=== PATIENT | female | born 1940 | race Caucasian/White ===

== ENCOUNTER 2017-05-13 17:27 | Inpatient (IN) ==
[2017-05-13] MEDS ORDERED: 0.9 % Sodium Chloride 1,000 ML IVC ONE ×2 (17:30→19:32)
--- NOTE | 2017-05-13 17:40 | Emergency Department Note ---
Disposition Clinical Impression: Poor appetite, Abnormal EKG, JESSICA (acute kidney injury) Disposition: Still a Patient Condition: Fair Referrals: Vanita Chavez CNP [Primary Care Provider] - Forms: ED Satisfaction Letter, Work/School Release Time of Disposition: 18:48 General Adult HPI - General Chief complaint: ED General Medical Stated complaint: Doesnt want to do anything Time Seen by Provider: 05/13/17 17:30 Source: patient, EMS Mode of arrival: EMS Limitations: altered mental status Nursing Notes Reviewed: Yes Vital Signs Reviewed: Yes - History of Present Illness HPI Narrative: 76-year-old female presents to the ER via EMS with a chief complaint of no appetite. EMS reports the family said that she has not wanted to eat for roughly 1 week. At the time of arrival no illicit bedside. The patient voices no complaints was that she does not want to eat. She denies any abdominal pain nausea or vomiting. No chest pain or shortness of breath. Says that she simply just does not want to eat. She is alert and oriented 2. No other complaints. Pt Subjective Complaint: No appetite Onset (ago): day(s) Pain Scale: 0 Improves with: nothing Worsens with: nothing Associated symptoms: Reports: denies other symptoms Treatments Prior to Arrival: none - Related Data Home Medications Medication Instructions Recorded Confirmed Allopurinol [Zyloprim] 100 mg PO DAILY 11/18/14 11/06/15 Aspirin Enteric Coated [Aspirin EC] 81 mg PO DAILY 11/18/14 11/06/15 Furosemide [Lasix] 40 mg PO BID 11/18/14 11/06/15 Lovastatin 80 mg PO DAILY #0 11/18/14 11/06/15 Albuterol Sulfate [Proair 2 puff IH Q4H PRN 07/02/15 11/06/15 Respiclick] Carbidopa/Levodopa [Carbidopa-Levo 1 tab PO BID 08/29/15 11/06/15 ER 50-200 Tab] Dronabinol [Marinol] 2.5 mg PO BID 08/29/15 11/06/15 Isosorbide MONOnitrate (24 HR) 30 mg PO DAILY 11/06/15 11/06/15 [Imdur] Metoprolol XL (24 HR) Succ [Toprol 25 mg PO DAILY 08/04/16 08/04/16 Xl] Mirtazapine 7.5 mg PO HS 11/06/15 11/06/15 Quinapril HCl [Accupril] 5 mg PO DAILY 11/06/15 11/06/15 Previous Rx's Medication Instructions Recorded Calcium Carbonate/Vitamin D3 2 tab PO DAILY #60 tab.chew 07/18/15 [Caltrate 600 + D Soft Chew Tab] Ergocalciferol (VITAMIN D2) 1 cap PO QWEEK #12 capsule 07/18/15 [Vitamin D2 (50,000 UNIT)] Apixaban [Eliquis] 2.5 mg PO BID #30 tablet 11/09/15 levoFLOXacin [Levaquin] 500 mg PO DAILY 2 Days tablet 11/09/15 Anastrozole [Arimidex] 1 mg PO DAILY #90 tablet 07/29/16 Allergies Allergy/AdvReac Type Severity Reaction Status Date / Time No Known Allergies Allergy Verified 07/02/15 10:43 All systems ED: reviewed and negative except as stated. Cardiovascular: Denies: chest pain Respiratory: Denies: dyspnea Gastrointestinal: Denies: abdominal pain, nausea, vomiting, diarrhea Past Medical History - Past Medical History Attestation: Yes The following information was validated with the patient. Source: old records reviewed Medical history: Reports: CHF, COPD, coronary artery disease, CVA, dementia, hyperlipidemia, hypertension, myocardial infarction, renal disease Surgical history: Reports: pacemaker/AICD Psychiatric history: Reports: no psych history - Social History Smoking Status: Former smoker Smokeless Tobacco Status: No Alcohol use: Reports: none Drug use: Reports: none Physical Exam - General Limitations: no limitations General appearance: alert, in no apparent distress - Head Head exam: atraumatic, normocephalic - Eye Eye exam: Present: normal appearance - ENT ENT exam: normal exam - Neck Neck exam: Present: normal inspection, full ROM - Chest Chest inspection: Present: normal inspection, symmetric chest wall rise - Respiratory Respiratory exam: Present: normal lung sounds bilaterally - Cardiovascular Cardiovascular exam: Present: regular rate, normal rhythm, normal heart sounds - Abdominal Exam Abdominal exam: Present: soft, Non-Tender. Absent: tenderness, guarding, rigidity - Extremities Exam Extremities exam: Present: normal inspection, full ROM - Expanded Upper Extremity Exam Shoulder exam: Present: normal inspection, full ROM Arm exam: Present: normal inspection, full ROM Elbow exam: Present: normal inspection, full ROM Forearm/Wrist exam: Present: normal inspection, full ROM Hand exam: Present: normal inspection, full ROM - Expanded Lower Extremity Exam Hip/Pelvis exam: Present: normal inspection, full ROM Upper leg exam: Present: normal inspection, full ROM Knee exam: Present: normal inspection, full ROM Lower leg exam: Present: normal inspection, full ROM Ankle exam: Present: normal inspection, full ROM Foot/toe exam: Present: normal inspection, full ROM - Skin Skin exam: Present: warm, dry Course Course Narrative: Patient seen and examined. Voices no complaints this time. We will do a CT of the abdomen and pelvis as well as labs and urinalysis. - Reevaluation(s) Reevaluation #1: Discussed results of imaging and labs with the patient's family present. The actual report that she has had difficulty with appetite for 2 months and was on medications previously to try to stimulate her appetite. States it is worsened over the last week. She has not complained of any chest or abdominal pain to them. Vital Signs Temperature 97.9 F 05/13/17 17:30 Pulse Rate 118 05/13/17 17:30 Respiratory Rate 18 05/13/17 17:30 Blood Pressure 127/80 05/13/17 17:30 O2 Sat by Pulse Oximetry 95 05/13/17 17:30 Temperature 97.9 F 05/13/17 17:30 Pulse Rate 78 05/13/17 17:42 Respiratory Rate 20 05/13/17 17:42 Blood Pressure 103/57 05/13/17 17:42 O2 Sat by Pulse Oximetry 98 05/13/17 17:42 Oxygen Delivery Oxygen Delivery Room Air Medical Decision Making - [facility] Narrative Medical decision making narrative: 76-year-old female presents to the ER due to poor appetite for 2 months with worsening over the last week. She does appear dry on exam. Family at bedside reports she has been on appetite stimulant without any help. It worsened over the last week. She has voiced no chest or abdominal pain to them. No nausea vomiting or diarrhea at home. Noted to have an abnormal CT with gallbladder wall thickening and distention. Right upper quadrant ultrasound ordered. LFTs and bilirubin are within normal limits. Her EKG shows changes with inverted T waves with a initial negative troponin. Patient denies any chest pain at this time. She is signed out to my 15 pending final labs and imaging. - Lab Data Lab results reviewed: Yes I reviewed the patient's lab results. Result diagrams: 05/13/17 17:42 05/13/17 17:42 Lab Results 05/13/17 05/13/17 Range/Units 17:42 17:42 WBC 12.5 H (4.3-11.1) K/mcL RBC 4.59 (3.82-4.97) M/mcL Hgb 12.5 (11.5-15.4) g/dL Hct 41.4 (35.3-44.9) % MCV 90.2 (83.0-100.0) fL MCH 27.2 L (28.0-33.3) pg MCHC 30.2 L (31.6-35.5) g/dL RDW 17.3 H (11.5-14.5) % Plt Count 244 (140-400) K/mcL MPV 11.1 (9.4-12.4) fL Immature Gran % 0.6 (0-4) % Seg Neutrophils % 82.8 % Lymphocytes % 8.3 % Monocytes % 7.9 % Eosinophils % 0.1 % Basophils % 0.3 % Neutrophils # 10.3 H (1.6-8.9) K/mcL Lymphocytes # 1.0 (0.6-4.6) K/mcL Monocytes # 1.0 (0.0-1.3) K/mcL Eosinophils # 0.0 (0.0-0.6) K/mcL Basophils # 0.0 (0.0-0.2) K/mcL Sodium 131 L (136-145) mEq/L Potassium 3.8 (3.5-5.1) mEq/L Chloride 89 L (98-107) mEq/L Carbon Dioxide 29 (23-29) mEq/L BUN 70 H (8-23) mg/dL Creatinine 2.77 H (0.60-1.20) mg/dL Est GFR ( Amer) 20 L (> 60) Est GFR (Non-Af Amer) 17 L (> 60) BUN/Creatinine Ratio 25 (6-26) Glucose 111 H (70-105) mg/dL Calculated Osmolality 293 (280-300) Calcium 10.5 H (8.6-10.3) mg/dL Total Bilirubin 0.6 (0.3-1.0) mg/dL Direct Bilirubin 0.3 H (0.0-0.2) mg/dL Indirect Bilirubin 0.3 (0.0-1.2) mg/dL AST 27 (13-39) Units/L ALT 10 (7-52) Units/L Alkaline Phosphatase 148 H (34-104) Units/L Serum Total Protein 7.4 (6.4-8.9) g/dL Albumin 3.6 (3.5-5.7) g/dL Globulin 3.8 H (2.4-3.5) g/dL Albumin/Globulin Ratio 0.9 L (1.1-2.2) Lipase 35 (11-82) Units/L - Radiology Data Radiology results reviewed: Yes I reviewed the patient's radiology results. Abdomen/Pelvis CT 05/13/17 17:31 IMPRESSION: Distended gallbladder with cholelithiasis and gallbladder wall thickening. This can be seen with acute cholecystitis in the proper clinical setting. Severe atherosclerotic disease. No acute bowel abnormality. Normal appendix. D/ / Jose Tobar MD / Jose Tobar MD Interpreting Provider: Jose Tobar MD Chest X-Ray 05/13/17 17:31 IMPRESSION: Mild bibasilar disease, likely atelectasis. Pneumonia is not excluded. D/ / Venkatesh Alas MD / Venkatesh Alas MD Interpreting Provider: Venkatesh Alas MD - EKG Data EKG #1 EKG attestation: Yes I reviewed and interpreted this EKG. EKG results narrative: EKG demonstrates sinus rhythm with right bundle branch block with a rate of 86 bpm. Left axis deviation. Prolonged QRS duration of 131. Noted to have T- wave inversions in leads V3 to V6. These appear new from prior EKG. No gross ST elevations. Slight depression in leads V3 through V5. Changes from previous EKG on 11/06/15. Attestation Statement - Attestation Attestation: I, Bassam Varela DO, examined this patient [id number] and my medical decision-making was reviewed with Dr. Sb Long, Resident Physician. I agree with the documented findings, disposition and treatment plan as described except to the extent set forth below. Please see my progress notes for details. 76-year-old female presents to the emergency room from home for evaluation of confusion. Family is concerned about possible urinary tract infection. Patient has had these in the past. Patient denies any recent falls or injuries. She is pleasantly demented secondary to previous stroke does have stable right-sided deficit. EMS transport was uneventful with no other abnormalities. Vital signs were stable throughout the entire transportation. On presentation and patient does not show any acute signs neurologic deficit. Her lungs are clear heart is regular abdomen is soft she has no point tenderness guarding or rigidity. Patient denies any pain or other symptoms on exam. She does not feel like anything is wrong with her at this time. Patient does not show any acute signs of pitting edema or swelling. No other acute findings noted initially. CT imaging of the abdomen chest x-ray EKG labs looking for urinary tract infection and cardiac related illness will be completed this point. Disposition be determined. Family will be contacted on evaluation. Patient will have urinalysis collected as well. See detailed documentation of the physical exam, medical intervention, medical decision- making and disposition and the resident physician's note. No other critical care department this patient's treatment course 1825 Patient found to have elevated white blood cell count as well as acute kidney insufficiency. Hydration will be given. CT imaging of the abdomen is concerning for acute cholecystitis secondary to cholelithiasis. There is a nonobstructed pathology based on laboratory workup with ultrasound of the right upper quadrant will be completed. EKG was reviewed from earlier in there are new ischemic changes aside depressions that are worse than previous EKG. Patient is denying chest pain and troponin was negative. Ultrasound of the complaint of the right upper quadrant. Patient will be signed out to the nighttime physician and most likely require admission to the hospital for fluid hydration and evaluation. See detailed documentation of the signout as well as recommendations.
[2017-05-13 17:54] LABS: Basophils % 0.3 %; Eosinophils % 0.1 %; Hematocrit 41.4 % (35.3-44.9); Hemoglobin 12.5 g/dL (11.5-15.4); Immature Granulocytes % 0.6 % (0-4); Lymphocytes % 8.3 %; Mean Corpuscular HGB Conc 30.2 g/dL (31.6-35.5); Mean Corpuscular Hemoglobin 27.2 pg (28.0-33.3); Mean Corpuscular Volume 90.2 fL (83.0-100.0); Mean Platelet Volume 11.1 fL (9.4-12.4); Monocytes % 7.9 %; Neutrophils # 10.3 K/mcL (1.6-8.9); Platelet Count 244 K/mcL (140-400); Red Blood Count 4.59 M/mcL (3.82-4.97); Red Cell Distribution Width 17.3 % (11.5-14.5); Segmented Neutrophils % 82.8 %
[2017-05-13 18:11] LABS: Albumin 3.6 g/dL (3.5-5.7); Albumin/Globulin Ratio 0.9 (1.1-2.2); Bilirubin,Direct 0.3 mg/dL (0.0-0.2); Bilirubin,Indirect 0.3 mg/dL (0.0-1.2); Bilirubin,Total 0.6 mg/dL (0.3-1.0); Calcium 10.5 mg/dL (8.6-10.3); Globulin 3.8 g/dL (2.4-3.5); Potassium 3.8 mEq/L (3.5-5.1); Total Protein 7.4 g/dL (6.4-8.9)
[2017-05-13 18:53] LABS: Bilirubin,Urine Small (Negative); Blood,Urine Small (Negative); Clarity,Urine Cloudy (Clear); Color,Urine Yellow (Yellow); Glucose,Urine (UA) Normal (Normal); Ketones,Urine Negative (Negative); Leukocyte Esterase,Urine Large (Negative); Nitrite,Urine Negative (Negative); Protein,Urine Trace mg/dL (Neg-Trace); Specific Gravity,Urine 1.016 (1.010-1.025); Urobilinogen,Urine Normal (Normal)
[2017-05-13 18:55] LABS: Bacteria,Urine Few per hpf (None-Few); Hyaline Casts,Urine None Seen per lpf (None-Few); Squamous Epithelial Cell,Urine Many per lpf (None-Few); WBC,Urine 50-100 per hpf (0-3)
[2017-05-13 19:09] LABS: RBC,Urine 0-3 per hpf (0-3)
[2017-05-13 19:10] LABS: Calcium Oxalate Crystals,Urine Present; Yeast,Urine Few per hpf (None Seen)
--- NOTE | 2017-05-13 19:10 | Emergency Department Note ---
Disposition Clinical Impression: Poor appetite, Abnormal EKG, JESSICA (acute kidney injury), Thickening of wall of gallbladder UTI (urinary tract infection) Qualifiers: Urinary tract infection type: site unspecified Hematuria presence: without hematuria Qualified Code(s): N39.0 - Urinary tract infection, site not specified Disposition: Admitted As Inpatient Condition: Fair Referrals: Vanita Chavez, INJECTION MOLDING OPERATOR [Primary Care Provider] - Forms: ED Satisfaction Letter, Work/School Release Time of Disposition: 20:08 General Adult HPI - General Chief complaint: ED General Medical Stated complaint: Doesnt want to do anything Time Seen by Provider: 05/13/17 17:30 Source: patient, EMS Mode of arrival: EMS Limitations: no limitations Nursing Notes Reviewed: Yes Vital Signs Reviewed: Yes - History of Present Illness Pain Scale: 0 Improves with: nothing Worsens with: nothing Associated symptoms: Reports: denies other symptoms Treatments Prior to Arrival: none - Related Data Home Medications Medication Instructions Recorded Confirmed Allopurinol [Zyloprim] 100 mg PO DAILY 11/18/14 11/06/15 Aspirin Enteric Coated [Aspirin EC] 81 mg PO DAILY 11/18/14 11/06/15 Furosemide [Lasix] 40 mg PO BID 11/18/14 11/06/15 Lovastatin 80 mg PO DAILY #0 11/18/14 11/06/15 Albuterol Sulfate [Proair 2 puff IH Q4H PRN 07/02/15 11/06/15 Respiclick] Carbidopa/Levodopa [Carbidopa-Levo 1 tab PO BID 08/29/15 11/06/15 ER 50-200 Tab] Dronabinol [Marinol] 2.5 mg PO BID 08/29/15 11/06/15 Isosorbide MONOnitrate (24 HR) 30 mg PO DAILY 11/06/15 11/06/15 [Imdur] Metoprolol XL (24 HR) Succ [Toprol 25 mg PO DAILY 11/06/15 11/06/15 Xl] Mirtazapine 7.5 mg PO HS 11/06/15 11/06/15 Quinapril HCl [Accupril] 5 mg PO DAILY 11/06/15 11/06/15 Previous Rx's Medication Instructions Recorded Calcium Carbonate/Vitamin D3 2 tab PO DAILY #60 tab.chew 07/18/15 [Caltrate 600 + D Soft Chew Tab] Ergocalciferol (VITAMIN D2) 1 cap PO QWEEK #12 capsule 07/18/15 [Vitamin D2 (50,000 UNIT)] Apixaban [Eliquis] 2.5 mg PO BID #30 tablet 11/09/15 levoFLOXacin [Levaquin] 500 mg PO DAILY 2 Days tablet 11/09/15 Anastrozole [Arimidex] 1 mg PO DAILY #90 tablet 07/29/16 Allergies Allergy/AdvReac Type Severity Reaction Status Date / Time No Known Allergies Allergy Verified 05/13/17 19:11 Cardiovascular: Denies: chest pain Respiratory: Denies: dyspnea Gastrointestinal: Denies: abdominal pain, nausea, vomiting, diarrhea Past Medical History - Past Medical History Medical history: Reports: CHF, COPD, coronary artery disease, CVA, dementia, hyperlipidemia, hypertension, myocardial infarction, renal disease Surgical history: Reports: pacemaker/AICD Psychiatric history: Reports: no psych history - Social History Smoking Status: Former smoker Smokeless Tobacco Status: No Alcohol use: Reports: none Drug use: Reports: none Physical Exam - General Limitations: no limitations General appearance: alert, in no apparent distress - Head Head exam: atraumatic, normocephalic, normal inspection - Eye Eye exam: Present: normal appearance, PERRL, EOMI - ENT ENT exam: normal exam, normal oropharynx, mucous membranes moist - Neck Neck exam: Present: normal inspection, full ROM, trachea midline - Chest Chest inspection: Present: normal inspection, symmetric chest wall rise - Respiratory Respiratory exam: Present: normal lung sounds bilaterally. Absent: wheezes, accessory muscle use, prolonged expiratory phase - Cardiovascular Cardiovascular exam: Present: normal rhythm, tachycardia, normal heart sounds - Abdominal Exam Abdominal exam: Present: soft, Non-Tender. Absent: tenderness, distention, guarding, rebound, rigidity - Extremities Exam Extremities exam: Present: normal inspection, full ROM. Absent: tenderness, pedal edema - Neurological Exam Neurological exam: Present: alert, oriented X3 - Psychiatric Psychiatric exam: Present: normal affect, normal mood - Skin Skin exam: Present: warm, dry, intact, normal color Course Course Narrative: Patient was a signout from Dr. Long and Dr. Varela. Please see their notes for any additional details. In summary, patient is a 76-year-old female that presented via EMS due to no appetite. The family is present and states that she has not wanted to eat for one week. However, she denies any other complaints of chest pain, shortness breath, nausea, vomiting or fevers, diarrhea. She states that she simply does not want to eat. No known cancer history. Labs show possible UTI along with thickening of the gallbladder wall a cholelithiasis on CT of the abdomen and pelvis. She is currently pending an ultrasound of the right upper quadrant for further evaluation. Patient also has evidence of JESSICA on labs. EKG shows evidence of right bundle-branch block and ST depression and T wave inversions in V 3 through the 6. This is present on old EKG on 11/06/15 . Patient has been given fluids. We will start the patient on ceftriaxone for UTI. 20:05 gallbladder ultrasound does show a distended gallbladder with mild/ sludge and gallbladder wall is mildly thickened but there is no pericholecystic fluid, negative Berger sign. There is also mildly dilated common bile duct with stone not visualized by ultrasound. On physical exam, patient has no abdominal tenderness specifically no tenderness in the right upper quadrant. She denies any history of nausea, vomiting, no elevation in LFTs. I do believe that this is likely an incidental finding. I would recommend MRCP once admitted if patient is able to have MRI for further assessment for any retained duct stone. Otherwise, patient will be admitted for decreased appetite, a K I, abnormal gallbladder, UTI. Abdomen/Pelvis CT 05/13/17 17:31 IMPRESSION: Distended gallbladder with cholelithiasis and gallbladder wall thickening. This can be seen with acute cholecystitis in the proper clinical setting. Severe atherosclerotic disease. No acute bowel abnormality. Normal appendix. D/ / Jose Tobar MD / Jose Tobar MD Interpreting Provider: Jose Tobar MD Chest X-Ray 05/13/17 17:31 IMPRESSION: Mild bibasilar disease, likely atelectasis. Pneumonia is not excluded. D/ / Venkatesh Alas MD / Venkatesh Alas MD Interpreting Provider: Venkatesh Alas MD Gallbladder Ultrasound 05/13/17 18:19 IMPRESSION: The gallbladder is distended with thick bile/ sludge and a few gallstones. Gallbladder wall is borderline thickened. There was a negative sonographic Berger sign. No pericholecystic fluid. Common duct is mildly dilated measuring 9.8 mm. A small stone in the distal duct not visualized by ultrasound should be considered. D/ / Venkatesh Alas MD / Venkatesh Alas MD Interpreting Provider: Venkatesh Alas MD Vital Signs Temperature 97.9 F 05/13/17 17:30 Pulse Rate 118 05/13/17 17:30 Respiratory Rate 18 05/13/17 17:30 Blood Pressure 127/80 05/13/17 17:30 O2 Sat by Pulse Oximetry 95 05/13/17 17:30 Temperature 97.9 F 05/13/17 17:30 Pulse Rate 77 05/13/17 19:00 Respiratory Rate 20 05/13/17 19:00 Blood Pressure 99/41 05/13/17 19:00 O2 Sat by Pulse Oximetry 94 05/13/17 19:00 Oxygen Delivery Oxygen Delivery Room Air Medical Decision Making - MDM Narrative Medical decision making narrative: Patient was a signout from Dr. Long and Dr. Varela. Please see their notes for any additional details. In summary, patient is a 76-year-old female that presented via EMS due to no appetite. The family is present and states that she has not wanted to eat for one week. However, she denies any other complaints of chest pain, shortness breath, nausea, vomiting or fevers, diarrhea. She states that she simply does not want to eat. No known cancer history. Labs show possible UTI along with thickening of the gallbladder wall a cholelithiasis on CT of the abdomen and pelvis. She is currently pending an ultrasound of the right upper quadrant for further evaluation. Patient also has evidence of JESSICA on labs. EKG shows evidence of right bundle-branch block and ST depression and T wave inversions in V 3 through the 6. This is present on old EKG on 11/06/15 . Patient has been given fluids. We will start the patient on ceftriaxone for UTI. 20:05 gallbladder ultrasound does show a distended gallbladder with mild/ sludge and gallbladder wall is mildly thickened but there is no pericholecystic fluid, negative Berger sign. There is also mildly dilated common bile duct with stone not visualized by ultrasound. On physical exam, patient has no abdominal tenderness specifically no tenderness in the right upper quadrant. She denies any history of nausea, vomiting, no elevation in LFTs. I do believe that this is likely an incidental finding. I would recommend MRCP once admitted if patient is able to have MRI for further assessment for any retained duct stone. Otherwise, patient will be admitted for decreased appetite, a K I, abnormal gallbladder, UTI. - Medical Records Medical records reviewed: Yes I reviewed the patient's medical records. - Lab Data Lab results reviewed: Yes I reviewed the patient's lab results. Result diagrams: 05/13/17 17:42 05/13/17 17:42 Lab Results 05/13/17 05/13/17 05/13/17 Range/Units 17:42 17:42 18:41 WBC 12.5 H (4.3-11.1) K/mcL RBC 4.59 (3.82-4.97) M/mcL Hgb 12.5 (11.5-15.4) g/dL Hct 41.4 (35.3-44.9) % MCV 90.2 (83.0-100.0) fL MCH 27.2 L (28.0-33.3) pg MCHC 30.2 L (31.6-35.5) g/dL RDW 17.3 H (11.5-14.5) % Plt Count 244 (140-400) K/mcL MPV 11.1 (9.4-12.4) fL Immature Gran % 0.6 (0-4) % Seg Neutrophils % 82.8 % Lymphocytes % 8.3 % Monocytes % 7.9 % Eosinophils % 0.1 % Basophils % 0.3 % Neutrophils # 10.3 H (1.6-8.9) K/mcL Lymphocytes # 1.0 (0.6-4.6) K/mcL Monocytes # 1.0 (0.0-1.3) K/mcL Eosinophils # 0.0 (0.0-0.6) K/mcL Basophils # 0.0 (0.0-0.2) K/mcL Sodium 131 L (136-145) mEq/L Potassium 3.8 (3.5-5.1) mEq/L Chloride 89 L (98-107) mEq/L Carbon Dioxide 29 (23-29) mEq/L BUN 70 H (8-23) mg/dL Creatinine 2.77 H (0.60-1.20) mg/dL Est GFR ( Amer) 20 L (> 60) Est GFR (Non-Af Amer) 17 L (> 60) BUN/Creatinine Ratio 25 (6-26) Glucose 111 H (70-105) mg/dL Calculated Osmolality 293 (280-300) Lactic Acid (0.5-2.2) mmol/L Calcium 10.5 H (8.6-10.3) mg/dL Total Bilirubin 0.6 (0.3-1.0) mg/dL Direct Bilirubin 0.3 H (0.0-0.2) mg/dL Indirect Bilirubin 0.3 (0.0-1.2) mg/dL AST 27 (13-39) Units/L ALT 10 (7-52) Units/L Alkaline Phosphatase 148 H (34-104) Units/L Serum Total Protein 7.4 (6.4-8.9) g/dL Albumin 3.6 (3.5-5.7) g/dL Globulin 3.8 H (2.4-3.5) g/dL Albumin/Globulin Ratio 0.9 L (1.1-2.2) Lipase 35 (11-82) Units/L Urine Color Yellow (Yellow) Urine Clarity Cloudy A (Clear) Urine pH 7.0 (5.0-8.0) pH Units Ur Specific [place] 1.016 (1.010-1.025) Urine Protein Trace (Neg-Trace) mg/dL Urine Glucose (UA) Normal (Normal) mg/dL Urine Ketones Negative (Negative) mg/dL Urine Blood Small H (Negative) Urine Nitrite Negative (Negative) Urine Bilirubin Small H (Negative) Urine Urobilinogen Normal (Normal) mg/dL Ur Leukocyte Esterase Large H (Negative) Urine Microscopic RBC 0-3 (0-3) per hpf Urine Microscopic WBC 50-100 H (0-3) per hpf Ur Squamous Epith Cells Many H (None-Few) per lpf Calcium Oxalate Crystal Present Urine Bacteria Few (None-Few) per hpf Hyaline Casts None Seen (None-Few) per lpf Urine Yeast Few H (None Seen) per hpf Ur Culture Indicated? NO. (NO) 05/13/17 Range/Units 18:41 WBC (4.3-11.1) K/mcL RBC (3.82-4.97) M/mcL Hgb (11.5-15.4) g/dL Hct (35.3-44.9) % MCV (83.0-100.0) fL MCH (28.0-33.3) pg MCHC (31.6-35.5) g/dL RDW (11.5-14.5) % Plt Count (140-400) K/mcL MPV (9.4-12.4) fL Immature Gran % (0-4) % Seg Neutrophils % % Lymphocytes % % Monocytes % % Eosinophils % % Basophils % % Neutrophils # (1.6-8.9) K/mcL Lymphocytes # (0.6-4.6) K/mcL Monocytes # (0.0-1.3) K/mcL Eosinophils # (0.0-0.6) K/mcL Basophils # (0.0-0.2) K/mcL Sodium (136-145) mEq/L Potassium (3.5-5.1) mEq/L Chloride (98-107) mEq/L Carbon Dioxide (23-29) mEq/L BUN (8-23) mg/dL Creatinine (0.60-1.20) mg/dL Est GFR ( Amer) (> 60) Est GFR (Non-Af Amer) (> 60) BUN/Creatinine Ratio (6-26) Glucose (70-105) mg/dL Calculated Osmolality (280-300) Lactic Acid 1.7 (0.5-2.2) mmol/L Calcium (8.6-10.3) mg/dL Total Bilirubin (0.3-1.0) mg/dL Direct Bilirubin (0.0-0.2) mg/dL Indirect Bilirubin (0.0-1.2) mg/dL AST (13-39) Units/L ALT (7-52) Units/L Alkaline Phosphatase (34-104) Units/L Serum Total Protein (6.4-8.9) g/dL Albumin (3.5-5.7) g/dL Globulin (2.4-3.5) g/dL Albumin/Globulin Ratio (1.1-2.2) Lipase (11-82) Units/L Urine Color (Yellow) Urine Clarity (Clear) Urine pH (5.0-8.0) pH Units Ur Specific [place] (1.010-1.025) Urine Protein (Neg-Trace) mg/dL Urine Glucose (UA) (Normal) mg/dL Urine Ketones (Negative) mg/dL Urine Blood (Negative) Urine Nitrite (Negative) Urine Bilirubin (Negative) Urine Urobilinogen (Normal) mg/dL Ur Leukocyte Esterase (Negative) Urine Microscopic RBC (0-3) per hpf Urine Microscopic WBC (0-3) per hpf Ur Squamous Epith Cells (None-Few) per lpf Calcium Oxalate Crystal Urine Bacteria (None-Few) per hpf Hyaline Casts (None-Few) per lpf Urine Yeast (None Seen) per hpf Ur Culture Indicated? (NO) - Radiology Data Radiology results reviewed: Yes I reviewed the patient's radiology results. S.B.Nithya - Ceci.Kitty Situation: Demographics, MOA Background: Presenting Complaint, Relevant PMH, Meds, & Allergies Assessment: Vital Signs, Course and respsone to treatment, Exam Concerns, Patient/Family Expectation, Pertinant Lab Results, Outstanding Labs Recommendation: Barrier(s) to disposition, Recommendation based on pending studies, treatments, or consults S.B.Nithya Report Given to: Dr. Margo Rodriguez Repor Time: 20:07 Attestation Statement - Attestation Attestation: I examined this patient and my medical decision-making was reviewed with the Resident Physician. I agree with the documented findings, disposition and treatment plan as described except to the extent set forth below. Patient to ED with failure to thrive. Not eating. Losing weight. Brought in the family concerns after a month of this going on. She was signed out as pending labs and reevaluation. Patient has an acute kidney injury. White count. UTI. She is tachycardic. She meet severe sepsis criteria. She received IV fluids. IV Rocephin. Gallbladder abnormalities on ultrasound. She is having no tenderness over her RUQ. She is admitted to medicine.
[2017-05-13] MEDS ORDERED: cefTRIAXone 1,000 MG in Water for inj. (sterile) 20 ML 10 ML IVP ONE (21:00)
[2017-05-13] MEDS ORDERED: Ondansetron 4 MG/2 ML VIAL IVP PRN (22:15)
[2017-05-13] MEDS ORDERED: MOM Conc 10 ML UD.LIQ PO PRN (22:15)
[2017-05-13] MEDS ORDERED: traMADol 50 MG TABLET PO PRN (22:15)
[2017-05-13] MEDS ORDERED: *HR* Promethazine 25 MG/ML VIAL IVP PRN (22:15)
[2017-05-13] MEDS ORDERED: *HR* OxyCODONE Immed Rel 5 MG TABLET PO PRN (22:15)
[2017-05-13] MEDS ORDERED: Naloxone 0.4 MG/ML INJ IVP PRN (22:15)
[2017-05-13] MEDS ORDERED: Acetaminophen 325 MG TABLET PO PRN (22:15)
--- NOTE | 2017-05-13 22:47 | Internal Med History&Physical ---
Date of Encounter: 05/13/17 Time of Encounter: 20:30 Assessment and Plan (1) Cholecystitis Current visit: Yes Status: Acute Will admit the pt into Tele Reviewed her CT of Abd - showed cholelithiasis slightly enlarged CBD Reviewed U/S GB - showed thickened GB wall, possible sludge , and cholelithiasis started on empirical abx Rocephin IV hydration PO Analgesics PRN MRCP - in AM Consulted surgery for further eval so far normal LEF and lipase, except slightly elevated Alk phos Will get 2 D Echo in AM .. as pre op work up Also will consult Card in AM..pre op clearance if Surgery decided to do surgery (2) Cholelithiasis Current visit: Yes Status: Acute Qualifiers: Qualified Code(s): K80.00 - Calculus of gallbladder with acute cholecystitis without obstruction (3) COPD (chronic obstructive pulmonary disease) Current visit: Yes Status: Acute Not in exacerbation resumed home INH Qualifiers: Qualified Code(s): J44.9 - Chronic obstructive pulmonary disease, unspecified (4) JESSICA (acute kidney injury) Current visit: Yes Status: Acute JESSICA with CKD-3 IV hydration avoid nephro toxic meds (5) UTI (urinary tract infection) Current visit: Yes Status: Acute Reviewed UA - showed Bacteria + WBC started on Rocephin check Urine cx Qualifiers: Urinary tract infection type: site unspecified Hematuria presence: without hematuria Qualified Code(s): N39.0 - Urinary tract infection, site not specified (6) Systolic CHF Current visit: Yes Status: Chronic Not in exacerbation reviewed previous 2-D echo which showed the LVEF at 40% we will repeat another echocardiogram in the morning ? Home medications Qualifiers: Heart failure chronicity: chronic Qualified Code(s): I50.22 - Chronic systolic (congestive) heart failure (7) CAD (coronary artery disease) Current visit: No Status: Acute CAD s/p SENIA in the past resumed all home meds Qualifiers: Qualified Code(s): I25.10 - Atherosclerotic heart disease of [place] coronary artery without angina pectoris (8) CKD (chronic kidney disease), stage III Current visit: No Status: Acute (9) Generalized weakness Current visit: No Status: Acute (10) History of dementia Current visit: No Status: Acute (11) Weight loss Current visit: No Status: Acute (12) Cardiomyopathy Current visit: No Status: Chronic Qualifiers: Qualified Code(s): I42.9 - Cardiomyopathy, unspecified (13) HTN (hypertension) Current visit: No Status: Chronic resumed all home meds Qualifiers: Hypertension type: essential hypertension Qualified Code(s): I10 - Essential (primary) hypertension (14) Hyperlipidemia Current visit: No Status: Chronic Qualifiers: Hyperlipidemia type: unspecified Qualified Code(s): E78.5 - Hyperlipidemia , unspecified Internal Medicine - H&P: HPI Chief complaint: Dehydration / Weakness Admitted From: Emergency Dept Plans for Post Hospital Care: Home History of present illness: Ms. Cabrera is a 76 year old female with known PMH of systolic CHF, COPD, CVA, dementia, hyperlipidemia, hypertension, myocardial infarction and CKD-3 who lives with her fmaily was brought into ER by family today stating that from last one week pt became more weak, lethargic and confused than baseline. She is also not eating well and c/o loss of appetite. She had further work up done in the ER, her UA looks abnormal with bacteria and WBC, also her CT of abd showed cholelithiasis, slightly dilated CBD and Cholelithiasis. Pt denied any abdominal pain. She is alert, awake and Oriented to self only. Looks demented and confused. All this history was given by son who is at bed side. As per family she did not have any vomiting / nausea. Past Med Surg Social Fam HX - Past Medical History Medical history: CHF, COPD, coronary artery disease, CVA, dementia, hyperlipidemia, hypertension, myocardial infarction, renal disease Psychiatric history: no psych history - Past Surgical History Surgical History: pacemaker/AICD - Social History Smoking Status: Former smoker Smokeless Tobacco Status: No Alcohol use: none Drug use: none - Family History Mother Living Status: Hx Family Respiratory Disorders: Yes Hx Family Cancer: Yes Father Living Status: Hx Family GI Disorders: Yes Internal Medicine - H&P: Meds Allopurinol [Zyloprim] 100 mg PO DAILY 11/18/14 [History] Aspirin Enteric Coated [Aspirin EC] 81 mg PO DAILY 11/18/14 [History] Furosemide [Lasix] 40 mg PO BID 11/18/14 [History] Lovastatin 80 mg PO DAILY #0 11/18/14 [History] Albuterol Sulfate [Proair Respiclick] 2 puff IH Q4H PRN 07/02/15 [History] Calcium Carbonate/Vitamin D3 [Caltrate 600 + D Soft Chew Tab] 2 tab PO DAILY # 60 tab.chew 07/18/15 [Rx] Ergocalciferol (VITAMIN D2) [Vitamin D2 (50,000 UNIT)] 1 cap PO QWEEK #12 capsule 07/18/15 [Rx] Carbidopa/Levodopa [Carbidopa-Levo ER 50-200 Tab] 1 tab PO BID 08/29/15 [History ] Dronabinol [Marinol] 2.5 mg PO BID 08/29/15 [History] Isosorbide MONOnitrate (24 HR) [Imdur] 30 mg PO DAILY 11/06/15 [History] Metoprolol XL (24 HR) Succ [Toprol Xl] 25 mg PO DAILY 11/06/15 [History] Mirtazapine 7.5 mg PO HS 11/06/15 [History] Quinapril HCl [Accupril] 5 mg PO DAILY 11/06/15 [History] Apixaban [Eliquis] 2.5 mg PO BID #30 tablet 11/09/15 [Rx] levoFLOXacin [Levaquin] 500 mg PO DAILY 2 Days tablet 11/09/15 [Rx] Anastrozole [Arimidex] 1 mg PO DAILY #90 tablet 07/29/16 [Rx] 3 Allergy/AdvReac Type Severity Reaction Status Date / Time No Known Allergies Allergy Verified 05/13/17 19:11 All Systems PM: A 10-system review of systems was performed and is negative for pertinent findings except as documented above in the HPI. Review of systems: All the systems are reviewed everything is benign except the systems and symptoms I mentioned in the history of present illness - Constitutional Vitals: Temp Pulse Resp BP Pulse Ox 98.0 F 84 18 102/50 92 05/13/17 21:18 05/13/17 21:18 05/13/17 21:18 05/13/17 21:18 05/13/17 21:18 General appearance: Present: cooperative, A&O X 1 Exam: Looks pretty lethargic and weak - Head Head exam: Present: atraumatic, normal inspection - Neck Neck exam general surgery: Present: supple - Respiratory Respiratory exam: Present: decreased breath sounds. Absent: rales, respiratory distress, rhonchi, wheezes - Cardiovascular Cardiovascular exam: Present: RRR, +S1, +S2. Absent: tachycardia - GI/Abdominal GI/Abdominal exam: Present: normal bowel sounds, soft. Absent: distended, guarding, hepatomegaly, rebound, rigid, tenderness - Extremities Exam Extremities exam: Absent: calf tenderness, pedal edema, tenderness - Back Exam Back exam: Absent: CVA tenderness (L), CVA tenderness (R) - Neurological Exam Neurological exam: Present: alert, altered Additional comments: Unable to perform thorough neurological examination due to her dementia - Psychiatric Additional comments: Demented and confused - Skin Skin exam: Present: dry Additional comments: Dry mucous membranes Internal Med - H&P Results - Labs CBC & Chem 7: 05/13/17 17:42 05/13/17 17:42
[2017-05-13] MEDS: D5% in 0.9% NACL 1,000 ML IVC SCH (23:54)
[2017-05-14 06:34] LABS: Basophils % 0.3 %; Eosinophils % 0.1 %; Hematocrit 38.4 % (35.3-44.9); Hemoglobin 11.7 g/dL (11.5-15.4); Immature Granulocytes % 0.5 % (0-4); Lymphocytes # 1.1 K/mcL (0.6-4.6); Lymphocytes % 7.4 %; Mean Corpuscular HGB Conc 30.5 g/dL (31.6-35.5); Mean Corpuscular Hemoglobin 27.7 pg (28.0-33.3); Mean Corpuscular Volume 90.8 fL (83.0-100.0); Mean Platelet Volume 12.1 fL (9.4-12.4); Monocytes # 1.4 K/mcL (0.0-1.3); Monocytes % 9.2 %; Neutrophils # 12.5 K/mcL (1.6-8.9); Platelet Count 244 K/mcL (140-400); Red Blood Count 4.23 M/mcL (3.82-4.97); Red Cell Distribution Width 17.4 % (11.5-14.5); Segmented Neutrophils % 82.5 %
[2017-05-14 06:35] LABS: INR 2.2; Prothrombin Time 23.6 Seconds (9.4-12.1)
[2017-05-14 06:45] LABS: Albumin 3.4 g/dL (3.5-5.7); Albumin/Globulin Ratio 0.9 (1.1-2.2); Bilirubin,Total 0.5 mg/dL (0.3-1.0); Calcium 9.6 mg/dL (8.6-10.3); Chol/HDL Ratio 2.5 (0-4.9); Globulin 3.6 g/dL (2.4-3.5); Potassium 3.4 mEq/L (3.5-5.1)
[2017-05-14] MEDS: *HR* Heparin 5,000 UNIT/ML VIAL SQ SCH ×2 (06:46→16:29)
[2017-05-14] MEDS: D5% in 0.9% NACL 1,000 ML IVC SCH ×2 (09:17→21:02)
[2017-05-14] MEDS: cefTRIAXone 1,000 MG in Water for inj. (sterile) 20 ML 10 ML IVP SCH (09:18)
--- NOTE | 2017-05-14 16:16 | Internal Med Progress Note ---
Date of Encounter: 05/14/17 Time of Encounter: 09:00 - Assessment and plan (1) UTI (urinary tract infection) Current Visit: Yes Status: Acute Assessment and plan: Urinalysis shows negative nitrite, large leukocyte esterase, 50-100 WBC, few bacteria. Follow-up urine culture and continue IV Rocephin. Qualifiers: Urinary tract infection type: site unspecified Hematuria presence: without hematuria Qualified Code(s): N39.0 - Urinary tract infection, site not specified (2) Cholecystitis Current Visit: Yes Status: Acute Assessment and plan: Patient presented with lethargy and anorexia, right upper quadrant tenderness. CT abdomen/pelvis shows distended gallbladder with gallstones and gallbladder wall thickening. Right upper quadrant ultrasound shows thickened gallbladder with sludge and gallstones, slightly dilated common bile duct measuring 9.8 mm. Continue bowel rest, IV hydration, supportive care with when necessary pain medications and antiemetics. Case discussed with general surgery, plan for laparoscopic cholecystectomy tomorrow. We will check echocardiogram for preoperative clearance- echo report shows 55% ejection fraction, mild left ventricular diastolic dysfunction, no new wall motion abnormalities. Patient has intermediate perioperative risk for a low-risk surgery. (3) JESSICA (acute kidney injury) Current Visit: Yes Status: Acute Assessment and plan: Patient has history of chronic kidney disease, baseline serum creatinine noted to be around 1.3-1.4. Acute rise in creatinine likely due to dehydration and poor oral intake, with use of diuretics and KARLA inhibitor at home, improving with IV hydration-currently 2.17. Continue to monitor closely, avoid nephrotoxic agents. Hold KARLA inhibitor and Lasix. (4) COPD (chronic obstructive pulmonary disease) Current Visit: Yes Status: Chronic Assessment and plan: Not in acute exacerbation. Continue bronchodilators and supplemental oxygen as needed. Qualifiers: COPD type: unspecified COPD Qualified Code(s): J44.9 - Chronic obstructive pulmonary disease, unspecified (5) CKD (chronic kidney disease), stage III Current Visit: Yes Status: Chronic (6) Elevated troponin Current Visit: Yes Status: Acute Assessment and plan: Patient has history of mild troponin leak, current troponin at 0.09 consistent with possible demand ischemia. Does not endorse chest pain at this time, no EKG changes. Continue telemetry monitoring, trend troponins and home medications. (7) History of atrial flutter Current Visit: Yes Status: Chronic Assessment and plan: Currently rate controlled. Continue beta jesse. Hold anticoagulation with Eliquis in anticipation of surgery. (8) History of dementia Current Visit: Yes Status: Chronic Assessment and plan: Supportive care and fall precautions. (9) Parkinsons Current Visit: Yes Status: Chronic (10) CAD (coronary artery disease) Current Visit: Yes Status: Chronic Assessment and plan: Continue aspirin, statin, beta jesse, hold KARLA inhibitor as above. Telemetry monitoring and serial troponins. Qualifiers: Coronary Disease-Associated Artery/Lesion type: [place] artery [place] vs. transplanted heart: [place] heart Associated angina: without angina Qualified Code(s): I25.10 - Atherosclerotic heart disease of [place] coronary artery without angina pectoris (11) HTN (hypertension) Current Visit: Yes Status: Chronic Qualifiers: Hypertension type: essential hypertension Qualified Code(s): I10 - Essential (primary) hypertension (12) Hyperlipidemia Current Visit: Yes Status: Chronic Qualifiers: Hyperlipidemia type: unspecified Qualified Code(s): E78.5 - Hyperlipidemia , unspecified (13) Primary breast cancer Current Visit: Yes Status: Inactive Qualifiers: Laterality: unspecified laterality Qualified Code(s): C50.919 - Malignant neoplasm of unspecified site of unspecified female breast (14) Congestive heart failure Current Visit: Yes Status: Chronic Assessment and plan: Echocardiogram reviewed, ejection fraction seems to have improved to 55%, shows mild left-ventricular diastolic dysfunction. Hold Lasix due to acute kidney injury. Continue beta jesse and telemetry. Qualifiers: Heart failure type: systolic Heart failure chronicity: chronic Qualified Code(s): I50.22 - Chronic systolic (congestive) heart failure - Subjective Interval history: Unable to provide history. Noted to be confused. Denies abdominal pain, vomiting, diarrhea. 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 Absent: answers questions appropriately - Respiratory Respiratory exam: Present: CTAB. Absent: accessory muscle use, rales, rhonchi, wheezes - Cardiovascular Cardiovascular exam: Present: RRR, +S1, +S2. Absent: diastolic murmur, gallop, rubs, systolic murmur - GI/Abdominal GI/Abdominal exam: Present: normal bowel sounds, soft (tenderness in RUQ, epigastrium and LUQ; no guarding or rigidity), no peritoneal signs. Absent: distended, tenderness - Extremities Exam Extremities exam: Present: full ROM, pedal edema (trace dependent), warm, radial pulses palpable and symmetrical. Absent: calf tenderness, cyanotic - Neurological Exam Neurological exam: Present: altered, CN II-XII intact, no focal deficits. Absent: pronater drift, facial droop, speech deficit Internal Medicine: Result - Labs CBC & Chem 7: 05/14/17 05:41 05/14/17 05:41 Labs: Short CBC 05/14/17 Range/Units 05:41 WBC 15.2 H (4.3-11.1) K/mcL Hgb 11.7 (11.5-15.4) g/dL Hct 38.4 (35.3-44.9) % Plt Count 244 (140-400) K/mcL Neutrophils # 12.5 H (1.6-8.9) K/mcL BMP 05/14/17 05:41 Sodium 138 Potassium 3.4 L Chloride 100 Carbon Dioxide 27 BUN 60 H Creatinine 2.17 H Glucose 147 H Calcium 9.6 Cardiac Enzymes 05/14/17 Range/Units 10:18 Troponin I 0.09 H* (< 0.04) ng/mL Liver Function 05/14/17 Range/Units 05:41 Total Bilirubin 0.5 (0.3-1.0) mg/dL AST 22 (13-39) Units/L ALT 9 (7-52) Units/L Alkaline Phosphatase 135 H (34-104) Units/L Albumin 3.4 L (3.5-5.7) g/dL - ABG Interpretation ABG results: PT/INR, D-dimer PT 23.6 Seconds (9.4-12.1) H 05/14/17 05:41 Consult Discharge Plan - Plan Referrals: Vanita Chavez CNP [Primary Care Provider] -
--- NOTE | 2017-05-14 17:37 | General Surgery Consult Note ---
Date of Encounter: 05/14/17 Time of Encounter: 09:35 Assessment and Plan (1) Biliary colic Current Visit: Yes Status: Acute Plan for laparoscopic cholecystectomy and cholangiogram. Risks, benefits, and expected outcomes of surgery were explained to her and they agreed to proceed. History of Present Illness Consult date: 05/14/17 History of present illness: This is a 76-year-old female presents to the emergency room and hospital with right upper quadrant discomfort, nausea, vomiting, and food intolerance. She does have a baseline dementia. She denies any abdominal pain when asked. She is unable to give any reliable history. Past Med Surg Social Fam HX - Past Medical History Medical history: CHF, COPD, coronary artery disease, CVA, dementia, hyperlipidemia, hypertension, myocardial infarction, renal disease Psychiatric history: no psych history - Past Surgical History Surgical History: pacemaker/AICD - Social History Smoking Status: Former smoker Smokeless Tobacco Status: No Alcohol use: none Drug use: none - Family History Mother Living Status: Hx Family Respiratory Disorders: Yes Hx Family Cancer: Yes Father Living Status: Hx Family GI Disorders: Yes Medications and Allergies Allopurinol [Zyloprim] 100 mg PO DAILY 11/18/14 [History] Aspirin Enteric Coated [Aspirin EC] 81 mg PO DAILY 11/18/14 [History] Furosemide [Lasix] 40 mg PO BID 11/18/14 [History] Lovastatin 80 mg PO DAILY #0 11/18/14 [History] Calcium Carbonate/Vitamin D3 [Caltrate 600 + D Soft Chew Tab] 2 tab PO DAILY # 60 tab.chew 07/18/15 [Rx] Ergocalciferol (VITAMIN D2) [Vitamin D2 (50,000 UNIT)] 1 cap PO QWEEK #12 capsule 07/18/15 [Rx] Isosorbide MONOnitrate (24 HR) [Imdur] 30 mg PO DAILY 11/06/15 [History] Metoprolol XL (24 HR) Succ [Toprol Xl] 25 mg PO DAILY 11/06/15 [History] Quinapril HCl [Accupril] 5 mg PO DAILY 11/06/15 [History] 3 Allergy/AdvReac Type Severity Reaction Status Date / Time No Known Allergies Allergy Verified 05/13/17 19:11 Review of Systems All systems PM: reviewed and no additional remarkable complaints except as stated All systems PM: A 10-system review of systems was performed and is negative for pertinent findings except as documented above in the HPI. General Surgery Exam Initial Vital Signs Temp Pulse Resp BP Pulse Ox 97.9 F 118 18 127/80 95 05/13/17 17:30 05/13/17 17:30 05/13/17 17:30 05/13/17 17:30 05/13/17 17:30 - General physical appearance no distress - Eyes PERRL, normal ocular movement - Neck trachea midline - Respiratory normal expansion, normal respiratory effort - Cardiovascular Cardiovascular exam: Present: RRR - Abdomen Abdomen general surgery: Present: soft, non tender - Integumentary Integumentary general surgery: Present: warm and dry, no abnormal pigmentation - Neurologic Present: CN 2-12 grossly intact, normal sensation - Psychiatric Psychiatric general surgery: Present: speech is normal Exam Initial Vital Signs Temp Pulse Resp BP Pulse Ox 97.9 F 118 18 127/80 95 05/13/17 17:30 05/13/17 17:30 05/13/17 17:30 05/13/17 17:30 05/13/17 17:30 Results - Labs 05/14/17 05:41 05/14/17 05:41 Abnormal lab results WBC 15.2 K/mcL (4.3-11.1) H 05/14/17 05:41 MCH 27.7 pg (28.0-33.3) L 05/14/17 05:41 MCHC 30.5 g/dL (31.6-35.5) L 05/14/17 05:41 RDW 17.4 % (11.5-14.5) H 05/14/17 05:41 Neutrophils # 12.5 K/mcL (1.6-8.9) H 05/14/17 05:41 Monocytes # 1.4 K/mcL (0.0-1.3) H 05/14/17 05:41 PT 23.6 Seconds (9.4-12.1) H 05/14/17 05:41 Potassium 3.4 mEq/L (3.5-5.1) L 05/14/17 05:41 BUN 60 mg/dL (8-23) H 05/14/17 05:41 Creatinine 2.17 mg/dL (0.60-1.20) H 05/14/17 05:41 Est GFR ( Amer) 27 (> 60) L 05/14/17 05:41 Est GFR (Non-Af Amer) 22 (> 60) L 05/14/17 05:41 BUN/Creatinine Ratio 28 (6-26) H 05/14/17 05:41 Glucose 147 mg/dL (70-105) H 05/14/17 05:41 Calculated Osmolality 306 (280-300) H 05/14/17 05:41 Direct Bilirubin 0.3 mg/dL (0.0-0.2) H 05/13/17 17:42 Alkaline Phosphatase 135 Units/L (34-104) H 05/14/17 05:41 Troponin I 0.09 ng/mL (< 0.04) H* 05/14/17 10:18 Albumin 3.4 g/dL (3.5-5.7) L 05/14/17 05:41 Globulin 3.6 g/dL (2.4-3.5) H 05/14/17 05:41 Albumin/Globulin Ratio 0.9 (1.1-2.2) L 05/14/17 05:41 Urine Clarity Cloudy (Clear) A 05/13/17 18:41 Urine Blood Small (Negative) H 05/13/17 18:41 Urine Bilirubin Small (Negative) H 05/13/17 18:41 Ur Leukocyte Esterase Large (Negative) H 05/13/17 18:41 Urine Microscopic WBC 50-100 per hpf (0-3) H 05/13/17 18:41 Ur Squamous Epith Cells Many per lpf (None-Few) H 05/13/17 18:41 Urine Yeast Few per hpf (None Seen) H 05/13/17 18:41 Diabetes panel 05/14/17 Range/Units 05:41 Sodium 138 (136-145) mEq/L Potassium 3.4 L (3.5-5.1) mEq/L Chloride 100 (98-107) mEq/L Carbon Dioxide 27 (23-29) mEq/L BUN 60 H (8-23) mg/dL Creatinine 2.17 H (0.60-1.20) mg/dL Glucose 147 H (70-105) mg/dL Calcium 9.6 (8.6-10.3) mg/dL AST 22 (13-39) Units/L ALT 9 (7-52) Units/L Alkaline Phosphatase 135 H (34-104) Units/L Albumin 3.4 L (3.5-5.7) g/dL Triglycerides 117 (< 150) mg/dL HDL Cholesterol 43 (40-59) mg/dL Calcium panel 05/14/17 Range/Units 05:41 Calcium 9.6 (8.6-10.3) mg/dL Albumin 3.4 L (3.5-5.7) g/dL Pituitary panel 05/14/17 Range/Units 05:41 Sodium 138 (136-145) mEq/L Potassium 3.4 L (3.5-5.1) mEq/L Chloride 100 (98-107) mEq/L Carbon Dioxide 27 (23-29) mEq/L BUN 60 H (8-23) mg/dL Creatinine 2.17 H (0.60-1.20) mg/dL Glucose 147 H (70-105) mg/dL Calcium 9.6 (8.6-10.3) mg/dL Adrenal panel 05/14/17 Range/Units 05:41 Sodium 138 (136-145) mEq/L Potassium 3.4 L (3.5-5.1) mEq/L Chloride 100 (98-107) mEq/L Carbon Dioxide 27 (23-29) mEq/L BUN 60 H (8-23) mg/dL Creatinine 2.17 H (0.60-1.20) mg/dL Glucose 147 H (70-105) mg/dL Calcium 9.6 (8.6-10.3) mg/dL Total Bilirubin 0.5 (0.3-1.0) mg/dL AST 22 (13-39) Units/L ALT 9 (7-52) Units/L Alkaline Phosphatase 135 H (34-104) Units/L Albumin 3.4 L (3.5-5.7) g/dL All other labs normal. - Imaging CT scan - abdomen: image reviewed CT scan - pelvis: image reviewed Consult Discharge Plan - Plan Referrals: Vanita Chavez, BUILDING MOVER [Primary Care Provider] -
[2017-05-15 01:37] LABS: Basophils % 0.3 %; Eosinophils % 0.3 %; Hematocrit 37.9 % (35.3-44.9); Hemoglobin 11.3 g/dL (11.5-15.4); Immature Granulocytes % 0.5 % (0-4); Lymphocytes % 8.3 %; Mean Corpuscular HGB Conc 29.8 g/dL (31.6-35.5); Mean Corpuscular Hemoglobin 27.4 pg (28.0-33.3); Mean Platelet Volume 12.2 fL (9.4-12.4); Monocytes # 1.1 K/mcL (0.0-1.3); Monocytes % 9.1 %; Neutrophils # 9.4 K/mcL (1.6-8.9); Platelet Count 201 K/mcL (140-400); Red Blood Count 4.12 M/mcL (3.82-4.97); Red Cell Distribution Width 17.2 % (11.5-14.5); Segmented Neutrophils % 81.5 %
[2017-05-15 01:49] LABS: INR 1.9; Prothrombin Time 20.2 Seconds (9.4-12.1)
[2017-05-15 01:56] LABS: Calcium 9.3 mg/dL (8.6-10.3); Magnesium 1.8 mg/dL (1.6-2.6); Potassium 3.4 mEq/L (3.5-5.1)
[2017-05-15] MEDS: *HR* Heparin 5,000 UNIT/ML VIAL SQ SCH ×2 (04:34→18:11)
[2017-05-15] MEDS: cefTRIAXone 1,000 MG in Water for inj. (sterile) 20 ML 10 ML IVP SCH (08:01)
[2017-05-15] MEDS ORDERED: 0.9 % Sodium Chloride 250 ML ONE (08:05)
[2017-05-15] MEDS: D5% in 0.9% NACL 1,000 ML IVC SCH (08:08)
[2017-05-15] MEDS ORDERED: Aspirin Enteric Coated 81 MG Tablet PO SCH (09:00)
[2017-05-15] MEDS ORDERED: Isosorbide MONOnitrate (24 HR) 30 MG TAB.ER.24H PO SCH (09:00)
[2017-05-15] MEDS ORDERED: Metoprolol XL (24 HR) Succ 25 MG TAB.ER.24H PO SCH (09:00)
[2017-05-15] MEDS ORDERED: Cholecalciferol (D-3) 1,000 UNIT TABLET PO SCH (09:00)
--- NOTE | 2017-05-15 10:45 | Anesthesia Evaluation PreOp ---
Date of Encounter: 05/15/17 Time of Encounter: 10:45 - Past History Planned Operation: Lap Cholecystectomy Cardiac History: ME, CHF (Hx Cardiomyopathy), HTN, Hyperlipidemia, Arrhythmia ( Hx AFib), Cardiac Stent (2005) Pulmonary History: COPD WIRE WHEELER History: CVA, Other (Dementia, Parkinson's) Other Medical History: Renal (CKD) Alcohol Use: none Drug use: none Medications and Allergies Allopurinol [Zyloprim] 100 mg PO DAILY 11/18/14 [History] Aspirin Enteric Coated [Aspirin EC] 81 mg PO DAILY 11/18/14 [History] Furosemide [Lasix] 40 mg PO BID 11/18/14 [History] Lovastatin 80 mg PO DAILY #0 11/18/14 [History] Calcium Carbonate/Vitamin D3 [Caltrate 600 + D Soft Chew Tab] 2 tab PO DAILY # 60 tab.chew 07/18/15 [Rx] Ergocalciferol (VITAMIN D2) [Vitamin D2 (50,000 UNIT)] 1 cap PO QWEEK #12 capsule 07/18/15 [Rx] Isosorbide MONOnitrate (24 HR) [Imdur] 30 mg PO DAILY 11/06/15 [History] Metoprolol XL (24 HR) Succ [Toprol Xl] 25 mg PO DAILY 11/06/15 [History] Quinapril HCl [Accupril] 5 mg PO DAILY 11/06/15 [History] 3 Allergy/AdvReac Type Severity Reaction Status Date / Time No Known Allergies Allergy Verified 05/13/17 19:11 - Meds/Allergy Pre-op Review Medications Reviewed: Yes Allergies Reviewed: Yes Beta Blockers on Current Med List: Yes (Given today 0900 Metoprolol) Anesthesia Results - Labs 05/15/17 00:35 05/15/17 00:35 - Imaging EKG: report reviewed (SR with Arrhythmia) Additional studies: ECHO EF 40% last year today 55% Anesthesia Exam Vital Signs/O2 Sat/Glucose, Most Current Temp Pulse Resp BP Pulse Ox 05/15/17 10:35 98.2 F 75 16 143/81 100 05/15/17 10:20 99.1 F 79 16 148/83 100 05/15/17 08:50 97.7 F 85 18 140/85 97 Height: 5'5 Weight: 178 lbs NPO (# of Hours): MN Pain Scale: 0 - HEENT Pupil (Motor): Pupils equal, EOMI Mallampati: III Teeth: Edentulous Oral Opening: Less than or equal to 3 - WIRE WHEELER LOC: Confused WIRE WHEELER Motor: Normal RUE, Normal LUE, Normal RLE, Normal LLE, Normal Face WIRE WHEELER Sensory: Normal: RUE, LUE, RLE, LLE, Face - Cardiac Rhythm: Regular Murmur: None JVD: No Carotid Bruit: No - Pulmonary Breath Sounds: bilateral Clear Respiratory Effort: Symmetrical Anesthesia Assess/Plan ASA Score: 4 (HTN CAD Cardiomyopathy KD) Modified [place] Scale for Level of Consciousness: Cooperative, oriented, and tranquil Anesthetic Plan: General Monitoring Plan: Standard Monitors Recovery Plan: PACU (Discussed GA, agrees to proceed)
[2017-05-15] MEDS ORDERED: Acetaminophen IV 1,000 MG/100 ML INFUS..BTL ONE (10:56)
[2017-05-15] MEDS ORDERED: Ondansetron 4 MG/2 ML VIAL ONE (11:02)
[2017-05-15] MEDS ORDERED: *HR* FentaNYL (PF) 100 MCG/2 ML VIAL ONE (11:02)
[2017-05-15] MEDS ORDERED: *HR* Propofol 200 MG/20 ML VIAL IVP ONE (11:02)
[2017-05-15] MEDS ORDERED: Lidocaine -MPF 2% 2 ML VIAL ONE (11:02)
[2017-05-15] MEDS ORDERED: *HR* Rocuronium Bromide 50 MG/5 ML VIAL ONE (11:03)
[2017-05-15] MEDS ORDERED: Lacri-Lube 3.5 GM TUBE ONE (11:04)
[2017-05-15] MEDS ORDERED: Lidocaine -MPF 4% 5 ML AMPUL ONE (11:04)
[2017-05-15] MEDS ORDERED: CefOXitin 2,000 MG VIAL ONE (11:20)
--- NOTE | 2017-05-15 11:32 | Operative Note ---
Date of procedure: 05/15/17 Pre-op diagnosis: Biliary colic Post-op diagnosis: same Procedure: Laparoscopic cholecystectomy with cholangiogram Anesthesia: BELLA Surgeon: Obie Durham Was there an fire assistant present: Yes Card Punching Machine Operator: Selina High Estimated blood loss (cc): 50 Specimen: GB Condition: stable Disposition: same day Procedure in Detail: After informed consent the patient was taken to the operating room. After adequate sedation anesthesia the abdomen was prepped and draped. A proper timeout was performed. Two towel clamps to place the umbilicus. A varies needle was placed at the umbilicus and a pneumo-peritoneum was created. A 5 mm incision was made at the umbilicus and a port was placed under direct visualization. An 12 mm incision was created in the left upper quadrant, followed by one in the right upper quadrant. There were 2 individual 5 mm cannulas then placed agrees incisions. An additional 5 mm cannula was created in the right lower quadrant. A alligator clamp was then placed on the gallbladder was retracted anteriorly and cephalad. . A grasper and hook were placed the patients abdomen. The infundibulum of the gallbladder was identified and the cystic duct was skeletonized. A cholangiogram was performed and revealed flow into the doudenum and common hepatic duct. Once the structures were identified the cystic duct was clipped twice proximally and once distally. Cystic duct was then transected. The gallbladder was then resected off the liver surface. Once the gallbladder was fully resected from the liver surface, the liver was gently irrigated and suctioned dry. We ensured hemostasis prior to removing the gallbladder through the subxiphoid port. Pneumoperitoneum was then evacuated. The 12 mm cannula site was closed with a 0-Vicryl suture in [id number] fashion. The port sites were injected with half percent Marcaine 30 mL. The skin was closed with 4-0 Vicryl suture and Dermabond. All instrument counts and needle counts were correct at the end of the case. The pt was taken to recovery in stable condition.
[2017-05-15] MEDS ORDERED: Isovue-300 150 ML INFUS..BTL IV ONE (11:33)
[2017-05-15] MEDS ORDERED: cefOXitin 2,000 MG in Water for inj. (sterile) 10 ML IVP ONE (11:47)
[2017-05-15] MEDS ORDERED: Neostigmine Methylsulfate 3 MG/3 ML SYRINGE ONE (11:54)
[2017-05-15] MEDS ORDERED: *HR* Morphine 10 MG/ML VIAL ONE (12:02)
[2017-05-15] MEDS ORDERED: cefOXitin 2,000 MG in Water for inj. (sterile) 20 ML 10 ML IVP ONE ×2 (12:15→12:43)
--- NOTE | 2017-05-15 12:33 | Anesthesia Evaluation Post Op ---
Date of Encounter: 05/15/17 Time of Encounter: 12:40 - Vital Signs Vital Signs: Vital Signs/O2 Sat/Glucose, Most Current Temp Pulse Resp BP Pulse Ox 05/15/17 12:30 93 14 129/73 94 05/15/17 12:20 101 16 151/81 96 05/15/17 12:10 97.1 F L 113 16 154/94 95 05/15/17 10:55 99 F 80 16 148/82 100 05/15/17 10:35 98.2 F 75 16 143/81 100 05/15/17 10:20 99.1 F 79 16 148/83 100 05/15/17 08:50 97.7 F 85 18 140/85 97 - Lungs Lungs: Clear Ascult./Percussion - Airway Airway: Non-obstructed - Cardiovascular Regular Rate - Mental Status Mental Status: Asleep with brisk response to light stimulation - Pain Pain Scale: 0 - Nausea Vomiting Nausea Vomiting: Not Present - Hydration Hydration: NPO - Discharge PostOp Status: Transfer Patient to floor
[2017-05-15] MEDS ORDERED: Naloxone 0.4 MG/ML INJ IVP PRN (12:43)
[2017-05-15] MEDS ORDERED: traMADol 50 MG TABLET PO PRN (12:43)
[2017-05-15] MEDS ORDERED: Ondansetron 4 MG/2 ML VIAL IVP PRN (12:43)
[2017-05-15] MEDS ORDERED: MOM Conc 10 ML UD.LIQ PO PRN (12:43)
[2017-05-15] MEDS ORDERED: *HR* Promethazine 25 MG/ML VIAL IVP PRN (12:43)
[2017-05-15] MEDS ORDERED: D5% in 0.9% NACL 1,000 ML IVC SCH (12:43)
[2017-05-15] MEDS ORDERED: Acetaminophen 325 MG TABLET PO PRN (12:43)
--- NOTE | 2017-05-15 14:51 | Internal Med Progress Note ---
Date of Encounter: 05/15/17 Time of Encounter: 09:20 - Assessment and plan (1) UTI (urinary tract infection) Current Visit: Yes Status: Acute Assessment and plan: Urinalysis shows negative nitrite, large leukocyte esterase, 50-100 WBC, few bacteria. Urine culture was not indicated due to contamination. Qualifiers: Urinary tract infection type: site unspecified Hematuria presence: without hematuria Qualified Code(s): N39.0 - Urinary tract infection, site not specified (2) Cholecystitis Current Visit: Yes Status: Acute Assessment and plan: Patient presented with lethargy and anorexia, right upper quadrant tenderness. CT abdomen/pelvis shows distended gallbladder with gallstones and gallbladder wall thickening. Right upper quadrant ultrasound shows thickened gallbladder with sludge and gallstones, slightly dilated common bile duct measuring 9.8 mm. Surgery on board, patient underwent laparoscopic cholecystectomy, postoperative day 0. Postoperative care and local wound care per surgery recommendations. supportive care with when necessary pain medications and antiemetics. Patient was noted to have mild troponin leak, flat at 0.09, 0.1. EKG repeated, showed normal sinus rhythm, T-wave inversions in anteroseptal leads, inferior Q waves-old changes. Case discussed with cardiology, recommend no further intervention or preop testing. Patient has intermediate perioperative risk for a low-risk surgery. (3) JESSICA (acute kidney injury) Current Visit: Yes Status: Resolved Assessment and plan: Patient has history of chronic kidney disease, baseline serum creatinine noted to be around 1.3-1.4. Acute rise in creatinine likely due to dehydration and poor oral intake, with use of diuretics and KARLA inhibitor at home. Serum creatinine noted to have improved back to baseline today, 1.58. Continue to monitor closely, avoid nephrotoxic agents. continue to Hold KARLA inhibitor and Lasix. (4) COPD (chronic obstructive pulmonary disease) Current Visit: Yes Status: Chronic Assessment and plan: Not in acute exacerbation. Continue bronchodilators and supplemental oxygen as needed. Qualifiers: COPD type: unspecified COPD Qualified Code(s): J44.9 - Chronic obstructive pulmonary disease, unspecified (5) CKD (chronic kidney disease), stage III Current Visit: Yes Status: Chronic (6) Elevated troponin Current Visit: Yes Status: Acute Assessment and plan: Patient has history of mild troponin leak, current troponin at 0.09-->0.1; plan as above; consistent with possible demand ischemia. (7) History of atrial flutter Current Visit: Yes Status: Chronic (8) History of dementia Current Visit: Yes Status: Chronic Assessment and plan: Supportive care and fall precautions. (9) Parkinsons Current Visit: Yes Status: Chronic (10) CAD (coronary artery disease) Current Visit: Yes Status: Chronic Qualifiers: Coronary Disease-Associated Artery/Lesion type: [place] artery [place] vs. transplanted heart: [place] heart Associated angina: without angina Qualified Code(s): I25.10 - Atherosclerotic heart disease of [place] coronary artery without angina pectoris (11) HTN (hypertension) Current Visit: Yes Status: Chronic Qualifiers: Hypertension type: essential hypertension Qualified Code(s): I10 - Essential (primary) hypertension (12) Hyperlipidemia Current Visit: Yes Status: Chronic Qualifiers: Hyperlipidemia type: unspecified Qualified Code(s): E78.5 - Hyperlipidemia , unspecified (13) Primary breast cancer Current Visit: Yes Status: Inactive Qualifiers: Laterality: unspecified laterality Qualified Code(s): C50.919 - Malignant neoplasm of unspecified site of unspecified female breast (14) Congestive heart failure Current Visit: Yes Status: Chronic Assessment and plan: Echocardiogram reviewed, ejection fraction seems to have improved to 55%, shows mild left-ventricular diastolic dysfunction. Hold Lasix due to acute kidney injury. Plan to resume tomorrow as patient is noted to have crackles after surgery. Continue beta jesse and telemetry. Qualifiers: Heart failure type: systolic Heart failure chronicity: chronic Qualified Code(s): I50.22 - Chronic systolic (congestive) heart failure - Subjective Interval history: Unable to provide history. Noted to be confused. Denies chest or abdominal pain, vomiting, diarrhea. - Constitutional Vitals: Temp Pulse Resp BP Pulse Ox 97.9 F 94 14 137/77 95 05/15/17 12:40 05/15/17 12:40 05/15/17 12:40 05/15/17 12:40 05/15/17 12:40 General appearance: Present: cooperative, A&O X 1. Absent: answers questions appropriately - Respiratory Respiratory exam: Present: CTAB. Absent: accessory muscle use, rales, rhonchi, wheezes - Cardiovascular Cardiovascular exam: Present: RRR, +S1, +S2. Absent: diastolic murmur, gallop, rubs, systolic murmur - GI/Abdominal GI/Abdominal exam: Present: normal bowel sounds, soft (RUQ tenderness to deep palpation), no peritoneal signs. Absent: distended, tenderness - Extremities Exam Extremities exam: Present: full ROM, warm, radial pulses palpable and symmetrical. Absent: calf tenderness, cyanotic, pedal edema Internal Medicine: Result - Labs CBC & Chem 7: 05/15/17 00:35 05/15/17 00:35 Labs: Short CBC 05/15/17 Range/Units 00:35 WBC 11.6 H (4.3-11.1) K/mcL Hgb 11.3 L (11.5-15.4) g/dL Hct 37.9 (35.3-44.9) % Plt Count 201 (140-400) K/mcL Neutrophils # 9.4 H (1.6-8.9) K/mcL BMP 05/15/17 00:35 Sodium 145 Potassium 3.4 L Chloride 107 Carbon Dioxide 29 BUN 42 H Creatinine 1.58 H Glucose 120 H Calcium 9.3 Cardiac Enzymes 05/15/17 Range/Units 00:35 Troponin I 0.10 H* (< 0.04) ng/mL - ABG Interpretation ABG results: PT/INR, D-dimer PT 20.2 Seconds (9.4-12.1) H 05/15/17 00:35 - Impressions Impressions Cholangiogram,Operative 05/15/17 00:00 IMPRESSION: Normal intraoperative cholangiogram. D/ / 05/15/2017 12:34:41 Zhao Prado MD / viridiana Interpreting Provider: Zhao Prado MD Consult Discharge Plan - Plan Referrals: Vanita Chavez, RICE CLEANING MACHINE TENDER [Primary Care Provider] -
[2017-05-15] MEDS: Metoprolol XL (24 HR) Succ 25 MG TAB.ER.24H PO SCH (17:00)
[2017-05-15] MEDS: Cholecalciferol (D-3) 1,000 UNIT TABLET PO SCH (18:10)
[2017-05-15] MEDS: Isosorbide MONOnitrate (24 HR) 30 MG TAB.ER.24H PO SCH (18:10)
[2017-05-15] MEDS: Aspirin Enteric Coated 81 MG Tablet PO SCH (18:10)
[2017-05-15] MEDS ORDERED: *HR* FentaNYL (PF) 100 MCG/2 ML VIAL IVP ONE (20:11)
[2017-05-16] MEDS: *HR* Heparin 5,000 UNIT/ML VIAL SQ SCH ×2 (04:54→18:36)
[2017-05-16 05:01] LABS: Basophils % 0.2 %; Hematocrit 38.9 % (35.3-44.9); Hemoglobin 11.3 g/dL (11.5-15.4); Immature Granulocytes % 0.7 % (0-4); Lymphocytes # 0.6 K/mcL (0.6-4.6); Lymphocytes % 2.9 %; Mean Corpuscular Hemoglobin 27.7 pg (28.0-33.3); Mean Corpuscular Volume 95.3 fL (83.0-100.0); Monocytes # 1.1 K/mcL (0.0-1.3); Monocytes % 5.8 %; Platelet Count 211 K/mcL (140-400); Red Blood Count 4.08 M/mcL (3.82-4.97); Red Cell Distribution Width 17.4 % (11.5-14.5); Segmented Neutrophils % 90.4 %
[2017-05-16 05:33] LABS: Calcium 9.6 mg/dL (8.6-10.3); Potassium 3.6 mEq/L (3.5-5.1)
[2017-05-16 05:40] LABS: Neutrophils # 17.6 K/mcL (1.6-8.9)
[2017-05-16] MEDS: *HR* OxyCODONE Immed Rel 5 MG TABLET PO PRN ×2 (06:43→12:59)
[2017-05-16] MEDS: Metoprolol XL (24 HR) Succ 25 MG TAB.ER.24H PO SCH (09:34)
[2017-05-16] MEDS: Isosorbide MONOnitrate (24 HR) 30 MG TAB.ER.24H PO SCH (09:34)
[2017-05-16] MEDS: Furosemide 40 MG TABLET PO SCH ×2 (09:34→18:36)
[2017-05-16] MEDS: Aspirin Enteric Coated 81 MG Tablet PO SCH (09:34)
[2017-05-16] MEDS: cefTRIAXone 1,000 MG in Water for inj. (sterile) 20 ML 10 ML IVP SCH (09:35)
[2017-05-16] MEDS: Cholecalciferol (D-3) 1,000 UNIT TABLET PO SCH (09:35)
--- NOTE | 2017-05-16 11:58 | General Surgery Progress Note ---
Date of Encounter: 05/16/17 Time of Encounter: 12:00 - Assessment and Plan (1) Biliary colic Current Visit: Yes Status: Acute POD #[address] Durham Pathology pending Advance to regular diet Supportive care and pain control GI/DVT prophylaxis F/U in the outpatient surgery office in 2 weeks See surgery instructions Subjective Patient reports: no new complaints, voiding w/o difficulty, afebrile, other ( Patient very confused and unable to recall having surgery yesterday; Denies any abdominal pain, nausea, vomiting.) Objective Vital Signs - Last 8 Hours Temp Pulse Resp BP Pulse Ox 05/16/17 10:44 98.0 F 101 16 109/74 92 05/16/17 08:27 97.3 F L 118 16 102/66 95 05/16/17 04:17 98 F 106 17 104/55 95 Intake and Output 05/15/17 05/16/17 05/16/17 23:59 07:59 15:59 Intake Total 0 / 0 160 / 160 Output Total 300 / 300 250 / 250 Balance -300 / -300 -250 / -250 160 / 160 Intake: Oral 0 / 0 160 / 160 Output: Urine 300 / 300 250 / 250 Other: Meal Breakfast Percent of Meal Consumed 90% Weight 80.9 kg Blood Glucose* 98 Patient Weight 05/16/17 23:59 Weight 80.9 kg - General physical appearance well developed, well nourished, no distress, chronically ill - Eyes normal ocular movement - ENT normal mucosa, atraumatic, normocephalic - Neck Neck exam: trachea midline - Respiratory normal respiratory effort, clear to auscultation, other (diminished bibasilar bases) - Cardiovascular Cardiovascular exam: Present: tachycardia - Abdomen Abdomen: Present: bowel sounds present, soft, non tender - Incision Incision: Present: clean and dry, intact - Neurologic CN 2-12 grossly intact - Psychiatric oriented to person, speech is normal - Labs 05/16/17 04:22 05/16/17 04:22 Diabetes panel 05/16/17 Range/Units 04:22 Sodium 147 H (136-145) mEq/L Potassium 3.6 (3.5-5.1) mEq/L Chloride 112 H (98-107) mEq/L Carbon Dioxide 26 (23-29) mEq/L BUN 29 H (8-23) mg/dL Creatinine 1.39 H (0.60-1.20) mg/dL Glucose 123 H (70-105) mg/dL Calcium 9.6 (8.6-10.3) mg/dL Calcium panel 05/16/17 Range/Units 04:22 Calcium 9.6 (8.6-10.3) mg/dL Pituitary panel 05/16/17 Range/Units 04:22 Sodium 147 H (136-145) mEq/L Potassium 3.6 (3.5-5.1) mEq/L Chloride 112 H (98-107) mEq/L Carbon Dioxide 26 (23-29) mEq/L BUN 29 H (8-23) mg/dL Creatinine 1.39 H (0.60-1.20) mg/dL Glucose 123 H (70-105) mg/dL Calcium 9.6 (8.6-10.3) mg/dL Adrenal panel 05/16/17 Range/Units 04:22 Sodium 147 H (136-145) mEq/L Potassium 3.6 (3.5-5.1) mEq/L Chloride 112 H (98-107) mEq/L Carbon Dioxide 26 (23-29) mEq/L BUN 29 H (8-23) mg/dL Creatinine 1.39 H (0.60-1.20) mg/dL Glucose 123 H (70-105) mg/dL Calcium 9.6 (8.6-10.3) mg/dL - VTE Documentation of Mechanical Device: Intermittent pneumatic compression device Consult Discharge Plan - Plan Additional Instructions: #1 may shower, no tub bath for 2 weeks #2 wash incisions with soap and water and pat dry daily #3 no lifting, pushing, pulling more than 15 pounds for the next 2 weeks #4 no driving until off narcotics for 24 hours and able to safely react in the car #5 may climb stairs Referrals: Vanita Chavez CNP [Primary Care Provider] - (web request sent on 05/16/17) Carrie Andrews CNP [Advanced Practice Nurse] - 05/30/17 2:15 pm (surgery follow-up) - Attending Attestation For this encounter, I have reviewed the [employer]CHNICIAN or PA documentation, treatment plan, and medical decision making; and I have had face to face time with this patient.
--- NOTE | 2017-05-16 16:14 | Electrocardiograph Report ---
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
--- NOTE | 2017-05-16 16:57 | Internal Med Progress Note ---
Date of Encounter: 05/16/17 Time of Encounter: 09:00 - Assessment and plan (1) UTI (urinary tract infection) Current Visit: Yes Status: Ruled-out Assessment and plan: Urinalysis shows negative nitrite, large leukocyte esterase, 50-100 WBC, few bacteria. Urine culture was not indicated due to contamination. Qualifiers: Urinary tract infection type: site unspecified Hematuria presence: without hematuria Qualified Code(s): N39.0 - Urinary tract infection, site not specified (2) Cholecystitis Current Visit: Yes Status: Acute Assessment and plan: Patient presented with lethargy and anorexia, right upper quadrant tenderness. CT abdomen/pelvis shows distended gallbladder with gallstones and gallbladder wall thickening. Right upper quadrant ultrasound shows thickened gallbladder with sludge and gallstones, slightly dilated common bile duct measuring 9.8 mm. Surgery on board, patient underwent laparoscopic cholecystectomy, postoperative day 1. Postoperative care and local wound care per surgery recommendations. Diet advanced to solids today. supportive care with when necessary pain medications and antiemetics. Physical and occupational therapy evaluation recommended ECF placement. assessment services manager consulted. (3) JESSICA (acute kidney injury) Current Visit: Yes Status: Resolved Assessment and plan: Patient has history of chronic kidney disease, baseline serum creatinine noted to be around 1.3-1.4. Acute rise in creatinine likely due to dehydration and poor oral intake, with use of diuretics and KARLA inhibitor at home. Serum creatinine improved back to baseline; Continue to monitor closely, avoid nephrotoxic agents. continue to Hold KARLA inhibitor; (4) COPD (chronic obstructive pulmonary disease) Current Visit: Yes Status: Chronic Assessment and plan: Not in acute exacerbation. Continue bronchodilators and supplemental oxygen as needed. Qualifiers: COPD type: unspecified COPD Qualified Code(s): J44.9 - Chronic obstructive pulmonary disease, unspecified (5) CKD (chronic kidney disease), stage III Current Visit: Yes Status: Chronic (6) Elevated troponin Current Visit: Yes Status: Acute Assessment and plan: Patient has history of mild troponin leak, current troponin at 0.09-->0.1; consistent with possible demand ischemia. Echocardiogram no wall motion abnormalities. Case discussed with cardiology, continue medical management. (7) History of atrial flutter Current Visit: Yes Status: Chronic Assessment and plan: Currently rate controlled. Continue beta jesse. Current Home med list does not show Eliquis, probably discontinued due to fall risk and dementia; (8) History of dementia Current Visit: Yes Status: Chronic (9) Parkinsons Current Visit: Yes Status: Chronic (10) CAD (coronary artery disease) Current Visit: Yes Status: Chronic Assessment and plan: Continue aspirin, statin, beta jesse, hold KARLA inhibitor. Telemetry monitoring and serial troponins. Qualifiers: Coronary Disease-Associated Artery/Lesion type: [place] artery [place] vs. transplanted heart: [place] heart Associated angina: without angina Qualified Code(s): I25.10 - Atherosclerotic heart disease of [place] coronary artery without angina pectoris (11) HTN (hypertension) Current Visit: Yes Status: Chronic Qualifiers: Hypertension type: essential hypertension Qualified Code(s): I10 - Essential (primary) hypertension (12) Hyperlipidemia Current Visit: Yes Status: Chronic Qualifiers: Hyperlipidemia type: unspecified Qualified Code(s): E78.5 - Hyperlipidemia , unspecified (13) Primary breast cancer Current Visit: Yes Status: Inactive Qualifiers: Laterality: unspecified laterality Qualified Code(s): C50.919 - Malignant neoplasm of unspecified site of unspecified female breast (14) Congestive heart failure Current Visit: Yes Status: Chronic Assessment and plan: Echocardiogram reviewed, ejection fraction seems to have improved to 55%, shows mild left-ventricular diastolic dysfunction. Held Lasix due to acute kidney injury. Resumed today. Continue beta jesse and telemetry. Qualifiers: Heart failure type: systolic Heart failure chronicity: chronic Qualified Code(s): I50.22 - Chronic systolic (congestive) heart failure - Subjective Interval history: Unable to provide history. Noted to be confused. Underwent surgery yesterday but does not remember. Denies chest or abdominal pain, reports she doesn't like eating breakfast early in the day; no vomiting, diarrhea. - Constitutional Vitals: Temp Pulse Resp BP Pulse Ox 97.3 F L 109 14 96/62 90 05/16/17 16:02 05/16/17 16:02 05/16/17 16:02 05/16/17 16:02 05/16/17 16:02 General appearance: Present: cooperative, A&O X 1. Absent: answers questions appropriately - Respiratory Respiratory exam: Present: CTAB. Absent: accessory muscle use, rales, rhonchi, wheezes - Cardiovascular Cardiovascular exam: Present: RRR, +S1, +S2. Absent: diastolic murmur, gallop, rubs, systolic murmur - GI/Abdominal GI/Abdominal exam: Present: normal bowel sounds, soft, no peritoneal signs. Absent: distended, tenderness - Extremities Exam Extremities exam: Present: full ROM, warm, radial pulses palpable and symmetrical. Absent: calf tenderness, cyanotic, pedal edema Internal Medicine: Result - Labs CBC & Chem 7: 05/16/17 04:22 05/16/17 04:22 Labs: Short CBC 05/16/17 Range/Units 04:22 WBC 19.5 H D (4.3-11.1) K/mcL Hgb 11.3 L (11.5-15.4) g/dL Hct 38.9 (35.3-44.9) % Plt Count 211 (140-400) K/mcL Neutrophils # 17.6 H (1.6-8.9) K/mcL BMP 05/16/17 04:22 Sodium 147 H Potassium 3.6 Chloride 112 H Carbon Dioxide 26 BUN 29 H Creatinine 1.39 H Glucose 123 H Calcium 9.6 - ABG Interpretation ABG results: PT/INR, D-dimer PT 20.2 Seconds (9.4-12.1) H 05/15/17 00:35 - VTE Documentation of Mechanical Device: Intermittent pneumatic compression device Consult Discharge Plan - Plan Additional Instructions: #1 may shower, no tub bath for 2 weeks #2 wash incisions with soap and water and pat dry daily #3 no lifting, pushing, pulling more than 15 pounds for the next 2 weeks #4 no driving until off narcotics for 24 hours and able to safely react in the car #5 may climb stairs Referrals: Carrie Andrews CNP [Advanced Practice Nurse] - 05/30/17 2:15 pm (surgery follow-up) Vanita Chavez CNP [Primary Care Provider] - 05/26/17 9:45 am ()
--- NOTE | 2017-05-16 17:19 | Electrocardiograph Report ---
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
[2017-05-17 04:30] LABS: Basophils % 0.2 %; Eosinophils % 0.2 %; Hemoglobin 10.4 g/dL (11.5-15.4); Immature Granulocytes % 0.7 % (0-4); Lymphocytes # 0.8 K/mcL (0.6-4.6); Lymphocytes % 3.9 %; Mean Corpuscular HGB Conc 29.7 g/dL (31.6-35.5); Mean Corpuscular Hemoglobin 27.5 pg (28.0-33.3); Mean Corpuscular Volume 92.6 fL (83.0-100.0); Mean Platelet Volume 11.9 fL (9.4-12.4); Monocytes # 1.6 K/mcL (0.0-1.3); Monocytes % 8.1 %; Neutrophils # 17.4 K/mcL (1.6-8.9); Nucleated Red Blood Cells 0.1 /100 WBC (0); Platelet Count 227 K/mcL (140-400); Red Blood Count 3.78 M/mcL (3.82-4.97); Red Cell Distribution Width 17.8 % (11.5-14.5); Segmented Neutrophils % 86.9 %
[2017-05-17 04:51] LABS: Potassium 3.8 mEq/L (3.5-5.1)
[2017-05-17 04:52] LABS: Calcium 9.9 mg/dL (8.6-10.3)
[2017-05-17] MEDS: *HR* Heparin 5,000 UNIT/ML VIAL SQ SCH ×2 (05:27→18:45)
[2017-05-17] MEDS: Isosorbide MONOnitrate (24 HR) 30 MG TAB.ER.24H PO SCH (10:43)
[2017-05-17] MEDS: Cholecalciferol (D-3) 1,000 UNIT TABLET PO SCH (10:43)
[2017-05-17] MEDS: Furosemide 40 MG TABLET PO SCH ×2 (10:44→18:36)
[2017-05-17] MEDS: Aspirin Enteric Coated 81 MG Tablet PO SCH (10:44)
[2017-05-17] MEDS: Metoprolol XL (24 HR) Succ 25 MG TAB.ER.24H PO SCH (10:44)
[2017-05-17] MEDS: *HR* OxyCODONE Immed Rel 5 MG TABLET PO PRN (10:44)
[2017-05-17] MEDS: cefTRIAXone 1,000 MG in Water for inj. (sterile) 20 ML 10 ML IVP SCH (10:45)
--- NOTE | 2017-05-17 17:38 | Internal Med Progress Note ---
Date of Encounter: 05/17/17 Time of Encounter: 17:36 - Assessment and plan (1) Sepsis Current Visit: Yes Status: Acute Assessment and plan: Likely due to developing hospital acquired pneumonia. UTI also possible. With dementia she is aspiration risk. Will need MRSA coverage as well Vancomycin Zosyn Azithromycin Swallow eval. Qualifiers: Sepsis type: sepsis due to unspecified organism Qualified Code(s): A41.9 - Sepsis, unspecified organism (2) Hospital-acquired bacterial pneumonia Current Visit: Yes Status: Acute Assessment and plan: Chest x-ray today showed findings compatable with new pneumonia. With progressing dementia, will obtain Respiratory cultures, repeat blood cultures, urinary antigens. Broaden antibiotic coverage; DC Rocephin, start Vanc/Cefepime/azithromycin (3) UTI (urinary tract infection) Current Visit: Yes Status: Ruled-out Assessment and plan: Urinalysis shows negative nitrite, large leukocyte esterase, 50-100 WBC, few bacteria. Patient has elevated white count and tachycardic, likely sepsis. Will broaden antibiotics. Qualifiers: Urinary tract infection type: site unspecified Hematuria presence: without hematuria Qualified Code(s): N39.0 - Urinary tract infection, site not specified (4) Cholecystitis Current Visit: Yes Status: Acute Assessment and plan: Patient presented with lethargy and anorexia, right upper quadrant tenderness. CT abdomen/pelvis shows distended gallbladder with gallstones and gallbladder wall thickening. Right upper quadrant ultrasound shows thickened gallbladder with sludge and gallstones, slightly dilated common bile duct measuring 9.8 mm. Surgery on board, patient underwent laparoscopic cholecystectomy, postoperative day 1. Postoperative care and local wound care per surgery recommendations. Diet advanced to solids today. supportive care with when necessary pain medications and antiemetics. Physical and occupational therapy evaluation recommended ECF placement. coordinator of library services consulted. (5) JESSICA (acute kidney injury) Current Visit: Yes Status: Resolved Assessment and plan: Patient has history of chronic kidney disease, baseline serum creatinine noted to be around 1.3-1.4. Acute rise in creatinine likely due to dehydration and poor oral intake, with use of diuretics and KARLA inhibitor at home. Serum creatinine improved back to baseline; Continue to monitor closely, avoid nephrotoxic agents. continue to Hold KARLA inhibitor; (6) CKD (chronic kidney disease), stage III Current Visit: Yes Status: Chronic (7) Dementia Current Visit: Yes Status: Acute Qualifiers: Dementia type: unspecified type Dementia behavioral disturbance: without behavioral disturbance Qualified Code(s): F03.90 - Unspecified dementia without behavioral disturbance (8) Diastolic heart failure Current Visit: Yes Status: Acute Qualifiers: Heart failure chronicity: chronic Qualified Code(s): I50.32 - Chronic diastolic (congestive) heart failure (9) CAD (coronary artery disease) Current Visit: Yes Status: Chronic Assessment and plan: Continue aspirin, statin, beta jesse, hold KARLA inhibitor. Telemetry monitoring and serial troponins. Qualifiers: Coronary Disease-Associated Artery/Lesion type: [place] artery [place] vs. transplanted heart: [place] heart Associated angina: without angina Qualified Code(s): I25.10 - Atherosclerotic heart disease of [place] coronary artery without angina pectoris (10) COPD (chronic obstructive pulmonary disease) Current Visit: Yes Status: Chronic Assessment and plan: Not in acute exacerbation. Continue bronchodilators and supplemental oxygen as needed. Qualifiers: COPD type: unspecified COPD Qualified Code(s): J44.9 - Chronic obstructive pulmonary disease, unspecified (11) DVT prophylaxis Current Visit: No Status: Acute (12) Elevated troponin Current Visit: Yes Status: Acute Assessment and plan: Patient has history of mild troponin leak, current troponin at 0.09-->0.1; consistent with possible demand ischemia. Echocardiogram no wall motion abnormalities. Case discussed with cardiology, continue medical management. (13) History of atrial flutter Current Visit: Yes Status: Chronic Assessment and plan: Continue beta jesse. Current Home med list does not show Eliquis, probably discontinued due to fall risk and dementia; Developing tachycardia possibly sepsis related, vanc zosyn azithromycin started. (14) HTN (hypertension) Current Visit: Yes Status: Chronic Qualifiers: Hypertension type: essential hypertension Qualified Code(s): I10 - Essential (primary) hypertension (15) Hyperlipidemia Current Visit: Yes Status: Chronic Qualifiers: Hyperlipidemia type: unspecified Qualified Code(s): E78.5 - Hyperlipidemia , unspecified (16) Parkinsons Current Visit: Yes Status: Chronic (17) Primary breast cancer Current Visit: Yes Status: Inactive Qualifiers: Laterality: unspecified laterality Qualified Code(s): C50.919 - Malignant neoplasm of unspecified site of unspecified female breast - Subjective Interval history: Nursing reports that patient had poor appetite. She was hallucinating which she usually does not do per at bedside. - Constitutional Vitals: Temp Pulse Resp BP Pulse Ox 98.4 F 96 15 120/79 94 05/17/17 12:21 05/17/17 12:21 05/17/17 12:21 05/17/17 12:21 05/17/17 12:21 General appearance: Present: cooperative, A&O X 1. Absent: answers questions appropriately Exam: - Respiratory Respiratory exam: Present: CTAB. Absent: accessory muscle use, rales, rhonchi, wheezes - Cardiovascular Cardiovascular exam: Present: RRR, +S1, +S2. Absent: diastolic murmur, gallop, rubs, systolic murmur - GI/Abdominal GI/Abdominal exam: Present: normal bowel sounds, soft, no peritoneal signs. Absent: distended, tenderness - Extremities Exam Extremities exam: Present: full ROM, warm, radial pulses palpable and symmetrical. Absent: calf tenderness, cyanotic, pedal edema Internal Medicine: Result - Labs CBC & Chem 7: 05/17/17 03:45 05/17/17 03:45 Labs: Short CBC 05/17/17 Range/Units 03:45 WBC 20.0 H (4.3-11.1) K/mcL Hgb 10.4 L (11.5-15.4) g/dL Hct 35.0 L (35.3-44.9) % Plt Count 227 (140-400) K/mcL Neutrophils # 17.4 H (1.6-8.9) K/mcL BMP 05/17/17 03:45 Sodium 141 Potassium 3.8 Chloride 106 Carbon Dioxide 27 BUN 31 H Creatinine 1.52 H Glucose 124 H Calcium 9.9 - ABG Interpretation ABG results: PT/INR, D-dimer PT 20.2 Seconds (9.4-12.1) H 05/15/17 00:35 - Impressions Impressions Chest X-Ray 05/17/17 08:16 IMPRESSION: Lingular airspace disease compatible with pneumonia D/ / Fran Patel MD / Fran Patel MD Interpreting Provider: Fran Patel MD - VTE Documentation of Mechanical Device: Intermittent pneumatic compression device Consult Discharge Plan - Plan Additional Instructions: #1 may shower, no tub bath for 2 weeks #2 wash incisions with soap and water and pat dry daily #3 no lifting, pushing, pulling more than 15 pounds for the next 2 weeks #4 no driving until off narcotics for 24 hours and able to safely react in the car #5 may climb stairs Referrals: Carrie Andrews CNP [Advanced Practice Nurse] - 05/30/17 2:15 pm (surgery follow-up) Vanita Chavez CNP [Primary Care Provider] - 05/26/17 9:45 am ()
[2017-05-17] MEDS ORDERED: Cefepime HCl 2,000 MG in Water for inj. (sterile) 20 ML IVP SCH (18:00)
[2017-05-17] MEDS: Azithromycin 500 MG in D5% in Water 250 ML IVPB SCH (18:40)
[2017-05-18 05:06] LABS: Basophils % 0.2 %; Eosinophils % 0.2 %; Hematocrit 33.1 % (35.3-44.9); Hemoglobin 9.7 g/dL (11.5-15.4); Lymphocytes # 0.9 K/mcL (0.6-4.6); Lymphocytes % 7.2 %; Mean Corpuscular HGB Conc 29.3 g/dL (31.6-35.5); Mean Corpuscular Hemoglobin 27.2 pg (28.0-33.3); Mean Platelet Volume 11.3 fL (9.4-12.4); Monocytes # 1.2 K/mcL (0.0-1.3); Monocytes % 9.8 %; Neutrophils # 10.1 K/mcL (1.6-8.9); Nucleated Red Blood Cells 0.2 /100 WBC (0); Platelet Count 222 K/mcL (140-400); Red Blood Count 3.56 M/mcL (3.82-4.97); Red Cell Distribution Width 17.7 % (11.5-14.5); Segmented Neutrophils % 81.6 %
[2017-05-18 05:17] LABS: Calcium 9.3 mg/dL (8.6-10.3); Potassium 3.5 mEq/L (3.5-5.1)
[2017-05-18] MEDS: *HR* Heparin 5,000 UNIT/ML VIAL SQ SCH ×2 (05:52→17:36)
[2017-05-18] MEDS ORDERED: *HR* Metoprolol 5 MG/5 ML VIAL IVP PRN (10:28)
[2017-05-18] MEDS: Cholecalciferol (D-3) 1,000 UNIT TABLET PO SCH (13:17)
[2017-05-18] MEDS: Aspirin Enteric Coated 81 MG Tablet PO SCH (13:17)
[2017-05-18] MEDS: Isosorbide MONOnitrate (24 HR) 30 MG TAB.ER.24H PO SCH (13:17)
[2017-05-18 14:17] LABS: Adenovirus Not Detected (Not Detect); Bordetella Pertussis Not Detected (Not Detect); Chlamydophila pneumoniae Not Detected (Not Detect); Coronavirus 229E Not Detected (Not Detect); Coronavirus HKU1 Not Detected (Not Detect); Coronavirus NL63 Not Detected (Not Detect); Coronavirus OC43 Not Detected (Not Detect); Human Metapneumovirus Not Detected (Not Detect); Human Rhinovirus/Enterovirus Not Detected (Not Detect); Influenza A Subtype 2009 H1 Not Detected (Not Detect); Influenza A Untypeable Not Detected (Not Detect); Influenza B Not Detected (Not Detect); Mycoplasma pneumoniae Not Detected (Not Detect); Parainfluenza Virus 1 Not Detected (Not Detect); Parainfluenza Virus 2 Not Detected (Not Detect); Parainfluenza Virus 3 Not Detected (Not Detect); Parainfluenza Virus 4 Not Detected (Not Detect); Respiratory Syncytial Virus Not Detected (Not Detect)
[2017-05-18] MEDS: Furosemide 20 MG/2 ML VIAL IVP SCH ×2 (14:32→16:55)
[2017-05-18] MEDS: Metoprolol XL (24 HR) Succ 25 MG TAB.ER.24H PO SCH (14:33)
[2017-05-18] MEDS: Furosemide 40 MG TABLET PO SCH (14:33)
[2017-05-18 16:42] LABS: Acinetobacter baumannii by PCR Not Detected (Not Detect); Candida albicans by PCR Not Detected (Not Detect); Candida glabrata by PCR ***DETECTED*** (Not Detect); Candida krusei by PCR Not Detected (Not Detect); Candida parapsilosis by PCR Not Detected (Not Detect); Candida tropicalis by PCR Not Detected (Not Detect); Enterococcus by PCR Not Detected (Not Detect); Escherichia coli by PCR Not Detected (Not Detect); Klebsiella oxytoca by PCR Not Detected (Not Detect); Klebsiella pneumoniae by PCR Not Detected (Not Detect); Pseudomonas aeruginosa by PCR Not Detected (Not Detect); Serratia marcescens by PCR Not Detected (Not Detect); Staphylococcus aureus by PCR Not Detected (Not Detect); Streptococcus agalactiae(B)PCR Not Detected (Not Detect); Streptococcus by PCR Not Detected (Not Detect); Streptococcus pneumoniae PCR Not Detected (Not Detect); Streptococcus pyogenes (A) PCR Not Detected (Not Detect); blaKPC Carbapenem-Resist Gene Not Detected (Not Detect); mecA Methicillin-Resist Gene Not Detected (Not Detect); vanA/B Vancomycin-Resist Genes Not Detected (Not Detect)
[2017-05-18] MEDS: *HR* Metoprolol 5 MG/5 ML VIAL IVP SCH (17:37)
[2017-05-18] MEDS: Azithromycin 500 MG in D5% in Water 250 ML IVPB SCH (17:37)
[2017-05-18] MEDS: Fluconazole 400 MG/200 ML 400 MG/200 ML BAG IVPB SCH ×2 (18:46→21:52)
--- NOTE | 2017-05-18 22:07 | Internal Med Progress Note ---
Date of Encounter: 05/19/17 Time of Encounter: 12:07 - Assessment and plan (1) Sepsis Current Visit: Yes Status: Acute Assessment and plan: Developed hospital acquired pneumonia. UTI also possible but signs of sepsis worsened and then improved with broadening antibiotics - Procalcitonin elevated at 2.99 c/w sepsis, - hemodynamically stable with - LA within normal limits 3 days ago - 05/13/17: Negative Bcx - 2/ + Kyra glabrata x2, fluconazole started - WBC improving now wnl - Patient aspiration risk, Passed swallow eval Qualifiers: Sepsis type: sepsis due to unspecified organism Qualified Code(s): A41.9 - Sepsis, unspecified organism (2) Hospital-acquired bacterial pneumonia Current Visit: Yes Status: Acute Assessment and plan: Chest x-ray showed findings compatable with new pneumonia. With progressing dementia, speech therapy consulted, seems patient not aspirating on evaluation Respiratory cultures, repeat blood cultures, urinary antigens. Broaden antibiotic coverage; DC Rocephin, start Vanc/Cefepime/azithromycin (3) UTI (urinary tract infection) Current Visit: Yes Status: Ruled-out Assessment and plan: Urinalysis shows negative nitrite, large leukocyte esterase, 50-100 WBC, few bacteria. Patient has elevated white count and tachycardic, likely sepsis. Will broaden antibiotics. Qualifiers: Urinary tract infection type: site unspecified Hematuria presence: without hematuria Qualified Code(s): N39.0 - Urinary tract infection, site not specified (4) Cholecystitis Current Visit: Yes Status: Acute Assessment and plan: Patient presented with lethargy and anorexia, right upper quadrant tenderness. CT abdomen/pelvis shows distended gallbladder with gallstones and gallbladder wall thickening. Right upper quadrant ultrasound shows thickened gallbladder with sludge and gallstones, slightly dilated common bile duct measuring 9.8 mm. Surgery on board, patient underwent laparoscopic cholecystectomy, postoperative day 1. Postoperative care and local wound care per surgery recommendations. Diet advanced to solids today. supportive care with when necessary pain medications and antiemetics. Physical and occupational therapy evaluation recommended ECF placement. nutritional services director consulted. (5) JESSICA (acute kidney injury) Current Visit: Yes Status: Resolved Assessment and plan: Patient has history of chronic kidney disease, baseline serum creatinine noted to be around 1.3-1.4. Acute rise in creatinine likely due to dehydration and poor oral intake, with use of diuretics and KARLA inhibitor at home. Serum creatinine improved back to baseline; Continue to monitor closely, avoid nephrotoxic agents. continue to Hold KARLA inhibitor; (6) CKD (chronic kidney disease), stage III Current Visit: Yes Status: Chronic (7) Dementia Current Visit: Yes Status: Acute Qualifiers: Dementia type: unspecified type Dementia behavioral disturbance: without behavioral disturbance Qualified Code(s): F03.90 - Unspecified dementia without behavioral disturbance (8) Diastolic heart failure Current Visit: Yes Status: Acute Qualifiers: Heart failure chronicity: chronic Qualified Code(s): I50.32 - Chronic diastolic (congestive) heart failure (9) CAD (coronary artery disease) Current Visit: Yes Status: Chronic Assessment and plan: Continue aspirin, statin, beta jesse, hold KARLA inhibitor. Telemetry monitoring and serial troponins. Qualifiers: Coronary Disease-Associated Artery/Lesion type: [place] artery [place] vs. transplanted heart: [place] heart Associated angina: without angina Qualified Code(s): I25.10 - Atherosclerotic heart disease of [place] coronary artery without angina pectoris (10) COPD (chronic obstructive pulmonary disease) Current Visit: Yes Status: Chronic Assessment and plan: Not in acute exacerbation. Continue bronchodilators and supplemental oxygen as needed. Qualifiers: COPD type: unspecified COPD Qualified Code(s): J44.9 - Chronic obstructive pulmonary disease, unspecified (11) Elevated troponin Current Visit: Yes Status: Acute Assessment and plan: Patient has history of mild troponin leak, current troponin at 0.09-->0.1; consistent with possible demand ischemia. Echocardiogram no wall motion abnormalities. Case discussed with cardiology, continue medical management. (12) History of atrial flutter Current Visit: Yes Status: Chronic Assessment and plan: Continue beta jesse. Current Home med list does not show Eliquis, probably discontinued due to fall risk and dementia; Developing tachycardia possibly sepsis related, vanc zosyn azithromycin started. (13) HTN (hypertension) Current Visit: Yes Status: Chronic Qualifiers: Hypertension type: essential hypertension Qualified Code(s): I10 - Essential (primary) hypertension (14) Hyperlipidemia Current Visit: Yes Status: Chronic Qualifiers: Hyperlipidemia type: unspecified Qualified Code(s): E78.5 - Hyperlipidemia , unspecified (15) Parkinsons Current Visit: Yes Status: Chronic (16) Primary breast cancer Current Visit: Yes Status: Inactive Qualifiers: Laterality: unspecified laterality Qualified Code(s): C50.919 - Malignant neoplasm of unspecified site of unspecified female breast (17) DVT prophylaxis Current Visit: No Status: Acute - Subjective Interval history: Nursing reports that patient had poor appetite. She was hallucinating which she usually does not do per at bedside. - Constitutional Vitals: Temp Pulse Resp BP Pulse Ox 98.2 F 82 16 102/65 99 05/18/17 19:27 05/18/17 19:27 05/18/17 19:27 05/18/17 19:27 05/18/17 19:27 General appearance: Present: cooperative, A&O X 1, no acute distress. Absent: answers questions appropriately - Head Head exam: Present: atraumatic, normocephalic Additional comments: - Respiratory Respiratory exam: Present: CTAB. Absent: accessory muscle use, rales, rhonchi, wheezes - Cardiovascular Cardiovascular exam: Present: RRR, +S1, +S2. Absent: diastolic murmur, gallop, rubs, systolic murmur - GI/Abdominal GI/Abdominal exam: Present: normal bowel sounds, soft, no peritoneal signs. Absent: distended, tenderness - Extremities Exam Extremities exam: Present: full ROM, warm, radial pulses palpable and symmetrical. Absent: calf tenderness, cyanotic, pedal edema Internal Medicine: Result - Labs CBC & Chem 7: 05/19/17 05:13 05/19/17 05:13 Labs: Short CBC 05/18/17 Range/Units 04:36 WBC 12.4 H (4.3-11.1) K/mcL Hgb 9.7 L (11.5-15.4) g/dL Hct 33.1 L (35.3-44.9) % Plt Count 222 (140-400) K/mcL Neutrophils # 10.1 H (1.6-8.9) K/mcL BMP 05/18/17 04:36 Sodium 140 Potassium 3.5 Chloride 105 Carbon Dioxide 26 BUN 31 H Creatinine 1.39 H Glucose 117 H Calcium 9.3 - ABG Interpretation ABG results: PT/INR, D-dimer PT 20.2 Seconds (9.4-12.1) H 05/15/17 00:35 - VTE Documentation of Mechanical Device: Intermittent pneumatic compression device Consult Discharge Plan - Plan Additional Instructions: #1 may shower, no tub bath for 2 weeks #2 wash incisions with soap and water and pat dry daily #3 no lifting, pushing, pulling more than 15 pounds for the next 2 weeks #4 no driving until off narcotics for 24 hours and able to safely react in the car #5 may climb stairs Referrals: Carrie Andrews CNP [Advanced Practice Nurse] - 05/30/17 2:15 pm (surgery follow-up) Vanita Chavez CNP [Primary Care Provider] - 05/26/17 9:45 am ()
[2017-05-19] MEDS: *HR* Metoprolol 5 MG/5 ML VIAL IVP SCH ×4 (00:09→17:39)
[2017-05-19 05:38] LABS: Basophils % 0.4 %; Eosinophils % 0.4 %; Hematocrit 30.6 % (35.3-44.9); Immature Granulocytes % 2.2 % (0-4); Lymphocytes % 11.5 %; Mean Corpuscular HGB Conc 29.4 g/dL (31.6-35.5); Mean Corpuscular Hemoglobin 27.5 pg (28.0-33.3); Mean Corpuscular Volume 93.6 fL (83.0-100.0); Mean Platelet Volume 11.3 fL (9.4-12.4); Monocytes # 1.3 K/mcL (0.0-1.3); Monocytes % 15.2 %; Nucleated Red Blood Cells 0.4 /100 WBC (0); Platelet Count 207 K/mcL (140-400); Red Blood Count 3.27 M/mcL (3.82-4.97); Red Cell Distribution Width 17.9 % (11.5-14.5); Segmented Neutrophils % 70.3 %
[2017-05-19] MEDS: *HR* Heparin 5,000 UNIT/ML VIAL SQ SCH ×2 (06:17→17:39)
[2017-05-19 06:31] LABS: Potassium 3.4 mEq/L (3.5-5.1)
--- NOTE | 2017-05-19 07:56 | Internal Med Progress Note ---
Date of Encounter: 05/19/17 Time of Encounter: 07:56 - Assessment and plan (1) Sepsis Current Visit: Yes Status: Acute Assessment and plan: Developed hospital acquired pneumonia. UTI also possible but signs of sepsis worsened and then improved with broadening antibiotics - Procalcitonin elevated at 2.99 consistent with sepsis, - hemodynamically stable - LA within normal limits 3 days ago - Patient aspiration risk, Passed bedside swallow evaluation. If there is more concern for aspiration we will consider further investigation. - 05/13/17: Negative Bcx - 05/17: positive Kyra glabrata x2 - WBC was 20k on 05/17, improved to 12.4k on 05.18, today is within normal limits. - Fluconazole started 05/18. Continue Vanc, Zosyn, Azithromycin Kyra sensitivities pending Consult ID, recommendations appreciated. Qualifiers: Sepsis type: sepsis due to unspecified organism Qualified Code(s): A41.9 - Sepsis, unspecified organism (2) Blood culture positive for Kyra species Current Visit: Yes Status: Acute (3) Hospital-acquired bacterial pneumonia Current Visit: Yes Status: Acute Assessment and plan: Chest x-ray findings compatible with new pneumonia. Respiratory cultures, repeat blood cultures, urinary antigens. Broaden antibiotic coverage; DC Rocephin, start Vanc/Cefepime/azithromycin (4) UTI (urinary tract infection) Current Visit: Yes Status: Ruled-out Assessment and plan: Urinalysis shows negative nitrite, large leukocyte esterase, 50-100 WBC, few bacteria. Patient has elevated white count and tachycardic, likely sepsis. Will broaden antibiotics. Qualifiers: Urinary tract infection type: site unspecified Hematuria presence: without hematuria Qualified Code(s): N39.0 - Urinary tract infection, site not specified (5) Cholecystitis Current Visit: Yes Status: Acute Assessment and plan: Patient presented with lethargy and anorexia, right upper quadrant tenderness. CT abdomen/pelvis shows distended gallbladder with gallstones and gallbladder wall thickening. Right upper quadrant ultrasound shows thickened gallbladder with sludge and gallstones, slightly dilated common bile duct measuring 9.8 mm. Surgery on board, patient underwent laparoscopic cholecystectomy, postoperative day 1. Postoperative care and local wound care per surgery recommendations. Diet advanced to solids today. supportive care with when necessary pain medications and antiemetics. Physical and occupational therapy evaluation recommended ECF placement. director of volunteer services consulted. (6) JESSICA (acute kidney injury) Current Visit: Yes Status: Resolved Assessment and plan: Patient has history of chronic kidney disease, baseline serum creatinine noted to be around 1.3-1.4. Acute rise in creatinine likely due to dehydration and poor oral intake, with use of diuretics and KARLA inhibitor at home. Serum creatinine improved back to baseline; Continue to monitor closely, avoid nephrotoxic agents. continue to Hold KARLA inhibitor; (7) CKD (chronic kidney disease), stage III Current Visit: Yes Status: Chronic (8) Dementia Current Visit: Yes Status: Acute Assessment and plan: Patient appetite has been poor in the past month. She has been refusing medications on occasions. Family is concerned of this low appetite. We discussed supplemental nutrition. Qualifiers: Dementia type: unspecified type Dementia behavioral disturbance: without behavioral disturbance Qualified Code(s): F03.90 - Unspecified dementia without behavioral disturbance (9) Diastolic heart failure Current Visit: Yes Status: Acute Qualifiers: Heart failure chronicity: chronic Qualified Code(s): I50.32 - Chronic diastolic (congestive) heart failure (10) CAD (coronary artery disease) Current Visit: Yes Status: Chronic Assessment and plan: Continue aspirin, statin, beta jesse, hold KARLA inhibitor. Telemetry monitoring and serial troponins. Qualifiers: Coronary Disease-Associated Artery/Lesion type: [place] artery [place] vs. transplanted heart: [place] heart Associated angina: without angina Qualified Code(s): I25.10 - Atherosclerotic heart disease of [place] coronary artery without angina pectoris (11) COPD (chronic obstructive pulmonary disease) Current Visit: Yes Status: Chronic Assessment and plan: Not in acute exacerbation. Continue bronchodilators and supplemental oxygen as needed. Qualifiers: COPD type: unspecified COPD Qualified Code(s): J44.9 - Chronic obstructive pulmonary disease, unspecified (12) Elevated troponin Current Visit: Yes Status: Acute Assessment and plan: Patient has history of mild troponin leak, current troponin at 0.09-->0.1; consistent with possible demand ischemia. Echocardiogram no wall motion abnormalities. Case discussed with cardiology, continue medical management. (13) History of atrial flutter Current Visit: Yes Status: Chronic Assessment and plan: Continue beta jesse. Current Home med list does not show Eliquis, probably discontinued due to fall risk and dementia; Developing tachycardia possibly sepsis related, vanc zosyn azithromycin started. (14) HTN (hypertension) Current Visit: Yes Status: Chronic Qualifiers: Hypertension type: essential hypertension Qualified Code(s): I10 - Essential (primary) hypertension (15) Hyperlipidemia Current Visit: Yes Status: Chronic Qualifiers: Hyperlipidemia type: unspecified Qualified Code(s): E78.5 - Hyperlipidemia , unspecified (16) Parkinsons Current Visit: Yes Status: Chronic (17) Primary breast cancer Current Visit: Yes Status: Inactive Qualifiers: Laterality: unspecified laterality Qualified Code(s): C50.919 - Malignant neoplasm of unspecified site of unspecified female breast (18) DVT prophylaxis Current Visit: No Status: Acute - Subjective Interval history: Nursing reports that patient had poor appetite. She was hallucinating which she usually does not do per at bedside. - Constitutional Vitals: Temp Pulse Resp BP Pulse Ox 98.0 F 75 22 124/69 100 05/19/17 07:44 05/19/17 07:44 05/19/17 07:44 05/19/17 07:44 05/19/17 07:44 General appearance: Present: cooperative, A&O X 1. Absent: answers questions appropriately Internal Medicine: Result - Labs CBC & Chem 7: 05/19/17 05:13 05/19/17 05:13 Labs: Short CBC 05/19/17 Range/Units 05:13 WBC 8.5 (4.3-11.1) K/mcL Hgb 9.0 L (11.5-15.4) g/dL Hct 30.6 L (35.3-44.9) % Plt Count 207 (140-400) K/mcL Neutrophils # 6.0 (1.6-8.9) K/mcL BMP 05/19/17 05:13 Sodium 142 Potassium 3.4 L Chloride 104 Carbon Dioxide 31 H BUN 34 H Creatinine 1.54 H Glucose 115 H Calcium 9.0 - ABG Interpretation ABG results: PT/INR, D-dimer PT 20.2 Seconds (9.4-12.1) H 05/15/17 00:35 - VTE Documentation of Mechanical Device: Intermittent pneumatic compression device Consult Discharge Plan - Plan Additional Instructions: #1 may shower, no tub bath for 2 weeks #2 wash incisions with soap and water and pat dry daily #3 no lifting, pushing, pulling more than 15 pounds for the next 2 weeks #4 no driving until off narcotics for 24 hours and able to safely react in the car #5 may climb stairs Referrals: Carrie Andrews CNP [Advanced Practice Nurse] - 05/30/17 2:15 pm (surgery follow-up) Vanita Chavez CNP [Primary Care Provider] - 05/26/17 9:45 am ()
[2017-05-19] MEDS ORDERED: Aminoglycoside Consult 1 EACH MC ONE (08:13)
--- NOTE | 2017-05-19 08:49 | Infectious Disease Consult ---
Date of Encounter: 05/19/17 Time of Encounter: 09:20 Assessment and Plan (1) Candidemia Status: Acute Assessment and plan: 2/2 Blood cultures on 05/17 positive for Robert glabrata Possible source urinary vs gallbladder Micafungin is first line empiric therapy for C. glabrata bacteremia due to the high resistance to fluconazole, but will continue fluconazole due to evidence of patient improvement Recommend continuing fluconazole until finalization of sensitivities of c. glabrata Will repeat blood cultures recommend consult to opthamology to r/o endo-opthalmitis (2) Pneumonia Status: Acute Assessment and plan: Patient seen to have lingular airspace disease consistent with pneumonia on CXR 05/17 Current causative organism unclear No SIRS criteria currently Procalcitonin 2.99 Patient has received 5 days ceftriaxone, 1 dose cefoxitin, 3 days vanco, zosyn, and azithromycin Will stop azithromycin, zosyn, and vancomycin Start PO levaquin Qualifiers: Pneumonia type: due to unspecified organism Laterality: left Lung location: unspecified part of lung Qualified Code(s): J18.9 - Pneumonia, unspecified organism Infectious Disease HPI - Data of Consult Consult date: 05/19/17 Requesting Physician: Juliana Mcfarland MD Primary Care Provider: Vanita Chavez - Consult Narrative Reason for consult: candidemia History of present illness: Ms. Cabrera is a 76 year old female with past medical history of HFrEF (echo EF 45%), COPD, prior CVA, dementia, CKD 3, hld, htn, and CAD (w/ prior [place]) who presented to [facility] on 05/13/17. She was told to go to the hospital by her family because she had not been feeling well, having been lethargic, confused and anorexic 1 week prior to presentation. ID was consulted on 05/19 after the patient had been found to have 2/2 positive blood cultures for robert glabrata. Upon presentation she was noted to have urine suspicious for UTI and cholelithiasis by CT. The patient is demented at baseline and although she alert and oriented x3, she is unable to contribute much to her history. Surgery was consulted to help address the concern for her gallbladder and she underwent a cholecystectomy on 05/15. Although the surgery went well, she continued to decline. On 05/17 she was found to have developed pneumonia and sepsis. She was started on broad-spectrum antibiotics for hospital-acquired pneumonia. PCR obtained was only positive for C. glabrata, Procalcitonin was 2.99, and Blood cultures drawn at that time that preliminarily are positive for 2/2 C. glabrata. After the initial results were reported fluconazole was started on . As of this morning, the patient is alert and oriented x3 but seems to deny all questions, including about things that were mentioned in her chart. She denied having fever, chills, cough, diaphoresis, anorexia, cp, ab, nausea/vomiting, dysuria, hematuria, diarrhea, or constipation. While we were talking she was having some course coughs. She states that she lives at home with her family and that the family does have a dog. She denies any travel recently or sick contacts. CC: Juliana Mcfarland MD Past Med Surg Social Fam HX - Past Medical History Medical history: CHF, COPD, coronary artery disease, CVA, dementia, hyperlipidemia, hypertension, myocardial infarction, renal disease Psychiatric history: no psych history - Past Surgical History Surgical History: pacemaker/AICD - Social History Smoking Status: Former smoker Smokeless Tobacco Status: No Alcohol use: none Drug use: none - Family History Mother Living Status: Hx Family Respiratory Disorders: Yes Hx Family Cancer: Yes Father Living Status: Hx Family GI Disorders: Yes Infectious Disease-CN:Meds Allopurinol [Zyloprim] 100 mg PO DAILY 11/18/14 [History] Aspirin Enteric Coated [Aspirin EC] 81 mg PO DAILY 11/18/14 [History] Furosemide [Lasix] 40 mg PO BID 11/18/14 [History] Lovastatin 80 mg PO DAILY #0 11/18/14 [History] Calcium Carbonate/Vitamin D3 [Caltrate 600 + D Soft Chew Tab] 2 tab PO DAILY # 60 tab.chew 07/18/15 [Rx] Ergocalciferol (VITAMIN D2) [Vitamin D2 (50,000 UNIT)] 1 cap PO QWEEK #12 capsule 07/18/15 [Rx] Isosorbide MONOnitrate (24 HR) [Imdur] 30 mg PO DAILY 11/06/15 [History] Metoprolol XL (24 HR) Succ [Toprol Xl] 25 mg PO DAILY 11/06/15 [History] Quinapril HCl [Accupril] 5 mg PO DAILY 11/06/15 [History] 3 Allergy/AdvReac Type Severity Reaction Status Date / Time No Known Allergies Allergy Verified 05/13/17 19:11 ROS unobtainable: due to mental status (patient denies everything) Exam - Constitutional Vitals: Temp Pulse Resp BP Pulse Ox 98.0 F 75 22 124/69 100 05/19/17 07:44 05/19/17 07:44 05/19/17 07:44 05/19/17 07:44 05/19/17 07:44 General appearance: morbidly obese, no acute distress - Head Head exam: Present: atraumatic, normocephalic - Eye Eye exam: Present: normal appearance, sclera anicteric. Absent: conjunctival injection - ENT ENT exam: Present: mucous membranes moist, normal exam - Neck Neck exam: Present: normal inspection. Absent: lymphadenopathy, tenderness - Respiratory Respiratory exam: Present: rales (L>R). Absent: accessory muscle use, chest wall tenderness, wheezes, tachypnea - Cardiovascular Cardiovascular exam: Present: RRR. Absent: clicks, rubs, systolic murmur - GI/Abdominal GI/Abdominal exam: Present: normal bowel sounds, soft, tenderness (mild from recent cholecystectomy). Absent: guarding, rebound, rigid - Extremities Exam Extremities exam: Present: normal inspection, pedal edema (mild). Absent: calf tenderness, tenderness - Neurological Exam Neurological exam: Present: alert, oriented X3, no focal deficits - Psychiatric Psychiatric exam: Present: flat affect, normal affect - Skin Skin exam: Present: dry, intact, normal color, warm Infectious Disease CN: Results - Labs CBC & Chem 7: 05/19/17 05:13 05/19/17 05:13 Cultures: Cultures 05/17/17 09:03 Blood Culture - Preliminary Peripheral Venipuncture Robert glabrata 05/17/17 09:09 Blood Culture - Preliminary Peripheral Venipuncture Robert glabrata Serology: Serology 05/18/17 05/17/17 Range/Units 08:17 09:09 A. baumannii (PCR) Not Detected (Not Detect) Chlamy pneumoniae PCR Not Detected (Not Detect) Adenovirus (PCR) Not Detected (Not Detect) B. pertussis DNA (PCR) Not Detected (Not Detect) B.parapertussis DNA PCR Not Detected (Not Detect) Robert albicans (PCR) Not Detected (Not Detect) C. glabrata (PCR) DETECTED A (Not Detect) C. krusei (PCR) Not Detected (Not Detect) C. parapsilosis (PCR) Not Detected (Not Detect) C. tropicalis (PCR) Not Detected (Not Detect) Coronavirus OC43 (PCR) Not Detected (Not Detect) Coronavirus HKU1 (PCR) Not Detected (Not Detect) Coronavirus 229E (PCR) Not Detected (Not Detect) Coronavirus NL63 (PCR) Not Detected (Not Detect) Enterobacteriac sp PCR Not Detected (Not Detect) E. cloacae complex PCR Not Detected (Not Detect) Enterococcus sp PCR Not Detected (Not Detect) E. coli (PCR) Not Detected (Not Detect) H. influenzae (PCR) Not Detected (Not Detect) Human Metapneumovir PCR Not Detected (Not Detect) Influenza A (H1) PCR Not Detected (Not Detect) Influ A (H1N1/09) PCR Not Detected (Not Detect) Influenza A (H3) PCR Not Detected (Not Detect) Influenza A Untype (PCR) Not Detected (Not Detect) Influenza Type B (PCR) Not Detected (Not Detect) Klebsiella oxytoca PCR Not Detected (Not Detect) Klebsiella pneumoniae Not Detected (Not Detect) List. monocytogenes PCR Not Detected (Not Detect) M.pneumoniae DNA (PCR) Not Detected (Not Detect) N. meningitidis (PCR) Not Detected (Not Detect) Parainfluenza 1 (PCR) Not Detected (Not Detect) Parainfluenza 2 (PCR) Not Detected (Not Detect) Parainfluenza 3 (PCR) Not Detected (Not Detect) Parainfluenza 4 (PCR) Not Detected (Not Detect) Proteus species (PCR) Not Detected (Not Detect) RSV (PCR) Not Detected (Not Detect) Entero/Rhino (PCR) Not Detected (Not Detect) Serratia marcescens PCR Not Detected (Not Detect) Staphylococcus sp PCR Not Detected (Not Detect) Staph aureus (PCR) Not Detected (Not Detect) mecA-Methicil Res Gene Not Detected (Not Detect) Streptococcus sp PCR Not Detected (Not Detect) Group A Strep DNA Not Detected (Not Detect) Group B Strep (PCR) Not Detected (Not Detect) Strep pneumoniae (PCR) Not Detected (Not Detect) P. aeruginosa (PCR) Not Detected (Not Detect) Aravind/B-Vanco Res Genes Not Detected (Not Detect) KPC (blaKPC) Detect PCR Not Detected (Not Detect) - VTE Documentation of Mechanical Device: Intermittent pneumatic compression device Consult Discharge Plan - Plan Additional Instructions: #1 may shower, no tub bath for 2 weeks #2 wash incisions with soap and water and pat dry daily #3 no lifting, pushing, pulling more than 15 pounds for the next 2 weeks #4 no driving until off narcotics for 24 hours and able to safely react in the car #5 may climb stairs Referrals: Carrie Andrews CNP [Advanced Practice Nurse] - 05/30/17 2:15 pm (surgery follow-up) Vanita Chavez CNP [Primary Care Provider] - 05/26/17 9:45 am () - Attending Attestation I examined this patient and my medical decision-making was reviewed with the Resident Physician. I agree with the documented findings, disposition and treatment plan as described except to the extent set forth below. This is an addendum to original report dictated by resident physician. Please refer to residents note for full details. Briefly patient is a 76-year-old woman with an extensive past medical history mentioned below including COPD, prior CVA, dementia, chronic kidney disease and history of coronary artery disease presented to [facility] on 05/13/17 not feeling well and cachectic and just a week and with failure to thrive. Most of the information was taken from medical record but family was also had bedside and they were able to give him some more information. On arrival patient was evaluated was noted to have no fevers but she was tachycardic. Patient also had Some leukocytosis with a WBC of 12.5 neutrophil predominance and acute kidney injury with creatinine of 2.77. Patient was noted to have cholelithiasis so on 05/16/2017 patient was taken for a laparoscopic cholecystectomy by Dr. Britton. Postop patient did well. On 05/17/2017 patient had a chest x-ray which showed lingular airspace compatible with pneumonia and blood cultures were obtained. Blood cultures grew Robert glabrata 2 out of 2 sets with susceptibility pending. Patient was started empirically on Diflucan 400 mg IV 1 followed by 200 mg daily. Patients creatinine clearance is about 35 so they use 50% of the actual normal dose for Diflucan. Patient continued to improved, we were asked to evaluate the patient and make further recommendations. My index of suspicion that the candidemia came from candiduria. Robert glabrata can be resistant to fluconazole but the patient responded quite well. Also if I switched the patient to micafungin it does not penetrate to the bladder and if the bladder is the source of the candidemia then I think itll be less efficacious. For now we will continue fluconazole and patient on the proper dose. We will repeat cultures 2 make sure that the candidemia results. Patient also tells me that shes having some visual changes and sees floaters. We will consult ophthalmology to rule out endophthalmitis. Need to monitor labs and for drug toxicity. Dose adjust Diflucan based on the creatinine clearance.
[2017-05-19] MEDS: Aspirin Enteric Coated 81 MG Tablet PO SCH (09:21)
[2017-05-19] MEDS: Cholecalciferol (D-3) 1,000 UNIT TABLET PO SCH (09:21)
[2017-05-19] MEDS: Isosorbide MONOnitrate (24 HR) 30 MG TAB.ER.24H PO SCH (09:21)
[2017-05-19] MEDS: Fluconazole 200 MG/100 ML 200 MG/100 ML BAG IVPB SCH (09:25)
[2017-05-19 10:01] LABS: Mycoplasma pneumoniae IgG 0.62 U/L (<=0.09)
[2017-05-19] MEDS: Azithromycin 500 MG in D5% in Water 250 ML IVPB SCH (17:39)
[2017-05-19] MEDS: levoFLOXacin 750 MG TABLET PO SCH (22:19)
[2017-05-20] MEDS: *HR* Metoprolol 5 MG/5 ML VIAL IVP SCH ×4 (01:00→18:29)
[2017-05-20 03:43] LABS: Basophils % 0.3 %; Eosinophils % 0.2 %; Hematocrit 31.4 % (35.3-44.9); Hemoglobin 9.3 g/dL (11.5-15.4); Lymphocytes # 0.9 K/mcL (0.6-4.6); Lymphocytes % 10.6 %; Mean Corpuscular HGB Conc 29.6 g/dL (31.6-35.5); Mean Corpuscular Hemoglobin 27.5 pg (28.0-33.3); Mean Corpuscular Volume 92.9 fL (83.0-100.0); Mean Platelet Volume 11.1 fL (9.4-12.4); Monocytes # 1.2 K/mcL (0.0-1.3); Monocytes % 13.6 %; Neutrophils # 6.5 K/mcL (1.6-8.9); Nucleated Red Blood Cells 0.3 /100 WBC (0); Platelet Count 205 K/mcL (140-400); Red Blood Count 3.38 M/mcL (3.82-4.97); Red Cell Distribution Width 17.7 % (11.5-14.5); Segmented Neutrophils % 73.3 %
[2017-05-20 04:05] LABS: Calcium 9.1 mg/dL (8.6-10.3); Potassium 2.9 mEq/L (3.5-5.1)
[2017-05-20] MEDS: *HR* Heparin 5,000 UNIT/ML VIAL SQ SCH ×2 (05:21→18:26)
[2017-05-20] MEDS: Cholecalciferol (D-3) 1,000 UNIT TABLET PO SCH (09:18)
[2017-05-20] MEDS: Fluconazole 200 MG/100 ML 200 MG/100 ML BAG IVPB SCH (09:19)
[2017-05-20] MEDS: Isosorbide MONOnitrate (24 HR) 30 MG TAB.ER.24H PO SCH (09:19)
[2017-05-20] MEDS: Aspirin Enteric Coated 81 MG Tablet PO SCH (09:19)
--- NOTE | 2017-05-20 16:28 | Internal Med Progress Note ---
Date of Encounter: 05/20/17 Time of Encounter: 16:26 - Assessment and plan (1) Sepsis Current Visit: Yes Status: Acute Assessment and plan: Developed hospital acquired pneumonia. UTI also possible but signs of sepsis worsened and then improved with broadening antibiotics - Procalcitonin elevated at 2.99 consistent with sepsis, - hemodynamically stable - LA within normal limits 3 days ago - Patient aspiration risk, Passed bedside swallow evaluation. If there is more concern for aspiration we will consider further investigation. - 05/13/17: Negative Bcx - 05/17: positive Kyra glabrata x2 - WBC was 20k on 05/17, improved to 12.4k on 05.18, today is within normal limits. - Fluconazole started 05/18. Continue Vanc, Zosyn, Azithromycin Kyra sensitivities pending Consult ID, recommendations appreciated. Qualifiers: Sepsis type: sepsis due to unspecified organism Qualified Code(s): A41.9 - Sepsis, unspecified organism (2) Blood culture positive for Kyra species Current Visit: Yes Status: Acute (3) Hospital-acquired bacterial pneumonia Current Visit: Yes Status: Acute (4) UTI (urinary tract infection) Current Visit: Yes Status: Ruled-out Qualifiers: Urinary tract infection type: site unspecified Hematuria presence: without hematuria Qualified Code(s): N39.0 - Urinary tract infection, site not specified (5) Cholecystitis Current Visit: Yes Status: Acute (6) JESSICA (acute kidney injury) Current Visit: Yes Status: Resolved (7) CKD (chronic kidney disease), stage III Current Visit: Yes Status: Chronic (8) Dementia Current Visit: Yes Status: Acute Assessment and plan: Patient appetite has been poor in the past month. She has been refusing medications on occasions. Family is concerned of this low appetite. We discussed supplemental nutrition. Qualifiers: Dementia type: unspecified type Dementia behavioral disturbance: without behavioral disturbance Qualified Code(s): F03.90 - Unspecified dementia without behavioral disturbance (9) Diastolic heart failure Current Visit: Yes Status: Acute Qualifiers: Heart failure chronicity: chronic Qualified Code(s): I50.32 - Chronic diastolic (congestive) heart failure (10) CAD (coronary artery disease) Current Visit: Yes Status: Chronic Assessment and plan: Continue aspirin, statin, beta jesse, hold KARLA inhibitor. Telemetry monitoring and serial troponins. Qualifiers: Coronary Disease-Associated Artery/Lesion type: [place] artery [place] vs. transplanted heart: [place] heart Associated angina: without angina Qualified Code(s): I25.10 - Atherosclerotic heart disease of [place] coronary artery without angina pectoris (11) COPD (chronic obstructive pulmonary disease) Current Visit: Yes Status: Chronic Assessment and plan: Not in acute exacerbation. Continue bronchodilators and supplemental oxygen as needed. Qualifiers: COPD type: unspecified COPD Qualified Code(s): J44.9 - Chronic obstructive pulmonary disease, unspecified (12) Elevated troponin Current Visit: Yes Status: Acute Assessment and plan: Patient has history of mild troponin leak, current troponin at 0.09-->0.1; consistent with possible demand ischemia. Echocardiogram no wall motion abnormalities. Case discussed with cardiology, continue medical management. (13) History of atrial flutter Current Visit: Yes Status: Chronic Assessment and plan: Continue beta jesse. Current Home med list does not show Eliquis, probably discontinued due to fall risk and dementia; Developing tachycardia possibly sepsis related, vanc zosyn azithromycin started. (14) HTN (hypertension) Current Visit: Yes Status: Chronic Qualifiers: Hypertension type: essential hypertension Qualified Code(s): I10 - Essential (primary) hypertension (15) Hyperlipidemia Current Visit: Yes Status: Chronic Qualifiers: Hyperlipidemia type: unspecified Qualified Code(s): E78.5 - Hyperlipidemia , unspecified (16) Parkinsons Current Visit: Yes Status: Chronic (17) Primary breast cancer Current Visit: Yes Status: Inactive Qualifiers: Laterality: unspecified laterality Qualified Code(s): C50.919 - Malignant neoplasm of unspecified site of unspecified female breast (18) DVT prophylaxis Current Visit: No Status: Acute - Subjective Interval history: No acute events overnight. - Constitutional Vitals: Temp Pulse Resp BP Pulse Ox 97.5 F L 65 16 122/68 95 05/20/17 12:18 05/20/17 12:18 05/20/17 12:18 05/20/17 12:18 05/20/17 12:18 General appearance: Present: cooperative, A&O X 1. Absent: answers questions appropriately - Cardiovascular Cardiovascular exam: Present: RRR, +S1, +S2. Absent: diastolic murmur, gallop, rubs, systolic murmur - Extremities Exam Extremities exam: Present: warm, radial pulses palpable and symmetrical. Absent : calf tenderness, cyanotic, pedal edema - Skin Skin exam: Present: dry, intact Internal Medicine: Result - Labs CBC & Chem 7: 05/20/17 03:04 05/20/17 03:04 Labs: Short CBC 05/20/17 Range/Units 03:04 WBC 8.9 (4.3-11.1) K/mcL Hgb 9.3 L (11.5-15.4) g/dL Hct 31.4 L (35.3-44.9) % Plt Count 205 (140-400) K/mcL Neutrophils # 6.5 (1.6-8.9) K/mcL BMP 05/20/17 03:04 Sodium 142 Potassium 2.9 L Chloride 100 Carbon Dioxide 34 H BUN 30 H Creatinine 1.27 H Glucose 89 Calcium 9.1 - ABG Interpretation ABG results: PT/INR, D-dimer PT 20.2 Seconds (9.4-12.1) H 05/15/17 00:35 - VTE Documentation of Mechanical Device: Intermittent pneumatic compression device Consult Discharge Plan - Plan Additional Instructions: #1 may shower, no tub bath for 2 weeks #2 wash incisions with soap and water and pat dry daily #3 no lifting, pushing, pulling more than 15 pounds for the next 2 weeks #4 no driving until off narcotics for 24 hours and able to safely react in the car #5 may climb stairs Referrals: Carrie Andrews CNP [Advanced Practice Nurse] - 05/30/17 2:15 pm (surgery follow-up) Vanita Chavez CNP [Primary Care Provider] - 05/26/17 9:45 am ()
[2017-05-21] MEDS: *HR* Metoprolol 5 MG/5 ML VIAL IVP SCH ×4 (00:23→17:12)
[2017-05-21 03:54] LABS: Basophils % 0.3 %; Eosinophils % 0.1 %; Hematocrit 30.4 % (35.3-44.9); Immature Granulocytes % 3.4 % (0-4); Lymphocytes # 1.2 K/mcL (0.6-4.6); Lymphocytes % 13.5 %; Mean Corpuscular HGB Conc 29.6 g/dL (31.6-35.5); Mean Corpuscular Hemoglobin 27.7 pg (28.0-33.3); Mean Corpuscular Volume 93.5 fL (83.0-100.0); Mean Platelet Volume 10.6 fL (9.4-12.4); Monocytes # 1.1 K/mcL (0.0-1.3); Monocytes % 12.1 %; Neutrophils # 6.2 K/mcL (1.6-8.9); Nucleated Red Blood Cells 0.2 /100 WBC (0); Platelet Count 208 K/mcL (140-400); Red Blood Count 3.25 M/mcL (3.82-4.97); Red Cell Distribution Width 17.8 % (11.5-14.5); Segmented Neutrophils % 70.6 %
[2017-05-21 04:31] LABS: Potassium 3.2 mEq/L (3.5-5.1)
[2017-05-21] MEDS: *HR* Heparin 5,000 UNIT/ML VIAL SQ SCH ×2 (05:22→17:12)
[2017-05-21] MEDS: Fluconazole 200 MG/100 ML 200 MG/100 ML BAG IVPB SCH (09:06)
[2017-05-21] MEDS: Cholecalciferol (D-3) 1,000 UNIT TABLET PO SCH (09:06)
[2017-05-21] MEDS: Isosorbide MONOnitrate (24 HR) 30 MG TAB.ER.24H PO SCH (09:06)
[2017-05-21] MEDS: Aspirin Enteric Coated 81 MG Tablet PO SCH (09:06)
--- NOTE | 2017-05-21 09:22 | Internal Med Progress Note ---
Date of Encounter: 05/21/17 Time of Encounter: 09:18 - Assessment and plan (1) Sepsis Current Visit: Yes Status: Acute Assessment and plan: Developed hospital acquired pneumonia. UTI also possible but signs of sepsis worsened and then improved with broadening antibiotics - Procalcitonin elevated at 2.99 consistent with sepsis, - hemodynamically stable - LA within normal limits 3 days ago - Patient aspiration risk, Passed bedside swallow evaluation. If there is more concern for aspiration we will consider further investigation. - 05/13/17: Negative Bcx - 05/17: positive Kyra glabrata x2 - WBC was 20k on 05/17, improved to 12.4k on 05.18, today is within normal limits. - Fluconazole started 05/18. - De escalated to Levaquin 05/19; doing well Kyra sensitivities pending Qualifiers: Sepsis type: sepsis due to unspecified organism Qualified Code(s): A41.9 - Sepsis, unspecified organism (2) Blood culture positive for Kyra species Current Visit: Yes Status: Acute (3) Hospital-acquired bacterial pneumonia Current Visit: Yes Status: Acute Assessment and plan: Chest x-ray findings compatible with new pneumonia. Respiratory cultures, repeat blood cultures, urinary antigens. Broaden antibiotic coverage; DC Rocephin, start Vanc/Cefepime/azithromycin (4) UTI (urinary tract infection) Current Visit: Yes Status: Ruled-out Assessment and plan: Urinalysis shows negative nitrite, large leukocyte esterase, 50-100 WBC, few bacteria. Patient has elevated white count and tachycardic, likely sepsis. ID following for sepsis. Continue Levaquin Qualifiers: Urinary tract infection type: site unspecified Hematuria presence: without hematuria Qualified Code(s): N39.0 - Urinary tract infection, site not specified (5) Cholecystitis Current Visit: Yes Status: Acute Assessment and plan: Patient presented with lethargy and anorexia, right upper quadrant tenderness. CT abdomen/pelvis shows distended gallbladder with gallstones and gallbladder wall thickening. Right upper quadrant ultrasound shows thickened gallbladder with sludge and gallstones, slightly dilated common bile duct measuring 9.8 mm. Surgery on board, patient underwent laparoscopic cholecystectomy, postoperative day 1. Postoperative care and local wound care per surgery recommendations. Diet advanced to solids today. supportive care with when necessary pain medications and antiemetics. Physical and occupational therapy evaluation recommended ECF placement. director of physiotherapy services consulted. (6) JESSICA (acute kidney injury) Current Visit: Yes Status: Resolved Assessment and plan: Patient has history of chronic kidney disease, baseline serum creatinine noted to be around 1.3-1.4. Acute rise in creatinine likely due to dehydration and poor oral intake, with use of diuretics and KARLA inhibitor at home. Serum creatinine improved back to baseline; Continue to monitor closely, avoid nephrotoxic agents. continue to Hold KARLA inhibitor; (7) CKD (chronic kidney disease), stage III Current Visit: Yes Status: Chronic (8) Dementia Current Visit: Yes Status: Acute Assessment and plan: Patient appetite has been poor in the past month. She has been refusing medications on occasions. Family is concerned of this low appetite. We discussed supplemental nutrition. Qualifiers: Dementia type: unspecified type Dementia behavioral disturbance: without behavioral disturbance Qualified Code(s): F03.90 - Unspecified dementia without behavioral disturbance (9) Diastolic heart failure Current Visit: Yes Status: Acute Qualifiers: Heart failure chronicity: chronic Qualified Code(s): I50.32 - Chronic diastolic (congestive) heart failure (10) CAD (coronary artery disease) Current Visit: Yes Status: Chronic Assessment and plan: Continue aspirin, statin, beta jesse. Telemetry monitoring and serial troponins. - patient currently unable to swallow pills, likely from progressing dementia PO medications not able to be given. Qualifiers: Coronary Disease-Associated Artery/Lesion type: [place] artery [place] vs. transplanted heart: [place] heart Associated angina: without angina Qualified Code(s): I25.10 - Atherosclerotic heart disease of [place] coronary artery without angina pectoris (11) COPD (chronic obstructive pulmonary disease) Current Visit: Yes Status: Chronic Assessment and plan: Not in acute exacerbation. Continue bronchodilators and supplemental oxygen as needed. Qualifiers: COPD type: unspecified COPD Qualified Code(s): J44.9 - Chronic obstructive pulmonary disease, unspecified (12) Elevated troponin Current Visit: Yes Status: Acute Assessment and plan: Patient has history of mild troponin leak, current troponin at 0.09-->0.1; consistent with possible demand ischemia. Echocardiogram no wall motion abnormalities. Case discussed with cardiology, continue medical management. (13) History of atrial flutter Current Visit: Yes Status: Chronic Assessment and plan: Lopressor IV prn. - patient currently unable to swallow pills, likely from progressing dementia and PO not able to be given. (14) HTN (hypertension) Current Visit: Yes Status: Chronic Assessment and plan: Currently normotensive, - patient currently unable to swallow pills, likely from progressing dementia and Quinapril not able to be given. Qualifiers: Hypertension type: essential hypertension Qualified Code(s): I10 - Essential (primary) hypertension (15) Hyperlipidemia Current Visit: Yes Status: Chronic Assessment and plan: Lipitor Qualifiers: Hyperlipidemia type: unspecified Qualified Code(s): E78.5 - Hyperlipidemia , unspecified (16) Parkinsons Current Visit: Yes Status: Chronic (17) Primary breast cancer Current Visit: Yes Status: Inactive Qualifiers: Laterality: unspecified laterality Qualified Code(s): C50.919 - Malignant neoplasm of unspecified site of unspecified female breast (18) DVT prophylaxis Current Visit: No Status: Acute Assessment and plan: Heparin Sq - Subjective Interval history: No acute events overnight. She is not tolerating solids, but some liquids. - Constitutional Vitals: Temp Pulse Resp BP Pulse Ox 98.0 F 90 20 138/83 99 05/21/17 08:26 05/21/17 08:26 05/21/17 08:26 05/21/17 08:26 05/21/17 08:26 General appearance: Present: cooperative, A&O X 1. Absent: answers questions appropriately - Head Head exam: Present: atraumatic, normocephalic - Eye Eye exam: Present: PERRL, conjuntiva pink, sclera anicteric Pupils: Present: PERRL - Neck Neck exam general surgery: Present: supple, trachea midline. Absent: lymphadenopathy - Respiratory Respiratory exam: Present: CTAB. Absent: accessory muscle use, rales, rhonchi, wheezes - Cardiovascular Cardiovascular exam: Present: RRR, +S1, +S2. Absent: diastolic murmur, gallop, rubs, systolic murmur - GI/Abdominal GI/Abdominal exam: Present: normal bowel sounds, soft, no peritoneal signs. Absent: distended, tenderness - Extremities Exam Extremities exam: Present: warm, radial pulses palpable and symmetrical. Absent : calf tenderness, cyanotic, pedal edema - Neurological Exam Neurological exam: Present: CN II-XII intact, oriented X3, no focal deficits. Absent: pronater drift, facial droop, speech deficit - Skin Skin exam: Present: dry, intact Internal Medicine: Result - Labs CBC & Chem 7: 05/21/17 03:38 05/21/17 03:38 Labs: Short CBC 05/21/17 Range/Units 03:38 WBC 8.8 (4.3-11.1) K/mcL Hgb 9.0 L (11.5-15.4) g/dL Hct 30.4 L (35.3-44.9) % Plt Count 208 (140-400) K/mcL Neutrophils # 6.2 (1.6-8.9) K/mcL BMP 05/21/17 03:38 Sodium 144 Potassium 3.2 L Chloride 102 Carbon Dioxide 36 H BUN 24 H Creatinine 1.12 Glucose 116 H Calcium 9.0 - ABG Interpretation ABG results: PT/INR, D-dimer PT 20.2 Seconds (9.4-12.1) H 05/15/17 00:35 - VTE Documentation of Mechanical Device: Intermittent pneumatic compression device Consult Discharge Plan - Plan Additional Instructions: #1 may shower, no tub bath for 2 weeks #2 wash incisions with soap and water and pat dry daily #3 no lifting, pushing, pulling more than 15 pounds for the next 2 weeks #4 no driving until off narcotics for 24 hours and able to safely react in the car #5 may climb stairs Referrals: Carrie Andrews CNP [Advanced Practice Nurse] - 05/30/17 2:15 pm (surgery follow-up) Vanita Chavez CNP [Primary Care Provider] - 05/26/17 9:45 am ()
[2017-05-21] MEDS: levoFLOXacin 750 MG TABLET PO SCH (22:24)
[2017-05-22] MEDS: *HR* Metoprolol 5 MG/5 ML VIAL IVP SCH ×5 (01:14→23:47)
[2017-05-22 05:12] LABS: Basophils % 0.4 %; Eosinophils % 0.1 %; Hematocrit 30.7 % (35.3-44.9); Hemoglobin 8.9 g/dL (11.5-15.4); Immature Granulocytes % 5.2 % (0-4); Lymphocytes # 1.4 K/mcL (0.6-4.6); Lymphocytes % 14.8 %; Mean Corpuscular Hemoglobin 27.5 pg (28.0-33.3); Mean Corpuscular Volume 94.8 fL (83.0-100.0); Mean Platelet Volume 10.9 fL (9.4-12.4); Monocytes # 0.9 K/mcL (0.0-1.3); Platelet Count 240 K/mcL (140-400); Red Blood Count 3.24 M/mcL (3.82-4.97); Segmented Neutrophils % 70.5 %
[2017-05-22 05:32] LABS: BUN/Creatinine Ratio 26 (6-26); Blood Urea Nitrogen 21 mg/dL (8-23); Carbon Dioxide 36 mEq/L (23-29); Chloride 102 mEq/L (98-107); Glucose 105 mg/dL (70-105); Osmolality,Calculated 299 (280-300); Potassium 3.4 mEq/L (3.5-5.1); Sodium 143 mEq/L (136-145); eGFR For African Americans > 60 (> 60); eGFR For Non-African Americans > 60 (> 60)
[2017-05-22 05:40] LABS: Neutrophils # 6.8 K/mcL (1.6-8.9)
[2017-05-22 05:43] LABS: Platelet Estimate Normal (Normal)
[2017-05-22] MEDS: *HR* Heparin 5,000 UNIT/ML VIAL SQ SCH ×2 (05:47→17:09)
[2017-05-22] MEDS: Fluconazole 200 MG/100 ML 200 MG/100 ML BAG IVPB SCH (08:53)
[2017-05-22] MEDS: Isosorbide MONOnitrate (24 HR) 30 MG TAB.ER.24H PO SCH (08:54)
[2017-05-22] MEDS: Aspirin Enteric Coated 81 MG Tablet PO SCH (08:54)
[2017-05-22] MEDS: Cholecalciferol (D-3) 1,000 UNIT TABLET PO SCH (08:54)
--- NOTE | 2017-05-22 09:19 | Internal Med Progress Note ---
Date of Encounter: 05/22/17 Time of Encounter: 09:11 - Assessment and plan (1) Sepsis Current Visit: Yes Status: Acute Assessment and plan: Developed hospital acquired pneumonia. UTI also possible but signs of sepsis worsened and then improved with broadening antibiotics - Procalcitonin elevated at 2.99 consistent with sepsis, - hemodynamically stable - LA within normal limits - Speech therapy consult in case aspiration risk. Recs: mechanically altered textures, and thin liquids, meds in puree. - 05/13/17: Negative Bcx - 05/17: positive Robert glabrata x2 - WBC was 20k on 05/17, improved to 12.4k on 05.18, today is within normal limits. - Fluconazole started 05/18. - De escalated to Levaquin 05/19; doing well Robert sensitivities Caspofungin, fluconazole, voriconazole - repeat procal level pending. ID following, recommendations appreciated. Qualifiers: Sepsis type: sepsis due to unspecified organism Qualified Code(s): A41.9 - Sepsis, unspecified organism (2) Blood culture positive for Robert species Current Visit: Yes Status: Acute Assessment and plan: Sensitivities list Caspofungin, Fluconazole, Voriconazole. Will discuss with ID and pharmacy in choosing optimal antifungal based on side effect profile. (3) Hospital-acquired bacterial pneumonia Current Visit: Yes Status: Acute Assessment and plan: Chest x-ray findings compatible with new pneumonia. Respiratory cultures, repeat blood cultures, urinary antigens. Broaden antibiotic coverage; DC Rocephin, start Vanc/Cefepime/azithromycin (4) UTI (urinary tract infection) Current Visit: Yes Status: Ruled-out Assessment and plan: Urinalysis shows negative nitrite, large leukocyte esterase, 50-100 WBC, few bacteria. Patient has elevated white count and tachycardic, likely sepsis. ID following for sepsis. Continue Levaquin Qualifiers: Urinary tract infection type: site unspecified Hematuria presence: without hematuria Qualified Code(s): N39.0 - Urinary tract infection, site not specified (5) Cholecystitis Current Visit: Yes Status: Acute Assessment and plan: Patient presented with lethargy and anorexia, right upper quadrant tenderness. CT abdomen/pelvis shows distended gallbladder with gallstones and gallbladder wall thickening. Right upper quadrant ultrasound shows thickened gallbladder with sludge and gallstones, slightly dilated common bile duct measuring 9.8 mm. Surgery on board, patient underwent laparoscopic cholecystectomy, postoperative day 1. Postoperative care and local wound care per surgery recommendations. Diet advanced to solids today. supportive care with when necessary pain medications and antiemetics. Physical and occupational therapy evaluation recommended ECF placement. nutritional services host consulted. (6) JESSICA (acute kidney injury) Current Visit: Yes Status: Resolved Assessment and plan: Patient has history of chronic kidney disease, baseline serum creatinine noted to be around 1.3-1.4. Acute rise in creatinine likely due to dehydration and poor oral intake, with use of diuretics and KARLA inhibitor at home. Serum creatinine improved back to baseline; Continue to monitor closely, avoid nephrotoxic agents. continue to Hold KARLA inhibitor; (7) CKD (chronic kidney disease), stage III Current Visit: Yes Status: Chronic (8) Dementia Current Visit: Yes Status: Acute Assessment and plan: Patient appetite has been poor in the past month. She has been refusing medications on occasions. Family is concerned of this low appetite. We discussed supplemental nutrition. Qualifiers: Dementia type: unspecified type Dementia behavioral disturbance: without behavioral disturbance Qualified Code(s): F03.90 - Unspecified dementia without behavioral disturbance (9) Diastolic heart failure Current Visit: Yes Status: Acute Qualifiers: Heart failure chronicity: chronic Qualified Code(s): I50.32 - Chronic diastolic (congestive) heart failure (10) CAD (coronary artery disease) Current Visit: Yes Status: Chronic Assessment and plan: Continue aspirin, statin, beta jesse. Telemetry monitoring and serial troponins. - patient currently unable to swallow pills, likely from progressing dementia PO medications not able to be given. Qualifiers: Coronary Disease-Associated Artery/Lesion type: [place] artery [place] vs. transplanted heart: [place] heart Associated angina: without angina Qualified Code(s): I25.10 - Atherosclerotic heart disease of [place] coronary artery without angina pectoris (11) COPD (chronic obstructive pulmonary disease) Current Visit: Yes Status: Chronic Assessment and plan: Not in acute exacerbation. Continue bronchodilators and supplemental oxygen as needed. Qualifiers: COPD type: unspecified COPD Qualified Code(s): J44.9 - Chronic obstructive pulmonary disease, unspecified (12) Elevated troponin Current Visit: Yes Status: Acute Assessment and plan: Patient has history of mild troponin leak, current troponin at 0.09-->0.1; consistent with possible demand ischemia. Echocardiogram no wall motion abnormalities. Case discussed with cardiology, continue medical management. (13) History of atrial flutter Current Visit: Yes Status: Chronic Assessment and plan: Lopressor IV prn. - patient currently unable to swallow pills, likely from progressing dementia and PO not able to be given. (14) HTN (hypertension) Current Visit: Yes Status: Chronic Assessment and plan: Currently normotensive, - patient currently unable to swallow pills, likely from progressing dementia and Quinapril not able to be given. Qualifiers: Hypertension type: essential hypertension Qualified Code(s): I10 - Essential (primary) hypertension (15) Hyperlipidemia Current Visit: Yes Status: Chronic Assessment and plan: Lipitor Qualifiers: Hyperlipidemia type: unspecified Qualified Code(s): E78.5 - Hyperlipidemia , unspecified (16) Parkinsons Current Visit: Yes Status: Chronic (17) Primary breast cancer Current Visit: Yes Status: Inactive Qualifiers: Laterality: unspecified laterality Qualified Code(s): C50.919 - Malignant neoplasm of unspecified site of unspecified female breast (18) DVT prophylaxis Current Visit: No Status: Acute Assessment and plan: Heparin Sq - Subjective Interval history: Ms. Cabrera is a 76 year old female with past medical history of HFrEF (2016 EF 45%), COPD, prior CVA, dementia, CKD 3, hld, htn, and CAD (w/ prior MD) who presented on 05/13/17 for one week of lethargy and confusion. She has been declining in the past several months with decreased appetite and trouble with eating. On admission she had CT showing cholelithiasis and had cholecystectomy on 05/15. On 05/17 she found to have sepsis from pneumonia. Procalcitonin was 2.99, blood cultures grew Robert glabrata. ID was then consulted. She was treated with Vanc/Zosyn/azithromycin, de escalated to Levaquin. Fluconazole was started for robert infection. She has been refusing PO medications and food during admission. Mostly refuses PO medications and has trouble swallowing foods. 05/22: today patient more verbal, AAOx1 but able to converse and is cooperative. She is drinking Ensure on her own. - Constitutional Vitals: Temp Pulse Resp BP Pulse Ox 97.6 F 89 18 112/63 96 05/22/17 08:18 05/22/17 08:18 05/22/17 08:18 05/22/17 08:18 05/22/17 08:18 General appearance: Present: cooperative, A&O X 1. Absent: answers questions appropriately Exam: - Head Head exam: Present: atraumatic, normocephalic - Eye Eye exam: Present: PERRL, conjuntiva pink, sclera anicteric Pupils: Present: PERRL - Neck Neck exam general surgery: Present: supple, trachea midline. Absent: lymphadenopathy - Respiratory Respiratory exam: Present: CTAB. Absent: accessory muscle use, rales, rhonchi, wheezes - Cardiovascular Cardiovascular exam: Present: RRR, +S1, +S2. Absent: diastolic murmur, gallop, rubs, systolic murmur - GI/Abdominal GI/Abdominal exam: Present: normal bowel sounds, soft, no peritoneal signs. Absent: distended, tenderness - Extremities Exam Extremities exam: Present: warm, radial pulses palpable and symmetrical. Absent : calf tenderness, cyanotic, pedal edema - Neurological Exam Neurological exam: Present: CN II-XII intact, oriented X3, no focal deficits. Absent: pronater drift, facial droop, speech deficit - Skin Skin exam: Present: dry, intact Internal Medicine: Result - Labs CBC & Chem 7: 05/22/17 04:44 05/22/17 04:44 Labs: Short CBC 05/22/17 Range/Units 04:44 WBC 9.6 (4.3-11.1) K/mcL Hgb 8.9 L (11.5-15.4) g/dL Hct 30.7 L (35.3-44.9) % Plt Count 240 (140-400) K/mcL Neutrophils # 6.8 (1.6-8.9) K/mcL BMP 05/22/17 04:44 Sodium 143 Potassium 3.4 L Chloride 102 Carbon Dioxide 36 H BUN 21 Creatinine 0.82 Glucose 105 Calcium 9.0 - ABG Interpretation ABG results: PT/INR, D-dimer PT 20.2 Seconds (9.4-12.1) H 05/15/17 00:35 - VTE Documentation of Mechanical Device: Intermittent pneumatic compression device Consult Discharge Plan - Plan Additional Instructions: #1 may shower, no tub bath for 2 weeks #2 wash incisions with soap and water and pat dry daily #3 no lifting, pushing, pulling more than 15 pounds for the next 2 weeks #4 no driving until off narcotics for 24 hours and able to safely react in the car #5 may climb stairs Referrals: Carrie Andrews CNP [Advanced Practice Nurse] - 05/30/17 2:15 pm (surgery follow-up) Vanita Chavez CNP [Primary Care Provider] - 05/26/17 9:45 am ()
[2017-05-23] MEDS: *HR* Heparin 5,000 UNIT/ML VIAL SQ SCH ×2 (05:16→16:21)
[2017-05-23] MEDS: *HR* Metoprolol 5 MG/5 ML VIAL IVP SCH ×2 (05:16→12:22)
[2017-05-23 06:19] LABS: Red Blood Count 3.18 M/mcL (3.82-4.97)
[2017-05-23 06:21] LABS: Basophils # 0.1 K/mcL (0.0-0.2); Basophils % 0.6 %; Eosinophils % 0.1 %; Hematocrit 30.3 % (35.3-44.9); Hemoglobin 8.8 g/dL (11.5-15.4); Immature Granulocytes % 4.7 % (0-4); Lymphocytes # 1.4 K/mcL (0.6-4.6); Lymphocytes % 14.7 %; Mean Corpuscular Hemoglobin 27.7 pg (28.0-33.3); Mean Corpuscular Volume 95.3 fL (83.0-100.0); Mean Platelet Volume 10.6 fL (9.4-12.4); Monocytes # 0.8 K/mcL (0.0-1.3); Monocytes % 7.8 %; Neutrophils # 6.9 K/mcL (1.6-8.9); Platelet Count 241 K/mcL (140-400); Red Cell Distribution Width 18.1 % (11.5-14.5); Segmented Neutrophils % 72.1 %
[2017-05-23 06:34] LABS: BUN/Creatinine Ratio 18 (6-26); Blood Urea Nitrogen 15 mg/dL (8-23); Calcium 9.1 mg/dL (8.6-10.3); Carbon Dioxide 38 mEq/L (23-29); Chloride 104 mEq/L (98-107); Glucose 107 mg/dL (70-105); Osmolality,Calculated 301 (280-300); Potassium 3.5 mEq/L (3.5-5.1); Sodium 145 mEq/L (136-145); eGFR For African Americans > 60 (> 60); eGFR For Non-African Americans > 60 (> 60)
[2017-05-23 06:48] LABS: Hypochromasia Present (Not Present); Platelet Estimate Normal (Normal)
[2017-05-23 06:49] LABS: Anisocytosis 1+ (Not Present); Macrocytosis Present (Not Present); Polychromasia 1+ (Not Present)
--- NOTE | 2017-05-23 09:20 | Internal Med Progress Note ---
Date of Encounter: 05/23/17 Time of Encounter: 09:13 - Assessment and plan (1) Sepsis Current Visit: Yes Status: Acute Assessment and plan: Developed hospital acquired pneumonia. UTI also possible but signs of sepsis worsened and then improved with broadening antibiotics - Procalcitonin elevated at 2.99 consistent with sepsis, - hemodynamically stable - LA within normal limits - Speech therapy consult in case aspiration risk. Recs: mechanically altered textures, and thin liquids, meds in puree. - 05/13/17: Negative Bcx - 05/17: positive Robert glabrata x2 - WBC was 20k on 05/17, improved to 12.4k on 05.18, today is within normal limits. - Fluconazole started 05/18. - De escalated to Levaquin 05/19; doing well Robert sensitivities Caspofungin, fluconazole, voriconazole - repeat procal level pending. ID following, recommendations appreciated. Qualifiers: Sepsis type: sepsis due to unspecified organism Qualified Code(s): A41.9 - Sepsis, unspecified organism (2) Blood culture positive for Robert species Current Visit: Yes Status: Acute Assessment and plan: Sensitivities list Caspofungin, Fluconazole, Voriconazole. Will discuss with ID and pharmacy in choosing optimal antifungal based on side effect profile. (3) Hospital-acquired bacterial pneumonia Current Visit: Yes Status: Acute Assessment and plan: Chest x-ray findings compatible with new pneumonia. Respiratory cultures, repeat blood cultures, urinary antigens. Broaden antibiotic coverage; DC Rocephin, start Vanc/Cefepime/azithromycin (4) UTI (urinary tract infection) Current Visit: Yes Status: Ruled-out Assessment and plan: Urinalysis shows negative nitrite, large leukocyte esterase, 50-100 WBC, few bacteria. Patient has elevated white count and tachycardic, likely sepsis. ID following for sepsis. Continue Levaquin Qualifiers: Urinary tract infection type: site unspecified Hematuria presence: without hematuria Qualified Code(s): N39.0 - Urinary tract infection, site not specified (5) Cholecystitis Current Visit: Yes Status: Acute Assessment and plan: Patient presented with lethargy and anorexia, right upper quadrant tenderness. CT abdomen/pelvis shows distended gallbladder with gallstones and gallbladder wall thickening. Right upper quadrant ultrasound shows thickened gallbladder with sludge and gallstones, slightly dilated common bile duct measuring 9.8 mm. Surgery on board, patient underwent laparoscopic cholecystectomy, postoperative day 1. Postoperative care and local wound care per surgery recommendations. Diet advanced to solids today. supportive care with when necessary pain medications and antiemetics. Physical and occupational therapy evaluation recommended ECF placement. financial services intern consulted. (6) JESSICA (acute kidney injury) Current Visit: Yes Status: Resolved Assessment and plan: Patient has history of chronic kidney disease, baseline serum creatinine noted to be around 1.3-1.4. Acute rise in creatinine likely due to dehydration and poor oral intake, with use of diuretics and KARLA inhibitor at home. Serum creatinine improved back to baseline; Continue to monitor closely, avoid nephrotoxic agents. continue to Hold KARLA inhibitor; (7) CKD (chronic kidney disease), stage III Current Visit: Yes Status: Chronic (8) Dementia Current Visit: Yes Status: Acute Assessment and plan: Patient appetite has been poor in the past month. She has been refusing medications on occasions. Family is concerned of this low appetite. We discussed supplemental nutrition. Qualifiers: Dementia type: unspecified type Dementia behavioral disturbance: without behavioral disturbance Qualified Code(s): F03.90 - Unspecified dementia without behavioral disturbance (9) Diastolic heart failure Current Visit: Yes Status: Acute Assessment and plan: Takes Lasix for fluid overload - Held because of JESSICA on CKD - Renal function at baseline - Resume Lasix 05/23 Qualifiers: Heart failure chronicity: chronic Qualified Code(s): I50.32 - Chronic diastolic (congestive) heart failure (10) CAD (coronary artery disease) Current Visit: Yes Status: Chronic Assessment and plan: Continue aspirin, statin, beta jesse. Telemetry monitoring and serial troponins. - patient currently unable to swallow pills, likely from progressing dementia PO medications not able to be given. Qualifiers: Coronary Disease-Associated Artery/Lesion type: [place] artery [place] vs. transplanted heart: [place] heart Associated angina: without angina Qualified Code(s): I25.10 - Atherosclerotic heart disease of [place] coronary artery without angina pectoris (11) COPD (chronic obstructive pulmonary disease) Current Visit: Yes Status: Chronic Assessment and plan: Not in acute exacerbation. Continue bronchodilators and supplemental oxygen as needed. Qualifiers: COPD type: unspecified COPD Qualified Code(s): J44.9 - Chronic obstructive pulmonary disease, unspecified (12) Elevated troponin Current Visit: Yes Status: Acute Assessment and plan: Patient has history of mild troponin leak, current troponin at 0.09-->0.1; consistent with possible demand ischemia. Echocardiogram no wall motion abnormalities. Case discussed with cardiology, continue medical management. (13) History of atrial flutter Current Visit: Yes Status: Chronic Assessment and plan: Lopressor IV prn. - patient currently unable to swallow pills, likely from progressing dementia and PO not able to be given. (14) HTN (hypertension) Current Visit: Yes Status: Chronic Assessment and plan: Currently normotensive, - patient currently unable to swallow pills, likely from progressing dementia and Quinapril not able to be given. Qualifiers: Hypertension type: essential hypertension Qualified Code(s): I10 - Essential (primary) hypertension (15) Hyperlipidemia Current Visit: Yes Status: Chronic Assessment and plan: Lipitor Qualifiers: Hyperlipidemia type: unspecified Qualified Code(s): E78.5 - Hyperlipidemia , unspecified (16) Parkinsons Current Visit: Yes Status: Chronic (17) Primary breast cancer Current Visit: Yes Status: Inactive Qualifiers: Laterality: unspecified laterality Qualified Code(s): C50.919 - Malignant neoplasm of unspecified site of unspecified female breast (18) DVT prophylaxis Current Visit: No Status: Acute Assessment and plan: Heparin Sq - Subjective Interval history: Ms. Cabrera is a 76 year old female with past medical history of HFrEF (2016 EF 45%), COPD, prior CVA, dementia, CKD 3, hld, htn, and CAD (w/ prior MO) who presented on 05/13/17 for one week of lethargy and confusion. She has been declining in the past several months with decreased appetite and trouble with eating. On admission she had CT showing cholelithiasis and had cholecystectomy on 05/15. On 05/17 she found to have sepsis from pneumonia. Procalcitonin was 2.99, blood cultures grew Robert glabrata. ID was then consulted. She was treated with Vanc/Zosyn/azithromycin, de escalated to Levaquin. Fluconazole was started for robert infection. She occasionally refuses PO medications and becomes hypertensive without them. Patient has no complaints this AM, slept well. - Constitutional Vitals: Temp Pulse Resp BP Pulse Ox 98.3 F 112 18 147/94 93 05/23/17 08:01 05/23/17 08:01 05/23/17 08:01 05/23/17 08:01 05/23/17 08:01 General appearance: Present: cooperative, A&O X 1. Absent: answers questions appropriately - Respiratory Respiratory exam: Present: CTAB, rales. Absent: accessory muscle use, rhonchi, wheezes - Cardiovascular Cardiovascular exam: Present: RRR, +S1, +S2. Absent: diastolic murmur, gallop, rubs, systolic murmur - Extremities Exam Extremities exam: Present: pedal edema Internal Medicine: Result - Labs CBC & Chem 7: 05/23/17 05:45 05/23/17 05:45 Labs: Short CBC 05/23/17 Range/Units 05:45 WBC 9.6 (4.3-11.1) K/mcL Hgb 8.8 L (11.5-15.4) g/dL Hct 30.3 L (35.3-44.9) % Plt Count 241 (140-400) K/mcL Neutrophils # 6.9 (1.6-8.9) K/mcL BMP 05/23/17 05:45 Sodium 145 Potassium 3.5 Chloride 104 Carbon Dioxide 38 H BUN 15 Creatinine 0.82 Glucose 107 H Calcium 9.1 - ABG Interpretation ABG results: PT/INR, D-dimer PT 20.2 Seconds (9.4-12.1) H 05/15/17 00:35 - VTE Documentation of Mechanical Device: Intermittent pneumatic compression device Consult Discharge Plan - Plan Additional Instructions: #1 may shower, no tub bath for 2 weeks #2 wash incisions with soap and water and pat dry daily #3 no lifting, pushing, pulling more than 15 pounds for the next 2 weeks #4 no driving until off narcotics for 24 hours and able to safely react in the car #5 may climb stairs Referrals: Carrie Andrews CNP [Advanced Practice Nurse] - 05/30/17 2:15 pm (surgery follow-up) Vanita Chavez CNP [Primary Care Provider] - 05/26/17 9:45 am ()
[2017-05-23] MEDS: Cholecalciferol (D-3) 1,000 UNIT TABLET PO SCH (09:30)
[2017-05-23] MEDS: Aspirin Enteric Coated 81 MG Tablet PO SCH (09:30)
[2017-05-23] MEDS: Isosorbide MONOnitrate (24 HR) 30 MG TAB.ER.24H PO SCH (09:31)
[2017-05-23] MEDS: Fluconazole 200 MG/100 ML 200 MG/100 ML BAG IVPB SCH (09:32)
--- NOTE | 2017-05-23 13:13 | Infectious Disease Progress No ---
Date of Encounter: 05/23/17 Time of Encounter: 09:30 - Assessment and Plan (1) Candidemia Current Visit: Yes Status: Acute 2/ Blood cultures on 05/17 positive for Kyra glabrata Possible source urinary vs gallbladder Sensitivity of C. glabrata to caspofungin, fluconazole, and voriconazole Recommend continuing fluconazole as there is better bladder penetration dosed per creatinine clearance Will require 14 day course Will repeat blood cultures recommend consult to opthamology to r/o endo-opthalmitis (2) Pneumonia Current Visit: Yes Status: Acute Patient seen to have lingular airspace disease consistent with pneumonia on CXR 05/17 Current causative organism unclear 1 SIRS criteria occasionally present Procalcitonin 2.99 Patient has received 5 days ceftriaxone, 1 dose cefoxitin, 3 days vanco, zosyn, and azithromycin stopped on 05/06/14 Currently on levaquin 750 mg Q48H, day 5 Continue Levaquin today, will stop levaquin tomorrow Dosed for renal function Qualifiers: Pneumonia type: due to unspecified organism Laterality: left Lung location: unspecified part of lung Qualified Code(s): J18.9 - Pneumonia, unspecified organism - Subjective Interval history: Patient seen nd examined this morning. She appears to be doing well, but she continues to deny all problems/symptoms, so it is difficult to believe what she is saying. Much of the history of progress of her infection is obtained through chart review. She has continued to be afebrile with occasional tachycardia. Her leukocytosis resolved after 05/18 amd has been stable around 9. Her renal function appears improved and has been better than her previous baseline for the last 2 days. Infect Dis PN-Objective Data - Labs CBC & Chem 7: 05/23/17 05:45 05/23/17 05:45 Labs: Laboratory Results - last 24 hr 05/23/17 05/23/17 05/23/17 05:45 05:45 05:45 WBC 9.6 RBC 3.18 L Hgb 8.8 L Hct 30.3 L MCV 95.3 MCH 27.7 L MCHC 29.0 L RDW 18.1 H Plt Count 241 MPV 10.6 Immature Gran % 4.7 H Seg Neutrophils % 72.1 Lymphocytes % 14.7 Monocytes % 7.8 Eosinophils % 0.1 Basophils % 0.6 Neutrophils # 6.9 Lymphocytes # 1.4 Monocytes # 0.8 Eosinophils # 0.0 Basophils # 0.1 Platelet Estimate Normal Polychromasia 1+ A Hypochromasia Present A Anisocytosis 1+ A Macrocytosis Present A Sodium 145 Potassium 3.5 Chloride 104 Carbon Dioxide 38 H BUN 15 Creatinine 0.82 Est GFR ( Amer) > 60 Est GFR (Non-Af Amer) > 60 BUN/Creatinine Ratio 18 Glucose 107 H Calculated Osmolality 301 H Calcium 9.1 Prealbumin 6.7 L Cultures: Cultures 05/17/17 09:03 Blood Culture - Final Peripheral Venipuncture Kyra glabrata 05/17/17 09:09 Blood Culture - Final Peripheral Venipuncture Kyra glabrata Serology 05/18/17 05/17/17 05/17/17 Range/Units 08:17 09:09 09:09 A. baumannii (PCR) Not Detected (Not Detect) Chlamy pneumoniae PCR Not Detected (Not Detect) Adenovirus (PCR) Not Detected (Not Detect) B. pertussis DNA (PCR) Not Detected (Not Detect) B.parapertussis DNA PCR Not Detected (Not Detect) Kyra albicans (PCR) Not Detected (Not Detect) C. glabrata (PCR) DETECTED A (Not Detect) C. krusei (PCR) Not Detected (Not Detect) C. parapsilosis (PCR) Not Detected (Not Detect) C. tropicalis (PCR) Not Detected (Not Detect) Coronavirus OC43 (PCR) Not Detected (Not Detect) Coronavirus HKU1 (PCR) Not Detected (Not Detect) Coronavirus 229E (PCR) Not Detected (Not Detect) Coronavirus NL63 (PCR) Not Detected (Not Detect) Enterobacteriac sp PCR Not Detected (Not Detect) E. cloacae complex PCR Not Detected (Not Detect) Enterococcus sp PCR Not Detected (Not Detect) E. coli (PCR) Not Detected (Not Detect) H. influenzae (PCR) Not Detected (Not Detect) Human Metapneumovir PCR Not Detected (Not Detect) Influenza A (H1) PCR Not Detected (Not Detect) Influ A (H1N1/09) PCR Not Detected (Not Detect) Influenza A (H3) PCR Not Detected (Not Detect) Influenza A Untype (PCR) Not Detected (Not Detect) Influenza Type B (PCR) Not Detected (Not Detect) Klebsiella oxytoca PCR Not Detected (Not Detect) Klebsiella pneumoniae Not Detected (Not Detect) List. monocytogenes PCR Not Detected (Not Detect) Mycoplasma pneumon IgG 0.62 H (<=0.09) U/L Mycoplasma pneumon IgM 0.19 (<=0.76) U/L M.pneumoniae DNA (PCR) Not Detected (Not Detect) N. meningitidis (PCR) Not Detected (Not Detect) Parainfluenza 1 (PCR) Not Detected (Not Detect) Parainfluenza 2 (PCR) Not Detected (Not Detect) Parainfluenza 3 (PCR) Not Detected (Not Detect) Parainfluenza 4 (PCR) Not Detected (Not Detect) Proteus species (PCR) Not Detected (Not Detect) RSV (PCR) Not Detected (Not Detect) Entero/Rhino (PCR) Not Detected (Not Detect) Serratia marcescens PCR Not Detected (Not Detect) Staphylococcus sp PCR Not Detected (Not Detect) Staph aureus (PCR) Not Detected (Not Detect) mecA-Methicil Res Gene Not Detected (Not Detect) Streptococcus sp PCR Not Detected (Not Detect) Group A Strep DNA Not Detected (Not Detect) Group B Strep (PCR) Not Detected (Not Detect) Strep pneumoniae (PCR) Not Detected (Not Detect) P. aeruginosa (PCR) Not Detected (Not Detect) Aravind/B-Vanco Res Genes Not Detected (Not Detect) KPC (blaKPC) Detect PCR Not Detected (Not Detect) Exam - Constitutional Vitals: Temp Pulse Resp BP Pulse Ox 97.8 F 71 16 127/84 96 05/23/17 12:43 05/23/17 12:43 05/23/17 12:43 05/23/17 12:43 05/23/17 12:43 - Additional findings Additional findings: General appearance: morbidly obese, no acute distress Head exam: Present: atraumatic, normocephalic Eye exam: Present: normal appearance, sclera anicteric. Absent: conjunctival injection ENT exam: Present: mucous membranes moist, normal exam Neck exam: Present: normal inspection. Absent: lymphadenopathy, tenderness Respiratory exam: Present: CTA BL. Absent: accessory muscle use, chest wall tenderness, wheezes, tachypnea Cardiovascular exam: Present: RRR. Absent: clicks, rubs, systolic murmur GI/Abdominal exam: Present: normal bowel sounds, soft, tenderness (mild from recent cholecystectomy). Absent: guarding, rebound, rigid Extremities exam: Present: normal inspection, pedal edema (mild). Absent: calf tenderness, tenderness Neurological exam: Present: alert, oriented X2, no focal deficits Psychiatric exam: Present: flat affect, normal affect Skin exam: Present: dry, intact, normal color, warm - VTE Documentation of Mechanical Device: Intermittent pneumatic compression device Consult Discharge Plan - Plan Additional Instructions: #1 may shower, no tub bath for 2 weeks #2 wash incisions with soap and water and pat dry daily #3 no lifting, pushing, pulling more than 15 pounds for the next 2 weeks #4 no driving until off narcotics for 24 hours and able to safely react in the car #5 may climb stairs Referrals: Carrie Andrews CNP [Advanced Practice Nurse] - 05/30/17 2:15 pm (surgery follow-up) Vanita Chavez CNP [Primary Care Provider] - 05/26/17 9:45 am () - Attending Attestation I examined this patient and my medical decision-making was reviewed with the Resident Physician. I agree with the documented findings, disposition and treatment plan as described except to the extent set forth below.
[2017-05-23] MEDS: Furosemide 20 MG/2 ML VIAL IVP SCH (16:21)
[2017-05-23] MEDS: Metoprolol XL (24 HR) Succ 25 MG TAB.ER.24H PO SCH (16:21)
[2017-05-23] MEDS: levoFLOXacin 750 MG TABLET PO SCH (20:06)
[2017-05-24] MEDS: *HR* Heparin 5,000 UNIT/ML VIAL SQ SCH ×2 (05:13→16:14)
[2017-05-24 06:08] LABS: Basophils # 0.1 K/mcL (0.0-0.2); Basophils % 0.5 %; Eosinophils % 0.1 %; Hematocrit 30.5 % (35.3-44.9); Hemoglobin 8.9 g/dL (11.5-15.4); Immature Granulocytes % 2.9 % (0-4); Lymphocytes # 1.5 K/mcL (0.6-4.6); Lymphocytes % 13.7 %; Mean Corpuscular HGB Conc 29.2 g/dL (31.6-35.5); Mean Corpuscular Hemoglobin 27.7 pg (28.0-33.3); Mean Platelet Volume 10.5 fL (9.4-12.4); Monocytes # 0.7 K/mcL (0.0-1.3); Monocytes % 6.6 %; Neutrophils # 8.1 K/mcL (1.6-8.9); Nucleated Red Blood Cells 0.5 /100 WBC (0); Platelet Count 270 K/mcL (140-400); Red Blood Count 3.21 M/mcL (3.82-4.97); Red Cell Distribution Width 18.5 % (11.5-14.5); Segmented Neutrophils % 76.2 %
[2017-05-24 06:37] LABS: BUN/Creatinine Ratio 16 (6-26); Blood Urea Nitrogen 12 mg/dL (8-23); Calcium 8.9 mg/dL (8.6-10.3); Carbon Dioxide 35 mEq/L (23-29); Chloride 101 mEq/L (98-107); Glucose 101 mg/dL (70-105); Osmolality,Calculated 292 (280-300); Potassium 3.7 mEq/L (3.5-5.1); Sodium 141 mEq/L (136-145); eGFR For African Americans > 60 (> 60); eGFR For Non-African Americans > 60 (> 60)
--- NOTE | 2017-05-24 08:35 | Internal Med Progress Note ---
Date of Encounter: 05/24/17 Time of Encounter: 10:40 - Assessment and plan (1) Sepsis Current Visit: Yes Status: Acute Assessment and plan: With candidemia. On fluconazole per infectious disease recommendations. The recommend 2 weeks of IV fluconazole therapy. Today is day 7. We will place. It extended peripheral intravenous line. Infectious disease following. Also from healthcare associated pneumonia. Currently on levofloxacin. Infectious disease recommended stopping levofloxacin after today's dose. Qualifiers: Sepsis type: Kyra Qualified Code(s): B37.7 - Candidal sepsis (2) CAD (coronary artery disease) Current Visit: Yes Status: Chronic Assessment and plan: Continue aspirin, statin and beta jesse. No chest pain at this time Qualifiers: Coronary Disease-Associated Artery/Lesion type: [place] artery [place] vs. transplanted heart: [place] heart Associated angina: without angina Qualified Code(s): I25.10 - Atherosclerotic heart disease of [place] coronary artery without angina pectoris (3) JESSICA (acute kidney injury) Current Visit: Yes Status: Resolved (4) Candidemia Current Visit: Yes Status: Acute Assessment and plan: management as above (5) Cholecystitis Current Visit: Yes Status: Resolved Assessment and plan: Status post cholecystectomy. (6) CKD (chronic kidney disease) stage 3, GFR 30-59 ml/min Current Visit: No Status: Chronic Assessment and plan: Renal function improved and at baseline. (7) COPD (chronic obstructive pulmonary disease) Current Visit: Yes Status: Chronic Assessment and plan: Not in acute exacerbation at this time. Continue bronchodilators as needed. Qualifiers: COPD type: unspecified COPD Qualified Code(s): J44.9 - Chronic obstructive pulmonary disease, unspecified (8) Dementia Current Visit: Yes Status: Chronic Assessment and plan: Supportive care. Monitor for signs of agitation. Poor nutrition due to possible dementia. On mechanical soft diet per speech recommendations. Nutrition following. Qualifiers: Dementia type: unspecified type Dementia behavioral disturbance: without behavioral disturbance Qualified Code(s): F03.90 - Unspecified dementia without behavioral disturbance (9) Diastolic heart failure Current Visit: Yes Status: Chronic Assessment and plan: Continue Lasix. Renal function remains stable. Qualifiers: Heart failure chronicity: chronic Qualified Code(s): I50.32 - Chronic diastolic (congestive) heart failure (10) DVT prophylaxis Current Visit: No Status: Acute (11) Elevated troponin Current Visit: Yes Status: Acute Assessment and plan: Possibly from demand ischemia. (12) History of atrial flutter Current Visit: Yes Status: Chronic Assessment and plan: Rate controlled. (13) Hospital-acquired bacterial pneumonia Current Visit: Yes Status: Acute (14) HTN (hypertension) Current Visit: Yes Status: Chronic Assessment and plan: Blood pressure is well controlled Qualifiers: Hypertension type: essential hypertension Qualified Code(s): I10 - Essential (primary) hypertension (15) UTI (urinary tract infection) Current Visit: Yes Status: Ruled-out Assessment and plan: On levofloxacin. Qualifiers: Urinary tract infection type: site unspecified Hematuria presence: without hematuria Qualified Code(s): N39.0 - Urinary tract infection, site not specified (16) Severe protein-calorie malnutrition Current Visit: Yes Status: Acute Assessment and plan: Nutrition following. Continue dietary supplements as tolerated. - Subjective Interval history: Patient is awake and alert. Denies any new complaints at this time. No nausea or vomiting. No chest pain. No fever or chills reported overnight. - Constitutional Vitals: Temp Pulse Resp BP Pulse Ox 97.5 F L 84 16 142/84 97 05/24/17 07:02 05/24/17 07:02 05/24/17 07:02 05/24/17 07:02 05/24/17 07:02 General appearance: Present: cooperative, A&O X 1. Absent: answers questions appropriately Exam: Denies any new complaints at this time. - Neck Neck exam general surgery: Present: supple, trachea midline. Absent: lymphadenopathy - Respiratory Respiratory exam: Present: CTAB. Absent: accessory muscle use, rales, rhonchi, wheezes - Cardiovascular Cardiovascular exam: Present: RRR, +S1, +S2. Absent: diastolic murmur, gallop, rubs, systolic murmur - GI/Abdominal GI/Abdominal exam: Present: normal bowel sounds, soft, no peritoneal signs. Absent: distended, tenderness - Additional comments: Alvarez catheter in place - Extremities Exam Extremities exam: Present: warm, radial pulses palpable and symmetrical. Absent : calf tenderness, cyanotic, pedal edema - Neurological Exam Neurological exam: Present: alert, CN II-XII intact, oriented X3, no focal deficits. Absent: facial droop, speech deficit Internal Medicine: Result - Labs CBC & Chem 7: 05/24/17 05:25 02/20/18 05:25 Labs: Short CBC 05/24/17 Range/Units 05:25 WBC 10.7 (4.3-11.1) K/mcL Hgb 8.9 L (11.5-15.4) g/dL Hct 30.5 L (35.3-44.9) % Plt Count 270 (140-400) K/mcL Neutrophils # 8.1 (1.6-8.9) K/mcL BMP 05/24/17 05:25 Sodium 141 Potassium 3.7 Chloride 101 Carbon Dioxide 35 H BUN 12 Creatinine 0.75 Glucose 101 Calcium 8.9 - ABG Interpretation ABG results: PT/INR, D-dimer PT 20.2 Seconds (9.4-12.1) H 05/15/17 00:35 - VTE Documentation of Mechanical Device: Intermittent pneumatic compression device Consult Discharge Plan - Plan Additional Instructions: #1 may shower, no tub bath for 2 weeks #2 wash incisions with soap and water and pat dry daily #3 no lifting, pushing, pulling more than 15 pounds for the next 2 weeks #4 no driving until off narcotics for 24 hours and able to safely react in the car #5 may climb stairs Referrals: Carrie Andrews CNP [Advanced Practice Nurse] - 05/30/17 2:15 pm (surgery follow-up) Vanita Chavez CNP [Primary Care Provider] - 05/26/17 9:45 am () Prescriptions: Fluconazole in NaCl,Iso-Osm [Fluconazole-Ns 200 mg/100 ml] 200 mg IV DAILY #7 bottle
[2017-05-24] MEDS: Cholecalciferol (D-3) 1,000 UNIT TABLET PO SCH (08:48)
[2017-05-24] MEDS: Aspirin Enteric Coated 81 MG Tablet PO SCH (08:48)
[2017-05-24] MEDS: Furosemide 20 MG/2 ML VIAL IVP SCH ×2 (08:48→16:14)
[2017-05-24] MEDS: Isosorbide MONOnitrate (24 HR) 30 MG TAB.ER.24H PO SCH (08:48)
[2017-05-24] MEDS: Fluconazole 200 MG/100 ML 200 MG/100 ML BAG IVPB SCH (08:48)
--- NOTE | 2017-05-24 09:43 | Infectious Disease Progress No ---
Date of Encounter: 05/24/17 Time of Encounter: 08:00 - Assessment and Plan (1) Candidemia Current Visit: Yes Status: Acute 05/06 Blood cultures on 05/17 positive for Kyra glabrata Possible source urinary vs gallbladder Sensitivity of C. glabrata to caspofungin, fluconazole, and voriconazole Discussed with Dr. Garcia yesterday evening, he will see the patient on the evening of 05/25 or in the office if it is more convenient Recommend continuing IV fluconazole dosed per creatinine clearance (58-68) Will require 14 day course IV fluconazole (2) Pneumonia Current Visit: Yes Status: Acute Patient seen to have lingular airspace disease consistent with pneumonia on CXR 05/17 Current causative organism unclear no SIRS criteria occasionally present Procalcitonin 2.99 Patient has received 5 days ceftriaxone, 1 dose cefoxitin, 3 days vanco, zosyn, and azithromycin stopped on 05/06/14 Currently on levaquin 750 mg Q48H, day 6 Continue Levaquin today, will stop levaquin tomorrow Dosed for renal function Qualifiers: Pneumonia type: due to unspecified organism Laterality: left Lung location: unspecified part of lung Qualified Code(s): J18.9 - Pneumonia, unspecified organism (3) Cholecystitis Current Visit: Yes Status: Resolved Patient underwent cholecystectomy on 05/15/[address] Durham Patient doing well s/p surgery Continued management per primary team - Subjective Interval history: Patient states that she feels about the same today that she did previously. She reports having mild, occasional nausea and chills, but otherwise has not had any problems. She has continued to be have stable vitals and no elevation in her WBC has been seen. Infect Dis PN-Objective Data - Labs CBC & Chem 7: 05/24/17 05:25 05/24/17 05:25 Labs: Laboratory Results - last 24 hr 05/24/17 05/24/17 05:25 05:25 WBC 10.7 RBC 3.21 L Hgb 8.9 L Hct 30.5 L MCV 95.0 MCH 27.7 L MCHC 29.2 L RDW 18.5 H Plt Count 270 MPV 10.5 Immature Gran % 2.9 Seg Neutrophils % 76.2 Lymphocytes % 13.7 Monocytes % 6.6 Eosinophils % 0.1 Basophils % 0.5 Neutrophils # 8.1 Lymphocytes # 1.5 Monocytes # 0.7 Eosinophils # 0.0 Basophils # 0.1 Nucleated RBCs/100 WBC 0.5 H Sodium 141 Potassium 3.7 Chloride 101 Carbon Dioxide 35 H BUN 12 Creatinine 0.75 Est GFR ( Amer) > 60 Est GFR (Non-Af Amer) > 60 BUN/Creatinine Ratio 16 Glucose 101 Calculated Osmolality 292 Calcium 8.9 Cultures: Cultures 05/17/17 09:03 Blood Culture - Final Peripheral Venipuncture Kyra glabrata 05/17/17 09:09 Blood Culture - Final Peripheral Venipuncture Kyra glabrata Serology 05/18/17 05/17/17 05/17/17 Range/Units 08:17 09:09 09:09 A. baumannii (PCR) Not Detected (Not Detect) Chlamy pneumoniae PCR Not Detected (Not Detect) Adenovirus (PCR) Not Detected (Not Detect) B. pertussis DNA (PCR) Not Detected (Not Detect) B.parapertussis DNA PCR Not Detected (Not Detect) Kyra albicans (PCR) Not Detected (Not Detect) C. glabrata (PCR) DETECTED A (Not Detect) C. krusei (PCR) Not Detected (Not Detect) C. parapsilosis (PCR) Not Detected (Not Detect) C. tropicalis (PCR) Not Detected (Not Detect) Coronavirus OC43 (PCR) Not Detected (Not Detect) Coronavirus HKU1 (PCR) Not Detected (Not Detect) Coronavirus 229E (PCR) Not Detected (Not Detect) Coronavirus NL63 (PCR) Not Detected (Not Detect) Enterobacteriac sp PCR Not Detected (Not Detect) E. cloacae complex PCR Not Detected (Not Detect) Enterococcus sp PCR Not Detected (Not Detect) E. coli (PCR) Not Detected (Not Detect) H. influenzae (PCR) Not Detected (Not Detect) Human Metapneumovir PCR Not Detected (Not Detect) Influenza A (H1) PCR Not Detected (Not Detect) Influ A (H1N1/09) PCR Not Detected (Not Detect) Influenza A (H3) PCR Not Detected (Not Detect) Influenza A Untype (PCR) Not Detected (Not Detect) Influenza Type B (PCR) Not Detected (Not Detect) Klebsiella oxytoca PCR Not Detected (Not Detect) Klebsiella pneumoniae Not Detected (Not Detect) List. monocytogenes PCR Not Detected (Not Detect) Mycoplasma pneumon IgG 0.62 H (<=0.09) U/L Mycoplasma pneumon IgM 0.19 (<=0.76) U/L M.pneumoniae DNA (PCR) Not Detected (Not Detect) N. meningitidis (PCR) Not Detected (Not Detect) Parainfluenza 1 (PCR) Not Detected (Not Detect) Parainfluenza 2 (PCR) Not Detected (Not Detect) Parainfluenza 3 (PCR) Not Detected (Not Detect) Parainfluenza 4 (PCR) Not Detected (Not Detect) Proteus species (PCR) Not Detected (Not Detect) RSV (PCR) Not Detected (Not Detect) Entero/Rhino (PCR) Not Detected (Not Detect) Serratia marcescens PCR Not Detected (Not Detect) Staphylococcus sp PCR Not Detected (Not Detect) Staph aureus (PCR) Not Detected (Not Detect) mecA-Methicil Res Gene Not Detected (Not Detect) Streptococcus sp PCR Not Detected (Not Detect) Group A Strep DNA Not Detected (Not Detect) Group B Strep (PCR) Not Detected (Not Detect) Strep pneumoniae (PCR) Not Detected (Not Detect) P. aeruginosa (PCR) Not Detected (Not Detect) Aravind/B-Vanco Res Genes Not Detected (Not Detect) KPC (blaKPC) Detect PCR Not Detected (Not Detect) Exam - Constitutional Vitals: Temp Pulse Resp BP Pulse Ox 97.5 F L 84 16 142/84 97 05/24/17 07:02 05/24/17 07:02 05/24/17 07:02 05/24/17 07:02 05/24/17 07:02 - Additional findings Additional findings: General appearance: morbidly obese, no acute distress, pleasant Head exam: Present: atraumatic, normocephalic Eye exam: Present: normal appearance, sclera anicteric. Absent: conjunctival injection ENT exam: Present: mucous membranes moist, normal exam Neck exam: Present: normal inspection Respiratory exam: Present: CTA BL. Absent: accessory muscle use, chest wall tenderness, wheezes, tachypnea Cardiovascular exam: Present: RRR. Absent: clicks, rubs, systolic murmur GI/Abdominal exam: Present: normal bowel sounds, soft, tenderness (mild from recent cholecystectomy). Absent: guarding, rebound, rigid Extremities exam: Present: normal inspection, pedal edema (mild). Absent: calf tenderness, tenderness Neurological exam: Present: alert, oriented X2, no focal deficits Psychiatric exam: Present: flat affect, normal affect Skin exam: Present: dry, intact, normal color, warm - VTE Documentation of Mechanical Device: Intermittent pneumatic compression device Consult Discharge Plan - Plan Additional Instructions: #1 may shower, no tub bath for 2 weeks #2 wash incisions with soap and water and pat dry daily #3 no lifting, pushing, pulling more than 15 pounds for the next 2 weeks #4 no driving until off narcotics for 24 hours and able to safely react in the car #5 may climb stairs Referrals: Carrie Andrews CNP [Advanced Practice Nurse] - 05/30/17 2:15 pm (surgery follow-up) Vanita Chavez CNP [Primary Care Provider] - 05/26/17 9:45 am () Prescriptions: Fluconazole in NaCl,Iso-Osm [Fluconazole-Ns 200 mg/100 ml] 200 mg IV DAILY #7 bottle - Attending Attestation I examined this patient and my medical decision-making was reviewed with the Resident Physician. I agree with the documented findings, disposition and treatment plan as described except to the extent set forth below.
[2017-05-24] MEDS: Metoprolol XL (24 HR) Succ 25 MG TAB.ER.24H PO SCH (16:14)
[2017-05-24] MEDS: Furosemide 20 MG TABLET PO SCH (17:39)
--- NOTE | 2017-05-25 02:03 | Electrocardiograph Report ---
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
[2017-05-25] MEDS: *HR* Heparin 5,000 UNIT/ML VIAL SQ SCH ×2 (05:50→16:26)
[2017-05-25 06:43] LABS: Basophils # 0.1 K/mcL (0.0-0.2); Basophils % 0.5 %; Eosinophils % 0.1 %; Hematocrit 29.4 % (35.3-44.9); Hemoglobin 8.7 g/dL (11.5-15.4); Immature Granulocytes % 2.1 % (0-4); Lymphocytes # 1.3 K/mcL (0.6-4.6); Lymphocytes % 11.9 %; Mean Corpuscular HGB Conc 29.6 g/dL (31.6-35.5); Mean Corpuscular Hemoglobin 27.7 pg (28.0-33.3); Mean Corpuscular Volume 93.6 fL (83.0-100.0); Mean Platelet Volume 10.1 fL (9.4-12.4); Monocytes # 0.8 K/mcL (0.0-1.3); Monocytes % 7.7 %; Neutrophils # 8.4 K/mcL (1.6-8.9); Nucleated Red Blood Cells 0.3 /100 WBC (0); Platelet Count 283 K/mcL (140-400); Red Blood Count 3.14 M/mcL (3.82-4.97); Red Cell Distribution Width 18.7 % (11.5-14.5); Segmented Neutrophils % 77.7 %
[2017-05-25 07:25] LABS: BUN/Creatinine Ratio 12 (6-26); Blood Urea Nitrogen 11 mg/dL (8-23); Calcium 9.1 mg/dL (8.6-10.3); Carbon Dioxide 36 mEq/L (23-29); Chloride 100 mEq/L (98-107); Glucose 111 mg/dL (70-105); Osmolality,Calculated 290 (280-300); Potassium 3.9 mEq/L (3.5-5.1); Sodium 140 mEq/L (136-145); eGFR For African Americans > 60 (> 60); eGFR For Non-African Americans > 60 (> 60)
[2017-05-25] MEDS: Isosorbide MONOnitrate (24 HR) 30 MG TAB.ER.24H PO SCH (08:34)
[2017-05-25] MEDS: Furosemide 20 MG TABLET PO SCH ×2 (08:34→16:26)
[2017-05-25] MEDS: Fluconazole 200 MG/100 ML 200 MG/100 ML BAG IVPB SCH (08:34)
[2017-05-25] MEDS: Cholecalciferol (D-3) 1,000 UNIT TABLET PO SCH (08:34)
[2017-05-25] MEDS: Aspirin Enteric Coated 81 MG Tablet PO SCH (08:34)
--- NOTE | 2017-05-25 15:46 | Internal Med Progress Note ---
Date of Encounter: 05/25/17 Time of Encounter: 09:10 - Assessment and plan (1) Sepsis Current Visit: Yes Status: Acute Assessment and plan: Continue fluconazole for a total duration of 14 days. Infectious diseases consult appreciated. Patient to be evaluated by ophthalmology prior to discharge. WBC count remained stable. Repeat cultures have been negative. Qualifiers: Sepsis type: Kyra Qualified Code(s): B37.7 - Candidal sepsis (2) CAD (coronary artery disease) Current Visit: Yes Status: Chronic Assessment and plan: Continue aspirin, statin and beta jesse. Qualifiers: Coronary Disease-Associated Artery/Lesion type: [place] artery [place] vs. transplanted heart: rampart heart Associated angina: without angina Qualified Code(s): I25.10 - Atherosclerotic heart disease of [place] coronary artery without angina pectoris (3) JESSICA (acute kidney injury) Current Visit: Yes Status: Resolved (4) Candidemia Current Visit: Yes Status: Acute (5) Cholecystitis Current Visit: Yes Status: Resolved Assessment and plan: Status post laparoscopic cholecystectomy. (6) CKD (chronic kidney disease) stage 3, GFR 30-59 ml/min Current Visit: Yes Status: Chronic Assessment and plan: Renal function remains stable. (7) COPD (chronic obstructive pulmonary disease) Current Visit: Yes Status: Chronic Assessment and plan: Not in acute exacerbation Qualifiers: COPD type: unspecified COPD Qualified Code(s): J44.9 - Chronic obstructive pulmonary disease, unspecified (8) Dementia Current Visit: Yes Status: Chronic Assessment and plan: Stable. Qualifiers: Dementia type: unspecified type Dementia behavioral disturbance: without behavioral disturbance Qualified Code(s): F03.90 - Unspecified dementia without behavioral disturbance (9) Diastolic heart failure Current Visit: Yes Status: Chronic Assessment and plan: On oral Lasix now. Qualifiers: Heart failure chronicity: chronic Qualified Code(s): I50.32 - Chronic diastolic (congestive) heart failure (10) Elevated troponin Current Visit: Yes Status: Acute Assessment and plan: Likely from demand ischemia. No further workup planned. (11) History of atrial flutter Current Visit: Yes Status: Chronic (12) Hospital-acquired bacterial pneumonia Current Visit: Yes Status: Acute (13) HTN (hypertension) Current Visit: Yes Status: Chronic Qualifiers: Hypertension type: essential hypertension Qualified Code(s): I10 - Essential (primary) hypertension (14) UTI (urinary tract infection) Current Visit: Yes Status: Ruled-out Qualifiers: Urinary tract infection type: site unspecified Hematuria presence: without hematuria Qualified Code(s): N39.0 - Urinary tract infection, site not specified (15) Severe protein-calorie malnutrition Current Visit: Yes Status: Acute Assessment and plan: Continue dietary supplements. (16) DVT prophylaxis Current Visit: No Status: Acute Assessment and plan: On subcutaneous heparin (17) Anemia Current Visit: Yes Status: Acute Assessment and plan: Anemia with hemoglobin of 8.7. Decrease from 11.3 at admission. Could be related to intraoperative blood loss was with underlying chronic kidney disease and poor nutrition. Will monitor blood counts. Qualifiers: Anemia type: other cause Other causes of anemia: acute posthemorrhagic Qualified Code(s): D62 - Acute posthemorrhagic anemia - Subjective Interval history: Patient is awake and alert. Lying in bed. Appears comfortable. Denies any pain. Tolerated breakfast well this morning. No other acute complaints at this time. - Constitutional Vitals: Temp Pulse Resp BP Pulse Ox 98.3 F 86 21 125/78 97 05/25/17 15:41 05/25/17 15:41 05/25/17 15:41 05/25/17 15:41 05/25/17 15:41 General appearance: Present: cooperative, A&O X 1, answers questions appropriately - Neck Neck exam general surgery: Present: supple, trachea midline. Absent: lymphadenopathy - Respiratory Respiratory exam: Present: CTAB. Absent: accessory muscle use, rales, rhonchi, wheezes - Cardiovascular Cardiovascular exam: Present: RRR, +S1, +S2. Absent: diastolic murmur, gallop, rubs, systolic murmur - GI/Abdominal GI/Abdominal exam: Present: normal bowel sounds, soft, no peritoneal signs. Absent: distended, tenderness - Extremities Exam Extremities exam: Present: warm, radial pulses palpable and symmetrical. Absent : calf tenderness, cyanotic, pedal edema Internal Medicine: Result - Labs CBC & Chem 7: 05/25/17 06:31 05/25/17 06:31 Labs: Short CBC 05/25/17 Range/Units 06:31 WBC 10.8 (4.3-11.1) K/mcL Hgb 8.7 L (11.5-15.4) g/dL Hct 29.4 L (35.3-44.9) % Plt Count 283 (140-400) K/mcL Neutrophils # 8.4 (1.6-8.9) K/mcL BMP 05/25/17 06:31 Sodium 140 Potassium 3.9 Chloride 100 Carbon Dioxide 36 H BUN 11 Creatinine 0.89 Glucose 111 H Calcium 9.1 - ABG Interpretation ABG results: PT/INR, D-dimer PT 20.2 Seconds (9.4-12.1) H 05/15/17 00:35 - VTE Documentation of Mechanical Device: Intermittent pneumatic compression device Consult Discharge Plan - Plan Additional Instructions: #1 may shower, no tub bath for 2 weeks #2 wash incisions with soap and water and pat dry daily #3 no lifting, pushing, pulling more than 15 pounds for the next 2 weeks #4 no driving until off narcotics for 24 hours and able to safely react in the car #5 may climb stairs Referrals: Carrie Andrews CNP [Advanced Practice Nurse] - 05/30/17 2:15 pm (surgery follow-up) Vanita Chavez CNP [Primary Care Provider] - 05/26/17 9:45 am () Prescriptions: Fluconazole in NaCl,Iso-Osm [Fluconazole-Ns 200 mg/100 ml] 200 mg IV DAILY #7 bottle
[2017-05-25] MEDS: Metoprolol XL (24 HR) Succ 25 MG TAB.ER.24H PO SCH (16:26)
--- NOTE | 2017-05-25 17:49 | Internal Medicine Consult Note ---
Date of Encounter: 05/25/17 Time of Encounter: 17:44 Internal Medicine - CN: HPI - Data of Consult Requesting Physician: Sergo Garcia MD Consultation was requested due to presence of candidemia. Patient is a question of questionable historian. She denies any problems with her eyes or vision. She reports good comfort of both eyes. Examination reveals visual acuity without correction of 20/200+1 in the right eye and 20/100+1 in the left eye (near equivalent Snellen). External examination reveals normal eyelids in both eyes. The pupils were equal round and reactive to light, possibly sluggish in both eyes. No relative afferent pupillary defects were noted. Ocular motility testing revealed no restrictions although excursions to all cardinal positions of gaze were limited. Confrontation visual castañeda revealed constriction in the nasal visual castañeda of the right eye and generalized constriction in the left eye but the examination was of very questionable reliability. The intraocular pressures were 16 mmHg in the right eye and 14 mmHg in the left eye via applanation. Slit lamp examination revealed normal eyelids and a normal conjunctiva in both eyes. The cornea was clear and the anterior chamber was grade 3 in depth and clear in both eyes. The iris was normal in both eyes. The pupils were dilated with 1% tropicamide and 2-1/2% phenylephrine drops. Further examination after dilation of the eyes revealed posterior chamber intraocular lens implants in both eyes. There was trace opacification of the posterior lens capsule in the right eye and +1 to +2 posterior capsular opacification in the left eye. The vitreous was clear in both eyes. The fundus examination was performed at the slit-lamp with a 90 dpt lens and with the patient in the bed using the binocular indirect ophthalmoscope and a 20 diopter condensing lens. Fundus examination revealed trace pallor of the optic nerve heads in both eyes with minimal cupping of the optic nerve heads appreciated. The retinal vasculature was normal in both eyes. The macula was normal in both eyes. The posterior pole and retinal periphery was normal in both eyes. Impression: 1. No evidence of endophthalmitis was appreciated. 2. Pseudophakia in both eyes. 3. Opacification of the posterior lens capsule that was mild in the right eye and moderate in the left eye. After discharge the patient may benefit from consideration of a posterior capsulotomy performed with the YAG laser in the left eye. - Consult Narrative History of present illness: Ms. Cabrera is a 76 year old female Past Med Surg Social Fam HX - Past Medical History Medical history: CHF, COPD, coronary artery disease, CVA, dementia, hyperlipidemia, hypertension, myocardial infarction, renal disease Psychiatric history: no psych history - Past Surgical History Surgical History: pacemaker/AICD - Social History Smoking Status: Former smoker Smokeless Tobacco Status: No Alcohol use: none Drug use: none - Family History Mother Living Status: Hx Family Respiratory Disorders: Yes Hx Family Cancer: Yes Father Living Status: Hx Family GI Disorders: Yes Internal Medicine - CN: Meds Allopurinol [Zyloprim] 100 mg PO DAILY 11/18/14 [History] Aspirin Enteric Coated [Aspirin EC] 81 mg PO DAILY 11/18/14 [History] Furosemide [Lasix] 40 mg PO BID 11/18/14 [History] Lovastatin 80 mg PO DAILY #0 11/18/14 [History] Calcium Carbonate/Vitamin D3 [Caltrate 600 + D Soft Chew Tab] 2 tab PO DAILY # 60 tab.chew 07/18/15 [Rx] Ergocalciferol (VITAMIN D2) [Vitamin D2 (50,000 UNIT)] 1 cap PO QWEEK #12 capsule 07/18/15 [Rx] Isosorbide MONOnitrate (24 HR) [Imdur] 30 mg PO DAILY 11/06/15 [History] Metoprolol XL (24 HR) Succ [Toprol Xl] 25 mg PO DAILY 11/06/15 [History] Quinapril HCl [Accupril] 5 mg PO DAILY 11/06/15 [History] Fluconazole in NaCl,Iso-Osm [Fluconazole-Ns 200 mg/100 ml] 200 mg IV DAILY #7 bottle 05/24/17 [Rx] 3 Allergy/AdvReac Type Severity Reaction Status Date / Time No Known Allergies Allergy Verified 05/13/17 19:11 Internal Medicine - CN: Exam - Constitutional Vitals: Temp Pulse Resp BP Pulse Ox 98.3 F 86 21 125/78 97 05/25/17 15:41 05/25/17 15:41 05/25/17 15:41 05/25/17 15:41 05/25/17 15:41 Internal Medicine - CN: Reslt - Labs CBC & Chem 7: 05/25/17 06:31 05/25/17 06:31 Labs: Short CBC 05/25/17 Range/Units 06:31 WBC 10.8 (4.3-11.1) K/mcL Hgb 8.7 L (11.5-15.4) g/dL Hct 29.4 L (35.3-44.9) % Plt Count 283 (140-400) K/mcL Neutrophils # 8.4 (1.6-8.9) K/mcL BMP 05/25/17 06:31 Sodium 140 Potassium 3.9 Chloride 100 Carbon Dioxide 36 H BUN 11 Creatinine 0.89 Glucose 111 H Calcium 9.1 - ABG Interpretation ABG results: PT/INR, D-dimer PT 20.2 Seconds (9.4-12.1) H 05/15/17 00:35 Consult Discharge Plan - Plan Additional Instructions: #1 may shower, no tub bath for 2 weeks #2 wash incisions with soap and water and pat dry daily #3 no lifting, pushing, pulling more than 15 pounds for the next 2 weeks #4 no driving until off narcotics for 24 hours and able to safely react in the car #5 may climb stairs Referrals: Carrie Andrews CNP [Advanced Practice Nurse] - 05/30/17 2:15 pm (surgery follow-up) Vanita Chavez CNP [Primary Care Provider] - 05/26/17 9:45 am () Prescriptions: Fluconazole in NaCl,Iso-Osm [Fluconazole-Ns 200 mg/100 ml] 200 mg IV DAILY #7 bottle
[2017-05-25] MEDS: levoFLOXacin 750 MG TABLET PO SCH (19:42)
[2017-05-25 20:11] LABS: % Iron Saturation 14 % (15-50); Ferritin 105 ng/ml (10-120); Iron 32 mcg/dL (50-170); Transferrin 164 mg/dL (203-362)
[2017-05-26] MEDS: *HR* Heparin 5,000 UNIT/ML VIAL SQ SCH (04:32)
[2017-05-26 04:43] LABS: Basophils % 0.6 %; Mean Corpuscular Volume 93.3 fL (83.0-100.0)
[2017-05-26 04:56] LABS: Basophils # 0.1 K/mcL (0.0-0.2); Eosinophils % 0.3 %; Hematocrit 27.9 % (35.3-44.9); Hemoglobin 8.4 g/dL (11.5-15.4); Immature Granulocytes % 1.5 % (0-4); Immature Platelets 3.3 % (1.1-6.1); Lymphocytes # 1.2 K/mcL (0.6-4.6); Lymphocytes % 11.9 %; Mean Corpuscular HGB Conc 30.1 g/dL (31.6-35.5); Mean Corpuscular Hemoglobin 28.1 pg (28.0-33.3); Mean Platelet Volume 10.6 fL (9.4-12.4); Monocytes # 0.8 K/mcL (0.0-1.3); Monocytes % 7.7 %; Neutrophils # 8.1 K/mcL (1.6-8.9); Nucleated Red Blood Cells 0.2 /100 WBC (0); Platelet Count 269 K/mcL (140-400); Red Blood Count 2.99 M/mcL (3.82-4.97); Red Cell Distribution Width 18.9 % (11.5-14.5)
[2017-05-26 05:13] LABS: Anisocytosis 1+ (Not Present); Platelet Clumps Few (Not Present); Platelet Estimate Normal (Normal); Polychromasia 1+ (Not Present); Stomatocytes 1+ (Not Present)
[2017-05-26 07:05] LABS: BUN/Creatinine Ratio 12 (6-26); Blood Urea Nitrogen 11 mg/dL (8-23); Calcium 9.3 mg/dL (8.6-10.3); Carbon Dioxide 36 mEq/L (23-29); Chloride 99 mEq/L (98-107); Glucose 101 mg/dL (70-105); Osmolality,Calculated 288 (280-300); Potassium 4.4 mEq/L (3.5-5.1); Sodium 139 mEq/L (136-145); eGFR For African Americans > 60 (> 60); eGFR For Non-African Americans 58 (> 60)
[2017-05-26] MEDS: Isosorbide MONOnitrate (24 HR) 30 MG TAB.ER.24H PO SCH (08:08)
[2017-05-26] MEDS: Furosemide 20 MG TABLET PO SCH (08:08)
[2017-05-26] MEDS: Fluconazole 200 MG/100 ML 200 MG/100 ML BAG IVPB SCH (08:08)
[2017-05-26] MEDS: Aspirin Enteric Coated 81 MG Tablet PO SCH (08:08)
[2017-05-26] MEDS: Cholecalciferol (D-3) 1,000 UNIT TABLET PO SCH (08:08)
--- NOTE | 2017-05-26 09:33 | Infectious Disease Progress No ---
Date of Encounter: 05/26/17 Time of Encounter: 09:15 - Assessment and Plan (1) Candidemia Status: Acute 05/06 Blood cultures on 05/17 positive for Kyra glabrata Possible source urinary vs gallbladder Sensitivity of C. glabrata to caspofungin, fluconazole, and voriconazole Discussed with Dr. Garcia yesterday evening, he will see the patient on the evening of 05/25 or in the office if it is more convenient Today is Day 9 of Fluconazole, she will require 5 more days Recommend continuing IV fluconazole dosed per creatinine clearance (58-68) Will require 14 day course IV fluconazole (2) Pneumonia Status: Acute Patient seen to have lingular airspace disease consistent with pneumonia on CXR 05/17 Current causative organism unclear no SIRS criteria occasionally present Procalcitonin 2. Patient has received 5 days ceftriaxone, 1 dose cefoxitin, 3 days vanco, zosyn, and azithromycin stopped on 05/06/14 Levaquin stopped yesterday after having had a full course Qualifiers: Pneumonia type: due to unspecified organism Laterality: left Lung location: unspecified part of lung Qualified Code(s): J18.9 - Pneumonia, unspecified organism (3) Cholecystitis Status: Resolved Patient underwent cholecystectomy on 05/15/[address] Durham Patient doing well s/p surgery Continued management per primary team - Subjective Interval history: Patient reports that she is feeling well today. She continues to deny any symptoms, except for some minor shortness of breath that is common for her. She denies fever, chills, diaphoresis, lightheadedness, dizziness, nausea, vomiting , or abdominal pain. She has been afebrile and vitals have been stable. No leukocytosis is present Infect Dis PN-Objective Data - Labs CBC & Chem 7: 05/26/17 04:33 05/26/17 06:03 Labs: Laboratory Results - last 24 hr 05/25/17 05/25/17 05/26/17 16:22 16:22 04:33 WBC 10.4 RBC 2.99 L Hgb 8.4 L Hct 27.9 L MCV 93.3 MCH 28.1 MCHC 30.1 L RDW 18.9 H Plt Count 269 MPV 10.6 Immature Gran % 1.5 Seg Neutrophils % 78.0 Lymphocytes % 11.9 Monocytes % 7.7 Eosinophils % 0.3 Basophils % 0.6 Neutrophils # 8.1 Lymphocytes # 1.2 Monocytes # 0.8 Eosinophils # 0.0 Basophils # 0.1 Nucleated RBCs/100 WBC 0.2 H Platelet Estimate Normal Clumped Platelets Few A Immature Plt Fraction 3.3 Polychromasia 1+ A Anisocytosis 1+ A Stomatocytes 1+ A Sodium Potassium Chloride Carbon Dioxide BUN Creatinine Est GFR ( Amer) Est GFR (Non-Af Amer) BUN/Creatinine Ratio Glucose Calculated Osmolality Calcium Iron 32 L % Saturation 14 L Transferrin 164 L Ferritin 105 Vitamin B12 491 Folate 8.0 Specimen Rejected 05/26/17 05/26/17 05:14 06:03 WBC RBC Hgb Hct MCV MCH MCHC RDW Plt Count MPV Immature Gran % Seg Neutrophils % Lymphocytes % Monocytes % Eosinophils % Basophils % Neutrophils # Lymphocytes # Monocytes # Eosinophils # Basophils # Nucleated RBCs/100 WBC Platelet Estimate Clumped Platelets Immature Plt Fraction Polychromasia Anisocytosis Stomatocytes Sodium 139 Potassium 4.4 Chloride 99 Carbon Dioxide 36 H BUN 11 Creatinine 0.94 Est GFR ( Amer) > 60 Est GFR (Non-Af Amer) 58 L BUN/Creatinine Ratio 12 Glucose 101 Calculated Osmolality 288 Calcium 9.3 Iron % Saturation Transferrin Ferritin Vitamin B12 Folate Specimen Rejected Hemolyzed Cultures: Cultures 05/23/17 15:45 Blood Culture - Preliminary Peripheral Venipuncture No growth. 05/23/17 15:45 Blood Culture - Preliminary Peripheral Venipuncture No growth. 05/17/17 09:03 Blood Culture - Final Peripheral Venipuncture Kyra glabrata 05/17/17 09:09 Blood Culture - Final Peripheral Venipuncture Kyra glabrata Serology 05/18/17 05/17/17 05/17/17 Range/Units 08:17 09:09 09:09 A. baumannii (PCR) Not Detected (Not Detect) Chlamy pneumoniae PCR Not Detected (Not Detect) Adenovirus (PCR) Not Detected (Not Detect) B. pertussis DNA (PCR) Not Detected (Not Detect) B.parapertussis DNA PCR Not Detected (Not Detect) Kyra albicans (PCR) Not Detected (Not Detect) C. glabrata (PCR) DETECTED A (Not Detect) C. krusei (PCR) Not Detected (Not Detect) C. parapsilosis (PCR) Not Detected (Not Detect) C. tropicalis (PCR) Not Detected (Not Detect) Coronavirus OC43 (PCR) Not Detected (Not Detect) Coronavirus HKU1 (PCR) Not Detected (Not Detect) Coronavirus 229E (PCR) Not Detected (Not Detect) Coronavirus NL63 (PCR) Not Detected (Not Detect) Enterobacteriac sp PCR Not Detected (Not Detect) E. cloacae complex PCR Not Detected (Not Detect) Enterococcus sp PCR Not Detected (Not Detect) E. coli (PCR) Not Detected (Not Detect) H. influenzae (PCR) Not Detected (Not Detect) Human Metapneumovir PCR Not Detected (Not Detect) Influenza A (H1) PCR Not Detected (Not Detect) Influ A (H1N1/09) PCR Not Detected (Not Detect) Influenza A (H3) PCR Not Detected (Not Detect) Influenza A Untype (PCR) Not Detected (Not Detect) Influenza Type B (PCR) Not Detected (Not Detect) Klebsiella oxytoca PCR Not Detected (Not Detect) Klebsiella pneumoniae Not Detected (Not Detect) List. monocytogenes PCR Not Detected (Not Detect) Mycoplasma pneumon IgG 0.62 H (<=0.09) U/L Mycoplasma pneumon IgM 0.19 (<=0.76) U/L M.pneumoniae DNA (PCR) Not Detected (Not Detect) N. meningitidis (PCR) Not Detected (Not Detect) Parainfluenza 1 (PCR) Not Detected (Not Detect) Parainfluenza 2 (PCR) Not Detected (Not Detect) Parainfluenza 3 (PCR) Not Detected (Not Detect) Parainfluenza 4 (PCR) Not Detected (Not Detect) Proteus species (PCR) Not Detected (Not Detect) RSV (PCR) Not Detected (Not Detect) Entero/Rhino (PCR) Not Detected (Not Detect) Serratia marcescens PCR Not Detected (Not Detect) Staphylococcus sp PCR Not Detected (Not Detect) Staph aureus (PCR) Not Detected (Not Detect) mecA-Methicil Res Gene Not Detected (Not Detect) Streptococcus sp PCR Not Detected (Not Detect) Group A Strep DNA Not Detected (Not Detect) Group B Strep (PCR) Not Detected (Not Detect) Strep pneumoniae (PCR) Not Detected (Not Detect) P. aeruginosa (PCR) Not Detected (Not Detect) Aravind/B-Vanco Res Genes Not Detected (Not Detect) KPC (blaKPC) Detect PCR Not Detected (Not Detect) Exam - Constitutional Vitals: Temp Pulse Resp BP Pulse Ox 97.4 F L 83 18 144/79 100 05/26/17 06:56 05/26/17 06:56 05/26/17 06:56 05/26/17 06:56 05/26/17 06:56 - Additional findings Additional findings: General: morbidly obese, no acute distress, pleasant Head Present: atraumatic, normocephalic Eye: Present: normal appearance, sclera anicteric. Absent: conjunctival injection ENT: Present: mucous membranes moist, normal exam Neck: Present: normal inspection Resp: Present: CTA BL. Absent: accessory muscle use, chest wall tenderness, wheezes, tachypnea Cardio: Present: RRR. Absent: clicks, rubs, systolic murmur GI: Present: normal bowel sounds, soft, tenderness (mild from recent cholecystectomy). Absent: guarding, rebound, rigid Extremities: Present: normal inspection, pedal edema (mild). Absent: calf tenderness, tenderness Neuro: Present: alert, oriented X2, no focal deficits Psych: Present: flat affect, normal affect Skin: Present: dry, intact, normal color, warm, incisions clean, dry, and intact - VTE Documentation of Mechanical Device: Intermittent pneumatic compression device Consult Discharge Plan - Plan Instructions: Sepsis (DC) Additional Instructions: #1 may shower, no tub bath for 2 weeks #2 wash incisions with soap and water and pat dry daily #3 no lifting, pushing, pulling more than 15 pounds for the next 2 weeks #4 no driving until off narcotics for 24 hours and able to safely react in the car #5 may climb stairs Referrals: Carrie Andrews CNP [Advanced Practice Nurse] - 05/30/17 2:15 pm (surgery follow-up) Vanita Chavez CNP [Primary Care Provider] - 05/26/17 9:45 am () Prescriptions: Fluconazole in NaCl,Iso-Osm [Fluconazole-Ns 200 mg/100 ml] 200 mg IV DAILY #7 bottle - Attending Attestation I examined this patient and my medical decision-making was reviewed with the Resident Physician. I agree with the documented findings, disposition and treatment plan as described except to the extent set forth below.
[2017-05-26 10:40] VITALS: BP 136/75
--- NOTE | 2017-05-26 10:47 | Discharge Summary ---
- NOTES TO OUTPATIENT PROVIDER Notes to Outpatient Provider: Patient being discharged on intravenous fluconazole treatment for candidemia. Needs 5 more days of therapy. Orders not resulted at time of discharge: Pending orders 05/17/17 08:16 Culture,Sputum with Gram Stain [RM] Routine Legionella Antigen [RM] Routine 05/17/17 08:17 Streptococcal pneumoniae urin antigen [S. Pneumoniae Antigen] [RM] Routine 05/23/17 15:45 Culture,Blood,Additional [BC] Routine Pathology 05/15/17 12:04 Surgical Pathology [PTH] Routine Comment: Department: Surgical Pathology Specimen: Has been collected Specimen placed in fixative?: Yes Tissue Removal Time:: 11:40 Tissue Fixative Time:: 11:55 DATE LUIGI:: 05/15/17 PRE-OP DIAGNOSIS:: biliary colic POST-OP DIAGNOSIS:: same SPECIMEN & SITE: 1: gallbladder Date of Encounter: 05/26/17 Time of Encounter: 10:34 - Discharge Diagnosis (1) Sepsis Priority: Primary Status: Acute Qualifiers: Sepsis type: Kyra Qualified Code(s): B37.7 - Candidal sepsis (2) CAD (coronary artery disease) Priority: Secondary Status: Chronic Qualifiers: Coronary Disease-Associated Artery/Lesion type: [place] artery [place] vs. transplanted heart: [place] heart Associated angina: without angina Qualified Code(s): I25.10 - Atherosclerotic heart disease of [place] coronary artery without angina pectoris (3) JESSICA (acute kidney injury) Priority: Secondary Status: Resolved (4) Candidemia Priority: Secondary Status: Acute (5) Cholecystitis Priority: Secondary Status: Resolved (6) CKD (chronic kidney disease) stage 3, GFR 30-59 ml/min Priority: Secondary Status: Chronic (7) COPD (chronic obstructive pulmonary disease) Priority: Secondary Status: Chronic Qualifiers: COPD type: unspecified COPD Qualified Code(s): J44.9 - Chronic obstructive pulmonary disease, unspecified (8) Dementia Priority: Secondary Status: Chronic Qualifiers: Dementia type: unspecified type Dementia behavioral disturbance: without behavioral disturbance Qualified Code(s): F03.90 - Unspecified dementia without behavioral disturbance (9) Diastolic heart failure Priority: Secondary Status: Chronic Qualifiers: Heart failure chronicity: chronic Qualified Code(s): I50.32 - Chronic diastolic (congestive) heart failure (10) Elevated troponin Priority: Secondary Status: Acute (11) History of atrial flutter Priority: Secondary Status: Chronic (12) Hospital-acquired bacterial pneumonia Priority: Secondary Status: Acute (13) HTN (hypertension) Priority: Secondary Status: Chronic Qualifiers: Hypertension type: essential hypertension Qualified Code(s): I10 - Essential (primary) hypertension (14) Severe protein-calorie malnutrition Priority: Secondary Status: Acute (15) Anemia Priority: Secondary Status: Acute Qualifiers: Anemia type: other cause Other causes of anemia: acute posthemorrhagic Qualified Code(s): D62 - Acute posthemorrhagic anemia (16) DVT prophylaxis Priority: Secondary Status: Acute (17) UTI (urinary tract infection) Priority: Secondary Status: Resolved Qualifiers: Urinary tract infection type: site unspecified Hematuria presence: without hematuria Qualified Code(s): N39.0 - Urinary tract infection, site not specified Hospital course: Ms. Cabrera is a 76 year old female patient with history of dementia, CVA, hyperlipidemia, hypertension, NE, chronic kidney disease stage III was hospitalized here initially with acute cholecystitis and urinary tract infection. She also had acute kidney injury on presentation. She was evaluated by surgery and underwent laparoscopic cholecystectomy. She initially improved post procedure but became septic 2 days later. This was believed to be due to possible healthcare associated pneumonia. She was started on broad- spectrum antibiotics and her blood cultures were sent. Her blood cultures were positive for Kyra and so she was placed on fluconazole. Infectious disease was consulted. She has continued to receive IV antibiotics in the interim for pneumonia. Repeat blood cultures have been negative. Infectious disease recommends continuing fluconazole to complete 14 day treatment course. She has completed treatment for pneumonia and does not require any further antibiotics. At this time she is clinically stable to be discharged for further management and care. Patient does have underlying dementia. He was also evaluated by ophthalmology for to rule out endophthalmitis. She did not have any signs of endophthalmitis but did have opacification of posterior lens capsule for which she may benefit from posterior capsulotomy as outpatient. Discharge discussed with: patient, nurse, case management - Time Spent with Patient Total time spent providing and/or coordinating discharge services: Greater than 30 minutes (45 min) - Discharge Medications Prescriptions: Fluconazole in NaCl,Iso-Osm [Fluconazole-Ns 200 mg/100 ml] 200 mg IV DAILY #7 bottle Home Medications: Allopurinol [Zyloprim] 100 mg PO DAILY 11/18/14 [History] Aspirin Enteric Coated [Aspirin EC] 81 mg PO DAILY 11/18/14 [History] Furosemide [Lasix] 40 mg PO BID 11/18/14 [History] Lovastatin 80 mg PO DAILY #0 11/18/14 [History] Calcium Carbonate/Vitamin D3 [Caltrate 600 + D Soft Chew Tab] 2 tab PO DAILY # 60 tab.chew 07/18/15 [Rx] Ergocalciferol (VITAMIN D2) [Vitamin D2 (50,000 UNIT)] 1 cap PO QWEEK #12 capsule 07/18/15 [Rx] Isosorbide MONOnitrate (24 HR) [Imdur] 30 mg PO DAILY 11/06/15 [History] Metoprolol XL (24 HR) Succ [Toprol Xl] 25 mg PO DAILY 11/06/15 [History] Quinapril HCl [Accupril] 5 mg PO DAILY 11/06/15 [History] Fluconazole in NaCl,Iso-Osm [Fluconazole-Ns 200 mg/100 ml] 200 mg IV DAILY #7 bottle 05/24/17 [Rx] Allergies/Adverse Reactions: 3 Allergy/AdvReac Type Severity Reaction Status Date / Time No Known Allergies Allergy Verified 05/13/17 19:11 Date of admission: 05/13/17 22:15 Primary care physician: Vanita Chavez Consults: 05/13/17 22:26 Consult to Surgery [CONS] Routine Consulting Provider: Surgery [facility] Reason for Consult: Cholelithiasis - possible cholecystitis Call Completed: Yes 05/16/17 13:52 Consult to Mailroom Assistant [CONS] Routine Reason for SW Consult: needs ecf 05/19/17 07:44 Consult to Infectious Diseases [CONS] Routine Consulting Provider: Infectious Disease [place] Reason for Consult: Candidemia Call Completed: Yes 05/20/17 10:43 Consult to Speech Therapy [CONS] Routine Comment: Evaluate, develop and implement POC Reason for Consult: dsphagia Call Completed: No 05/24/17 09:41 Consult to Physician [CONS] Routine Consulting Provider: Bishnu Garcia Reason for Consult: Candidemia. Evaluate for endophthalmitis Call Completed: Yes 05/24/17 13:51 PICC LINE [Consult to Invasive Line Access Team] [CONS] Routine Reason for Consult: fpc IV meds Line Type: Midline PICC line indications: extermination inspector Med/Antibiotic Discharging clinician: Sergo Garcia Anticipated date of discharge: 05/26/17 - Constitutional Vitals: Temp Pulse Resp BP Pulse Ox 97.4 F L 83 18 144/79 100 05/26/17 06:56 05/26/17 06:56 05/26/17 06:56 05/26/17 06:56 05/26/17 06:56 General appearance: Present: cooperative, A&O X 1, answers questions appropriately - Neck Neck exam general surgery: Present: supple, trachea midline. Absent: lymphadenopathy - Respiratory Respiratory exam: Present: CTAB. Absent: accessory muscle use, rales, rhonchi, wheezes - Cardiovascular Cardiovascular exam: Present: RRR, +S1, +S2. Absent: diastolic murmur, gallop, rubs, systolic murmur - GI/Abdominal GI/Abdominal exam: Present: normal bowel sounds, soft, no peritoneal signs. Absent: distended, tenderness - Patient Status Disposition: Transfer SNF Condition: Fair Functional capacity at discharge: wheelchair bound Overall status at discharge: patient is progressing back to baseline - Discharge Instructions Instructions: Sepsis (DC) Follow Up With: Carrie Andrews CNP [Advanced Practice Nurse] - 05/30/17 2:15 pm (surgery follow-up) Vanita Chavez CNP [Primary Care Provider] - 05/26/17 9:45 am () Additional Instructions: #1 may shower, no tub bath for 2 weeks #2 wash incisions with soap and water and pat dry daily #3 no lifting, pushing, pulling more than 15 pounds for the next 2 weeks #4 no driving until off narcotics for 24 hours and able to safely react in the car #5 may climb stairs - Diet and Activity Activity: as per physical therapy Diet: diabetic diet, low fat, low cholesterol, low salt diet - VTE Documentation of Mechanical Device: Intermittent pneumatic compression device
--- NOTE | 2017-05-26 10:57 | Physician Discharge Referral ---
ExtendedCare Referral Info Provider in Charge after Transfer: PCP Institutional Level of Care: Skilled - Diagnosis (1) Sepsis Priority: Primary Status: Acute (2) CAD (coronary artery disease) Priority: Secondary Status: Chronic (3) JESSICA (acute kidney injury) Priority: Secondary Status: Resolved (4) Candidemia Priority: Secondary Status: Acute (5) Cholecystitis Priority: Secondary Status: Resolved (6) CKD (chronic kidney disease) stage 3, GFR 30-59 ml/min Priority: Secondary Status: Chronic (7) COPD (chronic obstructive pulmonary disease) Priority: Secondary Status: Chronic (8) Dementia Priority: Secondary Status: Chronic (9) Diastolic heart failure Priority: Secondary Status: Chronic (10) Elevated troponin Priority: Secondary Status: Acute (11) History of atrial flutter Priority: Secondary Status: Chronic (12) Hospital-acquired bacterial pneumonia Priority: Secondary Status: Acute (13) HTN (hypertension) Priority: Secondary Status: Chronic (14) Severe protein-calorie malnutrition Priority: Secondary Status: Acute (15) Anemia Priority: Secondary Status: Acute (16) DVT prophylaxis Priority: Secondary Status: Acute (17) UTI (urinary tract infection) Priority: Secondary Status: Resolved Prognosis: Fair Aware of Diagnosis: Family Aware of Prognosis: Family - Transfer Medications Prescriptions: Fluconazole in NaCl,Iso-Osm [Fluconazole-Ns 200 mg/100 ml] 200 mg IV DAILY #7 bottle Home Medications: Allopurinol [Zyloprim] 100 mg PO DAILY 11/18/14 [History] Aspirin Enteric Coated [Aspirin EC] 81 mg PO DAILY 11/18/14 [History] Lovastatin 80 mg PO DAILY #0 11/18/14 [History] Calcium Carbonate/Vitamin D3 [Caltrate 600 + D Soft Chew Tab] 2 tab PO DAILY # 60 tab.chew 07/18/15 [Rx] Ergocalciferol (VITAMIN D2) [Vitamin D2 (50,000 UNIT)] 1 cap PO QWEEK #12 capsule 07/18/15 [Rx] Isosorbide MONOnitrate (24 HR) [Imdur] 30 mg PO DAILY 11/06/15 [History] Metoprolol XL (24 HR) Succ [Toprol Xl] 25 mg PO DAILY 11/06/15 [History] Quinapril HCl [Accupril] 5 mg PO DAILY 11/06/15 [History] Fluconazole in NaCl,Iso-Osm [Fluconazole-Ns 200 mg/100 ml] 200 mg IV DAILY #7 bottle 05/24/17 [Rx] Docusate [Colace] 100 mg PO BID PRN capsule 05/26/17 [Rx] Furosemide [Lasix] 20 mg PO BIDDIURETIC tablet 05/26/17 [Rx] Allergies/Adverse Reactions: 3 Allergy/AdvReac Type Severity Reaction Status Date / Time No Known Allergies Allergy Verified 05/13/17 19:11 - Respiratory Orders Smoking Cessation: Smoking cessation has been advised. For more information, call the [place] Tobacco Quit Line at 4-803-ZHJV-NOW. - Lab Orders Lab Orders: Other (include drug levels w/frequency) (CBC, basic panel on 05/30/17 ) - Ancillary Orders May use pressure relief devices daily prn, May consult with Dentist, Concession Attendant, Blackjack Supervisor PRN - Advance Directives Code Status: Full Code - Mobility Orders Ambulate (per PT) - Rehabiliation Orders Rehab Potential: Fair Rehab Orders: Evaluation for Physical Therapy, Evaluation for Occupational Therapy - Diet Orders Cardiac CERTIFICATION: I certify that the transfer of the above named patient to an Extended Care Facility is necessary for the continuing treatment of the diagnosis listed. The above information is true and accurate reflection of patient's current condition. Confidential - Redisclosure prohibited without a patient's written consent.
[2017-05-28] MEDS ORDERED: Insulin Human Regular 10 UNIT in 0.9 % Sodium Chloride 10 ML IV ONE (12:05)
[2017-05-28] MEDS ORDERED: *HR* Dextrose 50 % in Water (Vial) 50 ML VIAL IVP ONE (12:05)
[2017-05-28 17:06] LABS: ABG Base Excess 7 mEq/L (-2 to 3); ABG HCO3 33 mEq/L (21-27); ABG Oxygen Saturation 99 % (95-98); ABG PCO2 51 mmHg (35-45); ABG PH 7.41 pH Units (7.32-7.45); ABG PO2 120 mmHg (85-104); ABG TCO2 34 mEq/L (20-26); Blood Gas Modality PRVC; Blood Gas PEEP 5 cm H2O; Blood Gas Respiration Rate 14; Blood Gas VT 500 cc
[2017-05-30 00:41] LABS: ABG Base Excess 6 mEq/L (-2 to 3); ABG HCO3 30 mEq/L (21-27); ABG Oxygen Saturation 96 % (95-98); ABG PCO2 40 mmHg (35-45); ABG PH 7.49 pH Units (7.32-7.45); ABG PO2 75 mmHg (85-104); ABG TCO2 31 mEq/L (20-26); Blood Gas Modality PRVC; Blood Gas PEEP 5 cm H2O; Blood Gas Respiration Rate 14; Blood Gas VT 350 cc
== END 2017-05-26 12:14 | DRG 417 ==
LOC: 3ANU 17:27 → EMEROO 17:27 → 2ANU 20:50 → SUATTDRO 22:15
PROVIDERS: ADMIT Family Medicine; ATTEND Internal Medicine

== ENCOUNTER 2017-05-28 11:42 | Inpatient (IN) ==
[~2017-05-28 11:42] MED LIST: *HR* Amiodarone Premix 150 MG/100 ML BAG IVPB ONE; *HR* EPINEPHrine 1 MG/10 ML SYRINGE IVP ONE; *HR* Etomidate 20 MG/10 ML AMPUL IVP ONE; *HR* Midazolam HCl 5 MG/5 ML VIAL IVP ONE
[2017-05-28] MEDS ORDERED: Amiodarone 150 MG in D5% in Water 100 ML IVPB ONE (11:47)
[2017-05-28] MEDS ORDERED: 0.9 % Sodium Chloride 500 ML IVC ONE (11:47)
[2017-05-28] MEDS ORDERED: Aspirin 325 MG TABLET PO ONE (11:55)
[2017-05-28] MEDS ORDERED: Amiodarone Premix 360 MG/200 ML BAG IVC ONE (11:55)
[2017-05-28] MEDS ORDERED: Ipratropium/Albuterol Neb 3 ML ONE (11:59)
[2017-05-28] MEDS ORDERED: Insulin Human Regular 10 UNIT in 0.9 % Sodium Chloride 10 ML IV ONE (12:06)
[2017-05-28] MEDS ORDERED: Sodium Bicarbonate 50 MEQ/50 ML VIAL IVP ONE (12:06)
[2017-05-28] MEDS ORDERED: *HR* Rocuronium Bromide 50 MG/5 ML VIAL IVP ONE (12:26)
[2017-05-28] MEDS ORDERED: *HR* Etomidate 20 MG/10 ML AMPUL IVP ONE (12:26)
[2017-05-28] MEDS ORDERED: *HR* Dextrose 50 % in Water (Syg) 50 ML SYRINGE ONE (12:35)
[2017-05-28] MEDS: *HR* Dextrose 50 % in Water (Syg) 50 ML SYRINGE IVP ONE ×2 (12:37→13:15)
[2017-05-28 12:44] LABS: Mean Platelet Volume 10.3 fL (9.4-12.4); Nucleated Red Blood Cells 0.2 /100 WBC (0); Red Cell Distribution Width 19.3 % (11.5-14.5)
[2017-05-28 12:46] LABS: Hematocrit 31.7 % (35.3-44.9); Mean Corpuscular HGB Conc 28.4 g/dL (31.6-35.5); Mean Corpuscular Volume 98.4 fL (83.0-100.0); Platelet Count 397 K/mcL (140-400); Red Blood Count 3.22 M/mcL (3.82-4.97)
[2017-05-28] MEDS: Dexmedetomidine HCl 400 MCG/100 ML MLS IVC SCH ×2 (12:50→21:28)
[2017-05-28 12:51] LABS: INR 1.2; Prothrombin Time 13.2 Seconds (9.4-12.1)
--- NOTE | 2017-05-28 12:52 | Emergency Department Note ---
Disposition Clinical Impression: V-tach, Signs of return of spontaneous circulation, Elevated troponin, Lactic acidosis, Hypoxia Leukocytosis Qualifiers: Leukocytosis type: unspecified Qualified Code(s): D72.829 - Elevated white blood cell count, unspecified Disposition: Admitted As Inpatient Condition: Serious CPR HPI - General Chief Complaint: ED Cardiac Arrest/CPR Stated Complaint: Full Code Time Seen by Provider: 05/28/17 11:47 Source: EMS Mode of arrival: EMS Limitations: altered mental status Nursing Notes Reviewed: Yes Vital Signs Reviewed: Yes - History of Present Illness HPI Narrative: 76-year-old female presents to the ER via EMS from intermediate facility due to cardiac arrest. Reports that they thought the patient might have had a seizure at the custodial. She was noted to have ventricular tachycardia at that time. She was defibrillated once by squad. They report she was then in PEA and received 2 mg total of epinephrine in route. No rhythm changes in route. Patient presents to the ER with spontaneous movement. She was noted to have a pulse at that time. Patient was extubated successfully and was responding to verbal stimuli and moving all extremities. Upon arrival she is noted to be bradycardic in the 40s with a blood pressure around 80/50. She voices no complaints at this time. Witnessed Arrest: Yes Pt Complaint: seizure Onset (ago): Just [employer] Timing confirmed by: other Place: [place]/[facility] Bystander CPR Performed: Yes AED Applied by Bystander/Grocery Clerk Marking: Yes Shock Advised: Yes Number of Shocks Delivered: 1 Initial Findings in the Field: unresponsive ROSC in the Field: No Associated Injuries: No Known history of: arrhythmia Treatments Prior to Arrival: intubation, chest compressions, defibrillated shocks # (1), epinephrine mgs # (2) - Related Data Home Medications Medication Instructions Recorded Confirmed Albuterol Neb [Proventil Neb] 2.5 mg IH QID PRN 05/28/17 05/28/17 Albuterol Sulfate [Ventolin Hfa] 2 puff IH Q4H PRN 05/28/17 05/28/17 Alendronate Sodium [Fosamax] 70 mg PO TU 05/28/17 05/28/17 Aspirin Enteric Coated [Aspirin EC] 81 mg PO DAILY 05/28/17 05/28/17 Carvedilol [Coreg] 6.25 mg PO BIDWM 05/28/17 05/28/17 Fluconazole in NaCl,Iso-Osm 200 mg IV DAILY 05/28/17 05/28/17 [Fluconazole-NaCl 200 mg/100 ml] HYDROcodone/Acet 5/325 mg [[place] 1 tab PO BID PRN 05/28/17 05/28/17 5-325 mg] Montelukast [Singulair] 10 mg PO DAILY 05/28/17 05/28/17 Oxygen 2 l NS AD 05/28/17 05/28/17 Pravastatin Sodium [Pravachol] 40 mg PO HS 05/28/17 05/28/17 Sotalol HCl [Betapace] 160 mg PO BID 05/28/17 05/28/17 Umeclidinium [place] [Incruse 62.5 mcg IH DAILY 05/28/17 05/28/17 Ellipta] Warfarin [Coumadin] 1.5 mg PO 1700 05/28/17 05/28/17 Allergies Allergy/AdvReac Type Severity Reaction Status Date / Time No Known Allergies Allergy Verified 05/28/17 13:10 Limitations: ROS unobtainable due to patients medical condition [facility] - Past Medical History Medical history: Reports: asthma, atrial fibrillation, CHF, hyperlipidemia Psychiatric history: Reports: no psych history - Social History Smoking Status: Unknown if ever smoked Alcohol use: Reports: none Drug use: Reports: none Physical Exam - General Limitations: altered mental status General appearance: obtunded - Head Head exam: atraumatic, normocephalic - Eye Eye exam: Present: normal appearance - ENT ENT exam: normal exam - Neck Neck exam: Present: normal inspection - Chest Chest inspection: Present: normal inspection, symmetric chest wall rise - Respiratory Respiratory exam: Present: normal lung sounds bilaterally, other (mechanically ventilated) - Cardiovascular Cardiovascular exam: Present: normal rhythm, bradycardia, normal heart sounds - Abdominal Exam Abdominal exam: Present: soft. Absent: distention, rigidity - Extremities Exam Extremities exam: Present: normal inspection - Expanded Upper Extremity Exam Shoulder exam: Present: normal inspection, full ROM Arm exam: Present: normal inspection, full ROM Elbow exam: Present: normal inspection, full ROM Forearm/Wrist exam: Present: normal inspection, full ROM Hand exam: Present: normal inspection, full ROM Vascular exam: Normal: radial pulse - Expanded Lower Extremity Exam Hip/Pelvis exam: Present: normal inspection, full ROM Upper leg exam: Present: normal inspection, full ROM Knee exam: Present: normal inspection, full ROM Lower leg exam: Present: normal inspection, full ROM Ankle exam: Present: normal inspection, full ROM Foot/toe exam: Present: normal inspection, full ROM - Skin Skin exam: Present: warm, dry Course Course Narrative: Patient seen and examined the time of arrival. Noted to have ROSC. Patient extubated and alert at this time moving all extremities. Noted to be bradycardic and hypotensive. EKG obtained which shows a wide-complex bradycardia. We will discuss with interventional cardiology as well as loaded with amiodarone and get labs and imaging of her head. - Reevaluation(s) Reevaluation #1: Patient noted to have persistent hypotension. Dopamine ordered for hypotension as well as bradycardia. Reevaluation #2: Patient noted to be hypoxic and less responsive. Patient intubated by Dr. Wheeler. Please see his documentation for details. Patient treated with calcium , bicarbonate for wide complex rhythm. - Consultations Consultation #1: I spoke with the on-call engineering geologist Dr. Harris. Discussed the patient's history, interventions, EKG. Discussed potential for Psychiatric Nursing Assistant evaluation. They do not recommend on emergent left heart catheterization but do recommend to check labs were potential renal failure after a prior illness with her being on sotalol which could have induced ventricular tachycardia. Vital Signs Temperature 97.4 F L 05/28/17 11:43 Pulse Rate 58 05/28/17 11:43 Respiratory Rate 18 05/28/17 11:43 Blood Pressure 132/75 05/28/17 11:43 O2 Sat by Pulse Oximetry 93 05/28/17 11:43 Temperature 97.4 F L 05/28/17 11:43 Pulse Rate 54 05/28/17 16:17 Respiratory Rate 14 05/28/17 16:17 Blood Pressure 109/50 05/28/17 16:17 O2 Sat by Pulse Oximetry 100 05/28/17 16:17 Oxygen Delivery Oxygen Delivery Ventilator Procedures - Intubation Time out performed: Yes sedative: Etomidate Mg Given: 20 Laryngoscope: Samantha ET Tube Size: 7 ET Tube Uncuffed: No Tube Secured Depth (cm): 23 Tube Secured Location: lips Tube Placement Confirmation: visualized tube passing through cords, equal breath sounds bilaterally, no breath sounds over epigastrium Patient Tolerated Procedure: well, no complications Intubation Complications: none Cardiac Arrest/CPR - [facility] Narrative Medical decision making narrative: 76-year-old female presents to the emergency department until nursing facility in arrest. Noted to have ventricular tachycardia upon arrival there by squad. She was defibrillated once and received 2 mg of epinephrine in route for pulseless electrical activity. Patient had return of spontaneous circulation upon arrival here. She was initially extubated and was doing well but did require reintubation due to hypoxia. EKGs were obtained serially showing a wide complex bradycardia that then improved to sinus rhythm. Case was discussed initially with interventional cardiology who did not recommend the patient go to the Psychiatric Nursing Assistant for emergent evaluation. During her workup she was noted to have a normal head CT as well as chest x-ray. No evidence of infection in her urine. She does have a white count of 26 which may be infectious from her previous admission versus reactive from CPR. They did have a troponin of 0.07 as well as a lactate of 4.8. Patient given a total of 1.5 L of IV fluids as well as numerous medications here. She was bradycardic and hypotensive requiring dopamine for pressure support. Patient was also loaded with amiodarone and placed on a drip as well as Precedex for sedation. Patient is admitted to the intensive care unit under the hospitalist service for further evaluation. - Lab Data Lab results reviewed: Yes I reviewed the patient's lab results. Result diagrams: 05/28/17 12:16 05/28/17 12:16 Lab Results 05/28/17 05/28/17 05/28/17 Range/Units 12:16 12:16 12:16 WBC 26.6 H (4.3-11.1) K/mcL RBC 3.22 L (3.82-4.97) M/mcL Hgb 9.0 L (11.5-15.4) g/dL Hct 31.7 L (35.3-44.9) % MCV 98.4 (83.0-100.0) fL MCH 28.0 (28.0-33.3) pg MCHC 28.4 L (31.6-35.5) g/dL RDW 19.3 H (11.5-14.5) % Plt Count 397 (140-400) K/mcL MPV 10.3 (9.4-12.4) fL Seg Neutrophils % 71.0 % Band Neutrophils % 6.0 H (0-4) % Lymphocytes % 15.0 % Monocytes % 7.0 % Eosinophils % 1.0 % Neutrophils # 20.5 H (1.6-8.9) K/mcL Lymphocytes # 4.0 (0.6-4.6) K/mcL Monocytes # 1.9 H (0.0-1.3) K/mcL Eosinophils # 0.3 (0.0-0.6) K/mcL Nucleated RBCs/100 WBC 0.2 H (0) /100 WBC Platelet Estimate Normal (Normal) PT 13.2 H (9.4-12.1) Seconds INR 1.2 APTT 34.0 (26.0-36.0) Seconds Sodium 135 L (136-145) mEq/L Potassium 4.7 (3.5-5.1) mEq/L Chloride 98 (98-107) mEq/L Carbon Dioxide 23 (23-29) mEq/L BUN 10 (8-23) mg/dL Creatinine 1.19 (0.60-1.20) mg/dL Est GFR ( Amer) 54 L (> 60) Est GFR (Non-Af Amer) 44 L (> 60) BUN/Creatinine Ratio 8 (6-26) Glucose 236 H (70-105) mg/dL Calculated Osmolality 287 (280-300) Lactic Acid (0.5-2.2) mmol/L Calcium 8.9 (8.6-10.3) mg/dL Troponin I (< 0.04) ng/mL TSH (0.340-5.600) mcIU/mL Ur Specimen Adequacy Urine Color (Yellow) Urine Clarity (Clear) Urine pH (5.0-8.0) pH Units Ur Specific [place] (1.010-1.025) Urine Protein (Neg-Trace) mg/dL Urine Glucose (UA) (Normal) mg/dL Urine Ketones (Negative) mg/dL Urine Blood (Negative) Urine Nitrite (Negative) Urine Bilirubin (Negative) Urine Urobilinogen (Normal) mg/dL Ur Leukocyte Esterase (Negative) Urine Microscopic RBC (0-3) per hpf Urine Microscopic WBC (0-3) per hpf Ur Squamous Epith Cells (None-Few) per lpf Ur Renal Epithelial Cell (None-Few) per hpf Urine Bacteria (None-Few) per hpf Ur Culture Indicated? (NO) 05/28/17 05/28/1705/28/18 Range/Units 12:16 12:16 13:01 WBC (4.3-11.1) K/mcL RBC (3.82-4.97) M/mcL Hgb (11.5-15.4) g/dL Hct (35.3-44.9) % MCV (83.0-100.0) fL MCH (28.0-33.3) pg MCHC (31.6-35.5) g/dL RDW (11.5-14.5) % Plt Count (140-400) K/mcL MPV (9.4-12.4) fL Seg Neutrophils % % Band Neutrophils % (0-4) % Lymphocytes % % Monocytes % % Eosinophils % % Neutrophils # (1.6-8.9) K/mcL Lymphocytes # (0.6-4.6) K/mcL Monocytes # (0.0-1.3) K/mcL Eosinophils # (0.0-0.6) K/mcL Nucleated RBCs/100 WBC (0) /100 WBC Platelet Estimate (Normal) PT (9.4-12.1) Seconds INR APTT (26.0-36.0) Seconds Sodium (136-145) mEq/L Potassium (3.5-5.1) mEq/L Chloride (98-107) mEq/L Carbon Dioxide (23-29) mEq/L BUN (8-23) mg/dL Creatinine (0.60-1.20) mg/dL Est GFR ( Amer) (> 60) Est GFR (Non-Af Amer) (> 60) BUN/Creatinine Ratio (6-26) Glucose (70-105) mg/dL Calculated Osmolality (280-300) Lactic Acid (0.5-2.2) mmol/L Calcium (8.6-10.3) mg/dL Troponin I 0.07 H* (< 0.04) ng/mL TSH 9.338 H (0.340-5.600) mcIU/mL Ur Specimen Adequacy See below A Urine Color Yellow (Yellow) Urine Clarity Clear (Clear) Urine pH 7.5 (5.0-8.0) pH Units Ur Specific [place] 1.015 (1.010-1.025) Urine Protein 30 H (Neg-Trace) mg/dL Urine Glucose (UA) Normal (Normal) mg/dL Urine Ketones Negative (Negative) mg/dL Urine Blood Trace-intact H (Negative) Urine Nitrite Negative (Negative) Urine Bilirubin Small H (Negative) Urine Urobilinogen Normal (Normal) mg/dL Ur Leukocyte Esterase Small H (Negative) Urine Microscopic RBC 0-3 (0-3) per hpf Urine Microscopic WBC 3-5 H (0-3) per hpf Ur Squamous Epith Cells Few (None-Few) per lpf Ur Renal Epithelial Cell Many H (None-Few) per hpf Urine Bacteria Moderate H (None-Few) per hpf Ur Culture Indicated? YES A (NO) 05/28/17 Range/Units 14:02 WBC (4.3-11.1) K/mcL RBC (3.82-4.97) M/mcL Hgb (11.5-15.4) g/dL Hct (35.3-44.9) % MCV (83.0-100.0) fL MCH (28.0-33.3) pg MCHC (31.6-35.5) g/dL RDW (11.5-14.5) % Plt Count (140-400) K/mcL MPV (9.4-12.4) fL Seg Neutrophils % % Band Neutrophils % (0-4) % Lymphocytes % % Monocytes % % Eosinophils % % Neutrophils # (1.6-8.9) K/mcL Lymphocytes # (0.6-4.6) K/mcL Monocytes # (0.0-1.3) K/mcL Eosinophils # (0.0-0.6) K/mcL Nucleated RBCs/100 WBC (0) /100 WBC Platelet Estimate (Normal) PT (9.4-12.1) Seconds INR APTT (26.0-36.0) Seconds Sodium (136-145) mEq/L Potassium (3.5-5.1) mEq/L Chloride (98-107) mEq/L Carbon Dioxide (23-29) mEq/L BUN (8-23) mg/dL Creatinine (0.60-1.20) mg/dL Est GFR ( Amer) (> 60) Est GFR (Non-Af Amer) (> 60) BUN/Creatinine Ratio (6-26) Glucose (70-105) mg/dL Calculated Osmolality (280-300) Lactic Acid 4.8 H* (0.5-2.2) mmol/L Calcium (8.6-10.3) mg/dL Troponin I (< 0.04) ng/mL TSH (0.340-5.600) mcIU/mL Ur Specimen Adequacy Urine Color (Yellow) Urine Clarity (Clear) Urine pH (5.0-8.0) pH Units Ur Specific [place] (1.010-1.025) Urine Protein (Neg-Trace) mg/dL Urine Glucose (UA) (Normal) mg/dL Urine Ketones (Negative) mg/dL Urine Blood (Negative) Urine Nitrite (Negative) Urine Bilirubin (Negative) Urine Urobilinogen (Normal) mg/dL Ur Leukocyte Esterase (Negative) Urine Microscopic RBC (0-3) per hpf Urine Microscopic WBC (0-3) per hpf Ur Squamous Epith Cells (None-Few) per lpf Ur Renal Epithelial Cell (None-Few) per hpf Urine Bacteria (None-Few) per hpf Ur Culture Indicated? (NO) - Radiology Data Radiology results reviewed: Yes I reviewed the patient's radiology results. Head CT 05/28/17 11:49 IMPRESSION: No acute intracranial abnormality. Otherwise stable CT. D/ / Rowdy Bey MD / Rowdy Bey MD Interpreting Provider: Rowdy Bey MD Chest X-Ray 05/28/17 12:42 IMPRESSION: 1. Endotracheal tube in place with its tip at the juan manuel and consideration should be given to withdrawing this several cm 2. Stable cardiomegaly D/ / Morales Adams MD / Morales Adams MD Interpreting Provider: Morales Adams MD - EKG Data EKG attestation: Yes I reviewed and interpreted this EKG. EKG results narrative: EKG demonstrates a wide complex bradycardia with a rate of 51 bpm. Left axis deviation. Prolonged QRS duration 162. QTC 650. No gross ST elevations or depressions. No acute ischemic findings. Repeat EKG after calcium and bicarbonate reveals wide complex bradycardia with a rate of 50 bpm. Left axis deviation. Prolonged QRS duration of 183. QTC of 514. No gross ST elevations or depressions. No acute ischemic findings. No changes from previous EKG from original. Repeat EKG demonstrates sinus rhythm with a rate of 61 bpm. Left axis deviation. Normal intervals. Normal R-wave progression. Biphasic T waves in the anterior lateral leads. No gross ST elevations or depressions. No acute ischemic findings. Changes from previous EKG include narrowing of her QRS complex. Michael - Michael Situation: Demographics, MOA Background: Presenting Complaint, Relevant PMH, Meds, & Allergies Assessment: Vital Signs, Course and respsone to treatment, Exam Concerns, Patient/Family Expectation, Pertinant Lab Results Recommendation: Barrier(s) to disposition, Recommendation based on pending studies, treatments, or consults Michael Report Given to: Dr. Dian Rodriguez Repor Time: 16:02 Attestation Statement - Attestation Attestation: I examined this patient and my medical decision-making was reviewed with the Resident Physician. I agree with the documented findings, disposition and treatment plan as described except to the extent set forth below. Patient to ED in full arrest. Amylase states they were called for unresponsive. They found her and V. tach. She was pulseless. She was defibrillated at 200 and CPR was begun. She received 2 doses of epinephrine. Next was almost PA. On arrival here patient was moving and gasping for air. The Sreekanth LT was removed. She had a good blood pressure and pulse. Her EKG shows a wide complex bradycardic rhythm. It is since converted to a narrow complex sinus rhythm. She has some anteroseptal biphasic T waves. She has been discussed with cardiology. She is currently on amiodarone drip. She is requiring dopamine to keep her heart rate and blood pressure up. She was treated for hyperkalemia for the wide complex rhythm. Her potassium was normal on her labs. Patient is a significantly elevated white blood cell count. Cultures and lactate sent. Will be started on broad-spectrum antibiotic. We will admit to ICU. 40 minutes of critical care exclusive of separately billable procedures.
[2017-05-28 13:00] LABS: Calcium 8.9 mg/dL (8.6-10.3); Potassium 4.7 mEq/L (3.5-5.1)
[2017-05-28 13:05] LABS: Eosinophils # 0.3 K/mcL (0.0-0.6); Monocytes # 1.9 K/mcL (0.0-1.3); Neutrophils # 20.5 K/mcL (1.6-8.9)
[2017-05-28 13:06] LABS: Platelet Estimate Normal (Normal)
[2017-05-28] MEDS ORDERED: *HR* Midazolam HCl 2 MG/2 ML VIAL IVP ONE (13:06)
[2017-05-28 13:12] LABS: Bilirubin,Urine Small (Negative); Blood,Urine Trace-intact (Negative); Clarity,Urine Clear (Clear); Color,Urine Yellow (Yellow); Glucose,Urine (UA) Normal (Normal); Ketones,Urine Negative (Negative); Leukocyte Esterase,Urine Small (Negative); Nitrite,Urine Negative (Negative); PH,Urine 7.5 pH Units (5.0-8.0); Protein,Urine 30 mg/dL (Neg-Trace); Specific Gravity,Urine 1.015 (1.010-1.025); Urobilinogen,Urine Normal (Normal)
[2017-05-28 13:14] LABS: RBC,Urine 0-3 per hpf (0-3)
[2017-05-28 13:15] LABS: Bacteria,Urine Moderate per hpf (None-Few); Renal Epithelial Cells,Urine Many per hpf (None-Few); Squamous Epithelial Cell,Urine Few per lpf (None-Few)
[2017-05-28] MEDS ORDERED: Piperacillin/Tazobactam 3.375 GM in 0.9 % Sodium Chloride Mini Bag 100 ML IVPB ONE (13:36)
[2017-05-28] MEDS ORDERED: Piperacillin/Tazobactam 3.375 GM VIAL ONE (15:21)
[2017-05-28] MEDS ORDERED: 0.9 % Sodium Chloride 1,000 ML IVC ONE ×2 (15:30→20:24)
[2017-05-28] MEDS ORDERED: Naloxone 0.4 MG/ML INJ IVP PRN (16:18)
--- NOTE | 2017-05-28 16:33 | Event Note ---
Date of Encounter: 05/28/17 Time of Encounter: 16:09 Patient was seen and examined with the ICU resident Dr. Renzo Marc. I agree with the H&P as written. I helped guide the assessment and plan personally. Briefly, patient is a 76 yo F with history of dementia, CVA, CAD/RI with ICD, atrial flutter based on documentations CKD III, HLD who was recently discharged from here s/p acute devika s/p lap devika. Say was complicated by sespis due to HCAP and fungemia. Discharged on fluconazol for 14 days and finished treatment for HCAP in house at the time. an echo at the time showed EF 55-60% with mild diastolic dsfxn. She was discharged to a nursing facility where she was doing well till this morning where she was thought to be having a seizure. It was later realized that she is in cardiac arrest with V-tach noted. Was shocked into PEA and received 2 round of epi while receiving CPR. She then had ROSC. Intubated during this as well. On arrival she was hypotensive and bradycardic in the 40s. She was bolused a couple of liters and extubated. Was hypoxic post extubation and was re-intubated. She received calcium gluc as well and started on dopamine drip and amio drip as well. She is on Precedex. She remained bradycardic while in the ED and during my evaluation. Laboratory work up showed WBC count of 26.6, hgb 9.0, plt 397. Lactic acid 4.8. Trop .07. TSH 9.3. K 4.7. Creatinine 1.19. No mag yet. CT head with no acute findings. CXR with cardiomegaly and vascular congestion. Patient on exam is sedated with pinpoint pupils. Bradycardic. bibasilar crackles. No significant edema Med list sent from longterm show patient is on both Sotalol and Fluconazole (both QT prolonging). Last discharge does not show Sotalol as a med at discharge so I don't know when it was added. There is other discrepancies on last discharge meds and med list sent from longterm. Patient is on warfarin reportedly at longterm but INR is 1.2 here. Last discharge meds does not show Warfarin either. Also on Coreg from longterm but discharge meds show Toprol XL. Last discharge show Imdur but not longterm meds. A/P: s/p cardiac arrest (ventricular tachycardia, PEA, wide complex bradycardia, sinus bradycardia) Acute hypoxic resp failure requiring vent cardiogenic shock Fungemia Lactic acidosis Elevated troponins Leukocytosis Admit to ICU, Discussed code status with and explained to him there is a high probability for arrest again. He wants to discuss with all family members first and leave as full code for now. c/w vent support Check ABG Repeat labs c/s supervisor in charge c/s cardiology (stop amio drip per cardiology unless in Vtach or afib) Trend cardiac enzymes Another liter bolus and repeat lactic acid Keep on dopamine Precedex Broad spectrum antibiotics Hold Sotalol and Fluconazole as they both are QT prolonging consult ID Blood cx Alvarez catheter Monitor urine output Confirm longterm meds Critical care time >45 min.
--- NOTE | 2017-05-28 16:50 | Internal Med History&Physical ---
Date of Encounter: 05/28/17 Time of Encounter: 15:00 Assessment and Plan (1) Cardiac arrest Current visit: Yes Status: Acute Per EMS s/p defibrillation, vtac, pea, rosc. Patient on exam intubated, on Precedex with pinpoint pupils, bradycardia, bibasilar crackles. No significant edema. Trending Troponin I: 0.07 Admit to ICU, code status currently Full Code per (wants to discuss with family) Continue mechanical ventilation/precedex/dopamine Holding amiodarone in setting of possible sotalol use (though per chart review patient was not Rx'd by [facility]/Cardiology) ABG/Lactic Acid/Blood cultures. Echocardiogram pending. Consult Cardiology, presence of ICD; plan for Cardiology to interrogate device tomorrow 05/29. (2) Acute on chronic respiratory failure with hypoxia and hypercapnia Current visit: Yes Status: Acute Continue mechanical ventilation, sedation, on vanc/zosyn. (3) Cardiogenic shock Current visit: Yes Status: Acute On Dopamine, giving another liter bolus. (4) Fungemia Current visit: Yes Status: Acute Recently discharged 05/26 with plan to complete 14 days of fluconazole ( Candidemia identified 05/17 via blood cultures, days on fluconazole unspecified). Blood cultures drawn. Holding fluconazole in setting of recent cardiac arrest/ vtach. (5) Elevated troponin Current visit: Yes Status: Acute 0.07, trending (6) Lactic acidosis Current visit: Yes Status: Acute 4.8; repeat lactic pending. (7) Leukocytosis Current visit: Yes Status: Acute Stress reaction vs sepsis. F/u cultures, consult ID. Qualifiers: Leukocytosis type: unspecified Qualified Code(s): D72.829 - Elevated white blood cell count, unspecified (8) Presence of implantable cardioverter-defibrillator (ICD) Current visit: Yes Status: Acute Cardiology to interrogate device tomorrow 05/29. Internal Medicine - H&P: HPI Chief complaint: Cardiac arrest, vtac Admitted From: Long-term Nursing Facility ([facility]) Plans for Post Hospital Care: Transfer Inp Rehab Fac History of present illness: Ms. Cabrera is a 76 year old female, PMH CAD, prior PCI, prior ischemic CMP, prior ICD placement, and PAF, CVA, ND x2 stroke x2 early , CKD III, dementia, brought in by EMS, accompanied by . Patient recently dc'd from [facility] for acute devika s/p lap devika complicated by sepsis due to HCAP and fungemia. Patient dc'd with fluconazole to [facility]. Patient presents today s/p cardiac arrest, EMS indicate patient was in VTAC, was shocked into PEA , 2 rounds of epi were given, followed by ROSC. Patient intubated, hypotensive, bradycardic. ED course - patient on Precedex, amiodarone, CT head negative for acute findings. CXR shows cardiomegaly and vascular congestion. Past Med Surg Social Fam HX - Past Medical History Medical history: asthma, atrial fibrillation, CHF, hyperlipidemia Psychiatric history: no psych history - Social History Smoking Status: Unknown if ever smoked Smokeless Tobacco Status: No Alcohol use: none Drug use: none Internal Medicine - H&P: Meds Albuterol Neb [Proventil Neb] 2.5 mg IH QID PRN 05/28/17 [History] Albuterol Sulfate [Ventolin Hfa] 2 puff IH Q4H PRN 05/28/17 [History] Alendronate Sodium [Fosamax] 70 mg PO TU 05/28/17 [History] Aspirin Enteric Coated [Aspirin EC] 81 mg PO DAILY 05/28/17 [History] Carvedilol [Coreg] 6.25 mg PO BIDWM 05/28/17 [History] Fluconazole in NaCl,Iso-Osm [Fluconazole-NaCl 200 mg/100 ml] 200 mg IV DAILY [History] HYDROcodone/Acet 5/325 mg [[place] 5-325 mg] 1 tab PO BID PRN 05/28/17 [History] Montelukast [Singulair] 10 mg PO DAILY 05/28/17 [History] Oxygen 2 l NS AD 05/28/17 [History] Pravastatin Sodium [Pravachol] 40 mg PO HS 05/28/17 [History] Sotalol HCl [Betapace] 160 mg PO BID 05/28/17 [History] Umeclidinium Duncan [Incruse Ellipta] 62.5 mcg IH DAILY 05/28/17 [History] Warfarin [Coumadin] 1.5 mg PO 1700 05/28/17 [History] 3 Allergy/AdvReac Type Severity Reaction Status Date / Time No Known Allergies Allergy Verified 05/28/17 13:10 ROS unobtainable: due to endotracheal tube All Systems PM: A 10-system review of systems was performed and is negative for pertinent findings except as documented above in the HPI. - Constitutional Vitals: Temp Pulse Resp BP Pulse Ox 97.4 F L 54 14 109/50 100 05/28/17 11:43 05/28/17 16:17 05/28/17 16:17 05/28/17 16:17 05/28/17 16:17 - Eye Pupils: Present: fixed (pinpoint) - Neck Neck exam general surgery: Absent: lymphadenopathy - Respiratory Respiratory exam: Present: decreased breath sounds (intubated, on mechanical ventilation) - Cardiovascular Cardiovascular exam: Present: bradycardia, +S1, +S2. Absent: systolic murmur - Extremities Exam Extremities exam: Absent: pedal edema - Skin Skin exam: Present: normal color Internal Med - H&P Results - Labs CBC & Chem 7: 05/28/17 12:16 05/28/17 12:16
[2017-05-28] MEDS ORDERED: Piperacillin/Tazobactam 3.375 GM in 0.9 % Sodium Chloride Mini Bag 100 ML IVPB SCH (17:00)
[2017-05-28] MEDS ORDERED: Amiodarone Premix 360 MG/200 ML BAG IVC SCH (18:00)
--- NOTE | 2017-05-28 18:51 | Event Note ---
Date of Encounter: 05/28/17 Time of Encounter: 18:48 Had a family conference with the , two daughters, a son, and a grandson. They were explained the situation. I did explain to them that there is a chance for a further cardiac issues. I did explain to them that she is on a pressor cardiac/blood pressure support. I explained to them our plan of care in details and why each step/med is being done/used. They have elected to not make her DNR-CCA in case of a cardiac event/arrest. For now, we will keep her intubated and on pressors.
[2017-05-28] MEDS ORDERED: 0.9 % Sodium Chloride 1,000 ML ONE (20:10)
--- NOTE | 2017-05-28 21:22 | Procedure Note ---
<Morales Rojas - Last Filed: 05/28/17 21:19> Date of procedure: 05/28/17 Pre-op diagnosis: Cardiogenic shock Post-op diagnosis: same Procedure: Procedure Note: Femoral Central Venous Catheter Insertion Indication: Cardiogenic shock Attending Physician: Corey Saleem MD Gas Worker: Morales Rojas DO Indication: This is a 76 year-old woman with history of cardiac arrest status post ROSC who continues to have bradycardia with hypotension requiring pressor support. Consent: Detailed explanation of the procedure, treatment options, risks including but not limited to infection and bleeding, and benefits were explained to the patient's son. A written informed consent was obtained. Technique: A time out was preformed identifying the correct procedure, the correct location with the nursing staff. The right groin was prepped with 2% chlorhexidine and draped with a full length sterile sheet in the usual fashion. The right femoral vein was identified under ultrasound guidance and accessed with an 18 gauge thin wall needle. A triple lumen was inserted via the seldinger technique. Blood was withdrawn from all lumens and flushed with normal saline. The catheter was sutured in place and a sterile dressing was applied over the site prior to removal of drapes. The patient tolerated the procedure well and there were no complications. EBL: 10mL Complication: None Anesthesia: local, IV sedation Surgeon: Morales Rojas Was there an human resources office assistant present: Yes Slip Presser: Corey Saleem Estimated blood loss (cc): 10 Specimen: n/a Pathology: none sent Condition: critical Disposition: ICU <Corey Saleem - Last Filed: 05/28/17 21:37> Procedure: I was present, supervised, and assisted during the entire procedure. Patient tolerated well with minimal blood loss. Procedure detail as noted above.
[2017-05-28] MEDS: Norepinephrine 4 MG in D5% in Water 250 ML IVC SCH (22:04)
[2017-05-28] MEDS: Piperacillin/Tazobactam 3.375 GM in 0.9 % Sodium Chloride Mini Bag 100 ML IVPB SCH (23:10)
[2017-05-29 02:39] LABS: Albumin 2.4 g/dL (3.5-5.7); Albumin/Globulin Ratio 0.7 (1.1-2.2); Bilirubin,Total 0.5 mg/dL (0.3-1.0); Calcium 8.7 mg/dL (8.6-10.3); Globulin 3.5 g/dL (2.4-3.5); Magnesium 1.7 mg/dL (1.6-2.6); Potassium 3.6 mEq/L (3.5-5.1); Total Protein 5.9 g/dL (6.4-8.9)
[2017-05-29] MEDS ORDERED: Magnesium Sulfate 2 GM in D5% in Water 100 ML IVPB ONE (02:45)
[2017-05-29 02:49] LABS: Basophils # 0.1 K/mcL (0.0-0.2); Basophils % 0.7 %; Eosinophils % 0.3 %; Hematocrit 31.4 % (35.3-44.9); Hemoglobin 9.6 g/dL (11.5-15.4); Immature Granulocytes % 1.2 % (0-4); Lymphocytes # 1.2 K/mcL (0.6-4.6); Lymphocytes % 7.6 %; Mean Corpuscular HGB Conc 30.6 g/dL (31.6-35.5); Mean Corpuscular Hemoglobin 28.1 pg (28.0-33.3); Mean Corpuscular Volume 91.8 fL (83.0-100.0); Mean Platelet Volume 9.5 fL (9.4-12.4); Monocytes # 1.4 K/mcL (0.0-1.3); Monocytes % 9.3 %; Neutrophils # 12.3 K/mcL (1.6-8.9); Platelet Count 346 K/mcL (140-400); Red Blood Count 3.42 M/mcL (3.82-4.97); Red Cell Distribution Width 19.1 % (11.5-14.5); Segmented Neutrophils % 80.9 %
[2017-05-29] MEDS: Potassium Chloride 40 MEQ/200 ML BAG IVPB PRN (02:55)
[2017-05-29 05:50] LABS: ABG Base Excess 5 mEq/L (-2 to 3); ABG HCO3 29 mEq/L (21-27); ABG Oxygen Saturation 94 % (95-98); ABG PCO2 40 mmHg (35-45); ABG PH 7.47 pH Units (7.32-7.45); ABG PO2 65 mmHg (85-104); ABG TCO2 30 mEq/L (20-26); Blood Gas Modality PRVC; Blood Gas PEEP 5 cm H2O; Blood Gas Respiration Rate 14; Blood Gas VT 500 cc
[2017-05-29] MEDS: Piperacillin/Tazobactam 3.375 GM in 0.9 % Sodium Chloride Mini Bag 100 ML IVPB SCH ×3 (08:20→23:04)
[2017-05-29] MEDS ORDERED: Lacri-Lube 3.5 GM TUBE BOTH EYES PRN (08:35)
[2017-05-29] MEDS: Chlorhexidine Rinse 15 ML MOUTHWASH MM SCH ×2 (09:20→20:23)
[2017-05-29 09:33] LABS: Calcium 8.7 mg/dL (8.6-10.3); Magnesium 2.2 mg/dL (1.6-2.6); Potassium 4.1 mEq/L (3.5-5.1)
--- NOTE | 2017-05-29 09:47 | Pulmonology Consult Note ---
<Renzo Marc - Last Filed: 05/29/17 10:48> Date of Encounter: 05/29/17 Time of Encounter: 08:00 Assessment and Plan (1) Cardiac arrest Current Visit: Yes Status: Acute Troponin adynamic x3: .07, .13, .11 Code status changed after family discussion with Dr. Biggs to DNR-CCA Vent Settings: A/C; RR 14; Tidal 350; FiO2 30; PEEP 5 Cardiology consulted 05/28 with plan to have device interrogation today 05/29. (2) Acute on chronic respiratory failure with hypoxia and hypercapnia Current Visit: Yes Status: Acute Continue mechanical ventilation per (1), sedation with Precedex, on vanc/zosyn. (3) Cardiogenic shock Current Visit: Yes Status: Acute R femoral CVC placed overnight. Spot bolus and continuing dopamine. (4) Fungemia Current Visit: Yes Status: Acute Recently discharged 05/26 with plan to complete 14 days of fluconazole ( Candidemia identified 05/17 via blood cultures, days on fluconazole unspecified). Blood cultures drawn. Holding fluconazole due to potential QT prolonging effects. (5) Elevated troponin Current Visit: Yes Status: Acute .07, .13, .11; adynamic. (6) Lactic acidosis Current Visit: Yes Status: Acute Currently 1.3 (4.8), initial lactic acidosis can be explained by end-organ hypoperfusion during cardiac arrest, will be continuing vanc/zosyn per sepsis differential. (7) Leukocytosis Current Visit: Yes Status: Acute Bands under 10%, possibly stress reaction. Currenly on vanc/zosyn, will f/u cultures. May consult ID tomorrow if no improvement. Qualifiers: Leukocytosis type: unspecified Qualified Code(s): D72.829 - Elevated white blood cell count, unspecified (8) Presence of implantable cardioverter-defibrillator (ICD) Current Visit: Yes Status: Acute History of Present Illness Consult date: 05/29/17 Requesting physician: Ab Biggs Reason for consult: hypoxemia Chief complaint: cardiac arrest/vtac/ History of present illness: Interval History: Ms. Cabrera is a 76 year old female, PMH CAD, prior PCI, prior ischemic CMP, prior ICD placement, and PAF, CVA, [place] x2 stroke x2 early 2000s, CKD III, dementia, brought in by EMS, accompanied by . Patient recently dc'd from [facility] for acute devika s/p lap devika complicated by sepsis due to HCAP and fungemia. Patient dc'd with fluconazole to [facility]. Patient presented s/p cardiac arrest, EMS indicate patient was in VTAC, was shocked into PEA, 2 rounds of epi were given, followed by ROSC. Patient intubated, hypotensive, bradycardic. ED course - patient started on Precedex, amiodarone, CT head negative for acute findings. CXR shows cardiomegaly and vascular congestion. Midline access at the time. Admitted to ICU; on ventilator, femoral CVC placed overnight, continuing Dopamine at 2.5mcg/kg/min, on electrolyte protocol. Patient is currently intubated, mildly sedated, alert to loud verbal stimuli. Past Med Surg Social Fam HX - Past Medical History Medical history: asthma, atrial fibrillation, CHF, hyperlipidemia Psychiatric history: no psych history - Past Surgical History Surgical History: cholecystectomy - Social History Smoking Status: Unknown if ever smoked Smokeless Tobacco Status: No Alcohol use: none Drug use: none Medications and Allergies Albuterol Neb [Proventil Neb] 2.5 mg IH QID PRN 05/28/17 [History] Albuterol Sulfate [Ventolin Hfa] 2 puff IH Q4H PRN 05/28/17 [History] Alendronate Sodium [Fosamax] 70 mg PO TU 05/28/17 [History] Aspirin Enteric Coated [Aspirin EC] 81 mg PO DAILY 05/28/17 [History] Carvedilol [Coreg] 6.25 mg PO BIDWM 05/28/17 [History] Fluconazole in NaCl,Iso-Osm [Fluconazole-NaCl 200 mg/100 ml] 200 mg IV DAILY [History] HYDROcodone/Acet 5/325 mg [Meridian 5-325 mg] 1 tab PO BID PRN 05/28/17 [History] Montelukast [Singulair] 10 mg PO DAILY 05/28/17 [History] Oxygen 2 l NS AD 05/28/17 [History] Pravastatin Sodium [Pravachol] 40 mg PO HS 05/28/17 [History] Sotalol HCl [Betapace] 160 mg PO BID 05/28/17 [History] Umeclidinium Carrie [Incruse Ellipta] 62.5 mcg IH DAILY 05/28/17 [History] Warfarin [Coumadin] 1.5 mg PO 1700 05/28/17 [History] 3 Allergy/AdvReac Type Severity Reaction Status Date / Time No Known Allergies Allergy Verified 05/28/17 13:10 ROS unobtainable: due to endotracheal tube All Systems: The remainder of the systems were reviewed and are negative Physical Examination Vital Signs: Vital Signs, Last 4 Hours Temp Pulse Resp BP Pulse Ox 05/29/17 09:00 68 22 113/65 97 05/29/17 08:00 99.6 F 63 20 116/61 95 05/29/17 07:30 14 97 05/29/17 07:00 66 14 91/54 96 05/29/17 06:04 66 14 115/49 97 General appearance: other (intubated with mild sedation (Eugeen 4)) Eyes: nonicteric ENT: oropharynx moist Auscultation: bilateral: other (ventilator breath sounds bilat) Gastrointestinal: soft, non-tender Extremities: no cyanosis, other (presence of right femoral CVC) Musculoskeletal: no deformities Ventilator Settings Ventilator Settings: Ventilator Settings, Last 8 Hours Ventilator Mode VC+ Ventilator Mode VC+ Ventilator Mode VC+ Ventilator Mode VC+ Ventilator Mode VC+ Ventilator Mode VC+ Ventilator Mode VC+ Ventilator Mode VC+ Ventilator Mode VC+ Ventilator Mode VC+ Ventilator Mode VC+ Ventilator Mode VC+ Ventilator Mode VC+ Ventilator Tidal Volume 350 Setting Ventilator Tidal Volume 350 Setting Ventilator Tidal Volume 350 Setting Ventilator Tidal Volume 500 Setting Ventilator Tidal Volume 500 Setting Ventilator Tidal Volume 500 Setting Ventilator Tidal Volume 500 Setting Ventilator Tidal Volume 500 Setting Ventilator Tidal Volume 500 Setting Ventilator Tidal Volume 500 Setting Ventilator Tidal Volume 500 Setting Ventilator Tidal Volume 500 Setting Ventilator Tidal Volume 500 Setting Ventilator Respiratory Rate 14 Setting Ventilator Respiratory Rate 14 Setting Ventilator Respiratory Rate 14 Setting Ventilator Respiratory Rate 14 Setting Ventilator Respiratory Rate 14 Setting Ventilator Respiratory Rate 14 Setting Ventilator Respiratory Rate 14 Setting Ventilator Respiratory Rate 14 Setting Ventilator Respiratory Rate 14 Setting Ventilator Respiratory Rate 14 Setting Ventilator Respiratory Rate 14 Setting Ventilator Respiratory Rate 14 Setting Ventilator Respiratory Rate 14 Setting Actual Respiratory Rate 21 Actual Respiratory Rate 23 Actual Respiratory Rate 20 Actual Respiratory Rate 14 Actual Respiratory Rate 14 Actual Respiratory Rate 14 Actual Respiratory Rate 14 Actual Respiratory Rate 15 Actual Respiratory Rate 15 Actual Respiratory Rate 15 Actual Respiratory Rate 15 Positive End Expiratory 5 Pressure Positive End Expiratory 5 Pressure Positive End Expiratory 5 Pressure Positive End Expiratory 5 Pressure Positive End Expiratory 5 Pressure Positive End Expiratory 5 Pressure Positive End Expiratory 5 Pressure Positive End Expiratory 5 Pressure Positive End Expiratory 5 Pressure Positive End Expiratory 5 Pressure Positive End Expiratory 5 Pressure Positive End Expiratory 5 Pressure Positive End Expiratory 5 Pressure Peak Inspiratory Airway 20 Pressure Peak Inspiratory Airway 24 Pressure Peak Inspiratory Airway 22 Pressure Peak Inspiratory Airway 31 Pressure Peak Inspiratory Airway 32 Pressure Peak Inspiratory Airway 32 Pressure Peak Inspiratory Airway 32 Pressure Peak Inspiratory Airway 30 Pressure Peak Inspiratory Airway 30 Pressure Peak Inspiratory Airway 30 Pressure Peak Inspiratory Airway 31 Pressure Results - Laboratory Findings CBC and BMP: 05/29/17 02:45 05/29/17 09:06 ABG ABG pH 7.47 pH Units (7.32-7.45) H 05/29/17 05:47 ABG pCO2 40 mmHg (35-45) 05/29/17 05:47 ABG pO2 65 mmHg (85-104) L 05/29/17 05:47 ABG O2 Saturation 94 % (95-98) L 05/29/17 05:47 PT/INR, D-dimer PT 13.2 Seconds (9.4-12.1) H 05/28/17 12:16 Abnormal lab findings: Abnormal lab results WBC 15.2 K/mcL (4.3-11.1) H 05/29/17 02:45 RBC 3.42 M/mcL (3.82-4.97) L 05/29/17 02:45 Hgb 9.6 g/dL (11.5-15.4) L 05/29/17 02:45 Hct 31.4 % (35.3-44.9) L 05/29/17 02:45 MCHC 30.6 g/dL (31.6-35.5) L 05/29/17 02:45 RDW 19.1 % (11.5-14.5) H 05/29/17 02:45 Band Neutrophils % 6.0 % (0-4) H 05/28/17 12:16 Neutrophils # 12.3 K/mcL (1.6-8.9) H 05/29/17 02:45 Monocytes # 1.4 K/mcL (0.0-1.3) H 05/29/17 02:45 Nucleated RBCs/100 WBC 0.2 /100 WBC (0) H 05/28/17 12:16 PT 13.2 Seconds (9.4-12.1) H 05/28/17 12:16 ABG pH 7.47 pH Units (7.32-7.45) H 05/29/17 05:47 ABG pO2 65 mmHg (85-104) L 05/29/17 05:47 ABG HCO3 29 mEq/L (21-27) H 05/29/17 05:47 ABG Total CO2 30 mEq/L (20-26) H 05/29/17 05:47 ABG O2 Saturation 94 % (95-98) L 05/29/17 05:47 ABG Base Excess 5 mEq/L (-2 to 3) H 05/29/17 05:47 Creatinine 1.26 mg/dL (0.60-1.20) H 05/29/17 09:06 Est GFR ( Amer) 50 (> 60) L 05/29/17 09:06 Est GFR (Non-Af Amer) 41 (> 60) L 05/29/17 09:06 Glucose 128 mg/dL (70-105) H 05/29/17 09:06 POC Glucose 136 (58-89) H 05/28/17 16:36 Alkaline Phosphatase 179 Units/L (34-104) H 05/29/17 02:10 Troponin I 0.11 ng/mL (< 0.04) H* 05/28/17 23:25 Serum Total Protein 5.9 g/dL (6.4-8.9) L 05/29/17 02:10 Albumin 2.4 g/dL (3.5-5.7) L 05/29/17 02:10 Albumin/Globulin Ratio 0.7 (1.1-2.2) L 05/29/17 02:10 TSH 9.338 mcIU/mL (0.340-5.600) H 05/28/17 12:16 Ur Specimen Adequacy See below A 05/28/17 13:01 Urine Protein 30 mg/dL (Neg-Trace) H 05/28/17 13:01 Urine Blood Trace-intact (Negative) H 05/28/17 13:01 Urine Bilirubin Small (Negative) H 05/28/17 13:01 Ur Leukocyte Esterase Small (Negative) H 05/28/17 13:01 Urine Microscopic WBC 3-5 per hpf (0-3) H 05/28/17 13:01 Ur Renal Epithelial Cell Many per hpf (None-Few) H 05/28/17 13:01 Urine Bacteria Moderate per hpf (None-Few) H 05/28/17 13:01 Ur Culture Indicated? YES (NO) A 05/28/17 13:01 - Microbiology Findings Microbiology Findings: Microbiology, Last 48 Hours 05/29/17 00:20 Sputum Culture - Preliminary Sputum - Clinical Findings Intake & Output: Intake & Output 05/28/17 05/29/17 05/29/17 23:59 07:59 15:59 Intake Total 1333.9 / 1333.9 850 / 850 Output Total 100 / 100 400 / 400 175 / 175 Balance 1233.9 / 1233.9 450 / 450 -175 / -175 Consult Discharge Plan - Plan Referrals: NONE,PCP [Primary Care Provider] - <Travon Osborne - Last Filed: 05/29/17 15:01> Date of Encounter: 05/29/17 All Systems: The remainder of the systems were reviewed and are negative Physical Examination Vital Signs: Vital Signs, Last 4 Hours Temp Pulse Resp BP Pulse Ox 05/29/17 13:00 68 21 114/52 96 05/29/17 12:00 97.5 F L 68 21 101/52 95 05/29/17 11:13 25 100 05/29/17 11:00 79 19 135/74 96 Ventilator Settings Ventilator Settings: Ventilator Settings, Last 8 Hours Ventilator Mode VC+ Ventilator Mode VC+ Ventilator Mode VC+ Ventilator Mode VC+ Ventilator Mode VC+ Ventilator Mode VC+ Ventilator Mode VC+ Ventilator Mode VC+ Ventilator Mode VC+ Ventilator Mode VC+ Ventilator Mode VC+ Ventilator Tidal Volume 350 Setting Ventilator Tidal Volume 350 Setting Ventilator Tidal Volume 350 Setting Ventilator Tidal Volume 350 Setting Ventilator Tidal Volume 350 Setting Ventilator Tidal Volume 350 Setting Ventilator Tidal Volume 350 Setting Ventilator Tidal Volume 350 Setting Ventilator Tidal Volume 350 Setting Ventilator Tidal Volume 500 Setting Ventilator Tidal Volume 500 Setting Ventilator Respiratory Rate 14 Setting Ventilator Respiratory Rate 14 Setting Ventilator Respiratory Rate 14 Setting Ventilator Respiratory Rate 14 Setting Ventilator Respiratory Rate 14 Setting Ventilator Respiratory Rate 14 Setting Ventilator Respiratory Rate 14 Setting Ventilator Respiratory Rate 14 Setting Ventilator Respiratory Rate 14 Setting Ventilator Respiratory Rate 14 Setting Ventilator Respiratory Rate 14 Setting Actual Respiratory Rate 18 Actual Respiratory Rate 21 Actual Respiratory Rate 21 Actual Respiratory Rate 23 Actual Respiratory Rate 19 Actual Respiratory Rate 21 Actual Respiratory Rate 21 Actual Respiratory Rate 23 Actual Respiratory Rate 20 Actual Respiratory Rate 14 Actual Respiratory Rate 14 Positive End Expiratory 5 Pressure Positive End Expiratory 5 Pressure Positive End Expiratory 5 Pressure Positive End Expiratory 5 Pressure Positive End Expiratory 5 Pressure Positive End Expiratory 5 Pressure Positive End Expiratory 5 Pressure Positive End Expiratory 5 Pressure Positive End Expiratory 5 Pressure Positive End Expiratory 5 Pressure Positive End Expiratory 5 Pressure Peak Inspiratory Airway 18 Pressure Peak Inspiratory Airway 20 Pressure Peak Inspiratory Airway 21 Pressure Peak Inspiratory Airway 21 Pressure Peak Inspiratory Airway 23 Pressure Peak Inspiratory Airway 23 Pressure Peak Inspiratory Airway 20 Pressure Peak Inspiratory Airway 24 Pressure Peak Inspiratory Airway 22 Pressure Peak Inspiratory Airway 31 Pressure Peak Inspiratory Airway 32 Pressure Results - Laboratory Findings CBC and BMP: 05/29/17 02:45 05/29/17 09:06 ABG ABG pH 7.47 pH Units (7.32-7.45) H 05/29/17 05:47 ABG pCO2 40 mmHg (35-45) 05/29/17 05:47 ABG pO2 65 mmHg (85-104) L 05/29/17 05:47 ABG O2 Saturation 94 % (95-98) L 05/29/17 05:47 PT/INR, D-dimer PT 13.2 Seconds (9.4-12.1) H 05/28/17 12:16 Abnormal lab findings: Abnormal lab results WBC 15.2 K/mcL (4.3-11.1) H 05/29/17 02:45 RBC 3.42 M/mcL (3.82-4.97) L 05/29/17 02:45 Hgb 9.6 g/dL (11.5-15.4) L 05/29/17 02:45 Hct 31.4 % (35.3-44.9) L 05/29/17 02:45 MCHC 30.6 g/dL (31.6-35.5) L 05/29/17 02:45 RDW 19.1 % (11.5-14.5) H 05/29/17 02:45 Band Neutrophils % 6.0 % (0-4) H 05/28/17 12:16 Neutrophils # 12.3 K/mcL (1.6-8.9) H 05/29/17 02:45 Monocytes # 1.4 K/mcL (0.0-1.3) H 05/29/17 02:45 Nucleated RBCs/100 WBC 0.2 /100 WBC (0) H 05/28/17 12:16 PT 13.2 Seconds (9.4-12.1) H 05/28/17 12:16 ABG pH 7.47 pH Units (7.32-7.45) H 05/29/17 05:47 ABG pO2 65 mmHg (85-104) L 05/29/17 05:47 ABG HCO3 29 mEq/L (21-27) H 05/29/17 05:47 ABG Total CO2 30 mEq/L (20-26) H 05/29/17 05:47 ABG O2 Saturation 94 % (95-98) L 05/29/17 05:47 ABG Base Excess 5 mEq/L (-2 to 3) H 05/29/17 05:47 Creatinine 1.26 mg/dL (0.60-1.20) H 05/29/17 09:06 Est GFR ( Amer) 50 (> 60) L 05/29/17 09:06 Est GFR (Non-Af Amer) 41 (> 60) L 05/29/17 09:06 Glucose 128 mg/dL (70-105) H 05/29/17 09:06 POC Glucose 116 (58-89) H 05/29/17 11:24 Alkaline Phosphatase 179 Units/L (34-104) H 05/29/17 02:10 Troponin I 0.11 ng/mL (< 0.04) H* 05/28/17 23:25 Serum Total Protein 5.9 g/dL (6.4-8.9) L 05/29/17 02:10 Albumin 2.4 g/dL (3.5-5.7) L 05/29/17 02:10 Albumin/Globulin Ratio 0.7 (1.1-2.2) L 05/29/17 02:10 TSH 9.338 mcIU/mL (0.340-5.600) H 05/28/17 12:16 Ur Specimen Adequacy See below A 05/28/17 13:01 Urine Protein 30 mg/dL (Neg-Trace) H 05/28/17 13:01 Urine Blood Trace-intact (Negative) H 05/28/17 13:01 Urine Bilirubin Small (Negative) H 05/28/17 13:01 Ur Leukocyte Esterase Small (Negative) H 05/28/17 13:01 Urine Microscopic WBC 3-5 per hpf (0-3) H 05/28/17 13:01 Ur Renal Epithelial Cell Many per hpf (None-Few) H 05/28/17 13:01 Urine Bacteria Moderate per hpf (None-Few) H 05/28/17 13:01 Ur Culture Indicated? YES (NO) A 05/28/17 13:01 Vancomycin Trough 31.8 mcg/mL (10-20) H* 05/29/17 13:51 - Microbiology Findings Microbiology Findings: Microbiology, Last 48 Hours 05/29/17 00:20 Sputum Culture - Preliminary Sputum - Clinical Findings Intake & Output: Intake & Output 05/28/17 05/29/17 05/29/17 23:59 07:59 15:59 Intake Total 1333.9 / 1333.9 850 / 850 150 / 150 Output Total 100 / 100 400 / 400 275 / 275 Balance 1233.9 / 1233.9 450 / 450 -125 / -125 - Attending Attestation I saw and evaluated this patient and my medical decision-making was reviewed with the Resident Physician. I agree with the documented findings, disposition and treatment plan as described except to the extent set forth below. We independently had [id number] contact with the patient I spent 35 minutes of Critical Care time with this patient. It involved decision making of high complexity to assess, manipulate, and support vital organ system failure and/or to prevent further life threatening deterioration of the patient's condition. The time involved in the performance of separately reportable procedures was not counted toward critical care time. Patient seen and examined at bedside Labs, radiology, chart personally reviewed. WELFARE ANALYST:Patient opens her eyes follows on and off commands , she is slightly sedated Pulm: Patient hypoxic respiratory failure more contributed by systolic heart failure agree patient has acceptable oxygenation , ABG showed alkalosis will reduce the minute ventilation to correct the alkalosis will do low tidal volume ventilation strategy Cards:Patient has systolic heart failure now in cardiogenic shock needing vasopressor support , ECHO shows some wall motion abnormalities , patient has slow VT or AT , EP to look at the ICD and the rhythm strips no active cardiac intervention now . FEN-GI: NPO Renal: Labs and output reviewed ID:There is no obvious source of infection ,UA weakly positive patient doesnt have any obvious consolidation in the CXR rivka continue Broad spectrum antibiotics Heme/Onc:Labs reviewed Endo: Glucose Monitored Integ/MSK: Skin Care per routine ICU Nursing Protocol to prevent ulcers. Lines: All lines examined without evidence of infection : Dispo: Critically ill CODE: If Heart were to stop patient family doesnt want CPR Code status changed to DNRCCA
--- NOTE | 2017-05-29 11:26 | Cardiology Consult Note ---
Date of Encounter: 05/29/17 Time of Encounter: 09:30 Assessment and Plan (1) Acute on chronic respiratory failure with hypoxia and hypercapnia Current Visit: Yes Status: Acute Per Cardiology: Currently intubated. On antibiotics. Chest x-ray shows mild CHF. Per discussion with [employer] rep, Optivol measurements increased recently. Will give one time dose IV Lasix-- previous medical records reviewed and creat. remains about baseline (of note, for some reason patient has two separate medical records). (2) Presence of implantable cardioverter-defibrillator (ICD) Current Visit: Yes Status: Chronic Per Cardiology: Reports noted of VT and defibrillation. Has ICD with last interrogation 05/15/2017. [employer] device interrogation completed and patient has single-chamber ICD. No arrhythmias detected since last device check with one PVC noted. No VT appreciated with no therapies delivered. See full report on chart. ECG strip from EMS reviewed and does shows tachycardia-- reviewed with Dr. Soraida Harris, plans to review strips and device interrogation with EP tomorrow (Dr. Jean Claude Harris). Questionable slow VT under ICD threshold vs atrial arrhythmia. Will attempt to obtain medical records from outside ECF to review if patient actually is on reported sotalol 160mg PO BID-- previous cardiology records reviewed and no records appear to indicate was on sotalol. Would consider amio bolus and gtt, however unsure if has sotalol on board. Additionally, patient clinically stable at this juncture, has ICD in place. Can consider addition of amio if clinically warranted and after discussion with EP. (3) Elevated troponin Current Visit: Yes Status: Acute Per Cardiology: Peak trop noted to be only 0.13. Per review of records, appears to have chronic mild trop elevation. Son does report patient had CP prior to event the previous day. Current echo pending. Will evaluate during stay if [facility] clinically appropriate. (4) CAD (coronary artery disease) Current Visit: Yes Status: Acute Per Cardiology: History CAD with last heart catheterization June 2010. Underwent drug-eluting stent to proximal LAD 90-90% lesion, had mid circumflex 50% in-stent restenosis , occluded proximal OM1 stent, distal circumflex 40% stenosis, proximal RCA 80% stenosis. July 2012 stress test showed perfusion imaging positive for infarct and ronal-infarct ischemia with basal/inferior lateral small ronal-infarct ischemia-- patient had previously preferred medical management. Qualifiers: Coronary Disease-Associated Artery/Lesion type: [place] artery [place] vs. transplanted heart: [place] heart Associated angina: angina presence unspecified Qualified Code(s): I25.10 - Atherosclerotic heart disease of [place] coronary artery without angina pectoris (5) PAF (paroxysmal atrial fibrillation) Current Visit: Yes Status: Chronic Per Cardiology: Patient with past history of atrial flutter/atrial fibrillation. Again per review of records, does not appear to be taking sotalol, however will attempt to obtain medical records for confirmation. Discussion w patient/family: The assessment and plan as outlined above was discussed with the patient and/or family members who expressed understanding and agreement. All questions were answered. Thank you for involving us in the care of your patient. Please call with any questions. Patient now DNR/CCA, consider palliative care eval. May need to consider ICD deactivation if patient/fa,willem decides no further aggressive care. History of Present Illness Consult date: 05/29/17 Requesting physician: Sb Long Consult reason: Concerns for VT arrest/cardiac arrest Chief complaint: Arrest History of present illness: Currently intubated, sedated on Precedex, and no family at bedside. Previous medical records reviewed: "Ms. Cabrera is a 76 year old female, PMH CAD, prior PCI, prior ischemic CMP, prior ICD placement, and PAF, CVA, HI x2 stroke x2 early , CKD III, dementia, brought in by EMS, accompanied by . Patient recently dc'd from [facility] for acute devika s/p lap devika complicated by sepsis due to HCAP and fungemia. Patient dc'd with fluconazole to [facility]. Patient presented s/p cardiac arrest, EMS indicate patient was in VTAC, was shocked into PEA, 2 rounds of epi were given, followed by ROSC. Patient intubated, hypotensive, bradycardic. ED course - patient started on Precedex, amiodarone, CT head negative for acute findings. CXR shows cardiomegaly and vascular congestion. Midline access at the time". I reviewed previous cardiology records does have a past history of CAD with HI in 2002 and 2010, history of CVA, history of atrial fibrillation/flutter, history of ischemic myopathy with ICD, history of left atrial appendage thrombus 2014, hypertension, history of breast cancer, dementia. Of note, patient now DNR/CCA. Patient reevaluated with family at bedside. Son reports one day prior to event they were visiting and she was noted to have midsternal chest pain at the attribute to physical pain from physical therapy. At time of event, he reports he was visiting with patient and her and she was interactive/alert and oriented 3-- she admits is intermittent for her. He reports she suddenly reported "I think I'm going to ". He reports his father asked patient "when she thinks she is going to " and then about 2 minutes later son reports patient "fell back into the bed and began shaking all over with eyeballs rolling back of her head". He denies any other precipitating events and reports he notified nursing staff. Additionally, there appears to be confusion regarding if patient is taking reported medication of sotalol 160 mg by mouth twice a day. Past Med Surg Social Fam HX - Past Medical History Source: unable to obtain, old records reviewed, obtained from family Medical history: asthma, atrial fibrillation, CHF, hyperlipidemia Psychiatric history: no psych history - Past Surgical History Surgical History: cholecystectomy - Social History Smoking Status: Unknown if ever smoked Smokeless Tobacco Status: No Alcohol use: none Drug use: none Medications and Allergies Albuterol Neb [Proventil Neb] 2.5 mg IH QID PRN 05/28/17 [History] Albuterol Sulfate [Ventolin Hfa] 2 puff IH Q4H PRN 05/28/17 [History] Alendronate Sodium [Fosamax] 70 mg PO TU 05/28/17 [History] Aspirin Enteric Coated [Aspirin EC] 81 mg PO DAILY 05/28/17 [History] Carvedilol [Coreg] 6.25 mg PO BIDWM 05/28/17 [History] Fluconazole in NaCl,Iso-Osm [Fluconazole-NaCl 200 mg/100 ml] 200 mg IV DAILY [History] HYDROcodone/Acet 5/325 mg [[place] 5-325 mg] 1 tab PO BID PRN 05/28/17 [History] Montelukast [Singulair] 10 mg PO DAILY 05/28/17 [History] Oxygen 2 l NS AD 05/28/17 [History] Pravastatin Sodium [Pravachol] 40 mg PO HS 05/28/17 [History] Sotalol HCl [Betapace] 160 mg PO BID 05/28/17 [History] Umeclidinium New Site [Incruse Ellipta] 62.5 mcg IH DAILY 05/28/17 [History] Warfarin [Coumadin] 1.5 mg PO 1700 05/28/17 [History] 3 Allergy/AdvReac Type Severity Reaction Status Date / Time No Known Allergies Allergy Verified 05/28/17 13:10 ROS unobtainable: due to endotracheal tube All Systems Review: The remainder of the systems were reviewed and are negative - Cardiovascular Cardiovascular: as per HPI Physical Examination Vital Signs, Last 4 Hours Temp Pulse Resp BP Pulse Ox 05/29/17 11:13 25 100 05/29/17 10:00 69 21 121/60 97 05/29/17 09:00 68 22 113/65 97 05/29/17 08:00 99.6 F 63 20 116/61 95 05/29/17 07:30 14 97 General: No Apparent Distress HEENT: Atraumatic, Normocephaly Cardiac: Reg Rate and Rhythm, Normal S1 and S2, No Murmur Lungs: Normal Breath Sounds, No Wheeze, Rales, Rhonchi Neuro: Alert and responsive, Other (Intubated, opens eyes to verbal stimuli, positive GUERRA 4, + squeezing hands to commands.) Extremities: No Edema, Normal Pulses Results 05/29/17 02:45 05/29/17 09:06 Lab Results Laboratory Tests 05/28/17 05/28/17 05/28/17 12:16 12:16 12:16 WBC 26.6 H Hgb Hct INR 1.2 Creatinine Est GFR (Non-Af Amer) Magnesium AST ALT Troponin I 0.07 H* TSH Ur Leukocyte Esterase Urine Bacteria Ur Culture Indicated? 05/28/17 05/28/1705/28/18 12:16 13:01 19:00 WBC Hgb Hct INR Creatinine Est GFR (Non-Af Amer) Magnesium AST ALT Troponin I 0.13 H* TSH 9.338 H Ur Leukocyte Esterase Small H Urine Bacteria Moderate H Ur Culture Indicated? YES A 05/28/17 05/29/17 05/29/17 23:25 02:10 02:45 WBC 15.2 H Hgb 9.6 L Hct 31.4 L INR Creatinine 1.24 H Est GFR (Non-Af Amer) 42 L Magnesium 1.7 AST 33 ALT 17 Troponin I 0.11 H* TSH Ur Leukocyte Esterase Urine Bacteria Ur Culture Indicated? ITS Impressions Chest X-Ray 05/28/17 11:47 IMPRESSION: Cardiomegaly. Mild pulmonary vascular congestion. D/ / Junior Dowd MD / Junior Dowd MD Interpreting Provider: Junior Dowd MD Head CT 05/28/17 11:49 IMPRESSION: No acute intracranial abnormality. Otherwise stable CT. D/ / Rowdy Bey MD / Rowdy Bey MD Interpreting Provider: Rowdy Bey MD Chest X-Ray 05/28/17 12:42 IMPRESSION: 1. Endotracheal tube in place with its tip at the juan manuel and consideration should be given to withdrawing this several cm 2. Stable cardiomegaly D/ / Morales Adams MD / Morales Adams MD Interpreting Provider: Morales Adams MD X-Ray 05/28/17 21:13 IMPRESSION: Enteric tube looped in the proximal stomach with the tip in the fundus. The side port is not visualized but is likely below gastroesophageal junction. D/ / Last Alejo / Last Alejo Interpreting Provider: Last Alejo Intake & Output 05/26/17 05/27/17 05/28/17 05/29/17 23:59 23:59 23:59 23:59 Intake Total 1982.1 / 1982.1 850 / 850 Output Total 100 / 100 575 / 575 Balance 1883.1 / 1883.1 275 / 275 Weight 107.048 kg Active Medications Artificial Tears (Lacri-Lube) 1 appl BOTH EYES Q4HR MARIBEL PRN Reason: Protocol Stop: 11/28/17 12:01 Artificial Tears (Lacri-Lube) 1 appl BOTH EYES Q2HR PRN; Protocol PRN Reason: Dry Eyes Stop: 11/28/17 08:36 Last Admin: 05/29/17 09:20 Dose: 1 appl Chlorhexidine Gluconate (Chlorhexidine Rinse) 15 ml MM BID MARIBEL Stop: 11/28/17 09:01 Last Admin: 05/29/17 09:20 Dose: 15 ml Dexmedetomidine HCl (Precedex Premix) 400 mcg in 100 mls @ 5.352 mls/hr IVC .[id number] MARIBEL; 0.2 MCG/KG/HR PRN Reason: Protocol Stop: 11/27/17 12:01 Last Titration: 05/28/17 22:04 Dose: 0.2 mcg/kg/hr, 5.352 mls/hr Dopamine HCl/Dextrose (Dopamine Premix 400mg/250ml) 400 mg in 250 mls @ 10.036 mls/hr IVC .Q24H MARIBEL; 2.5 MCG/KG/MIN PRN Reason: Protocol Stop: 11/27/17 12:01 Last Admin: 05/29/17 04:36 Dose: 10 mcg/kg/min, 40.143 mls/hr Vancomycin HCl 1,500 mg/ (Sodium Chloride) 250 mls @ 167 mls/hr IVPB Q12H MARIBEL PRN Reason: Protocol Stop: 11/28/17 03:01 Last Infusion: 05/29/17 05:00 Dose: Infused Piperacillin Sod/Tazobactam (Sod 3.375 gm/ Sodium Chloride) 100 mls @ 25 mls/ hr IVPB Q8HR MARIBEL Stop: 11/28/17 00:01 Last Admin: 05/29/17 08:20 Dose: 25 mls/hr Norepinephrine Bitartrate 4 mg (/ Dextrose) 254 mls @ 19.05 mls/hr IVC CONT MARIBEL ; 5 MCG/MIN PRN Reason: Protocol Stop: 11/27/17 20:31 Last Admin: 05/28/17 22:04 Dose: Not Given Potassium Chloride (Potassium Chloride 20 Meq/100 Ml) 40 meq in 200 mls @ 100 mls/hr IVPB Q1H PRN PRN Reason: K+ <4.0 Stop: 11/28/17 02:46 Last Infusion: 05/29/17 05:00 Dose: Infused Magnesium Sulfate (Magnesium Sulfate Premix 2gm/50ml) 2 gm in 50 mls @ 50 mls/ hr IVPB Q6H PRN PRN Reason: Hypomagnesemia Stop: 11/28/17 08:22 Naloxone HCl (Narcan) 0.4 mg IVP Q2MIN PRN PRN Reason: SEE COMMENTS Stop: 11/27/17 16:19 - Imaging and Cardiology Chest Xray: report reviewed Echo: pending, report reviewed - EKG Interpretation EKG results cardiology: personally reviewed (SR, some ECGs showed V pacing), normal ECG, sinus rhythm, ventricular paced rhythm, other (Tele reviewed: few episodes of NSVT noted on tele overnight) Consult Discharge Plan - Plan Referrals: NONE,PCP [Primary Care Provider] -
[2017-05-29] MEDS: Lacri-Lube 3.5 GM TUBE BOTH EYES SCH ×4 (12:02→23:06)
[2017-05-29] MEDS ORDERED: Furosemide 40 MG/4 ML VIAL IVP ONE (13:01)
[2017-05-29] MEDS ORDERED: Vancomycin 1 EACH in EMPTY BAG 1 EACH IVPB SCH (15:00)
[2017-05-29] MEDS: Norepinephrine 4 MG in D5% in Water 250 ML IVC SCH (20:21)
[2017-05-29] MEDS: Dexmedetomidine HCl 400 MCG/100 ML MLS IVC SCH (23:16)
[2017-05-30 03:29] LABS: Hematocrit 28.9 % (35.3-44.9); Mean Corpuscular HGB Conc 31.1 g/dL (31.6-35.5); Mean Corpuscular Hemoglobin 28.5 pg (28.0-33.3); Mean Corpuscular Volume 91.5 fL (83.0-100.0); Platelet Count 296 K/mcL (140-400); Red Blood Count 3.16 M/mcL (3.82-4.97); Red Cell Distribution Width 19.4 % (11.5-14.5)
[2017-05-30 03:51] LABS: Calcium 8.6 mg/dL (8.6-10.3); Potassium 3.3 mEq/L (3.5-5.1)
[2017-05-30] MEDS: Lacri-Lube 3.5 GM TUBE BOTH EYES SCH ×6 (04:54→20:53)
[2017-05-30 05:05] LABS: ABG Base Excess 8 mEq/L (-2 to 3); ABG HCO3 32 mEq/L (21-27); ABG Oxygen Saturation 96 % (95-98); ABG PCO2 42 mmHg (35-45); ABG PH 7.49 pH Units (7.32-7.45); ABG PO2 75 mmHg (85-104); ABG TCO2 33 mEq/L (20-26); Blood Gas Modality PRVC; Blood Gas PEEP 5 cm H2O; Blood Gas Respiration Rate 14; Blood Gas VT 350 cc
[2017-05-30] MEDS ORDERED: Aminoglycoside Consult 1 EACH MC ONE (08:27)
[2017-05-30] MEDS: Chlorhexidine Rinse 15 ML MOUTHWASH MM SCH ×2 (08:56→19:19)
[2017-05-30] MEDS: Piperacillin/Tazobactam 3.375 GM in 0.9 % Sodium Chloride Mini Bag 100 ML IVPB SCH ×3 (09:19→23:01)
[2017-05-30] MEDS: Potassium Chloride 40 MEQ/200 ML BAG IVPB PRN (10:42)
[2017-05-30] MEDS: Pantoprazole 40 MG VIAL IVP SCH (11:49)
--- NOTE | 2017-05-30 13:22 | Pulmonology Progress Note ---
<Renzo Marc - Last Filed: 05/30/17 15:55> Date of Encounter: 05/30/17 Time of Encounter: 07:15 Assessment and Plan (1) Tachyarrhythmia Current Visit: Yes Status: Acute Per EMS s/p defibrillation, vtac, pea, rosc to sinus bradycardia. Holding amiodarone in setting of possible sotalol use (though per chart review patient was not Rx'd by [facility]/Cardiology) Echocardiogram shows mild/mod LV systolic dysfunction not dissimilar to prior echo earlier in the year 05/19/17. Cardiology following, ICD interrogation shows pre-admission setting for shock at 180, has been changed to 150, possible slow vtac, versus atrial arrhythmia. (2) Acute on chronic respiratory failure with hypoxia and hypercapnia Current Visit: Yes Status: Acute Extubated this AM 05/30, tolerating nasal cannula at 4L Sedation: precedex Continuing vanc/zosyn. Continuing dopamine for HR. (3) Presence of implantable cardioverter-defibrillator (ICD) Current Visit: Yes Status: Chronic MDM and interrogation results per (1) (4) Elevated troponin Current Visit: Yes Status: Acute .07, .13, .11; adynamic. (5) Lactic acidosis Current Visit: Yes Status: Acute Currently 1.3 (4.8), initial lactic acidosis can be explained by end-organ hypoperfusion during cardiac arrest, will be continuing vanc/zosyn per sepsis differential. (6) Leukocytosis Current Visit: Yes Status: Acute Stress reaction vs sepsis. F/u cultures: Prelim no growth bld x2. 13.4 (prev 26.6) Qualifiers: Leukocytosis type: unspecified Qualified Code(s): D72.829 - Elevated white blood cell count, unspecified (7) Cardiogenic shock Current Visit: Yes Status: Acute On Dopamine, monitoring I/Os. (8) Fungemia Current Visit: Yes Status: Acute Recently discharged 05/26 with plan to complete 14 days of fluconazole ( Candidemia identified 05/17 via blood cultures, days on fluconazole unspecified). Blood cultures drawn. Prelim no growth. Holding fluconazole in setting of recent tachyarrhymia. Subjective Principal diagnosis: Vtach Interval history: Extubated today, tolerates nasal cannula. Alert, non-agitated. Objective PUL Vital signs: Last Vital Signs Temp 97.7 F 05/30/17 12:00 Pulse 92 05/30/17 10:00 Resp 18 05/30/17 10:00 BP 128/74 05/30/17 10:00 Pulse Ox 93 05/30/17 10:00 General appearance: no acute distress Eyes: nonicteric ENT: oropharynx moist Neck: supple Auscultation: bilateral: diminished breath sounds Cardiovascular: regular rate and rhythm, other (on dopamine, no murmur, rub) Integumentary: normal Extremities: no cyanosis Musculoskeletal: no deformities Ventilator Settings Ventilator Settings: Ventilator Settings, Last 8 Hours Ventilator Mode CPAP Ventilator Mode CPAP Ventilator Mode CPAP Ventilator Mode CPAP Ventilator Mode VC+ Ventilator Tidal Volume 350 Setting Ventilator Respiratory Rate 14 Setting Actual Respiratory Rate 23 Actual Respiratory Rate 23 Actual Respiratory Rate 23 Actual Respiratory Rate 22 Actual Respiratory Rate 20 Positive End Expiratory 5 Pressure Positive End Expiratory 5 Pressure Positive End Expiratory 5 Pressure Positive End Expiratory 5 Pressure Positive End Expiratory 5 Pressure Peak Inspiratory Airway 14 Pressure Peak Inspiratory Airway 14 Pressure Peak Inspiratory Airway 14 Pressure Peak Inspiratory Airway 14 Pressure Peak Inspiratory Airway 15 Pressure Results - Laboratory Findings CBC and BMP: 05/30/17 03:12 05/30/17 03:12 ABG ABG pH 7.49 pH Units (7.32-7.45) H 05/30/17 05:02 ABG pCO2 42 mmHg (35-45) 05/30/17 05:02 ABG pO2 75 mmHg (85-104) L 05/30/17 05:02 ABG O2 Saturation 96 % (95-98) 05/30/17 05:02 PT/INR, D-dimer PT 13.2 Seconds (9.4-12.1) H 05/28/17 12:16 Abnormal lab findings: Abnormal lab results WBC 13.4 K/mcL (4.3-11.1) H 05/30/17 03:12 RBC 3.16 M/mcL (3.82-4.97) L 05/30/17 03:12 Hgb 9.0 g/dL (11.5-15.4) L 05/30/17 03:12 Hct 28.9 % (35.3-44.9) L 05/30/17 03:12 MCHC 31.1 g/dL (31.6-35.5) L 05/30/17 03:12 RDW 19.4 % (11.5-14.5) H 05/30/17 03:12 Band Neutrophils % 6.0 % (0-4) H 05/28/17 12:16 Neutrophils # 12.3 K/mcL (1.6-8.9) H 05/29/17 02:45 Monocytes # 1.4 K/mcL (0.0-1.3) H 05/29/17 02:45 Nucleated RBCs/100 WBC 0.2 /100 WBC (0) H 05/28/17 12:16 PT 13.2 Seconds (9.4-12.1) H 05/28/17 12:16 ABG pH 7.49 pH Units (7.32-7.45) H 05/30/17 05:02 ABG pO2 75 mmHg (85-104) L 05/30/17 05:02 ABG HCO3 32 mEq/L (21-27) H 05/30/17 05:02 ABG Total CO2 33 mEq/L (20-26) H 05/30/17 05:02 ABG Base Excess 8 mEq/L (-2 to 3) H 05/30/17 05:02 Potassium 3.3 mEq/L (3.5-5.1) L 05/30/17 03:12 Creatinine 1.40 mg/dL (0.60-1.20) H 05/30/17 03:12 Est GFR ( Amer) 44 (> 60) L 05/30/17 03:12 Est GFR (Non-Af Amer) 37 (> 60) L 05/30/17 03:12 Glucose 122 mg/dL (70-105) H 05/30/17 03:12 POC Glucose 115 (58-89) H 05/30/17 05:01 Alkaline Phosphatase 179 Units/L (34-104) H 05/29/17 02:10 Troponin I 0.11 ng/mL (< 0.04) H* 05/28/17 23:25 Serum Total Protein 5.9 g/dL (6.4-8.9) L 05/29/17 02:10 Albumin 2.4 g/dL (3.5-5.7) L 05/29/17 02:10 Albumin/Globulin Ratio 0.7 (1.1-2.2) L 05/29/17 02:10 TSH 9.338 mcIU/mL (0.340-5.600) H 05/28/17 12:16 Ur Specimen Adequacy See below A 05/28/17 13:01 Urine Protein 30 mg/dL (Neg-Trace) H 05/28/17 13:01 Urine Blood Trace-intact (Negative) H 05/28/17 13:01 Urine Bilirubin Small (Negative) H 05/28/17 13:01 Ur Leukocyte Esterase Small (Negative) H 05/28/17 13:01 Urine Microscopic WBC 3-5 per hpf (0-3) H 05/28/17 13:01 Ur Renal Epithelial Cell Many per hpf (None-Few) H 05/28/17 13:01 Urine Bacteria Moderate per hpf (None-Few) H 05/28/17 13:01 Ur Culture Indicated? YES (NO) A 05/28/17 13:01 Vancomycin Trough 31.8 mcg/mL (10-20) H* 05/29/17 13:51 - Microbiology Findings Microbiology Findings: Microbiology, Last 48 Hours 05/29/17 00:20 Sputum Culture - Preliminary Sputum Gram Positive Cocci - Clinical Findings Intake & Output: Intake & Output 05/29/17 05/30/17 05/30/17 23:59 07:59 15:59 Intake Total 200 / 200 208 / 208 Output Total 1400 / 1400 500 / 500 200 / 200 Balance -1200 / -1200 -292 / -292 -200 / -200 Consult Discharge Plan - Plan Referrals: NONE,PCP [Non-Partnered Physician] - <Venancio Colin - Last Filed: 05/30/17 16:40> Date of Encounter: 05/30/17 Objective PUL Vital signs: Last Vital Signs Temp 98.0 F 05/30/17 15:30 Pulse 64 05/30/17 15:00 Resp 20 05/30/17 15:00 BP 125/93 05/30/17 15:00 Pulse Ox 100 05/30/17 15:00 Results - Laboratory Findings CBC and BMP: 05/30/17 03:12 05/30/17 03:12 ABG ABG pH 7.49 pH Units (7.32-7.45) H 05/30/17 05:02 ABG pCO2 42 mmHg (35-45) 05/30/17 05:02 ABG pO2 75 mmHg (85-104) L 05/30/17 05:02 ABG O2 Saturation 96 % (95-98) 05/30/17 05:02 PT/INR, D-dimer PT 13.2 Seconds (9.4-12.1) H 05/28/17 12:16 Abnormal lab findings: Abnormal lab results WBC 13.4 K/mcL (4.3-11.1) H 05/30/17 03:12 RBC 3.16 M/mcL (3.82-4.97) L 05/30/17 03:12 Hgb 9.0 g/dL (11.5-15.4) L 05/30/17 03:12 Hct 28.9 % (35.3-44.9) L 05/30/17 03:12 MCHC 31.1 g/dL (31.6-35.5) L 05/30/17 03:12 RDW 19.4 % (11.5-14.5) H 05/30/17 03:12 Band Neutrophils % 6.0 % (0-4) H 05/28/17 12:16 Neutrophils # 12.3 K/mcL (1.6-8.9) H 05/29/17 02:45 Monocytes # 1.4 K/mcL (0.0-1.3) H 05/29/17 02:45 Nucleated RBCs/100 WBC 0.2 /100 WBC (0) H 05/28/17 12:16 PT 13.2 Seconds (9.4-12.1) H 05/28/17 12:16 ABG pH 7.49 pH Units (7.32-7.45) H 05/30/17 05:02 ABG pO2 75 mmHg (85-104) L 05/30/17 05:02 ABG HCO3 32 mEq/L (21-27) H 05/30/17 05:02 ABG Total CO2 33 mEq/L (20-26) H 05/30/17 05:02 ABG Base Excess 8 mEq/L (-2 to 3) H 05/30/17 05:02 Potassium 3.3 mEq/L (3.5-5.1) L 05/30/17 03:12 Creatinine 1.40 mg/dL (0.60-1.20) H 05/30/17 03:12 Est GFR ( Amer) 44 (> 60) L 05/30/17 03:12 Est GFR (Non-Af Amer) 37 (> 60) L 05/30/17 03:12 Glucose 122 mg/dL (70-105) H 05/30/17 03:12 POC Glucose 115 (58-89) H 05/30/17 05:01 Alkaline Phosphatase 179 Units/L (34-104) H 05/29/17 02:10 Troponin I 0.11 ng/mL (< 0.04) H* 05/28/17 23:25 Serum Total Protein 5.9 g/dL (6.4-8.9) L 05/29/17 02:10 Albumin 2.4 g/dL (3.5-5.7) L 05/29/17 02:10 Albumin/Globulin Ratio 0.7 (1.1-2.2) L 05/29/17 02:10 TSH 9.338 mcIU/mL (0.340-5.600) H 05/28/17 12:16 Ur Specimen Adequacy See below A 05/28/17 13:01 Urine Protein 30 mg/dL (Neg-Trace) H 05/28/17 13:01 Urine Blood Trace-intact (Negative) H 05/28/17 13:01 Urine Bilirubin Small (Negative) H 05/28/17 13:01 Ur Leukocyte Esterase Small (Negative) H 05/28/17 13:01 Urine Microscopic WBC 3-5 per hpf (0-3) H 05/28/17 13:01 Ur Renal Epithelial Cell Many per hpf (None-Few) H 05/28/17 13:01 Urine Bacteria Moderate per hpf (None-Few) H 05/28/17 13:01 Ur Culture Indicated? YES (NO) A 05/28/17 13:01 Vancomycin Trough 31.8 mcg/mL (10-20) H* 05/29/17 13:51 - Microbiology Findings Microbiology Findings: Microbiology, Last 48 Hours 05/29/17 00:20 Sputum Culture - Preliminary Sputum Gram Positive Cocci - Clinical Findings Intake & Output: Intake & Output 05/30/17 05/30/17 05/30/17 07:59 15:59 23:59 Intake Total 208 / 208 342 / 342 Output Total 500 / 500 300 / 300 Balance -292 / -292 42 / 42 - Attending Attestation I examined this patient and my medical decision-making was reviewed with the Resident Physician. I agree with the documented findings, disposition and treatment plan as described except to the extent set forth below. Patient seen and examined. Labs, radiology, chart personally reviewed. Agree with resident's history and physical, assessment, plan with following comments: API ARCHITECT: Patient follows commands, Pulmonary: Acceptable oxygenation and ventilation and patient was extubated successfully. Patient remained in ICU for close monitoring. Cardiovascular: stable and discussed with cardiology team regarding and rhythm and controlled as well as anticoagulation which will be managed by cardiology team. GI: Nutrition per dietary and GI prophylaxis per routine Heme: DVT prophylaxis per routine ID: Continue antibiotics and plan to de-escalation Renal; urine out put and renal funtion reviewed Endorcine: blood glucose is monitored Lines: all lines checked and no evidence of infections Skin: skin care to prevent pressure ulcers per nursing routine care
--- NOTE | 2017-05-30 14:31 | Cardiology Progress Note ---
Date of Encounter: 05/30/17 Time of Encounter: 09:30 Assessment and Plan (1) Elevated troponin Current Visit: Yes Status: Acute Per Cardiology: Peak trop noted to be only 0.13. Per review of records, appears to have chronic mild trop elevation. Son does report patient had CP prior to event the previous day. Current echo pending. Will evaluate during stay if [facility] clinically appropriate. (2) Acute on chronic respiratory failure with hypoxia and hypercapnia Current Visit: Yes Status: Acute Per Cardiology: Currently intubated. On antibiotics. Chest x-ray shows mild CHF. Per discussion with [employer] rep, Optivol measurements increased recently. Will give one time dose IV Lasix-- previous medical records reviewed and creat. remains about baseline (of note, for some reason patient has two separate medical records). (3) Presence of implantable cardioverter-defibrillator (ICD) Current Visit: Yes Status: Chronic Per Cardiology: Reports noted of VT and defibrillation. Has ICD with last interrogation 05/15/2017. [employer] device interrogation completed and patient has single-chamber ICD. No arrhythmias detected since last device check with one PVC noted. No VT appreciated with no therapies delivered. See full report on chart. ECG strip from EMS reviewed and does shows tachycardia-- reviewed with Dr. Soraida Harris, plans to review strips and device interrogation with EP tomorrow (Dr. Jean Claude Harris). Questionable slow VT under ICD threshold vs atrial arrhythmia. Will attempt to obtain medical records from outside ECF to review if patient actually is on reported sotalol 160mg PO BID-- previous cardiology records reviewed and no records appear to indicate was on sotalol. Would consider amio bolus and gtt, however unsure if has sotalol on board. Additionally, patient clinically stable at this juncture, has ICD in place. Can consider addition of amio if clinically warranted and after discussion with EP. (4) CAD (coronary artery disease) Current Visit: Yes Status: Acute Per Cardiology: History CAD with last heart catheterization June 2010. Underwent drug-eluting stent to proximal LAD 90-90% lesion, had mid circumflex 50% in-stent restenosis , occluded proximal OM1 stent, distal circumflex 40% stenosis, proximal RCA 80% stenosis. July 2012 stress test showed perfusion imaging positive for infarct and ronal-infarct ischemia with basal/inferior lateral small ronal-infarct ischemia-- patient had previously preferred medical management. Qualifiers: Coronary Disease-Associated Artery/Lesion type: [place] artery [place] vs. transplanted heart: [place] heart Associated angina: angina presence unspecified Qualified Code(s): I25.10 - Atherosclerotic heart disease of [place] coronary artery without angina pectoris (5) PAF (paroxysmal atrial fibrillation) Current Visit: Yes Status: Chronic Per Cardiology: Patient with past history of atrial flutter/atrial fibrillation. Again per review of records, does not appear to be taking sotalol, however will attempt to obtain medical records for confirmation. Discussion w patient/family: The assessment and plan as outlined above was discussed with the patient and/or family members who expressed understanding and agreement. All questions were answered. Thank you for involving us in the care of your patient. Please call with any questions. Patient now DNR/CCA, consider palliative care eval. May need to consider ICD deactivation if patient/fa,willem decides no further aggressive care. Subjective Principal diagnosis: LOC, Intubation, concern for VT Interval history: Patient seen today with family. Now extubated. Reports midsternal chest soreness with palpation. Reports source of breath has improved. Denies any palpitations. Alert person and place. Objective Vital Signs, Last 4 Hours Temp Pulse Resp BP Pulse Ox 05/30/17 13:00 64 20 152/78 100 05/30/17 12:00 97.7 F 68 20 112/60 100 05/30/17 11:00 64 20 87/56 100 General: Conversant Cardiac: Reg Rate and Rhythm, Normal S1 and S2, No Murmur Lungs: Normal Breath Sounds, No Wheeze, Rales, Rhonchi Neuro: Alert and responsive Skin: Other (Generalized ecchymosis to upper extremities) Extremities: No Edema Results 05/30/17 03:12 05/30/17 03:12 Lab Results 05/30/17 05/30/17 03:12 03:12 WBC 13.4 H Hgb 9.0 L Hct 28.9 L Plt Count 296 Sodium 136 Potassium 3.3 L Chloride 101 Carbon Dioxide 28 BUN 14 Creatinine 1.40 H Glucose 122 H Calcium 8.6 - EKG Interpretation EKG results cardiology: other (No events noted on telemetry) - VTE Documentation of Mechanical Device: Intermittent pneumatic compression device Consult Discharge Plan - Plan Referrals: NONE,PCP [Non-Partnered Physician] -
--- NOTE | 2017-05-30 15:01 | Electrophysiology Consult Note ---
<Ashish New - Last Filed: 05/30/17 16:49> Date of Encounter: 05/30/17 Time of Encounter: 10:00 Assessment and Plan (1) Acute on chronic respiratory failure with hypoxia and hypercapnia Current Visit: Yes Status: Acute Per EP: Now extubated. Pulm managing. (2) Elevated troponin Current Visit: Yes Status: Acute Per EP: Peak 0.13, CP reproducible with palpation. Has hx of chronic mild trops. Echo with no new findings. Now DNR/CCA. History CAD with last heart catheterization June 2010. Underwent drug-eluting stent to proximal LAD 90-90% lesion, had mid circumflex 50% in-stent restenosis , occluded proximal OM1 stent, distal circumflex 40% stenosis, proximal RCA 80% stenosis. July 2012 stress test showed perfusion imaging positive for infarct and ronal-infarct ischemia with basal/inferior lateral small ronal-infarct ischemia-- patient had previously preferred medical management. (3) Presence of implantable cardioverter-defibrillator (ICD) Current Visit: Yes Status: Chronic Per EP: Records noted of VT and defibrillation. Had ICD with last interrogation 05/15/2017. [employer] device interrogation completed and patient has single-chamber ICD. No arrhythmias detected since last device check with one PVC noted. No VT appreciated with no therapies delivered. See full report on chart. ECG strip from EMS reviewed and does shows tachycardia with shock-- reviewed with Dr. Jean Claude Harris, suspected atrial tachyarrythmia, no VT appreciated-- no shock warranted; device is functioning appropriately. Upon review of all records, there is no evidence of VT arrest. Recs: stop sotalol. Add low dose BB when/if BP will tolerate. Reviewed and discussed with patient/family. All questions answered. Cardiology will sign off, reconsult as needed, follow-up arranged. (4) PAF (paroxysmal atrial fibrillation) Current Visit: Yes Status: Chronic Per EP: Patient with past history of atrial flutter/atrial fibrillation. Again, per review of our records, does not appear to previously been taking sotalol, but on [place] med recs of taking So[place]ol 160mg PO BID. Now off, discussed with Dr. Jean Claude Harris, will continue off Sotalol. Remains SR. Add low dose BB when/if BP allows (currently on dopamine gtt for hypotnesion). Per review of records, last seen by Dr. Kern with Cardiology and appear to have been on Eliquis for anticoagulation. Consider resuming when/if deemed medically appropriate. Discussion w patient/family: The assessment and plan as outlined above was discussed with the patient and/or family members who expressed understanding and agreement. All questions were answered. Thank you for involving us in the care of your patient. Please call with any questions. History of Present Illness Consult date: 05/30/17 Requesting physician: Jazz Coffey Consult reason: Eval VT Chief complaint: LOC History of present illness: Past history of CAD with [place] in 2002 and 2010, history of CVA, history of atrial fibrillation/flutter, history of ischemic myopathy with ICD, history of left atrial appendage thrombus 2014, hypertension, history of breast cancer, dementia. Of note, patient now DNR/CCA. Son reports one day prior to event they were visiting and she was noted to have midsternal chest pain at the attribute to physical pain from physical therapy. At time of event, he reports he was visiting with patient and her and she was interactive/alert and oriented 3-- she admits is intermittent for her. He reports she suddenly reported "I think I'm going to ". He reports his father asked patient "when she thinks she is going to " and then about 2 minutes later son reports patient "fell back into the bed and began shaking all over with eyeballs rolling back of her head". He denies any other precipitating events and reports he notified nursing staff. Additionally, there appears to be confusion regarding if patient is taking reported medication of sotalol 160 mg by mouth twice a day. Past Med Surg Social Fam HX - Past Medical History Attestation: Yes The following information was validated with the patient. Source: patient, old records reviewed, obtained from family Medical history: asthma, atrial fibrillation, CHF, hyperlipidemia Psychiatric history: no psych history - Past Surgical History Surgical History: cholecystectomy - Social History Smoking Status: Unknown if ever smoked Smokeless Tobacco Status: No Alcohol use: none Drug use: none - Family History Mother Living Status: Hx Family Respiratory Disorders: Yes Hx Family Cancer: Yes Father Living Status: Hx Family GI Disorders: Yes Medications and Allergies Allopurinol [Zyloprim] 100 mg PO DAILY 11/18/14 [History] Aspirin Enteric Coated [Aspirin EC] 81 mg PO DAILY 11/18/14 [History] Lovastatin 80 mg PO DAILY #0 11/18/14 [History] Calcium Carbonate/Vitamin D3 [Caltrate 600 + D Soft Chew Tab] 2 tab PO DAILY # 60 tab.chew 07/18/15 [Rx] Ergocalciferol (VITAMIN D2) [Vitamin D2 (50,000 UNIT)] 1 cap PO QWEEK #12 capsule 07/18/15 [Rx] Isosorbide MONOnitrate (24 HR) [Imdur] 30 mg PO DAILY 11/06/15 [History] Metoprolol XL (24 HR) Succ [Toprol Xl] 25 mg PO DAILY 11/06/15 [History] Quinapril HCl [Accupril] 5 mg PO DAILY 11/06/15 [History] Fluconazole in NaCl,Iso-Osm [Fluconazole-Ns 200 mg/100 ml] 200 mg IV DAILY #7 bottle 05/24/17 [Rx] Docusate [Colace] 100 mg PO BID PRN capsule 05/26/17 [Rx] Furosemide [Lasix] 20 mg PO BIDDIURETIC tablet 05/26/17 [Rx] Albuterol Neb [Proventil Neb] 2.5 mg IH QID PRN 05/28/17 [History] Albuterol Sulfate [Ventolin Hfa] 2 puff IH Q4H PRN 05/28/17 [History] Alendronate Sodium [Fosamax] 70 mg PO TU 05/28/17 [History] Aspirin Enteric Coated [Aspirin EC] 81 mg PO DAILY 05/28/17 [History] Carvedilol [Coreg] 6.25 mg PO BIDWM 05/28/17 [History] Fluconazole in NaCl,Iso-Osm [Fluconazole-NaCl 200 mg/100 ml] 200 mg IV DAILY [History] HYDROcodone/Acet 5/325 mg [[place] 5-325 mg] 1 tab PO BID PRN 05/28/17 [History] Montelukast [Singulair] 10 mg PO DAILY 05/28/17 [History] Oxygen 2 l NS AD 05/28/17 [History] Pravastatin Sodium [Pravachol] 40 mg PO HS 05/28/17 [History] Sotalol HCl [Betapace] 160 mg PO BID 05/28/17 [History] Umeclidinium [place] [Incruse Ellipta] 62.5 mcg IH DAILY 05/28/17 [History] Warfarin [Coumadin] 1.5 mg PO 1700 05/28/17 [History] 3 Allergy/AdvReac Type Severity Reaction Status Date / Time No Known Allergies Allergy Verified 05/13/17 19:11 All Systems Review: The remainder of the systems were reviewed and are negative - Cardiovascular Cardiovascular: chest pain at rest Physical Examination Vital Signs, Last 4 Hours Temp Pulse Resp BP Pulse Ox 05/30/17 14:00 63 20 153/82 100 05/30/17 13:00 64 20 152/78 100 05/30/17 12:00 97.7 F 68 20 112/60 100 General: Conversant, No Apparent Distress HEENT: Atraumatic, Normocephaly, Mucus Membranes Moist Neck: No JVD, Normal carotid pulses Cardiac: Reg Rate and Rhythm, Normal S1 and S2, No Murmur Lungs: Normal Breath Sounds, No Wheeze, Rales, Rhonchi Neuro: Alert and responsive, Other (Allergic person and place only) Abdomen: Soft, Non-Tender Skin: No rashes noted on visualized skin Musculoskeletal: Other (Midsternal chest soreness with palpation) Extremities: No Clubbing, No Cyanosis, No Edema, Normal Pulses Results 05/30/17 03:12 05/30/17 03:12 Lab Results - Imaging and Cardiology Echo: report reviewed - EKG Interpretation EKG results cardiology: other (Telemetry reviewed with average heart rate) Consult Discharge Plan - Plan Referrals: NONE,PCP [Non-Partnered Physician] - <Jean Claude Harris - Last Filed: 06/02/17 17:38> Date of Encounter: 06/02/17 - Attending Attestation I have personally performed a face to face evaluation on this patient. I have reviewed and agree with the care plan. History and Exam by me shows: Presented with tachycardia but no device discharges. Review of EKG shows probable ST/ AT with RVR. Device function normal. Will program a monitor zone to on. Assessment and Plan Discussion w patient/family: The assessment and plan as outlined above was discussed with the patient and/or family members who expressed understanding and agreement. All questions were answered. Thank you for involving us in the care of your patient. Please call with any questions. History of Present Illness History of present illness: Ms. [place] is a 76 year old female All Systems Review: The remainder of the systems were reviewed and are negative Physical Examination Vital Signs, Last 4 Hours Temp Pulse Resp BP Pulse Ox 06/02/17 15:16 98.2 F 62 15 133/85 97 Results 06/02/17 04:39 06/02/17 04:39 Lab Results 06/02/17 06/02/17 06/02/17 04:39 04:39 11:56 WBC 7.9 Hgb 8.4 L Hct 28.8 L Plt Count 299 Sodium 138 Potassium 3.4 L Chloride 100 Carbon Dioxide 30 H BUN 12 Creatinine 1.12 Glucose 111 H Calcium 8.9 Magnesium 1.7 B-Natriuretic Peptide 06/02/17 11:56 WBC Hgb Hct Plt Count Sodium Potassium Chloride Carbon Dioxide BUN Creatinine Glucose Calcium Magnesium B-Natriuretic Peptide 1274 H
[2017-05-30] MEDS: Dexmedetomidine HCl 400 MCG/100 ML MLS IVC SCH (15:16)
[2017-05-30] MEDS: *HR* Heparin 5,000 UNIT/ML VIAL SQ SCH (17:24)
[2017-05-30] MEDS ORDERED: Furosemide 20 MG/2 ML VIAL IVP ONE ×2 (17:36→17:42)
[2017-05-30] MEDS: Norepinephrine 4 MG in D5% in Water 250 ML IVC SCH (19:18)
[2017-05-31 03:23] LABS: Hematocrit 28.9 % (35.3-44.9); Hemoglobin 8.9 g/dL (11.5-15.4); Mean Corpuscular HGB Conc 30.8 g/dL (31.6-35.5); Mean Corpuscular Hemoglobin 27.9 pg (28.0-33.3); Mean Corpuscular Volume 90.6 fL (83.0-100.0); Mean Platelet Volume 9.7 fL (9.4-12.4); Platelet Count 285 K/mcL (140-400); Red Blood Count 3.19 M/mcL (3.82-4.97); Red Cell Distribution Width 18.9 % (11.5-14.5)
[2017-05-31 04:09] LABS: Calcium 8.8 mg/dL (8.6-10.3); Potassium 3.4 mEq/L (3.5-5.1)
[2017-05-31] MEDS: Potassium Chloride 40 MEQ/200 ML BAG IVPB PRN (04:15)
[2017-05-31] MEDS: Dexmedetomidine HCl 400 MCG/100 ML MLS IVC SCH (04:22)
[2017-05-31] MEDS: *HR* Heparin 5,000 UNIT/ML VIAL SQ SCH ×2 (05:02→17:25)
--- NOTE | 2017-05-31 07:41 | Pulmonology Progress Note ---
<Renzo Marc - Last Filed: 05/31/17 13:33> Date of Encounter: 05/31/17 Time of Encounter: 07:45 Assessment and Plan (1) Tachyarrhythmia Current Visit: Yes Status: Acute s/p defibrillation by EMS en route from ECF to [facility]: vtac, pea, rosc to sinus bradycardia. Holding amiodarone in setting of possible sotalol use as per [facility] meds list (though per chart review patient was not Rx'd by [facility]/Cardiology) Echocardiogram shows mild/mod LV systolic dysfunction not dissimilar to prior echo earlier in the year 05/19/17. Cardiology following, ICD interrogation shows pre-admission setting for shock at 180, has been changed to 150, possible slow vtac, versus atrial arrhythmia. (2) Acute on chronic respiratory failure with hypoxia and hypercapnia Current Visit: Yes Status: Acute Extubated yesterday AM 05/30, tolerating nasal cannula at 2L Sedation: precedex Continuing vanc/zosyn. Continuing dopamine for HR. (3) Presence of implantable cardioverter-defibrillator (ICD) Current Visit: Yes Status: Chronic MDM and interrogation results per (1) (4) Elevated troponin Current Visit: Yes Status: Resolved .07, .13, .11; adynamic. (5) Lactic acidosis Current Visit: Yes Status: Acute 1.3 (4.8), initial lactic acidosis can be explained by end-organ hypoperfusion during cardiac arrest, will be continuing vanc/zosyn per sepsis differential. (6) Leukocytosis Current Visit: Yes Status: Acute Stress reaction vs sepsis. F/u cultures: Prelim no growth bld x2. 13.4 (prev 26.6) Qualifiers: Leukocytosis type: unspecified Qualified Code(s): D72.829 - Elevated white blood cell count, unspecified (7) Cardiogenic shock Current Visit: Yes Status: Acute On Dopamine, monitoring I/Os. (8) Fungemia Current Visit: Yes Status: Acute Recently discharged 05/26 with plan to complete 14 days of fluconazole ( Candidemia identified 05/17 via blood cultures, days on fluconazole unspecified). Blood cultures drawn. Prelim no growth. Holding fluconazole in setting of recent tachyarrhymia. Subjective Principal diagnosis: Vtach Interval history: Extubated yesterday, alert, nasal cannula. Mildly somnolent weaning precedex. Conversant without chest discomfort (had stated she had mild discomfort yesterday--ECG done at that time shows no st changes). Objective PUL Vital signs: Last Vital Signs Temp 98.6 F 05/31/17 03:00 Pulse 64 05/31/17 06:00 Resp 18 05/31/17 06:00 BP 138/91 05/31/17 06:00 Pulse Ox 95 05/31/17 06:00 General appearance: no acute distress, lethargic Eyes: nonicteric ENT: oropharynx moist Neck: supple Effort: mildly labored (saturating well on 2L nasal cannula) Auscultation: bilateral: diminished breath sounds, rales Cardiovascular: regular rate and rhythm (on dopamine) Gastrointestinal: soft, non-tender, non-distended Integumentary: normal Extremities: no cyanosis Musculoskeletal: no deformities mood appropriate Results - Laboratory Findings CBC and BMP: 05/31/17 03:10 05/31/17 03:10 ABG ABG pH 7.49 pH Units (7.32-7.45) H 05/30/17 05:02 ABG pCO2 42 mmHg (35-45) 05/30/17 05:02 ABG pO2 75 mmHg (85-104) L 05/30/17 05:02 ABG O2 Saturation 96 % (95-98) 05/30/17 05:02 PT/INR, D-dimer PT 13.2 Seconds (9.4-12.1) H 05/28/17 12:16 Abnormal lab findings: Abnormal lab results WBC 12.3 K/mcL (4.3-11.1) H 05/31/17 03:10 RBC 3.19 M/mcL (3.82-4.97) L 05/31/17 03:10 Hgb 8.9 g/dL (11.5-15.4) L 05/31/17 03:10 Hct 28.9 % (35.3-44.9) L 05/31/17 03:10 MCH 27.9 pg (28.0-33.3) L 05/31/17 03:10 MCHC 30.8 g/dL (31.6-35.5) L 05/31/17 03:10 RDW 18.9 % (11.5-14.5) H 05/31/17 03:10 Band Neutrophils % 6.0 % (0-4) H 05/28/17 12:16 Neutrophils # 12.3 K/mcL (1.6-8.9) H 05/29/17 02:45 Monocytes # 1.4 K/mcL (0.0-1.3) H 05/29/17 02:45 Nucleated RBCs/100 WBC 0.2 /100 WBC (0) H 05/28/17 12:16 PT 13.2 Seconds (9.4-12.1) H 05/28/17 12:16 ABG pH 7.49 pH Units (7.32-7.45) H 05/30/17 05:02 ABG pO2 75 mmHg (85-104) L 05/30/17 05:02 ABG HCO3 32 mEq/L (21-27) H 05/30/17 05:02 ABG Total CO2 33 mEq/L (20-26) H 05/30/17 05:02 ABG Base Excess 8 mEq/L (-2 to 3) H 05/30/17 05:02 Potassium 3.4 mEq/L (3.5-5.1) L 05/31/17 03:10 Creatinine 1.22 mg/dL (0.60-1.20) H 05/31/17 03:10 Est GFR ( Amer) 52 (> 60) L 05/31/17 03:10 Est GFR (Non-Af Amer) 43 (> 60) L 05/31/17 03:10 Glucose 111 mg/dL (70-105) H 05/31/17 03:10 POC Glucose 115 (58-89) H 05/30/17 05:01 Alkaline Phosphatase 179 Units/L (34-104) H 05/29/17 02:10 Troponin I 0.11 ng/mL (< 0.04) H* 05/28/17 23:25 Serum Total Protein 5.9 g/dL (6.4-8.9) L 05/29/17 02:10 Albumin 2.4 g/dL (3.5-5.7) L 05/29/17 02:10 Albumin/Globulin Ratio 0.7 (1.1-2.2) L 05/29/17 02:10 TSH 9.338 mcIU/mL (0.340-5.600) H 05/28/17 12:16 Ur Specimen Adequacy See below A 05/28/17 13:01 Urine Protein 30 mg/dL (Neg-Trace) H 05/28/17 13:01 Urine Blood Trace-intact (Negative) H 05/28/17 13:01 Urine Bilirubin Small (Negative) H 05/28/17 13:01 Ur Leukocyte Esterase Small (Negative) H 05/28/17 13:01 Urine Microscopic WBC 3-5 per hpf (0-3) H 05/28/17 13:01 Ur Renal Epithelial Cell Many per hpf (None-Few) H 05/28/17 13:01 Urine Bacteria Moderate per hpf (None-Few) H 05/28/17 13:01 Ur Culture Indicated? YES (NO) A 05/28/17 13:01 Vancomycin Trough 31.8 mcg/mL (10-20) H* 05/29/17 13:51 - Microbiology Findings Microbiology Findings: Microbiology, Last 48 Hours 05/29/17 00:20 Sputum Culture - Final Sputum Staphylococcus epidermidis - Clinical Findings Intake & Output: Intake & Output 05/30/17 05/30/17 05/31/17 15:59 23:59 07:59 Intake Total 342 / 342 300 / 300 600 / 600 Output Total 300 / 300 1100 / 1100 100 / 100 Balance 42 / 42 -800 / -800 500 / 500 Weight 84 kg - VTE Documentation of Mechanical Device: Intermittent pneumatic compression device Consult Discharge Plan - Plan Referrals: NONE,PCP [Non-Partnered Physician] - <Venancio Colin - Last Filed: 05/31/17 17:16> Date of Encounter: 05/31/17 Objective PUL Vital signs: Last Vital Signs Temp 98.6 F 05/31/17 16:00 Pulse 62 05/31/17 16:00 Resp 18 05/31/17 16:00 BP 121/68 05/31/17 16:00 Pulse Ox 99 05/31/17 16:00 Results - Laboratory Findings CBC and BMP: 05/31/17 03:10 05/31/17 03:10 ABG ABG pH 7.49 pH Units (7.32-7.45) H 05/30/17 05:02 ABG pCO2 42 mmHg (35-45) 05/30/17 05:02 ABG pO2 75 mmHg (85-104) L 05/30/17 05:02 ABG O2 Saturation 96 % (95-98) 05/30/17 05:02 PT/INR, D-dimer PT 13.2 Seconds (9.4-12.1) H 05/28/17 12:16 Abnormal lab findings: Abnormal lab results WBC 12.3 K/mcL (4.3-11.1) H 05/31/17 03:10 RBC 3.19 M/mcL (3.82-4.97) L 05/31/17 03:10 Hgb 8.9 g/dL (11.5-15.4) L 05/31/17 03:10 Hct 28.9 % (35.3-44.9) L 05/31/17 03:10 MCH 27.9 pg (28.0-33.3) L 05/31/17 03:10 MCHC 30.8 g/dL (31.6-35.5) L 05/31/17 03:10 RDW 18.9 % (11.5-14.5) H 05/31/17 03:10 Band Neutrophils % 6.0 % (0-4) H 05/28/17 12:16 Neutrophils # 12.3 K/mcL (1.6-8.9) H 05/29/17 02:45 Monocytes # 1.4 K/mcL (0.0-1.3) H 05/29/17 02:45 Nucleated RBCs/100 WBC 0.2 /100 WBC (0) H 05/28/17 12:16 PT 13.2 Seconds (9.4-12.1) H 05/28/17 12:16 ABG pH 7.49 pH Units (7.32-7.45) H 05/30/17 05:02 ABG pO2 75 mmHg (85-104) L 05/30/17 05:02 ABG HCO3 32 mEq/L (21-27) H 05/30/17 05:02 ABG Total CO2 33 mEq/L (20-26) H 05/30/17 05:02 ABG Base Excess 8 mEq/L (-2 to 3) H 05/30/17 05:02 Potassium 3.4 mEq/L (3.5-5.1) L 05/31/17 03:10 Creatinine 1.22 mg/dL (0.60-1.20) H 05/31/17 03:10 Est GFR ( Amer) 52 (> 60) L 05/31/17 03:10 Est GFR (Non-Af Amer) 43 (> 60) L 05/31/17 03:10 Glucose 111 mg/dL (70-105) H 05/31/17 03:10 POC Glucose 105 (58-89) H 05/30/17 17:33 Alkaline Phosphatase 179 Units/L (34-104) H 05/29/17 02:10 Troponin I 0.11 ng/mL (< 0.04) H* 05/28/17 23:25 Serum Total Protein 5.9 g/dL (6.4-8.9) L 05/29/17 02:10 Albumin 2.4 g/dL (3.5-5.7) L 05/29/17 02:10 Albumin/Globulin Ratio 0.7 (1.1-2.2) L 05/29/17 02:10 TSH 9.338 mcIU/mL (0.340-5.600) H 05/28/17 12:16 Ur Specimen Adequacy See below A 05/28/17 13:01 Urine Protein 30 mg/dL (Neg-Trace) H 05/28/17 13:01 Urine Blood Trace-intact (Negative) H 05/28/17 13:01 Urine Bilirubin Small (Negative) H 05/28/17 13:01 Ur Leukocyte Esterase Small (Negative) H 05/28/17 13:01 Urine Microscopic WBC 3-5 per hpf (0-3) H 05/28/17 13:01 Ur Renal Epithelial Cell Many per hpf (None-Few) H 05/28/17 13:01 Urine Bacteria Moderate per hpf (None-Few) H 05/28/17 13:01 Ur Culture Indicated? YES (NO) A 05/28/17 13:01 Vancomycin Trough 31.8 mcg/mL (10-20) H* 05/29/17 13:51 - Microbiology Findings Microbiology Findings: Microbiology, Last 48 Hours 05/29/17 00:20 Sputum Culture - Final Sputum Staphylococcus epidermidis - Clinical Findings Intake & Output: Intake & Output 05/31/17 05/31/17 05/31/17 07:59 15:59 23:59 Intake Total 600 / 600 100 / 100 Output Total 100 / 100 325 / 325 100 / 100 Balance 500 / 500 -225 / -225 -100 / -100 - Attending Attestation I examined this patient and my medical decision-making was reviewed with the Resident Physician. I agree with the documented findings, disposition and treatment plan as described except to the extent set forth below. Patient seen and examined. Labs, radiology, chart personally reviewed. 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
[2017-05-31] MEDS: Chlorhexidine Rinse 15 ML MOUTHWASH MM SCH (08:30)
[2017-05-31] MEDS: Lacri-Lube 3.5 GM TUBE BOTH EYES SCH ×2 (08:30→10:55)
[2017-05-31] MEDS: Piperacillin/Tazobactam 3.375 GM in 0.9 % Sodium Chloride Mini Bag 100 ML IVPB SCH ×3 (08:32→23:15)
[2017-05-31] MEDS: Pantoprazole 40 MG VIAL IVP SCH (08:32)
[2017-05-31] MEDS ORDERED: *HR* LORazepam 2 MG/ML VIAL IVP PRN (15:59)
[2017-05-31] MEDS ORDERED: *HR* LORazepam 2 MG/ML VIAL IVP SCH (16:00)
--- NOTE | 2017-05-31 18:19 | Electrocardiograph Report ---
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
--- NOTE | 2017-05-31 18:20 | Electrocardiograph Report ---
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
--- NOTE | 2017-05-31 18:21 | Electrocardiograph Report ---
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
[2017-05-31] MEDS: Norepinephrine 4 MG in D5% in Water 250 ML IVC SCH (19:01)
[2017-06-01] MEDS ORDERED: Furosemide 40 MG/4 ML VIAL IVP ONE ×2 (02:10→16:33)
[2017-06-01 03:36] LABS: Hematocrit 30.5 % (35.3-44.9); Mean Corpuscular HGB Conc 29.5 g/dL (31.6-35.5); Mean Corpuscular Hemoglobin 27.4 pg (28.0-33.3); Mean Platelet Volume 10.1 fL (9.4-12.4); Platelet Count 345 K/mcL (140-400); Red Blood Count 3.28 M/mcL (3.82-4.97)
[2017-06-01 04:00] LABS: Calcium 9.2 mg/dL (8.6-10.3); Potassium 3.4 mEq/L (3.5-5.1)
[2017-06-01] MEDS: *HR* Heparin 5,000 UNIT/ML VIAL SQ SCH (05:01)
[2017-06-01] MEDS: Piperacillin/Tazobactam 3.375 GM in 0.9 % Sodium Chloride Mini Bag 100 ML IVPB SCH ×3 (07:52→23:49)
[2017-06-01] MEDS: Pantoprazole 40 MG VIAL IVP SCH (07:52)
--- NOTE | 2017-06-01 08:16 | Pulmonology Progress Note ---
<Renzo Marc - Last Filed: 06/01/17 14:51> Date of Encounter: 06/01/17 Time of Encounter: 07:15 Assessment and Plan (1) Tachyarrhythmia Current Visit: Yes Status: Acute s/p defibrillation by EMS en route from [facility] to [facility]: vtac, pea, rosc to sinus bradycardia. Holding amiodarone in setting of possible sotalol use as per [facility] meds list (though per chart review patient was not Rx'd by [facility]/Cardiology) Echocardiogram shows mild/mod LV systolic dysfunction not dissimilar to prior echo earlier in the year 05/19/17. Cardiology following, ICD interrogation shows pre-admission setting for shock at 180, has been changed to 150, possible slow vtac, versus atrial arrhythmia. Will restart her Eliquis 2.5mg; she is on low-dose Coreg, plan is to hold if bradycardia/hypotensive, but continue as home med due to history of paroxysmal afib-aflutter. (2) Acute on chronic respiratory failure with hypoxia and hypercapnia Current Visit: Yes Status: Acute Extubated AM 05/30, tolerating nasal cannula at 2L Sedation discontinued (3) Presence of implantable cardioverter-defibrillator (ICD) Current Visit: Yes Status: Chronic MDM and interrogation results per (1) (4) Elevated troponin Current Visit: Yes Status: Resolved .07, .13, .11; adynamic. (5) Lactic acidosis Current Visit: Yes Status: Acute 1.3 (4.8), initial lactic acidosis can be explained by end-organ hypoperfusion during cardiac arrest (6) Leukocytosis Current Visit: Yes Status: Acute Likely stress reaction, now doubt sepsis. F/u cultures: No growth bld x2. 13.4 ( prev 26.6) Qualifiers: Leukocytosis type: unspecified Qualified Code(s): D72.829 - Elevated white blood cell count, unspecified (7) Cardiogenic shock Current Visit: Yes Status: Acute No longer on Dopamine pressor, VSS, no longer in sinus bradycardia. (8) Fungemia Current Visit: Yes Status: Resolved Recently discharged 05/26 with plan to complete 14 days of fluconazole ( Candidemia identified 05/17 via blood cultures, days on fluconazole unspecified). Blood cultures drawn. No growth. Holding fluconazole in setting of recent tachyarrhymia. No indication for fluconazole at this time. Subjective Principal diagnosis: Vtach Interval history: Extubated 2 days ago, alert, sitting upright in chair, on nasal cannula. No longer on Precedex. Conversant without distress. Awaiting telemetry bed transfer, transfer orders in, admitter aware. Objective PUL Vital signs: Last Vital Signs Temp 97.5 F L 06/01/17 08:00 Pulse 66 06/01/17 06:00 Resp 20 06/01/17 06:00 BP 144/83 06/01/17 06:00 Pulse Ox 100 06/01/17 06:00 General appearance: no acute distress Eyes: nonicteric ENT: oropharynx moist Neck: supple Effort: normal Auscultation: bilateral: diminished breath sounds Cardiovascular: regular rate and rhythm (HR in mid 60s) Gastrointestinal: soft, non-tender, non-distended Integumentary: normal Extremities: no cyanosis Musculoskeletal: no deformities non-focal exam mood appropriate Results - Laboratory Findings CBC and BMP: 06/01/17 03:07 06/01/17 03:07 ABG ABG pH 7.49 pH Units (7.32-7.45) H 05/30/17 05:02 ABG pCO2 42 mmHg (35-45) 05/30/17 05:02 ABG pO2 75 mmHg (85-104) L 05/30/17 05:02 ABG O2 Saturation 96 % (95-98) 05/30/17 05:02 PT/INR, D-dimer PT 13.2 Seconds (9.4-12.1) H 05/28/17 12:16 Abnormal lab findings: Abnormal lab results RBC 3.28 M/mcL (3.82-4.97) L 06/01/17 03:07 Hgb 9.0 g/dL (11.5-15.4) L 06/01/17 03:07 Hct 30.5 % (35.3-44.9) L 06/01/17 03:07 MCH 27.4 pg (28.0-33.3) L 06/01/17 03:07 MCHC 29.5 g/dL (31.6-35.5) L 06/01/17 03:07 RDW 19.0 % (11.5-14.5) H 06/01/17 03:07 Band Neutrophils % 6.0 % (0-4) H 05/28/17 12:16 Neutrophils # 12.3 K/mcL (1.6-8.9) H 05/29/17 02:45 Monocytes # 1.4 K/mcL (0.0-1.3) H 05/29/17 02:45 Nucleated RBCs/100 WBC 0.2 /100 WBC (0) H 05/28/17 12:16 PT 13.2 Seconds (9.4-12.1) H 05/28/17 12:16 ABG pH 7.49 pH Units (7.32-7.45) H 05/30/17 05:02 ABG pO2 75 mmHg (85-104) L 05/30/17 05:02 ABG HCO3 32 mEq/L (21-27) H 05/30/17 05:02 ABG Total CO2 33 mEq/L (20-26) H 05/30/17 05:02 ABG Base Excess 8 mEq/L (-2 to 3) H 05/30/17 05:02 Potassium 3.4 mEq/L (3.5-5.1) L 06/01/17 03:07 Est GFR ( Amer) 57 (> 60) L 06/01/17 03:07 Est GFR (Non-Af Amer) 47 (> 60) L 06/01/17 03:07 Glucose 107 mg/dL (70-105) H 06/01/17 03:07 Alkaline Phosphatase 179 Units/L (34-104) H 05/29/17 02:10 Troponin I 0.11 ng/mL (< 0.04) H* 05/28/17 23:25 Serum Total Protein 5.9 g/dL (6.4-8.9) L 05/29/17 02:10 Albumin 2.4 g/dL (3.5-5.7) L 05/29/17 02:10 Albumin/Globulin Ratio 0.7 (1.1-2.2) L 05/29/17 02:10 TSH 9.338 mcIU/mL (0.340-5.600) H 05/28/17 12:16 Ur Specimen Adequacy See below A 05/28/17 13:01 Urine Protein 30 mg/dL (Neg-Trace) H 05/28/17 13:01 Urine Blood Trace-intact (Negative) H 05/28/17 13:01 Urine Bilirubin Small (Negative) H 05/28/17 13:01 Ur Leukocyte Esterase Small (Negative) H 05/28/17 13:01 Urine Microscopic WBC 3-5 per hpf (0-3) H 05/28/17 13:01 Ur Renal Epithelial Cell Many per hpf (None-Few) H 05/28/17 13:01 Urine Bacteria Moderate per hpf (None-Few) H 05/28/17 13:01 Ur Culture Indicated? YES (NO) A 05/28/17 13:01 Vancomycin Trough 31.8 mcg/mL (10-20) H* 05/29/17 13:51 - Microbiology Findings Microbiology Findings: Microbiology, Last 48 Hours 05/29/17 00:20 Sputum Culture - Final Sputum Staphylococcus epidermidis - Clinical Findings Intake & Output: Intake & Output 05/31/17 06/01/17 06/01/17 23:59 07:59 15:59 Intake Total 220 / 220 400 / 400 Output Total 350 / 350 100 / 100 1000 / 1000 Balance -130 / -130 300 / 300 -1000 / -1000 Weight 85 kg - VTE Documentation of Mechanical Device: Intermittent pneumatic compression device Consult Discharge Plan - Plan Referrals: NONE,PCP [Non-Partnered Physician] - <Venancio Colin - Last Filed: 06/01/17 17:37> Date of Encounter: 06/01/17 Objective PUL Vital signs: Last Vital Signs Temp 97.7 F 06/01/17 12:00 Pulse 69 06/01/17 12:00 Resp 20 06/01/17 12:00 BP 136/90 06/01/17 12:00 Pulse Ox 97 06/01/17 12:00 Results - Laboratory Findings CBC and BMP: 06/01/17 03:07 06/01/17 03:07 ABG ABG pH 7.49 pH Units (7.32-7.45) H 05/30/17 05:02 ABG pCO2 42 mmHg (35-45) 05/30/17 05:02 ABG pO2 75 mmHg (85-104) L 05/30/17 05:02 ABG O2 Saturation 96 % (95-98) 05/30/17 05:02 PT/INR, D-dimer PT 13.2 Seconds (9.4-12.1) H 05/28/17 12:16 Abnormal lab findings: Abnormal lab results RBC 3.28 M/mcL (3.82-4.97) L 06/01/17 03:07 Hgb 9.0 g/dL (11.5-15.4) L 06/01/17 03:07 Hct 30.5 % (35.3-44.9) L 06/01/17 03:07 MCH 27.4 pg (28.0-33.3) L 06/01/17 03:07 MCHC 29.5 g/dL (31.6-35.5) L 06/01/17 03:07 RDW 19.0 % (11.5-14.5) H 06/01/17 03:07 Band Neutrophils % 6.0 % (0-4) H 05/28/17 12:16 Neutrophils # 12.3 K/mcL (1.6-8.9) H 05/29/17 02:45 Monocytes # 1.4 K/mcL (0.0-1.3) H 05/29/17 02:45 Nucleated RBCs/100 WBC 0.2 /100 WBC (0) H 05/28/17 12:16 PT 13.2 Seconds (9.4-12.1) H 05/28/17 12:16 ABG pH 7.49 pH Units (7.32-7.45) H 05/30/17 05:02 ABG pO2 75 mmHg (85-104) L 05/30/17 05:02 ABG HCO3 32 mEq/L (21-27) H 05/30/17 05:02 ABG Total CO2 33 mEq/L (20-26) H 05/30/17 05:02 ABG Base Excess 8 mEq/L (-2 to 3) H 05/30/17 05:02 Potassium 3.4 mEq/L (3.5-5.1) L 06/01/17 03:07 Est GFR ( Amer) 57 (> 60) L 06/01/17 03:07 Est GFR (Non-Af Amer) 47 (> 60) L 06/01/17 03:07 Glucose 107 mg/dL (70-105) H 06/01/17 03:07 Alkaline Phosphatase 179 Units/L (34-104) H 05/29/17 02:10 Troponin I 0.11 ng/mL (< 0.04) H* 05/28/17 23:25 Serum Total Protein 5.9 g/dL (6.4-8.9) L 05/29/17 02:10 Albumin 2.4 g/dL (3.5-5.7) L 05/29/17 02:10 Albumin/Globulin Ratio 0.7 (1.1-2.2) L 05/29/17 02:10 TSH 9.338 mcIU/mL (0.340-5.600) H 05/28/17 12:16 Ur Specimen Adequacy See below A 05/28/17 13:01 Urine Protein 30 mg/dL (Neg-Trace) H 05/28/17 13:01 Urine Blood Trace-intact (Negative) H 05/28/17 13:01 Urine Bilirubin Small (Negative) H 05/28/17 13:01 Ur Leukocyte Esterase Small (Negative) H 05/28/17 13:01 Urine Microscopic WBC 3-5 per hpf (0-3) H 05/28/17 13:01 Ur Renal Epithelial Cell Many per hpf (None-Few) H 05/28/17 13:01 Urine Bacteria Moderate per hpf (None-Few) H 05/28/17 13:01 Ur Culture Indicated? YES (NO) A 05/28/17 13:01 Vancomycin Trough 31.8 mcg/mL (10-20) H* 05/29/17 13:51 - Microbiology Findings Microbiology Findings: Microbiology, Last 48 Hours 05/29/17 00:20 Sputum Culture - Final Sputum Staphylococcus epidermidis - Clinical Findings Intake & Output: Intake & Output 05/31/17 06/01/17 06/01/17 23:59 07:59 15:59 Intake Total 220 / 220 400 / 400 Output Total 350 / 350 100 / 100 1300 / 1300 Balance -130 / -130 300 / 300 -1300 / -1300 Weight 85 kg - Attending Attestation I examined this patient and my medical decision-making was reviewed with the Resident Physician. I agree with the documented findings, disposition and treatment plan as described except to the extent set forth below. Patient seen and examined. Labs, radiology, chart personally reviewed. Agree with resident's history and physical, assessment, plan with following comments: [employer]LEGE [employer]OR[employer] ASSISTANT: Patient follows commands, Pulmonary: Acceptable oxygenation and ventilation Cardiovascular: stable diuresis as much as possible GI: Nutrition per dietary and GI prophylaxis per routine Heme: DVT prophylaxis per routine Renal; urine out put and renal funtion reviewed Endorcine: blood glucose is monitored Lines: all lines checked and no evidence of infections Skin: skin care to prevent pressure ulcers per nursing routine care Patient is awaiting for telemetry bed and continue physical therapy
[2017-06-01] MEDS ORDERED: Naloxone 0.4 MG/ML INJ IVP PRN (09:44)
[2017-06-01] MEDS ORDERED: Piperacillin/Tazobactam 3.375 GM in 0.9 % Sodium Chloride Mini Bag 100 ML IVPB SCH (11:00)
[2017-06-01] MEDS: Apixaban 5 MG TABLET PO SCH ×2 (13:46→20:46)
[2017-06-01] MEDS ORDERED: *HR* Heparin 5,000 UNIT/ML VIAL SQ SCH (18:00)
[2017-06-01] MEDS ORDERED: NON-FORMULARY MEDICATION 1 EACH EACH (Pravastatin Sodium [Pravachol] 40 MG) PO SCH (21:00)
[2017-06-02 04:59] LABS: Hematocrit 28.8 % (35.3-44.9); Hemoglobin 8.4 g/dL (11.5-15.4); Mean Corpuscular HGB Conc 29.2 g/dL (31.6-35.5); Mean Corpuscular Hemoglobin 27.2 pg (28.0-33.3); Mean Corpuscular Volume 93.2 fL (83.0-100.0); Mean Platelet Volume 9.9 fL (9.4-12.4); Platelet Count 299 K/mcL (140-400); Red Blood Count 3.09 M/mcL (3.82-4.97); Red Cell Distribution Width 18.7 % (11.5-14.5)
[2017-06-02 05:16] LABS: Calcium 8.9 mg/dL (8.6-10.3); Potassium 3.4 mEq/L (3.5-5.1)
[2017-06-02] MEDS ORDERED: Pantoprazole 40 MG VIAL IVP SCH (07:30)
[2017-06-02] MEDS: Apixaban 5 MG TABLET PO SCH ×2 (08:54→20:43)
[2017-06-02] MEDS: Piperacillin/Tazobactam 3.375 GM in 0.9 % Sodium Chloride Mini Bag 100 ML IVPB SCH ×3 (08:55→23:39)
[2017-06-02] MEDS ORDERED: Aspirin Enteric Coated 81 MG Tablet PO SCH (09:00)
--- NOTE | 2017-06-02 10:29 | Internal Med Progress Note ---
Date of Encounter: 06/02/17 Time of Encounter: 10:27 - Assessment and plan (1) Acute exacerbation of chronic obstructive airways disease Current Visit: No Status: Resolved Assessment and plan: COPD no active wheezing at present (2) Poor appetite Current Visit: No Status: Acute (3) COPD (chronic obstructive pulmonary disease) Current Visit: No Status: Chronic Assessment and plan: No active wheezing Qualifiers: COPD type: unspecified COPD Qualified Code(s): J44.9 - Chronic obstructive pulmonary disease, unspecified (4) Dementia Current Visit: No Status: Chronic Assessment and plan: Chronic and stable Qualifiers: Dementia type: unspecified type Dementia behavioral disturbance: without behavioral disturbance Qualified Code(s): F03.90 - Unspecified dementia without behavioral disturbance (5) Cardiac arrest Current Visit: Yes Status: Acute Assessment and plan: Please cardiology evaluation on follow (6) Cardiogenic shock Current Visit: Yes Status: Acute Assessment and plan: Resolved patient mammogram agree stable blood pressure 150 systolic we will increase Coreg to 12.5 twice a day (7) Fungemia Current Visit: Yes Status: Resolved Assessment and plan: We will continue antibiotic (8) Presence of implantable cardioverter-defibrillator (ICD) Current Visit: Yes Status: Chronic Assessment and plan: ICD interrogation shows atrial tachycardia no ventricular arrhythmia (9) PAF (paroxysmal atrial fibrillation) Current Visit: Yes Status: Chronic - Subjective Interval history: Patient with history of ischemic adenopathy, has ICD in place, Bessman fibrillation, CVA, CK D, dementia. Patient was admitted following cardiac arrest and cardiogenic shock admitted to ICU intubated patient did well and was extubated the same back cardiology and electrophysiology. ICD interrogation there was no ventricular arrhythmia better. Patient has atrial tachycardia with shock. Patient started on amiodarone she stable and then transferred from ICU This morning patient has no complaint is at bedside says she is doing okay" NO CHEST PAIN SHE IS NOw DNR CCA - Constitutional Vitals: Temp Pulse Resp BP Pulse Ox 97.9 F 107 16 151/73 100 06/02/17 08:14 06/02/17 08:14 06/02/17 08:14 06/02/17 08:14 06/02/17 08:14 - Eye Eye exam: Present: PERRL, conjuntiva pink, sclera anicteric Pupils: Present: PERRL - Neck Neck exam general surgery: Present: supple, trachea midline. Absent: lymphadenopathy - Respiratory Respiratory exam: Present: rhonchi - Cardiovascular Cardiovascular exam: Present: RRR, +S1, +S2. Absent: diastolic murmur, gallop, rubs, systolic murmur - GI/Abdominal GI/Abdominal exam: Present: normal bowel sounds, soft, no peritoneal signs. Absent: distended, tenderness Internal Medicine: Result - Labs CBC & Chem 7: 06/02/17 04:39 06/02/17 04:39 Labs: Short CBC 06/02/17 Range/Units 04:39 WBC 7.9 (4.3-11.1) K/mcL Hgb 8.4 L (11.5-15.4) g/dL Hct 28.8 L (35.3-44.9) % Plt Count 299 (140-400) K/mcL BMP 06/02/17 04:39 Sodium 138 Potassium 3.4 L Chloride 100 Carbon Dioxide 30 H BUN 12 Creatinine 1.12 Glucose 111 H Calcium 8.9 - ABG Interpretation ABG results: ABG ABG pH 7.49 pH Units (7.32-7.45) H 05/30/17 05:02 ABG pCO2 42 mmHg (35-45) 05/30/17 05:02 ABG pO2 75 mmHg (85-104) L 05/30/17 05:02 ABG O2 Saturation 96 % (95-98) 05/30/17 05:02 PT/INR, D-dimer PT 13.2 Seconds (9.4-12.1) H 05/28/17 12:16 - VTE Documentation of Mechanical Device: Intermittent pneumatic compression device Consult Discharge Plan - Plan Referrals: NONE,PCP [Non-Partnered Physician] -
[2017-06-02] MEDS: *HR* LORazepam 2 MG/ML VIAL IVP PRN (22:20)
[2017-06-03] MEDS: *HR* LORazepam 2 MG/ML VIAL IVP PRN (05:58)
--- NOTE | 2017-06-03 07:46 | Electrocardiograph Report ---
[address] [place] [address] Test Date: 2017-05-30 Pat Name: Sandra Cabrera Department: 109 Room: 3B65 Gender: F Dive Superintendent: AMARI ACB: 1940 Requested By: Renzo Marc Order Number: [id number] Reading MD: Kyle Ureña DO Measurements Intervals [place] Rate: 68 P: 77 [place]: 162 QRS: -45 QRSD: 112 T: 111 QT: 432 QTc: 449 Interpretive Statements SINUS RHYTHM WITH OCCASIONAL VENTRICULAR PREMATURE COMPLEXES POSSIBLE LEFT ATRIAL ENLARGEMENT LEFT ANTERIOR FASCICULAR BLOCK POSSIBLE INFERIOR MYOCARDIAL INFARCTION, PROBABLY OLD ANTERIOR ST-T CHANGES POSSIBLY DUE TO ISCHEMIA Electronically Signed On 06-03-2017 7:44:15 EST by Kyle Ureña DO
[2017-06-03] MEDS: Piperacillin/Tazobactam 3.375 GM in 0.9 % Sodium Chloride Mini Bag 100 ML IVPB SCH ×2 (08:41→17:15)
[2017-06-03] MEDS: Isosorbide MONOnitrate (24 HR) 30 MG TAB.ER.24H PO SCH (08:46)
[2017-06-03] MEDS: Apixaban 5 MG TABLET PO SCH ×2 (08:46→23:08)
[2017-06-03 09:25] LABS: ABG Base Excess 7 mEq/L (-2 to 3); ABG HCO3 34 mEq/L (21-27); ABG Oxygen Saturation 99 % (95-98); ABG PCO2 63 mmHg (35-45); ABG PH 7.34 pH Units (7.32-7.45); ABG PO2 139 mmHg (85-104); ABG TCO2 36 mEq/L (20-26)
[2017-06-03] MEDS ORDERED: Furosemide 80 MG in 0.9 % Sodium Chloride 50 ML IVPB ONE (09:27)
--- NOTE | 2017-06-03 09:35 | Internal Med Progress Note ---
Date of Encounter: 06/03/17 Time of Encounter: 09:32 - Assessment and plan (1) Acute exacerbation of chronic obstructive airways disease Current Visit: No Status: Resolved Assessment and plan: No active wheezing exam patient is a dear to be in pulmonary edema (2) Poor appetite Current Visit: No Status: Acute Assessment and plan: Chronic (3) COPD (chronic obstructive pulmonary disease) Current Visit: No Status: Chronic Qualifiers: COPD type: unspecified COPD Qualified Code(s): J44.9 - Chronic obstructive pulmonary disease, unspecified (4) Dementia Current Visit: No Status: Chronic Assessment and plan: chronic Qualifiers: Dementia type: unspecified type Dementia behavioral disturbance: without behavioral disturbance Qualified Code(s): F03.90 - Unspecified dementia without behavioral disturbance (5) Cardiac arrest Current Visit: Yes Status: Acute Assessment and plan: ICD interrogated please see the report for detail (6) Cardiogenic shock Current Visit: Yes Status: Acute (7) Fungemia Current Visit: Yes Status: Resolved Assessment and plan: Continue current antibiotic (8) Presence of implantable cardioverter-defibrillator (ICD) Current Visit: Yes Status: Chronic Assessment and plan: Patient DNR CC a ICD interrogation does not show any ventricular arrhythmia cardiology following (9) PAF (paroxysmal atrial fibrillation) Current Visit: Yes Status: Chronic (10) CHF (congestive heart failure) Current Visit: Yes Status: Acute Assessment and plan: Acute on chronic systolic heart failure at present appear to be in pulmonary edema given Lasix 80 mg IV and then was stopped 40 twice a day and stat chest x-ray Qualifiers: Heart failure type: systolic Heart failure chronicity: acute on chronic Qualified Code(s): I50.23 - Acute on chronic systolic (congestive) heart failure - Subjective Interval history: Patient with history of ischemic adenopathy, has ICD in place, Bessman fibrillation, CVA, CK D, dementia. Patient was admitted following cardiac arrest and cardiogenic shock admitted to ICU intubated patient did well and was extubated the same back cardiology and electrophysiology. ICD interrogation there was no ventricular arrhythmia better. Patient has atrial tachycardia with shock. Patient started on amiodarone she stable and then transferred from ICU This morning patient has no complaint is at bedside says she is doing okay" NO CHEST PAIN SHE IS NOw DNR CCA Today June 03 nurse brings to my attention patient appears more congested and short of breath . patient appear lethargic but nurse reports she was given Ativan this morning. Patient easily arousable no chest pain exam but did not appear to be pulmonary edema bilateral congestion BNP yesterday was over 1200 I will give her Lasix 80 mg now and start 40 twice a day and obtain stat chest x-ray ABG unremarkable - Constitutional Vitals: Temp Pulse Resp BP Pulse Ox 97.7 F 57 16 117/78 98 06/03/17 09:08 06/03/17 09:08 06/03/17 09:08 06/03/17 09:08 06/03/17 09:08 - Head Head exam: Present: atraumatic, normocephalic - Respiratory Respiratory exam: Present: decreased breath sounds, rales - Cardiovascular Cardiovascular exam: Present: RRR, systolic murmur - GI/Abdominal GI/Abdominal exam: Present: normal bowel sounds, soft, no peritoneal signs. Absent: distended, tenderness Internal Medicine: Result - Labs CBC & Chem 7: 06/02/17 04:39 06/02/17 04:39 - ABG Interpretation ABG results: ABG ABG pH 7.34 pH Units (7.32-7.45) 06/03/17 09:22 ABG pCO2 63 mmHg (35-45) H 06/03/17 09:22 ABG pO2 139 mmHg (85-104) H 06/03/17 09:22 ABG O2 Saturation 99 % (95-98) H 06/03/17 09:22 PT/INR, D-dimer PT 13.2 Seconds (9.4-12.1) H 05/28/17 12:16 - VTE Documentation of Mechanical Device: Intermittent pneumatic compression device Consult Discharge Plan - Plan Referrals: Vanita Chavez CNP [Primary Care Provider] - 06/07/17 9:00 am NONE,PCP [Non-Partnered Physician] -
[2017-06-03] MEDS ORDERED: Furosemide 40 MG/4 ML VIAL IVP SCH (10:00)
[2017-06-03] MEDS ORDERED: *HR* Morphine 2 MG/ML SYRINGE IVP ONE (12:46)
--- NOTE | 2017-06-03 20:01 | Electrocardiograph Report ---
[address] [place] [address] Test Date: 2017-06-03 Pat Name: Sandra Cabrera Department: 113 Room: 3B65 Gender: F Medic Technician: : 1940 Requested By: Mejia Salamanca Order Number: [id number] Reading MD: Kyle Ureña DO Measurements Intervals [place] Rate: 67 P: 69 [place]: 148 QRS: -34 QRSD: 111 T: 158 QT: 411 QTc: 426 Interpretive Statements SINUS RHYTHM POSSIBLE LEFT ATRIAL ENLARGEMENT MARKED LEFT AXIS DEVIATION LOW QRS VOLTAGE IN PRECORDIAL LEADS POSSIBLE RIGHT VENTRICULAR CONDUCTION DELAY POSSIBLE INFERIOR MYOCARDIAL INFARCTION, PROBABLY OLD WITH POSTERIOR EXTENSION Electronically Signed On 06-03-2017 19:59:49 EST by Kyle Ureña DO
[2017-06-03] MEDS: Furosemide 40 MG/4 ML VIAL IVP SCH (23:13)
[2017-06-03] MEDS: Ondansetron 4 MG/2 ML VIAL IVP PRN (23:52)
[2017-06-04] MEDS: *HR* HYDROmorphone (PF) 1 MG/ML SYRINGE IVP PRN ×2 (00:32→19:38)
[2017-06-04] MEDS: Piperacillin/Tazobactam 3.375 GM in 0.9 % Sodium Chloride Mini Bag 100 ML IVPB SCH ×2 (01:33→07:45)
[2017-06-04] MEDS: Levalbuterol Neb 1.25 MG/3 ML IH SCH ×5 (03:31→22:34)
[2017-06-04 06:15] LABS: Hemoglobin 8.1 g/dL (11.5-15.4)
[2017-06-04 06:16] LABS: Hematocrit 27.3 % (35.3-44.9); Mean Corpuscular HGB Conc 29.7 g/dL (31.6-35.5); Mean Corpuscular Hemoglobin 27.9 pg (28.0-33.3); Mean Corpuscular Volume 94.1 fL (83.0-100.0); Mean Platelet Volume 9.9 fL (9.4-12.4); Platelet Count 293 K/mcL (140-400); Red Cell Distribution Width 18.7 % (11.5-14.5)
[2017-06-04 06:32] LABS: Magnesium 1.6 mg/dL (1.6-2.6); Potassium 3.9 mEq/L (3.5-5.1)
[2017-06-04] MEDS: *HR* LORazepam 2 MG/ML VIAL IVP PRN ×2 (07:54→16:39)
[2017-06-04] MEDS ORDERED: Piperacillin/Tazobactam 3.375 GM in 0.9 % Sodium Chloride Mini Bag 100 ML IVPB SCH (08:00)
[2017-06-04] MEDS: Apixaban 5 MG TABLET PO SCH ×2 (08:13→20:37)
[2017-06-04] MEDS: Isosorbide MONOnitrate (24 HR) 30 MG TAB.ER.24H PO SCH (08:14)
[2017-06-04] MEDS: Furosemide 40 MG/4 ML VIAL IVP SCH (08:14)
--- NOTE | 2017-06-04 09:30 | Internal Med Progress Note ---
<BlancaMorales hunt - Last Filed: 06/04/17 10:23> Date of Encounter: 06/04/17 Time of Encounter: 09:27 - Assessment and plan (1) Acute on chronic respiratory failure with hypoxia and hypercapnia Current Visit: Yes Status: Acute Assessment and plan: Improving. Continue to wean down oxygen to keep oxygen saturation above 88%. Patient had staph epi in sputum culture, likely contaminate. no clinical signs of pneumonia. Will d/c zosyn (2) Cardiac arrest Current Visit: Yes Status: Acute Assessment and plan: Unknown cause at this time. Device was interrogated and the patient was seen by electrophysiology and the patient had no evidence of V. tach on device interrogation. We will continue to hold sotalol. (3) Congestive heart failure Current Visit: No Status: Chronic Assessment and plan: Patient appears comfortable, lungs clear on exam. We will decrease Lasix Qualifiers: Heart failure type: systolic Heart failure chronicity: chronic Qualified Code(s): I50.22 - Chronic systolic (congestive) heart failure (4) Atrial fibrillation and flutter Current Visit: No Status: Chronic Assessment and plan: Currently normal sinus rhythm. Continue off sotalol as discussed above per cardiology recommendations. (5) History of dementia Current Visit: No Status: Chronic (6) CKD (chronic kidney disease), stage III Current Visit: No Status: Chronic Assessment and plan: Creatinine appears to be at baseline. Decrease Lasix as above. Continue to monitor. (7) COPD (chronic obstructive pulmonary disease) Current Visit: No Status: Chronic Assessment and plan: Stable. Does not appear to be in acute exacerbation. Continue supplemental oxygen as above. Qualifiers: COPD type: unspecified COPD Qualified Code(s): J44.9 - Chronic obstructive pulmonary disease, unspecified (8) Fungemia Current Visit: Yes Status: Resolved Assessment and plan: Patient completed 14 days of antifungal therapy. No indication for further treatment. Blood cultures negative. - Subjective Interval history: Patient seen and examined at bedside. Patient states that she feels pretty good today. She has no complaints. She denies chest pain, shortness of breath. - Constitutional Vitals: Temp Pulse Resp BP Pulse Ox 97.9 F 67 16 113/68 97 06/04/17 08:01 06/04/17 08:01 06/04/17 08:01 06/04/17 08:01 06/04/17 08:01 General appearance: Present: A&O X 3, pleasant, no acute distress - Respiratory Respiratory exam: Present: CTAB. Absent: rales, rhonchi, wheezes - Cardiovascular Cardiovascular exam: Present: RRR. Absent: gallop, rubs, systolic murmur - GI/Abdominal GI/Abdominal exam: Present: normal bowel sounds, soft. Absent: distended, tenderness - Extremities Exam Extremities exam: Present: pedal edema (Trace bilateral), warm. Absent: tenderness - Neurological Exam Neurological exam: Present: alert, CN II-XII intact, oriented X3, no focal deficits Internal Medicine: Result - Labs CBC & Chem 7: 06/04/17 05:49 06/04/17 05:49 Labs: Short CBC 06/04/17 Range/Units 05:49 WBC 6.7 (4.3-11.1) K/mcL Hgb 8.1 L (11.5-15.4) g/dL Hct 27.3 L (35.3-44.9) % Plt Count 293 (140-400) K/mcL BMP 06/04/17 05:49 Sodium 140 Potassium 3.9 Chloride 100 Carbon Dioxide 35 H BUN 11 Creatinine 1.19 Glucose 103 Calcium 9.0 Cardiac Enzymes 06/03/17 06/04/17 Range/Units 23:15 05:49 Troponin I 0.03 0.04 H* (< 0.04) ng/mL - ABG Interpretation ABG results: ABG ABG pH 7.34 pH Units (7.32-7.45) 06/03/17 09:22 ABG pCO2 63 mmHg (35-45) H 06/03/17 09:22 ABG pO2 139 mmHg (85-104) H 06/03/17 09:22 ABG O2 Saturation 99 % (95-98) H 06/03/17 09:22 PT/INR, D-dimer PT 13.2 Seconds (9.4-12.1) H 05/28/17 12:16 - Impressions Impressions Chest X-Ray 06/03/17 09:40 IMPRESSION: 1. Stable cardiomegaly with probable chronic pulmonary venous hypertension. 2. Nonspecific mild left perihilar and lower lobe patchy opacities. No lobar consolidation or fulminant acute congestive heart failure. D/ / 06/03/2017 10:05:18 Anatoliy Benitez MD / mayi Interpreting Provider: Anatoliy Benitez MD - VTE Documentation of Mechanical Device: Intermittent pneumatic compression device Consult Discharge Plan - Plan Referrals: Vanita Chavze, FACTORY ASSEMBLER [Primary Care Provider] - 06/07/17 9:00 am NONE,PCP [Non-Partnered Physician] - <Eduardo Denney H - Last Filed: 06/04/17 13:40> Date of Encounter: 06/04/17 - Constitutional Vitals: Temp Pulse Resp BP Pulse Ox 98.2 F 64 16 110/66 94 06/04/17 11:35 06/04/17 11:35 06/04/17 11:35 06/04/17 11:35 06/04/17 11:35 Internal Medicine: Result - Labs CBC & Chem 7: 06/04/17 05:49 06/04/17 05:49 Labs: Short CBC 06/04/17 Range/Units 05:49 WBC 6.7 (4.3-11.1) K/mcL Hgb 8.1 L (11.5-15.4) g/dL Hct 27.3 L (35.3-44.9) % Plt Count 293 (140-400) K/mcL BMP 06/04/17 05:49 Sodium 140 Potassium 3.9 Chloride 100 Carbon Dioxide 35 H BUN 11 Creatinine 1.19 Glucose 103 Calcium 9.0 Cardiac Enzymes 06/03/17 06/04/17 06/04/17 Range/Units 23:15 05:49 11:10 Troponin I 0.03 0.04 H* 0.03 (< 0.04) ng/mL - ABG Interpretation ABG results: ABG ABG pH 7.34 pH Units (7.32-7.45) 06/03/17 09:22 ABG pCO2 63 mmHg (35-45) H 06/03/17 09:22 ABG pO2 139 mmHg (85-104) H 06/03/17 09:22 ABG O2 Saturation 99 % (95-98) H 03/02/18 09:22 PT/INR, D-dimer PT 13.2 Seconds (9.4-12.1) H 05/28/17 12:16 - Attending Attestation awaiting placement I examined this patient and my medical decision-making was reviewed with the Resident Physician. I agree with the documented findings, disposition and treatment plan as described except to the extent set forth below.
[2017-06-04] MEDS ORDERED: Furosemide 40 MG/4 ML VIAL IVP SCH (21:00)
[2017-06-05] MEDS: *HR* HYDROmorphone (PF) 1 MG/ML SYRINGE IVP PRN ×3 (02:45→22:02)
[2017-06-05] MEDS: Levalbuterol Neb 1.25 MG/3 ML IH SCH ×4 (04:29→22:44)
[2017-06-05 08:04] LABS: Hematocrit 28.3 % (35.3-44.9); Hemoglobin 8.1 g/dL (11.5-15.4); Mean Corpuscular HGB Conc 28.6 g/dL (31.6-35.5)
[2017-06-05 08:06] LABS: Immature Platelets 2.9 % (1.1-6.1); Mean Corpuscular Hemoglobin 27.6 pg (28.0-33.3); Mean Corpuscular Volume 96.3 fL (83.0-100.0); Red Blood Count 2.94 M/mcL (3.82-4.97); Red Cell Distribution Width 18.6 % (11.5-14.5)
[2017-06-05 08:42] LABS: Calcium 9.1 mg/dL (8.6-10.3); Potassium 3.9 mEq/L (3.5-5.1)
--- NOTE | 2017-06-05 09:26 | Internal Med Progress Note ---
<Morales Perdomo - Last Filed: 06/05/17 09:24> Date of Encounter: 06/05/17 Time of Encounter: 09:24 - Assessment and plan (1) Acute on chronic respiratory failure with hypoxia and hypercapnia Current Visit: Yes Status: Acute Assessment and plan: Improving. Continue to wean down oxygen to keep oxygen saturation above 88%. Patient had staph epi in sputum culture, likely contaminate. no clinical signs of pneumonia. Will d/c zosyn (2) Cardiac arrest Current Visit: Yes Status: Resolved Assessment and plan: Unknown cause at this time. Device was interrogated and the patient was seen by electrophysiology and the patient had no evidence of V. tach on device interrogation. We will continue to hold sotalol. (3) Congestive heart failure Current Visit: No Status: Chronic Assessment and plan: Patient appears comfortable, breath sounds improved. We will transition to by mouth Lasix. Qualifiers: Heart failure type: systolic Heart failure chronicity: chronic Qualified Code(s): I50.22 - Chronic systolic (congestive) heart failure (4) Atrial fibrillation and flutter Current Visit: No Status: Chronic Assessment and plan: Currently normal sinus rhythm. Continue off sotalol as discussed above per cardiology recommendations. (5) History of dementia Current Visit: No Status: Chronic (6) CKD (chronic kidney disease), stage III Current Visit: No Status: Chronic Assessment and plan: Creatinine appears to be at baseline. Switch to by mouth Lasix as above. Continue to monitor. (7) COPD (chronic obstructive pulmonary disease) Current Visit: No Status: Chronic Assessment and plan: Stable. Does not appear to be in acute exacerbation. Continue supplemental oxygen as above. Qualifiers: COPD type: unspecified COPD Qualified Code(s): J44.9 - Chronic obstructive pulmonary disease, unspecified (8) Fungemia Current Visit: Yes Status: Resolved Assessment and plan: Patient completed 14 days of antifungal therapy. No indication for further treatment. Blood cultures negative. - Subjective Interval history: Patient seen and examined at bedside. Patient states that she feels ok today, she states that she wants to go home however she recognizes that this may be unsafe. Her agrees that she is not safe to go home. She denies chest pain, shortness of breath, abdominal pain, nausea, vomiting. - Constitutional Vitals: Temp Pulse Resp BP Pulse Ox 98.2 F 74 16 143/72 93 06/05/17 07:44 06/05/17 07:44 06/05/17 07:44 06/05/17 07:44 06/05/17 07:44 General appearance: Present: A&O X 3, pleasant, no acute distress - Respiratory Respiratory exam: Present: rales (Mild bibasilar). Absent: respiratory distress , rhonchi, wheezes, tachypnea - Cardiovascular Cardiovascular exam: Present: RRR. Absent: gallop, rubs, systolic murmur - GI/Abdominal GI/Abdominal exam: Present: normal bowel sounds, soft. Absent: distended, tenderness - Extremities Exam Extremities exam: Present: pedal edema (Trace lower extremity bilaterally), warm. Absent: tenderness - Neurological Exam Neurological exam: Present: alert, CN II-XII intact, oriented X3, no focal deficits Internal Medicine: Result - Labs CBC & Chem 7: 06/05/17 07:25 06/05/17 07:25 Labs: Short CBC 06/05/17 Range/Units 07:25 WBC 7.6 (4.3-11.1) K/mcL Hgb 8.1 L (11.5-15.4) g/dL Hct 28.3 L (35.3-44.9) % Plt Count 335 (140-400) K/mcL BMP 06/05/17 07:25 Sodium 139 Potassium 3.9 Chloride 97 L Carbon Dioxide 35 H BUN 13 Creatinine 1.32 H Glucose 105 Calcium 9.1 Cardiac Enzymes 06/04/17 Range/Units 11:10 Troponin I 0.03 (< 0.04) ng/mL - ABG Interpretation ABG results: ABG ABG pH 7.34 pH Units (7.32-7.45) 06/03/17 09:22 ABG pCO2 63 mmHg (35-45) H 06/03/17 09:22 ABG pO2 139 mmHg (85-104) H 06/03/17 09:22 ABG O2 Saturation 99 % (95-98) H 06/03/17 09:22 PT/INR, D-dimer PT 13.2 Seconds (9.4-12.1) H 05/28/17 12:16 - VTE Documentation of Mechanical Device: Intermittent pneumatic compression device Consult Discharge Plan - Plan Referrals: Chavez,Vanita C, EMERGENCY MEDICAL TECH [Primary Care Provider] - 06/07/17 9:00 am NONE,PCP [Non-Partnered Physician] - <Eduardo Denney H - Last Filed: 06/05/17 12:22> Date of Encounter: 06/05/17 - Constitutional Vitals: Temp Pulse Resp BP Pulse Ox 97.7 F 84 16 150/64 93 06/05/17 11:56 06/05/17 11:56 06/05/17 11:56 06/05/17 11:56 06/05/17 11:56 Internal Medicine: Result - Labs CBC & Chem 7: 06/05/17 07:25 06/05/17 07:25 Labs: Short CBC 06/05/17 Range/Units 07:25 WBC 7.6 (4.3-11.1) K/mcL Hgb 8.1 L (11.5-15.4) g/dL Hct 28.3 L (35.3-44.9) % Plt Count 335 (140-400) K/mcL BMP 06/05/17 07:25 Sodium 139 Potassium 3.9 Chloride 97 L Carbon Dioxide 35 H BUN 13 Creatinine 1.32 H Glucose 105 Calcium 9.1 - ABG Interpretation ABG results: ABG ABG pH 7.34 pH Units (7.32-7.45) 06/03/17 09:22 ABG pCO2 63 mmHg (35-45) H 06/03/17 09:22 ABG pO2 139 mmHg (85-104) H 06/03/17 09:22 ABG O2 Saturation 99 % (95-98) H 06/03/17 09:22 PT/INR, D-dimer PT 13.2 Seconds (9.4-12.1) H 05/28/17 12:16 - Attending Attestation awaiting placement fall precautions I examined this patient and my medical decision-making was reviewed with the Resident Physician. I agree with the documented findings, disposition and treatment plan as described except to the extent set forth below.
[2017-06-05] MEDS: Isosorbide MONOnitrate (24 HR) 30 MG TAB.ER.24H PO SCH (10:30)
[2017-06-05] MEDS: Apixaban 5 MG TABLET PO SCH ×2 (10:30→22:02)
[2017-06-05] MEDS: *HR* LORazepam 2 MG/ML VIAL IVP PRN (13:56)
[2017-06-05] MEDS: Furosemide 20 MG TABLET PO SCH (18:41)
[2017-06-06] MEDS: Levalbuterol Neb 1.25 MG/3 ML IH SCH ×4 (03:43→22:22)
[2017-06-06] MEDS: *HR* LORazepam 2 MG/ML VIAL IVP PRN ×2 (05:37→19:11)
[2017-06-06] MEDS: Furosemide 20 MG TABLET PO SCH (07:30)
[2017-06-06] MEDS: Isosorbide MONOnitrate (24 HR) 30 MG TAB.ER.24H PO SCH (07:30)
[2017-06-06] MEDS: Apixaban 5 MG TABLET PO SCH ×2 (07:31→20:41)
[2017-06-06] MEDS: *HR* HYDROmorphone (PF) 1 MG/ML SYRINGE IVP PRN ×2 (07:31→20:41)
[2017-06-06 09:57] LABS: BUN/Creatinine Ratio 12 (6-26); Blood Urea Nitrogen 12 mg/dL (8-23); Calcium 9.5 mg/dL (8.6-10.3); Carbon Dioxide 31 mEq/L (23-29); Chloride 99 mEq/L (98-107); Glucose 110 mg/dL (70-105); Magnesium 1.9 mg/dL (1.6-2.6); Osmolality,Calculated 290 (280-300); Potassium 3.8 mEq/L (3.5-5.1); Sodium 140 mEq/L (136-145); eGFR For African Americans > 60 (> 60); eGFR For Non-African Americans 55 (> 60)
[2017-06-06 10:32] LABS: Basophils % 0.6 %; Eosinophils % 0.1 %; Hemoglobin 8.9 g/dL (11.5-15.4)
[2017-06-06 10:33] LABS: Basophils # 0.1 K/mcL (0.0-0.2); Hematocrit 30.9 % (35.3-44.9); Lymphocytes # 1.4 K/mcL (0.6-4.6); Lymphocytes % 13.5 %; Mean Corpuscular HGB Conc 28.8 g/dL (31.6-35.5); Mean Corpuscular Hemoglobin 27.7 pg (28.0-33.3); Mean Corpuscular Volume 96.3 fL (83.0-100.0); Mean Platelet Volume 10.1 fL (9.4-12.4); Monocytes # 1.2 K/mcL (0.0-1.3); Monocytes % 12.2 %; Neutrophils # 7.4 K/mcL (1.6-8.9); Platelet Count 307 K/mcL (140-400); Red Blood Count 3.21 M/mcL (3.82-4.97); Segmented Neutrophils % 72.6 %
--- NOTE | 2017-06-06 10:41 | Internal Med Progress Note ---
<Morales Perdomo - Last Filed: 06/06/17 10:39> Date of Encounter: 06/06/17 Time of Encounter: 10:39 - Assessment and plan (1) Acute on chronic respiratory failure with hypoxia and hypercapnia Current Visit: Yes Status: Acute Assessment and plan: Improving. Continue to wean down oxygen to keep oxygen saturation above 88%. Patient had staph epi in sputum culture, likely contaminate. no clinical signs of pneumonia. Will d/c zosyn (2) Cardiac arrest Current Visit: Yes Status: Resolved Assessment and plan: Unknown cause at this time. Device was interrogated and the patient was seen by electrophysiology and the patient had no evidence of V. tach on device interrogation. We will continue to hold sotalol. (3) Congestive heart failure Current Visit: No Status: Chronic Assessment and plan: Patient appears comfortable, breath sounds are coarse but stable. Patient has been transitioned to oral Lasix, will increase to improve respiratory status. Qualifiers: Heart failure type: systolic Heart failure chronicity: chronic Qualified Code(s): I50.22 - Chronic systolic (congestive) heart failure (4) Atrial fibrillation and flutter Current Visit: No Status: Chronic Assessment and plan: Currently normal sinus rhythm. Continue off sotalol as discussed above per cardiology recommendations. (5) History of dementia Current Visit: No Status: Chronic (6) CKD (chronic kidney disease), stage III Current Visit: No Status: Chronic Assessment and plan: Creatinine appears to be at baseline. Continue by mouth Lasix as above. Continue to monitor. (7) COPD (chronic obstructive pulmonary disease) Current Visit: No Status: Chronic Assessment and plan: Stable. Does not appear to be in acute exacerbation. Continue supplemental oxygen as above. Qualifiers: COPD type: unspecified COPD Qualified Code(s): J44.9 - Chronic obstructive pulmonary disease, unspecified (8) Fungemia Current Visit: Yes Status: Resolved Assessment and plan: Patient completed 14 days of antifungal therapy. No indication for further treatment. Blood cultures negative. - Subjective Interval history: Patient seen and examined at bedside. Patient states that she feels ok today, she denies that she is in pain or distress. - Constitutional Vitals: Temp Pulse Resp BP Pulse Ox 97.6 F 106 15 137/75 90 06/06/17 06:47 06/06/17 06:47 06/06/17 03:43 06/06/17 06:47 06/06/17 06:47 General appearance: Present: pleasant, no acute distress - Respiratory Respiratory exam: Present: rales (Mild bilaterally). Absent: respiratory distress, wheezes, tachypnea Additional comments: Coarse breath sounds. - Cardiovascular Cardiovascular exam: Present: RRR. Absent: gallop, rubs, systolic murmur - GI/Abdominal GI/Abdominal exam: Present: normal bowel sounds, soft. Absent: distended, tenderness - Extremities Exam Extremities exam: Present: warm. Absent: pedal edema, tenderness - Neurological Exam Neurological exam: Present: alert, CN II-XII intact, no focal deficits Internal Medicine: Result - Labs CBC & Chem 7: 06/05/17 07:25 06/06/17 08:37 Labs: BMP 06/06/17 08:37 Sodium 140 Potassium 3.8 Chloride 99 Carbon Dioxide 31 H BUN 12 Creatinine 0.98 Glucose 110 H Calcium 9.5 - ABG Interpretation ABG results: ABG ABG pH 7.34 pH Units (7.32-7.45) 06/03/17 09:22 ABG pCO2 63 mmHg (35-45) H 06/03/17 09:22 ABG pO2 139 mmHg (85-104) H 06/03/17 09:22 ABG O2 Saturation 99 % (95-98) H 06/03/17 09:22 PT/INR, D-dimer PT 13.2 Seconds (9.4-12.1) H 05/28/17 12:16 - VTE Documentation of Mechanical Device: Intermittent pneumatic compression device Consult Discharge Plan - Plan Referrals: Vanita Chavez JEWELRY INSPECTOR [Primary Care Provider] - 06/07/17 9:00 am NONE,PCP [Non-Partnered Physician] - <Eduardo Denney H - Last Filed: 06/06/17 14:39> Date of Encounter: 06/06/17 - Constitutional Vitals: Temp Pulse Resp BP Pulse Ox 98.1 F 70 16 126/71 96 06/06/17 11:22 06/06/17 11:22 06/06/17 11:27 06/06/17 11:22 06/06/17 11:27 Internal Medicine: Result - Labs CBC & Chem 7: 06/06/17 08:37 06/06/17 08:37 Labs: Short CBC 06/06/17 Range/Units 08:37 WBC 10.2 (4.3-11.1) K/mcL Hgb 8.9 L (11.5-15.4) g/dL Hct 30.9 L (35.3-44.9) % Plt Count 307 (140-400) K/mcL Neutrophils # 7.4 (1.6-8.9) K/mcL BMP 06/06/17 08:37 Sodium 140 Potassium 3.8 Chloride 99 Carbon Dioxide 31 H BUN 12 Creatinine 0.98 Glucose 110 H Calcium 9.5 - ABG Interpretation ABG results: ABG ABG pH 7.34 pH Units (7.32-7.45) 06/03/17 09:22 ABG pCO2 63 mmHg (35-45) H 06/03/17 09:22 ABG pO2 139 mmHg (85-104) H 06/03/17 09:22 ABG O2 Saturation 99 % (95-98) H 06/03/17 09:22 PT/INR, D-dimer PT 13.2 Seconds (9.4-12.1) H 05/28/17 12:16 - Attending Attestation Very congested, start IV Lasix again I examined this patient and my medical decision-making was reviewed with the Resident Physician. I agree with the documented findings, disposition and treatment plan as described except to the extent set forth below.
[2017-06-06 11:54] LABS: Hypochromasia Present (Not Present); Platelet Estimate Normal (Normal)
[2017-06-06] MEDS: Furosemide 40 MG/4 ML VIAL IVP SCH ×2 (12:09→19:11)
[2017-06-07] MEDS: *HR* LORazepam 2 MG/ML VIAL IVP PRN ×2 (00:53→07:55)
[2017-06-07] MEDS: *HR* HYDROmorphone (PF) 1 MG/ML SYRINGE IVP PRN (02:19)
[2017-06-07] MEDS: Levalbuterol Neb 1.25 MG/3 ML IH SCH ×4 (03:59→22:19)
[2017-06-07 05:56] LABS: Basophils % 0.3 %; Eosinophils % 0.4 %; Hematocrit 29.7 % (35.3-44.9); Hemoglobin 8.6 g/dL (11.5-15.4); Immature Granulocytes % 1.3 % (0-4); Lymphocytes # 1.4 K/mcL (0.6-4.6); Mean Corpuscular Hemoglobin 27.6 pg (28.0-33.3); Mean Corpuscular Volume 95.2 fL (83.0-100.0); Mean Platelet Volume 10.1 fL (9.4-12.4); Monocytes % 11.1 %; Neutrophils # 6.5 K/mcL (1.6-8.9); Nucleated Red Blood Cells 0.2 /100 WBC (0); Platelet Count 334 K/mcL (140-400); Red Blood Count 3.12 M/mcL (3.82-4.97); Red Cell Distribution Width 18.2 % (11.5-14.5); Segmented Neutrophils % 71.9 %
[2017-06-07 06:20] LABS: Calcium 9.5 mg/dL (8.6-10.3); Magnesium 1.7 mg/dL (1.6-2.6); Potassium 3.6 mEq/L (3.5-5.1)
[2017-06-07] MEDS: Apixaban 5 MG TABLET PO SCH ×2 (07:54→20:34)
[2017-06-07] MEDS: Isosorbide MONOnitrate (24 HR) 30 MG TAB.ER.24H PO SCH (07:54)
[2017-06-07] MEDS: Furosemide 40 MG/4 ML VIAL IVP SCH ×2 (07:55→20:21)
[2017-06-07] MEDS ORDERED: NON-FORMULARY MEDICATION 1 EACH EACH (Alendronate Sodium [Fosamax] 70 MG) PO SCH (09:08)
[2017-06-07] MEDS: *HR* HYDROcodone/Acet 5/325 mg TABLET PO PRN (16:06)
[2017-06-07] MEDS: *HR* LORazepam 0.5 MG TABLET PO PRN (16:07)
--- NOTE | 2017-06-07 19:56 | Electrocardiograph Report ---
[address] [place], [place] [address] Test Date: 2017-06-03 Pat Name: Sandra Cabrera Department: 113 Room: 3B Gender: F Benefits Assistant: : 1940 Requested By: Pedro Mcclure Order Number: [id number] Reading MD: Carrie Harris Measurements Intervals [place] Rate: 66 P: 78 MT: 151 QRS: -38 QRSD: 103 T: 86 QT: 404 QTc: 418 Interpretive Statements SINUS RHYTHM WITH OCCASIONAL ECTOPIC PREMATURE COMPLEXES POSSIBLE LEFT ATRIAL ENLARGEMENT MARKED LEFT AXIS DEVIATION LOW QRS VOLTAGE IN PRECORDIAL LEADS PATTERN CONSISTENT WITH PULMONARY DISEASE INCOMPLETE RIGHT BUNDLE BRANCH BLOCK Electronically Signed On 06-07-2017 19:54:59 EST by Carrie Harris
--- NOTE | 2017-06-07 19:57 | Electrocardiograph Report ---
[address] [place] [address] Test Date: 2017-06-04 Pat Name: Sandra Cabrera Department: 113 Room: 3B65 Gender: F Director Selection And Administration: : 1940 Requested By: Skyler Houston Order Number: [id number] Reading MD: Carrie Harris Measurements Intervals [place] Rate: 63 P: 69 NH: 154 QRS: -35 QRSD: 113 T: 32 QT: 401 QTc: 408 Interpretive Statements SINUS RHYTHM WITH OCCASIONAL VENTRICULAR PREMATURE COMPLEXES POSSIBLE LEFT ATRIAL ENLARGEMENT MARKED LEFT AXIS DEVIATION PATTERN CONSISTENT WITH PULMONARY DISEASE POSSIBLE INFERIOR MYOCARDIAL INFARCTION, PROBABLY OLD WITH POSTERIOR EXTENSION Electronically Signed On 06-07-2017 19:55:51 EST by Carrie Harris
--- NOTE | 2017-06-07 20:13 | Internal Med Progress Note ---
Date of Encounter: 06/07/17 Time of Encounter: 10:20 - Assessment and plan (1) Acute on chronic respiratory failure with hypoxia and hypercapnia Current Visit: Yes Status: Acute Assessment and plan: Continues to need oxygen as she desaturates when off. Continue to wean as able. Recheck CXR tonight. (2) Acute metabolic encephalopathy Current Visit: Yes Status: Acute Assessment and plan: Mental status has waxed and waned. Not sleeping at night - Trazodone added. Decrease daytime meds. (3) CAD (coronary artery disease) Current Visit: Yes Status: Chronic Assessment and plan: Chronic issue Qualifiers: Coronary Disease-Associated Artery/Lesion type: [place] artery [place] vs. transplanted heart: [place] heart Associated angina: angina presence unspecified Qualified Code(s): I25.10 - Atherosclerotic heart disease of [place] coronary artery without angina pectoris (4) PAF (paroxysmal atrial fibrillation) Current Visit: Yes Status: Chronic Assessment and plan: Chronic issue. (5) HTN (hypertension) Current Visit: No Status: Chronic Assessment and plan: Continue current meds Qualifiers: Hypertension type: essential hypertension Qualified Code(s): I10 - Essential (primary) hypertension - Subjective Interval history: Ms Cabrera is currently admitted for acute encephalopathy and cardiac arrest. She remains moderate to high risk due to potential for worsening clinical status. Ms Cabrera is still not as responsive. Her is at bedside and feels she is not progressing. She was awake all night and sleeping during the day. No fever or chills. - Constitutional Vitals: Temp Pulse Resp BP Pulse Ox 97.3 F L 61 18 113/68 95 06/07/17 11:39 06/07/17 11:39 06/07/17 15:27 06/07/17 11:39 06/07/17 15:27 General appearance: Present: A&O X 2 - Head Head exam: Present: normocephalic - Eye Eye exam: Present: EOMI, conjuntiva pink - ENT ENT exam: Present: mucous membranes dry - Respiratory Respiratory exam: Present: decreased breath sounds, rhonchi. Absent: rales, wheezes - Cardiovascular Cardiovascular exam: Present: distant heart sounds, RRR - GI/Abdominal GI/Abdominal exam: Present: soft. Absent: tenderness - Extremities Exam Extremities exam: Present: warm - Neurological Exam Neurological exam: Present: alert - Skin Skin exam: Present: dry, warm Internal Medicine: Result - Labs CBC & Chem 7: 06/07/17 04:20 06/07/17 04:20 Labs: Short CBC 06/07/17 Range/Units 04:20 WBC 9.0 (4.3-11.1) K/mcL Hgb 8.6 L (11.5-15.4) g/dL Hct 29.7 L (35.3-44.9) % Plt Count 334 (140-400) K/mcL Neutrophils # 6.5 (1.6-8.9) K/mcL BMP 06/07/17 04:20 Sodium 142 Potassium 3.6 Chloride 96 L Carbon Dioxide 38 H BUN 14 Creatinine 1.11 Glucose 129 H Calcium 9.5 - ABG Interpretation ABG results: ABG ABG pH 7.34 pH Units (7.32-7.45) 06/03/17 09:22 ABG pCO2 63 mmHg (35-45) H 06/03/17 09:22 ABG pO2 139 mmHg (85-104) H 06/03/17 09:22 ABG O2 Saturation 99 % (95-98) H 06/03/17 09:22 PT/INR, D-dimer PT 13.2 Seconds (9.4-12.1) H 05/28/17 12:16 - VTE Documentation of Mechanical Device: Intermittent pneumatic compression device Consult Discharge Plan - Plan Referrals: Vanita Chavez, PASTORAL WORKER [Primary Care Provider] - 06/07/17 9:00 am NONE,PCP [Non-Partnered Physician] -
[2017-06-07] MEDS: traZODone 50 MG TABLET PO SCH (20:21)
[2017-06-08] MEDS: *HR* HYDROcodone/Acet 5/325 mg TABLET PO PRN ×2 (02:12→21:58)
[2017-06-08] MEDS: *HR* LORazepam 0.5 MG TABLET PO PRN (02:12)
[2017-06-08] MEDS: Levalbuterol Neb 1.25 MG/3 ML IH SCH ×4 (04:30→21:20)
[2017-06-08 04:59] LABS: Basophils % 0.3 %; Eosinophils % 0.6 %; Red Cell Distribution Width 17.9 % (11.5-14.5)
[2017-06-08 05:00] LABS: Hematocrit 27.7 % (35.3-44.9); Immature Granulocytes % 0.8 % (0-4); Lymphocytes # 1.3 K/mcL (0.6-4.6); Lymphocytes % 19.9 %; Mean Corpuscular HGB Conc 28.9 g/dL (31.6-35.5); Mean Corpuscular Hemoglobin 27.7 pg (28.0-33.3); Mean Corpuscular Volume 95.8 fL (83.0-100.0); Monocytes # 0.8 K/mcL (0.0-1.3); Monocytes % 12.6 %; Neutrophils # 4.2 K/mcL (1.6-8.9); Nucleated Red Blood Cells 0.3 /100 WBC (0); Platelet Count 304 K/mcL (140-400); Red Blood Count 2.89 M/mcL (3.82-4.97); Segmented Neutrophils % 65.8 %
[2017-06-08 05:17] LABS: Anisocytosis 1+ (Not Present); Platelet Estimate Normal (Normal); Polychromasia 1+ (Not Present)
[2017-06-08 05:18] LABS: Macrocytosis Present (Not Present)
[2017-06-08 05:19] LABS: Calcium 9.2 mg/dL (8.6-10.3); Magnesium 1.6 mg/dL (1.6-2.6); Potassium 3.6 mEq/L (3.5-5.1)
[2017-06-08] MEDS: Apixaban 5 MG TABLET PO SCH ×2 (09:03→19:55)
[2017-06-08] MEDS: Isosorbide MONOnitrate (24 HR) 30 MG TAB.ER.24H PO SCH (09:03)
[2017-06-08] MEDS: Furosemide 40 MG/4 ML VIAL IVP SCH (09:03)
[2017-06-08] MEDS: Piperacillin/Tazobactam 3.375 GM in 0.9 % Sodium Chloride Mini Bag 100 ML IVPB SCH ×2 (09:06→17:33)
--- NOTE | 2017-06-08 09:30 | Internal Med Progress Note ---
Date of Encounter: 06/08/17 Time of Encounter: 07:45 - Assessment and plan (1) Acute on chronic respiratory failure with hypoxia and hypercapnia Current Visit: Yes Status: Acute Assessment and plan: Oxygen had to be increased last night. CXR shows worsening infiltrates. Will check ABG due to elevated CO2 on labs and increasing confusion. Start abx today after cultures. (2) Pneumonia Current Visit: No Status: Suspected Assessment and plan: Pt with worsening infiltrates on CXR and need for increased oxygen amounts. Will check blood cultures. Sputum cx if able. Start Zosyn and Vancomycin at this time. She has no leukocytosis but has clinically declined and infiltrates have worsened. Qualifiers: Pneumonia type: due to other aerobic Gram-negative bacteria Laterality: bilateral Lung location: lower lobe of lung Qualified Code(s): J15.6 - Pneumonia due to other Gram-negative bacteria (3) Acute metabolic encephalopathy Current Visit: Yes Status: Acute Assessment and plan: Slept better with Trazodone last night. Remains lethargic this AM and moaning. Will treat pneumonia. Check ABG. (4) CAD (coronary artery disease) Current Visit: Yes Status: Chronic Assessment and plan: Chronic issue Qualifiers: Coronary Disease-Associated Artery/Lesion type: [place] artery [place] vs. transplanted heart: [place] heart Associated angina: angina presence unspecified Qualified Code(s): I25.10 - Atherosclerotic heart disease of [place] coronary artery without angina pectoris (5) PAF (paroxysmal atrial fibrillation) Current Visit: Yes Status: Chronic Assessment and plan: Chronic issue. (6) HTN (hypertension) Current Visit: No Status: Chronic Assessment and plan: Continue current meds Qualifiers: Hypertension type: essential hypertension Qualified Code(s): I10 - Essential (primary) hypertension (7) CHF (congestive heart failure) Current Visit: Yes Status: Chronic Assessment and plan: Elevated CO2 on labs may be metabolic. Will watch diuresis amount. Not on KARLA due to renal function. Qualifiers: Heart failure type: systolic Heart failure chronicity: chronic Qualified Code(s): I50.22 - Chronic systolic (congestive) heart failure (8) Chronic kidney disease Current Visit: No Status: Chronic Assessment and plan: Chronic issue. Adjusting meds for renal function. Qualifiers: Chronic kidney disease stage: stage 3 (moderate) Qualified Code(s): N18.3 - Chronic kidney disease, stage 3 (moderate) - Subjective Interval history: Ms Cabrera is currently admitted for acute encephalopathy and cardiac arrest. She remains moderate to high risk due to potential for worsening clinical status. Ms Cabrera is up to bedside commode. She slept better last night with the Trazodone. She is moaning at this time and does not converse with me. She does not follow commands as well at this time. Oxygen needed to be increased last night. CXR shows worsening bilateral infiltrates. No fever noted. - Constitutional Vitals: Temp Pulse Resp BP Pulse Ox 97.6 F 80 16 165/88 93 06/08/17 07:53 06/08/17 07:53 06/08/17 07:53 06/08/17 07:53 06/08/17 07:53 General appearance: Present: A&O X 2, mild distress - Head Head exam: Present: normocephalic - Eye Eye exam: Present: conjuntiva pink - ENT ENT exam: Present: mucous membranes dry - Respiratory Respiratory exam: Present: decreased breath sounds, rhonchi. Absent: rales, wheezes Additional comments: Decreased in the bases. - Cardiovascular Cardiovascular exam: Present: distant heart sounds, RRR. Absent: tachycardia - GI/Abdominal GI/Abdominal exam: Present: soft. Absent: tenderness - Extremities Exam Extremities exam: Present: warm. Absent: tenderness - Neurological Exam Neurological exam: Present: alert, altered Additional comments: Does not follow commands as well today. - Skin Skin exam: Present: dry, warm Internal Medicine: Result - Labs CBC & Chem 7: 06/08/17 04:12 06/08/17 04:12 Labs: Short CBC 06/08/17 Range/Units 04:12 WBC 6.4 (4.3-11.1) K/mcL Hgb 8.0 L (11.5-15.4) g/dL Hct 27.7 L (35.3-44.9) % Plt Count 304 (140-400) K/mcL Neutrophils # 4.2 (1.6-8.9) K/mcL BMP 06/08/17 04:12 Sodium 141 Potassium 3.6 Chloride 96 L Carbon Dioxide 41 H* BUN 13 Creatinine 1.09 Glucose 103 Calcium 9.2 - ABG Interpretation ABG results: ABG ABG pH 7.34 pH Units (7.32-7.45) 06/03/17 09:22 ABG pCO2 63 mmHg (35-45) H 06/03/17 09:22 ABG pO2 139 mmHg (85-104) H 06/03/17 09:22 ABG O2 Saturation 99 % (95-98) H 06/03/17 09:22 PT/INR, D-dimer PT 13.2 Seconds (9.4-12.1) H 05/28/17 12:16 - Impressions Impressions Chest X-Ray 06/07/17 20:17 IMPRESSION: Increasing patchy opacity within lower lungs bilaterally, especially on the left, suggesting multifocal pneumonia. Correlate with any clinical evidence of superimposed pneumonia. D/ / Jon Vasques MD / Jon Vasques MD Interpreting Provider: Jon Vasques MD - VTE Documentation of Mechanical Device: Intermittent pneumatic compression device Consult Discharge Plan - Plan Referrals: Vanita Chavez, CRAWLER CRANE OPERATOR [Primary Care Provider] - 06/07/17 9:00 am NONE,PCP [Non-Partnered Physician] -
[2017-06-08 11:54] LABS: ABG Base Excess 16 mEq/L (-2 to 3); ABG HCO3 41 mEq/L (21-27); ABG Oxygen Saturation 82 % (95-98); ABG PCO2 50 mmHg (35-45); ABG PH 7.52 pH Units (7.32-7.45); ABG PO2 43 mmHg (85-104); ABG TCO2 42 mEq/L (20-26)
[2017-06-08] MEDS: traZODone 50 MG TABLET PO SCH (19:55)
[2017-06-08] MEDS ORDERED: *HR* Morphine 2 MG/ML SYRINGE IVP PRN (23:02)
[2017-06-08] MEDS ORDERED: Nitroglycerin 0.4 MG TAB.SUBL SL PRN (23:03)
--- NOTE | 2017-06-08 23:05 | Event Note ---
Date of Encounter: 06/08/17 Time of Encounter: 23:03 Called darci with concern for new Chest pain. Patient only mimics my lines of questioning. EKG shows SR no new ST elevation of depression, Initial troponin 0.18. Concern for NSTEMI. Consult cardiology to see in the morning. Days team to call.
[2017-06-09] MEDS ORDERED: Magnesium Oxide 400 MG TABLET PO ONE (00:52)
[2017-06-09] MEDS: Piperacillin/Tazobactam 3.375 GM in 0.9 % Sodium Chloride Mini Bag 100 ML IVPB SCH ×3 (02:40→20:18)
[2017-06-09] MEDS: Levalbuterol Neb 1.25 MG/3 ML IH SCH ×4 (04:29→22:22)
[2017-06-09 06:20] LABS: Mean Platelet Volume 10.1 fL (9.4-12.4); Red Cell Distribution Width 17.8 % (11.5-14.5)
[2017-06-09 06:21] LABS: Basophils % 0.4 %; Eosinophils % 0.4 %; Hematocrit 30.9 % (35.3-44.9); Immature Granulocytes % 0.4 % (0-4); Lymphocytes # 0.9 K/mcL (0.6-4.6); Lymphocytes % 17.2 %; Mean Corpuscular HGB Conc 29.1 g/dL (31.6-35.5); Mean Corpuscular Volume 96.3 fL (83.0-100.0); Monocytes # 0.6 K/mcL (0.0-1.3); Neutrophils # 3.5 K/mcL (1.6-8.9); Platelet Count 251 K/mcL (140-400); Red Blood Count 3.21 M/mcL (3.82-4.97); Segmented Neutrophils % 69.6 %
[2017-06-09 06:42] LABS: Anisocytosis 1+ (Not Present); Hypochromasia Present (Not Present); Macrocytosis Present (Not Present)
[2017-06-09 06:43] LABS: Platelet Estimate Normal (Normal); Polychromasia 1+ (Not Present)
[2017-06-09 07:07] LABS: Calcium 9.4 mg/dL (8.6-10.3); Magnesium 1.8 mg/dL (1.6-2.6); Potassium 3.8 mEq/L (3.5-5.1)
--- NOTE | 2017-06-09 08:44 | Internal Med Progress Note ---
Date of Encounter: 06/09/17 Time of Encounter: 08:30 - Assessment and plan (1) Acute on chronic respiratory failure with hypoxia and hypercapnia Current Visit: Yes Status: Acute Assessment and plan: Still on high levels of supplementation. Will wean as much as possible. Continue IV abx for PNA. Hold diuresis at this time as I feel she is dry. (2) Pneumonia Current Visit: No Status: Suspected Assessment and plan: Pt is clinically improving with IV abx. Continue current treatment. Will switch to PO at discharge. Qualifiers: Pneumonia type: due to other aerobic Gram-negative bacteria Laterality: bilateral Lung location: lower lobe of lung Qualified Code(s): J15.6 - Pneumonia due to other Gram-negative bacteria (3) Acute metabolic encephalopathy Current Visit: Yes Status: Acute Assessment and plan: Appears to be slowly improving with current treatment. (4) CAD (coronary artery disease) Current Visit: Yes Status: Chronic Assessment and plan: Chronic issue Qualifiers: Coronary Disease-Associated Artery/Lesion type: [place] artery [place] vs. transplanted heart: [place] heart Associated angina: angina presence unspecified Qualified Code(s): I25.10 - Atherosclerotic heart disease of [place] coronary artery without angina pectoris (5) PAF (paroxysmal atrial fibrillation) Current Visit: Yes Status: Chronic Assessment and plan: Chronic issue. (6) HTN (hypertension) Current Visit: No Status: Chronic Assessment and plan: Continue current meds Qualifiers: Hypertension type: essential hypertension Qualified Code(s): I10 - Essential (primary) hypertension (7) CHF (congestive heart failure) Current Visit: Yes Status: Chronic Assessment and plan: Elevated CO2 on labs may be metabolic. Will watch diuresis amount. Not on KARLA due to renal function. Qualifiers: Heart failure type: systolic Heart failure chronicity: chronic Qualified Code(s): I50.22 - Chronic systolic (congestive) heart failure (8) Chronic kidney disease Current Visit: No Status: Chronic Assessment and plan: Chronic issue. Adjusting meds for renal function. Qualifiers: Chronic kidney disease stage: stage 3 (moderate) Qualified Code(s): N18.3 - Chronic kidney disease, stage 3 (moderate) - Subjective Interval history: Ms Cabrera is currently admitted for acute encephalopathy and cardiac arrest. She remains moderate to high risk due to potential for worsening clinical status. Ms Cabrera is more alert and interactive today. She has been refusing medications. No fever. She is eating breakfast at this time. She has been sleeping better as well. - Constitutional Vitals: Temp Pulse Resp BP Pulse Ox 97.5 F L 65 15 133/77 96 06/09/17 06:41 06/09/17 06:41 06/09/17 06:41 06/09/17 06:41 06/09/17 06:41 General appearance: Present: A&O X 2 - Head Head exam: Present: normocephalic - Eye Eye exam: Present: conjuntiva pink - ENT ENT exam: Present: mucous membranes dry - Respiratory Respiratory exam: Present: decreased breath sounds, rhonchi. Absent: wheezes - Cardiovascular Cardiovascular exam: Present: RRR. Absent: tachycardia - GI/Abdominal GI/Abdominal exam: Present: soft. Absent: tenderness - Extremities Exam Extremities exam: Present: warm. Absent: tenderness - Neurological Exam Neurological exam: Present: alert - Skin Skin exam: Present: dry, warm Internal Medicine: Result - Labs CBC & Chem 7: 06/09/17 05:52 06/09/17 05:52 Labs: Short CBC 06/09/17 Range/Units 05:52 WBC 5.0 (4.3-11.1) K/mcL Hgb 9.0 L (11.5-15.4) g/dL Hct 30.9 L (35.3-44.9) % Plt Count 251 (140-400) K/mcL Neutrophils # 3.5 (1.6-8.9) K/mcL BMP 06/09/17 05:52 Sodium 140 Potassium 3.8 Chloride 98 Carbon Dioxide 29 BUN 15 Creatinine 1.32 H Glucose 95 Calcium 9.4 Cardiac Enzymes 06/08/17 06/09/17 Range/Units 22:07 05:52 Troponin I 0.18 H* 0.14 H* (< 0.04) ng/mL - ABG Interpretation ABG results: ABG ABG pH 7.52 pH Units (7.32-7.45) H 06/08/17 11:45 ABG pCO2 50 mmHg (35-45) H 06/08/17 11:45 ABG pO2 43 mmHg (85-104) L* 06/08/17 11:45 ABG O2 Saturation 82 % (95-98) L 06/08/17 11:45 PT/INR, D-dimer PT 13.2 Seconds (9.4-12.1) H 05/28/17 12:16 - VTE Documentation of Mechanical Device: Intermittent pneumatic compression device Consult Discharge Plan - Plan Referrals: Vanita Chavez CNP [Primary Care Provider] - 06/07/17 9:00 am NONE,PCP [Non-Partnered Physician] -
[2017-06-09] MEDS ORDERED: Potassium Chloride 20 MEQ, Lidocaine 1% 2 ML in D5% in Water 250 ML IVPB ONE (08:51)
[2017-06-09] MEDS ORDERED: Furosemide 40 MG/4 ML VIAL IVP SCH (09:00)
[2017-06-09] MEDS ORDERED: 0.9 % Sodium Chloride 1,000 ML IVC SCH (09:00)
[2017-06-09] MEDS: Isosorbide MONOnitrate (24 HR) 30 MG TAB.ER.24H PO SCH ×2 (09:24→11:26)
[2017-06-09] MEDS: Apixaban 5 MG TABLET PO SCH ×3 (09:24→20:16)
--- NOTE | 2017-06-09 10:12 | Cardiology Progress Note ---
Date of Encounter: 06/09/17 Time of Encounter: 10:00 Assessment and Plan (1) Elevated troponin Current Visit: Yes Status: Acute See full Cardiology/EP consult for prior recommendations. Reconsulted overnight for elevated troponin--0.18, 0.14. No acute ST/T wave changes noted. Patient is unable to provide details regarding events. Upon exam, she denies chest pain/discomfort currently. No significant changes on echo as compared to prior. Of note, troponin levels appear to be chronically elevated. Patient is refusing to taking medications this AM; does seem like a good candidate for ishemic evaluation, CODE is [id number]. Has previously declined C. Would recommend continuation of medical management-asa, statin, nitrates, and betablocker. No further cardiac testing recommended, Cardiology will sign-off. (2) CAD (coronary artery disease) Current Visit: Yes Status: Acute History CAD with last heart catheterization June 2010. Underwent drug-eluting stent to proximal LAD 90-90% lesion, had mid circumflex 50% in-stent restenosis , occluded proximal OM1 stent, distal circumflex 40% stenosis, proximal RCA 80% stenosis. July 2012 stress test showed perfusion imaging positive for infarct and ronal-infarct ischemia with basal/inferior lateral small ronal-infarct ischemia-- patient had previously preferred medical management. Qualifiers: Coronary Disease-Associated Artery/Lesion type: [place] artery [place] vs. transplanted heart: [place] heart Associated angina: with unspecified angina Qualified Code(s): I25.119 - Atherosclerotic heart disease of [place] coronary artery with unspecified angina pectoris Discussion w patient/family: The assessment and plan as outlined above was discussed with the patient and/or family members who expressed understanding and agreement. All questions were answered. Thank you for involving us in the care of your patient. Please call with any questions. The patient will be discussed and reviewed with Dr. Harris; changes to be made accordingly. Subjective Principal diagnosis: Elevated troponin Interval history: Patient denies chest pain currently. She is unable to provide any other information regarding episode of chest pain yesterday. Objective Vital Signs, Last 4 Hours Temp Pulse Resp BP Pulse Ox 06/09/17 06:41 97.5 F L 65 15 133/77 96 General: No Apparent Distress HEENT: Atraumatic, Normocephaly Cardiac: Reg Rate and Rhythm, Normal S1 and S2 Lungs: Other (coarse breath sounds throughout) Neuro: No focal deficits noted Abdomen: Soft, Non-Tender Skin: No rashes noted on visualized skin Musculoskeletal: No Chest Wall Tenderness Extremities: Other (mild BLE edema) Results 06/09/17 05:52 06/09/17 05:52 Lab Results 06/08/17 06/09/17 06/09/17 22:07 05:52 05:52 WBC 5.0 Hgb 9.0 L Hct 30.9 L Plt Count 251 Sodium 140 Potassium 3.8 Chloride 98 Carbon Dioxide 29 BUN 15 Creatinine 1.32 H Glucose 95 Calcium 9.4 Magnesium 1.8 Troponin I 0.18 H* 06/09/17 05:52 WBC Hgb Hct Plt Count Sodium Potassium Chloride Carbon Dioxide BUN Creatinine Glucose Calcium Magnesium Troponin I 0.14 H* Active Medications Hydrocodone Bitart/Acetaminophen ([place] 5-325 Mg) 1 tab PO Q6HR PRN PRN Reason: Moderate Pain Stop: 12/07/17 14:17 Last Admin: 06/08/17 21:58 Dose: 1 tab Apixaban (Eliquis) 2.5 mg PO BID [facility] Stop: 12/01/17 11:31 Last Admin: 06/08/17 19:55 Dose: 2.5 mg Carvedilol (Coreg) 12.5 mg PO BIDWM MARIBEL PRN Reason: Protocol Stop: 12/02/17 17:01 Last Admin: 06/08/17 17:35 Dose: 12.5 mg Vancomycin HCl 1,500 mg/ (Sodium Chloride) 250 mls @ 167 mls/hr IVPB Q24H [facility]EL PRN Reason: Protocol Stop: 12/08/17 10:01 Last Admin: 06/08/17 12:54 Dose: 167 mls/hr Piperacillin Sod/Tazobactam (Sod 3.375 gm/ Sodium Chloride) 100 mls @ 25 mls/ hr IVPB Q12H [facility] Stop: 12/08/17 09:01 Last Admin: 06/09/17 09:23 Dose: 25 mls/hr Sodium Chloride (0.9 % Sodium Chloride) 1,000 mls @ 100 mls/hr IVC .Q10H [facility] Stop: 06/09/17 18:59 Potassium Chloride 20 meq/ (Lidocaine 2 ml/ Dextrose) 262 mls @ 131 mls/hr IVPB ONCE ONE Stop: 06/09/17 10:50 Isosorbide Mononitrate (Imdur) 30 mg PO DAILY [facility] Stop: 12/03/17 09:01 Last Admin: 06/08/17 09:03 Dose: 30 mg Levalbuterol HCl (Xopenex) 1.25 mg IH [id number] MARIBEL Stop: 12/03/17 23:46 Last Admin: 06/09/17 04:29 Dose: 1.25 mg Lorazepam (Ativan) 0.5 mg PO TID PRN PRN Reason: Anxiety Stop: 12/07/17 14:18 Last Admin: 06/08/17 02:12 Dose: 0.5 mg Naloxone HCl (Narcan) 0.4 mg IVP Q2MIN PRN PRN Reason: SEE COMMENTS Stop: 11/27/17 16:19 Nitroglycerin (Nitroglycerin) 0.4 mg SL Q5MIN PRN PRN Reason: Chest Pain Stop: 12/08/17 23:04 Omeprazole (Prilosec) 40 mg PO DAILY@0630 [facility] PRN Reason: Protocol Stop: 12/02/17 06:31 Last Admin: 06/09/17 06:13 Dose: Not Given Ondansetron HCl (Zofran) 4 mg IVP Q6HR PRN; Protocol PRN Reason: Nausea Stop: 12/03/17 23:06 Last Admin: 06/03/17 23:52 Dose: 4 mg Trazodone HCl (Trazodone) 50 mg PO HS [facility] Stop: 12/07/17 21:01 Last Admin: 06/08/17 19:55 Dose: 50 mg - Imaging and Cardiology Echo: report reviewed Other Results: 12 hour tele: avg HR=70. - EKG Interpretation EKG results cardiology: personally reviewed - VTE Documentation of Mechanical Device: Intermittent pneumatic compression device Consult Discharge Plan - Plan Referrals: Vanita Chavez, SENIOR TAX MANAGER [Primary Care Provider] - 06/07/17 9:00 am NONE,PCP [Non-Partnered Physician] -
[2017-06-09] MEDS: traZODone 50 MG TABLET PO SCH (20:15)
[2017-06-10] MEDS: Levalbuterol Neb 1.25 MG/3 ML IH SCH ×4 (04:13→21:36)
[2017-06-10 04:48] LABS: Hemoglobin 8.3 g/dL (11.5-15.4); Immature Granulocytes % 0.4 % (0-4); Lymphocytes % 13.8 %
[2017-06-10 04:49] LABS: Basophils % 0.3 %; Eosinophils # 0.1 K/mcL (0.0-0.6); Hematocrit 29.2 % (35.3-44.9); Lymphocytes # 0.9 K/mcL (0.6-4.6); Mean Corpuscular HGB Conc 28.4 g/dL (31.6-35.5); Mean Corpuscular Hemoglobin 27.2 pg (28.0-33.3); Mean Corpuscular Volume 95.7 fL (83.0-100.0); Mean Platelet Volume 9.8 fL (9.4-12.4); Monocytes # 0.8 K/mcL (0.0-1.3); Monocytes % 11.9 %; Neutrophils # 4.9 K/mcL (1.6-8.9); Platelet Count 288 K/mcL (140-400); Red Blood Count 3.05 M/mcL (3.82-4.97); Red Cell Distribution Width 17.6 % (11.5-14.5); Segmented Neutrophils % 72.6 %
[2017-06-10 05:07] LABS: Alanine Aminotransferase 7 Units/L (7-52); Albumin 2.7 g/dL (3.5-5.7); Albumin/Globulin Ratio 0.8 (1.1-2.2); Alkaline Phosphatase 151 Units/L (34-104); Aspartate Amino Transferase 14 Units/L (13-39); BUN/Creatinine Ratio 10 (6-26); Bilirubin,Total 0.4 mg/dL (0.3-1.0); Blood Urea Nitrogen 11 mg/dL (8-23); Calcium 9.2 mg/dL (8.6-10.3); Carbon Dioxide 33 mEq/L (23-29); Chloride 103 mEq/L (98-107); Globulin 3.3 g/dL (2.4-3.5); Glucose 113 mg/dL (70-105); Magnesium 1.7 mg/dL (1.6-2.6); Osmolality,Calculated 292 (280-300); Potassium 3.5 mEq/L (3.5-5.1); Sodium 141 mEq/L (136-145); eGFR For African Americans > 60 (> 60); eGFR For Non-African Americans 51 (> 60)
[2017-06-10 05:13] LABS: Troponin I 0.11 ng/mL (< 0.04)
[2017-06-10 05:44] LABS: Anisocytosis 1+ (Not Present); Hypochromasia Present (Not Present); Platelet Estimate Normal (Normal); Polychromasia 1+ (Not Present); Toxic Granulation Present (Not Present)
[2017-06-10] MEDS: Apixaban 5 MG TABLET PO SCH ×2 (08:26→20:35)
[2017-06-10] MEDS: Isosorbide MONOnitrate (24 HR) 30 MG TAB.ER.24H PO SCH (08:27)
[2017-06-10] MEDS: Piperacillin/Tazobactam 3.375 GM in 0.9 % Sodium Chloride Mini Bag 100 ML IVPB SCH ×2 (08:27→20:35)
[2017-06-10] MEDS ORDERED: Furosemide 20 MG/2 ML VIAL IVP ONE (09:07)
[2017-06-10] MEDS ORDERED: Aminoglycoside Consult 1 EACH MC ONE (12:26)
--- NOTE | 2017-06-10 16:26 | Electrocardiograph Report ---
[address] [place] [address] Test Date: 2017-06-08 Pat Name: Sandra Cabrera Department: 113 Room: 3B Gender: F Clean Room Technician: : 1940 Requested By: Flip Epps Order Number: [id number] Reading MD: Kyle Ureña DO Measurements Intervals [place] Rate: 60 P: 69 RI: 141 QRS: -36 QRSD: 114 T: -10 QT: 448 QTc: 449 Interpretive Statements SINUS RHYTHM POSSIBLE LEFT ATRIAL ENLARGEMENT MARKED LEFT AXIS DEVIATION INFERIOR MYOCARDIAL INFARCTION, PROBABLY OLD WITH POSTERIOR EXTENSION MODERATE T-WAVE ABNORMALITY, CONSIDER ANTEROLATERAL ISCHEMIA Electronically Signed On 06-10-2017 16:24:59 EST by Kyle Ureña DO
--- NOTE | 2017-06-10 18:21 | Internal Med Progress Note ---
Date of Encounter: 06/10/17 Time of Encounter: 08:30 - Assessment and plan (1) Acute on chronic respiratory failure with hypoxia and hypercapnia Current Visit: Yes Status: Acute Assessment and plan: Have been able to titrate oxygen down some. Will continue treatment for pneumonia as well. Lasix given again today. (2) Pneumonia Current Visit: No Status: Suspected Assessment and plan: Seems to be continuing to improve clinically. Continue IV abx. Qualifiers: Pneumonia type: due to other aerobic Gram-negative bacteria Laterality: bilateral Lung location: lower lobe of lung Qualified Code(s): J15.6 - Pneumonia due to other Gram-negative bacteria (3) Acute metabolic encephalopathy Current Visit: Yes Status: Acute Assessment and plan: Persists. Seems to be slowly improving though. (4) CAD (coronary artery disease) Current Visit: Yes Status: Chronic Assessment and plan: Chronic issue Qualifiers: Coronary Disease-Associated Artery/Lesion type: [place] artery [place] vs. transplanted heart: [place] heart Associated angina: angina presence unspecified Qualified Code(s): I25.10 - Atherosclerotic heart disease of [place] coronary artery without angina pectoris (5) PAF (paroxysmal atrial fibrillation) Current Visit: Yes Status: Chronic Assessment and plan: Chronic issue. (6) HTN (hypertension) Current Visit: No Status: Chronic Assessment and plan: Continue current meds Qualifiers: Hypertension type: essential hypertension Qualified Code(s): I10 - Essential (primary) hypertension (7) CHF (congestive heart failure) Current Visit: Yes Status: Chronic Assessment and plan: Elevated CO2 on labs may be metabolic. Will watch diuresis amount. Not on KARLA due to renal function. Qualifiers: Heart failure type: systolic Heart failure chronicity: chronic Qualified Code(s): I50.22 - Chronic systolic (congestive) heart failure (8) Chronic kidney disease Current Visit: No Status: Chronic Assessment and plan: Chronic issue. Adjusting meds for renal function. Qualifiers: Chronic kidney disease stage: stage 3 (moderate) Qualified Code(s): N18.3 - Chronic kidney disease, stage 3 (moderate) - Subjective Interval history: Ms Cabrera is currently admitted for acute encephalopathy and cardiac arrest. She remains moderate to high risk due to potential for worsening clinical status. Ms Cabrera is a little more dyspneic today. Has been refusing therapy. No fever or chills. Overall more alert. - Constitutional Vitals: Temp Pulse Resp BP Pulse Ox 97.5 F L 68 18 146/76 99 06/10/17 15:45 06/10/17 15:45 06/10/17 16:03 06/10/17 15:45 06/10/17 16:03 General appearance: Present: A&O X 2 - Head Head exam: Present: normocephalic - Eye Eye exam: Present: conjuntiva pink - ENT ENT exam: Present: mucous membranes dry - Respiratory Respiratory exam: Present: decreased breath sounds, rhonchi - Cardiovascular Cardiovascular exam: Present: RRR. Absent: tachycardia - GI/Abdominal GI/Abdominal exam: Present: soft. Absent: tenderness - Extremities Exam Extremities exam: Present: warm. Absent: tenderness - Neurological Exam Neurological exam: Present: alert - Skin Skin exam: Present: dry, warm Internal Medicine: Result - Labs CBC & Chem 7: 06/10/17 04:27 06/10/17 04:27 Labs: Short CBC 06/10/17 Range/Units 04:27 WBC 6.7 (4.3-11.1) K/mcL Hgb 8.3 L (11.5-15.4) g/dL Hct 29.2 L (35.3-44.9) % Plt Count 288 (140-400) K/mcL Neutrophils # 4.9 (1.6-8.9) K/mcL BMP 06/10/17 04:27 Sodium 141 Potassium 3.5 Chloride 103 Carbon Dioxide 33 H BUN 11 Creatinine 1.05 Glucose 113 H Calcium 9.2 Cardiac Enzymes 06/10/17 Range/Units 04:27 Troponin I 0.11 H* (< 0.04) ng/mL Liver Function 06/10/17 Range/Units 04:27 Total Bilirubin 0.4 (0.3-1.0) mg/dL AST 14 (13-39) Units/L ALT 7 (7-52) Units/L Alkaline Phosphatase 151 H (34-104) Units/L Albumin 2.7 L (3.5-5.7) g/dL - ABG Interpretation ABG results: ABG ABG pH 7.52 pH Units (7.32-7.45) H 06/08/17 11:45 ABG pCO2 50 mmHg (35-45) H 06/08/17 11:45 ABG pO2 43 mmHg (85-104) L* 06/08/17 11:45 ABG O2 Saturation 82 % (95-98) L 06/08/17 11:45 PT/INR, D-dimer PT 13.2 Seconds (9.4-12.1) H 05/28/17 12:16 - VTE Documentation of Mechanical Device: Intermittent pneumatic compression device Consult Discharge Plan - Plan Referrals: Vanita Chavez CNP [Primary Care Provider] - 06/07/17 9:00 am NONE,PCP [Non-Partnered Physician] -
[2017-06-10] MEDS: traZODone 50 MG TABLET PO SCH (20:35)
[2017-06-10] MEDS: *HR* LORazepam 0.5 MG TABLET PO PRN (21:55)
[2017-06-11] MEDS: Levalbuterol Neb 1.25 MG/3 ML IH SCH ×4 (03:48→21:46)
[2017-06-11 04:40] LABS: Hemoglobin 8.4 g/dL (11.5-15.4)
[2017-06-11 04:41] LABS: Hematocrit 30.3 % (35.3-44.9); Mean Corpuscular HGB Conc 27.7 g/dL (31.6-35.5); Mean Corpuscular Hemoglobin 26.8 pg (28.0-33.3); Mean Corpuscular Volume 96.5 fL (83.0-100.0); Mean Platelet Volume 9.9 fL (9.4-12.4); Platelet Count 299 K/mcL (140-400); Red Blood Count 3.14 M/mcL (3.82-4.97); Red Cell Distribution Width 17.4 % (11.5-14.5)
[2017-06-11 04:58] LABS: Calcium 9.1 mg/dL (8.6-10.3); Magnesium 1.9 mg/dL (1.6-2.6); Potassium 3.5 mEq/L (3.5-5.1)
[2017-06-11] MEDS: Piperacillin/Tazobactam 3.375 GM in 0.9 % Sodium Chloride Mini Bag 100 ML IVPB SCH ×2 (08:02→16:26)
[2017-06-11] MEDS: Isosorbide MONOnitrate (24 HR) 30 MG TAB.ER.24H PO SCH (08:03)
[2017-06-11] MEDS: Apixaban 5 MG TABLET PO SCH ×2 (08:10→21:20)
--- NOTE | 2017-06-11 08:11 | Internal Med Progress Note ---
Date of Encounter: 06/11/17 Time of Encounter: 08:09 - Assessment and plan (1) Acute on chronic respiratory failure with hypoxia and hypercapnia Current Visit: Yes Status: Acute Assessment and plan: Weaning down oxygen as able. Will recheck CXR today. Sounds more congested this AM. (2) Pneumonia Current Visit: No Status: Suspected Assessment and plan: Continuing IV abx. More congested today. Rechecking CXR. Qualifiers: Pneumonia type: due to other aerobic Gram-negative bacteria Laterality: bilateral Lung location: lower lobe of lung Qualified Code(s): J15.6 - Pneumonia due to other Gram-negative bacteria (3) Acute metabolic encephalopathy Current Visit: Yes Status: Acute Assessment and plan: Seems more confused at this time but she just woke up. No new localizing findings. Will review meds this AM. She has been sleeping better with low dose Trazodone. Does not appear to be as agitated. Has been refusing therapy. Again encouraged that she has to participate. (4) CAD (coronary artery disease) Current Visit: Yes Status: Chronic Assessment and plan: Chronic issue Qualifiers: Coronary Disease-Associated Artery/Lesion type: [place] artery [place] vs. transplanted heart: [place] heart Associated angina: angina presence unspecified Qualified Code(s): I25.10 - Atherosclerotic heart disease of [place] coronary artery without angina pectoris (5) PAF (paroxysmal atrial fibrillation) Current Visit: Yes Status: Chronic Assessment and plan: Chronic issue. (6) HTN (hypertension) Current Visit: No Status: Chronic Assessment and plan: Continue current meds Qualifiers: Hypertension type: essential hypertension Qualified Code(s): I10 - Essential (primary) hypertension (7) CHF (congestive heart failure) Current Visit: Yes Status: Chronic Assessment and plan: Will restart low dose Lasix and watch renal function. She is not on KARLA due to renal function. Qualifiers: Heart failure type: systolic Heart failure chronicity: chronic Qualified Code(s): I50.22 - Chronic systolic (congestive) heart failure (8) Chronic kidney disease Current Visit: No Status: Chronic Assessment and plan: Chronic issue. Adjusting meds for renal function. Qualifiers: Chronic kidney disease stage: stage 3 (moderate) Qualified Code(s): N18.3 - Chronic kidney disease, stage 3 (moderate) - Subjective Interval history: Ms Cabrera is currently admitted for acute encephalopathy and cardiac arrest. She remains moderate to high risk due to potential for worsening clinical status. Ms Cabrera seems confused this AM but she just woke up. She keeps saying she is "[place]." Has some chest congestion. Has been refusing therapy. Says she wants get up. No fever or chills. No GI issues. - Constitutional Vitals: Temp Pulse Resp BP Pulse Ox 97.6 F 75 16 173/80 100 06/11/17 02:54 06/11/17 02:54 06/11/17 03:49 06/11/17 02:54 06/11/17 03:49 General appearance: Present: A&O X 1 - Head Head exam: Present: atraumatic, normocephalic - Eye Eye exam: Present: conjuntiva pink - ENT ENT exam: Present: mucous membranes moist - Respiratory Respiratory exam: Present: rhonchi Additional comments: Rhonchi anteriorly. No wheeze - Cardiovascular Cardiovascular exam: Present: distant heart sounds, RRR - GI/Abdominal GI/Abdominal exam: Present: soft. Absent: tenderness - Extremities Exam Extremities exam: Present: warm - Neurological Exam Neurological exam: Present: alert, altered - Skin Skin exam: Present: dry, warm Internal Medicine: Result - Labs CBC & Chem 7: 06/11/17 04:02 06/11/17 04:02 Labs: Short CBC 06/11/17 Range/Units 04:02 WBC 7.5 (4.3-11.1) K/mcL Hgb 8.4 L (11.5-15.4) g/dL Hct 30.3 L (35.3-44.9) % Plt Count 299 (140-400) K/mcL [facility] 06/11/17 04:02 Sodium 143 Potassium 3.5 Chloride 101 Carbon Dioxide 37 H BUN 10 Creatinine 1.19 Glucose 113 H Calcium 9.1 - ABG Interpretation ABG results: ABG ABG pH 7.52 pH Units (7.32-7.45) H 06/08/17 11:45 ABG pCO2 50 mmHg (35-45) H 06/08/17 11:45 ABG pO2 43 mmHg (85-104) L* 06/08/17 11:45 ABG O2 Saturation 82 % (95-98) L 06/08/17 11:45 PT/INR, D-dimer PT 13.2 Seconds (9.4-12.1) H 05/28/17 12:16 - VTE Documentation of Mechanical Device: Intermittent pneumatic compression device Consult Discharge Plan - Plan Referrals: Vanita Chavez CNP [Primary Care Provider] - 06/07/17 9:00 am NONE,PCP [Non-Partnered Physician] -
[2017-06-11] MEDS: Furosemide 20 MG/2 ML VIAL IVP SCH (11:04)
[2017-06-11] MEDS: traZODone 50 MG TABLET PO SCH (21:20)
[2017-06-12] MEDS: Piperacillin/Tazobactam 3.375 GM in 0.9 % Sodium Chloride Mini Bag 100 ML IVPB SCH ×4 (00:44→22:47)
[2017-06-12] MEDS: Levalbuterol Neb 1.25 MG/3 ML IH SCH ×4 (03:56→22:30)
--- NOTE | 2017-06-12 07:49 | Internal Med Progress Note ---
Date of Encounter: 06/12/17 Time of Encounter: 07:47 - Assessment and plan (1) Acute on chronic respiratory failure with hypoxia and hypercapnia Current Visit: Yes Status: Acute Assessment and plan: Continuing to wean oxygen as able. Still with a lot of secretions at times but CXR has improved. Increased activity will help. (2) Pneumonia Current Visit: No Status: Suspected Assessment and plan: CXR has improved. Will de escalate abx and try to move to PO. Qualifiers: Pneumonia type: due to other aerobic Gram-negative bacteria Laterality: bilateral Lung location: lower lobe of lung Qualified Code(s): J15.6 - Pneumonia due to other Gram-negative bacteria (3) Acute metabolic encephalopathy Current Visit: Yes Status: Acute Assessment and plan: More alert and appropriate today. Answers questions at this time and appears to be oriented. Continue as is for now. (4) CAD (coronary artery disease) Current Visit: Yes Status: Chronic Assessment and plan: Chronic issue Qualifiers: Coronary Disease-Associated Artery/Lesion type: [place] artery [place] vs. transplanted heart: [place] heart Associated angina: angina presence unspecified Qualified Code(s): I25.10 - Atherosclerotic heart disease of [place] coronary artery without angina pectoris (5) PAF (paroxysmal atrial fibrillation) Current Visit: Yes Status: Chronic Assessment and plan: Chronic issue. (6) HTN (hypertension) Current Visit: No Status: Chronic Assessment and plan: Continue current meds Qualifiers: Hypertension type: essential hypertension Qualified Code(s): I10 - Essential (primary) hypertension (7) CHF (congestive heart failure) Current Visit: Yes Status: Chronic Assessment and plan: Change to PO Lasix. No KARLA due to renal function. Qualifiers: Heart failure type: systolic Heart failure chronicity: chronic Qualified Code(s): I50.22 - Chronic systolic (congestive) heart failure (8) Chronic kidney disease Current Visit: No Status: Chronic Assessment and plan: Chronic issue. Adjusting meds for renal function. Qualifiers: Chronic kidney disease stage: stage 3 (moderate) Qualified Code(s): N18.3 - Chronic kidney disease, stage 3 (moderate) - Subjective Interval history: Ms Cabrera is currently admitted for acute encephalopathy and cardiac arrest. She remains moderate to high risk due to potential for worsening clinical status. Ms Cabrera is up sitting on edge of bed this AM. She is more conversant and appropriate. She denies CP or SOB but says she is nauseated. No fever or chills. CXR yesterday was improved. She participated in therapy yesterday. - Constitutional Vitals: Temp Pulse Resp BP Pulse Ox 98.2 F 67 14 154/54 98 06/12/17 07:26 06/12/17 07:26 06/12/17 07:26 06/12/17 07:26 06/12/17 07:26 General appearance: Present: A&O X 2, answers questions appropriately - Head Head exam: Present: normocephalic - Eye Eye exam: Present: conjuntiva pink - ENT ENT exam: Present: mucous membranes moist - Respiratory Respiratory exam: Present: rhonchi, wheezes Additional comments: Scattered posterior rhonchi with small amount of wheeze. - Cardiovascular Cardiovascular exam: Present: distant heart sounds, RRR - GI/Abdominal GI/Abdominal exam: Present: soft. Absent: tenderness - Extremities Exam Extremities exam: Present: warm. Absent: tenderness - Neurological Exam Neurological exam: Present: alert - Skin Skin exam: Present: dry, warm Internal Medicine: Result - Labs CBC & Chem 7: 06/11/17 04:02 06/11/17 04:02 - ABG Interpretation ABG results: ABG ABG pH 7.52 pH Units (7.32-7.45) H 06/08/17 11:45 ABG pCO2 50 mmHg (35-45) H 06/08/17 11:45 ABG pO2 43 mmHg (85-104) L* 06/08/17 11:45 ABG O2 Saturation 82 % (95-98) L 06/08/17 11:45 PT/INR, D-dimer PT 13.2 Seconds (9.4-12.1) H 05/28/17 12:16 - Impressions Impressions Chest X-Ray 06/11/17 08:31 IMPRESSION: No acute cardiopulmonary disease. D/ / 06/11/2017 10:33:08 Zhao Prado MD / earnold Interpreting Provider: Zhao Prado MD - VTE Documentation of Mechanical Device: Intermittent pneumatic compression device Consult Discharge Plan - Plan Referrals: Vanita Chavez HARRIS [Primary Care Provider] - 06/07/17 9:00 am NONE,PCP [Non-Partnered Physician] -
[2017-06-12] MEDS: Furosemide 20 MG/2 ML VIAL IVP SCH (08:07)
[2017-06-12] MEDS: Ondansetron 4 MG/2 ML VIAL IVP PRN (08:08)
[2017-06-12] MEDS: Isosorbide MONOnitrate (24 HR) 30 MG TAB.ER.24H PO SCH (08:08)
[2017-06-12] MEDS: Apixaban 5 MG TABLET PO SCH ×2 (08:08→22:47)
[2017-06-12] MEDS: Ipratropium Neb 0.5 MG NEBULIZER IH SCH ×3 (09:30→22:30)
[2017-06-12] MEDS: predniSONE 20 MG TABLET PO SCH (10:47)
[2017-06-12] MEDS: GuaiFENesin Liq 200 MG/10 ML UDC PO SCH ×4 (10:47→22:58)
[2017-06-12] MEDS: traZODone 50 MG TABLET PO SCH (22:47)
[2017-06-13] MEDS: Ipratropium Neb 0.5 MG NEBULIZER IH SCH ×4 (03:48→21:50)
[2017-06-13] MEDS: Levalbuterol Neb 1.25 MG/3 ML IH SCH ×4 (03:48→21:50)
[2017-06-13 05:59] LABS: Hematocrit 29.3 % (35.3-44.9); Hemoglobin 8.4 g/dL (11.5-15.4); Mean Corpuscular HGB Conc 28.7 g/dL (31.6-35.5); Mean Corpuscular Hemoglobin 27.3 pg (28.0-33.3); Mean Corpuscular Volume 95.1 fL (83.0-100.0); Mean Platelet Volume 10.5 fL (9.4-12.4); Platelet Count 261 K/mcL (140-400); Red Blood Count 3.08 M/mcL (3.82-4.97); Red Cell Distribution Width 17.2 % (11.5-14.5)
[2017-06-13 06:09] LABS: Calcium 9.6 mg/dL (8.6-10.3); Potassium 3.6 mEq/L (3.5-5.1)
[2017-06-13] MEDS: GuaiFENesin Liq 200 MG/10 ML UDC PO SCH ×4 (06:27→23:33)
[2017-06-13] MEDS: Piperacillin/Tazobactam 3.375 GM in 0.9 % Sodium Chloride Mini Bag 100 ML IVPB SCH ×3 (07:31→23:32)
[2017-06-13] MEDS: Furosemide 20 MG/2 ML VIAL IVP SCH (07:35)
[2017-06-13] MEDS: Isosorbide MONOnitrate (24 HR) 30 MG TAB.ER.24H PO SCH (07:35)
[2017-06-13] MEDS: predniSONE 20 MG TABLET PO SCH (07:36)
[2017-06-13] MEDS: Apixaban 5 MG TABLET PO SCH ×2 (07:36→22:03)
--- NOTE | 2017-06-13 07:55 | Discharge Summary ---
Orders not resulted at time of discharge: Pending orders 06/08/17 08:12 Culture,Sputum with Gram Stain [RM] Routine 06/08/17 08:39 Culture,Blood [BC] Routine Date of Encounter: 06/13/17 Time of Encounter: 07:47 - Discharge Diagnosis (1) Acute on chronic respiratory failure with hypoxia and hypercapnia Priority: Primary Status: Acute (2) Pneumonia Priority: Secondary Status: Suspected Qualifiers: Pneumonia type: due to other aerobic Gram-negative bacteria Laterality: bilateral Lung location: lower lobe of lung Qualified Code(s): J15.6 - Pneumonia due to other Gram-negative bacteria (3) Acute metabolic encephalopathy Priority: Secondary Status: Resolved (4) CAD (coronary artery disease) Priority: Secondary Status: Chronic Qualifiers: Coronary Disease-Associated Artery/Lesion type: [place] artery [place] vs. transplanted heart: [place] heart Associated angina: angina presence unspecified Qualified Code(s): I25.10 - Atherosclerotic heart disease of [place] coronary artery without angina pectoris (5) PAF (paroxysmal atrial fibrillation) Priority: Secondary Status: Chronic (6) HTN (hypertension) Priority: Secondary Status: Chronic Qualifiers: Hypertension type: essential hypertension Qualified Code(s): I10 - Essential (primary) hypertension (7) CHF (congestive heart failure) Priority: Secondary Status: Chronic Qualifiers: Heart failure type: systolic Heart failure chronicity: chronic Qualified Code(s): I50.22 - Chronic systolic (congestive) heart failure (8) Chronic kidney disease Priority: Secondary Status: Chronic Qualifiers: Chronic kidney disease stage: stage 3 (moderate) Qualified Code(s): N18.3 - Chronic kidney disease, stage 3 (moderate) (9) Cardiac arrest Priority: Primary Status: Resolved (10) JESSICA (acute kidney injury) Priority: Secondary Status: Resolved (11) Dementia Priority: Secondary Status: Chronic Qualifiers: Dementia type: unspecified type Dementia behavioral disturbance: without behavioral disturbance Qualified Code(s): F03.90 - Unspecified dementia without behavioral disturbance (12) Hyperlipidemia Priority: Secondary Status: Chronic Qualifiers: Hyperlipidemia type: mixed hyperlipidemia Qualified Code(s): E78.2 - Mixed hyperlipidemia Hospital course: Ms. Cabrera is a 76 year old female recently hospitalized for cholecystitis with lap devika and fungemia transferred back to hospital for acute cardiac arrest. She was at rehab when she had arrest and regained ROSC. She was intubated and admitted to ICU. Ms Cabrera was admitted to ICU following cardiac arrest. She was initially hypotensive and required pressors. She was seen by cardiology and there was evaluation of AICD. She was noted to be in AT/ST on strips versus "slow VT". He . She was extubated on 05/30 and was doing OK at that time. [facility] was [facility] floor for further care. On 06/02 she was progressing. She was evaluated by PT and OT for return to SNF. She initially had some improvement but began to become more congested in her chest and somnolent. Repeat CXR showed pneumonia and she was started on broad spectrum abx. She was continued on Lasix as well but her creatinine increased so she received some fluids. Over the next few days her abx and diuretics were adjusted. On 06/11 she participated with therapy. On 06/12 she was much better. She was more oriented and clear. Today she is alert and oriented. Her respiratory status has improved. She is afebrile. She will be discharged to SNF. Discharge discussed with: patient - Time Spent with Patient Total time spent providing and/or coordinating discharge services: 42min - Discharge Medications Prescriptions: HYDROcodone/Acet 5/325 mg [[place] 5-325 mg] 1 tab PO Q6HR PRN 1 Days #4 tablet PRN Reason: Moderate Pain Amoxicillin/Clavulanate [Augmentin] 500 mg PO BIDWM #14 tablet LORazepam [Ativan] 0.5 mg PO TID PRN 2 Days #6 tablet PRN Reason: Anxiety Home Medications: Allopurinol [Zyloprim] 100 mg PO DAILY 11/18/14 [History] Aspirin Enteric Coated [Aspirin EC] 81 mg PO DAILY 11/18/14 [History] Lovastatin 80 mg PO DAILY #0 11/18/14 [History] Calcium Carbonate/Vitamin D3 [Caltrate 600 + D Soft Chew Tab] 2 tab PO DAILY # 60 tab.chew 07/18/15 [Rx] Ergocalciferol (VITAMIN D2) [Vitamin D2 (50,000 UNIT)] 1 cap PO QWEEK #12 capsule 07/18/15 [Rx] Isosorbide MONOnitrate (24 HR) [Imdur] 30 mg PO DAILY 11/06/15 [History] Docusate [Colace] 100 mg PO BID PRN capsule 05/26/17 [Rx] Furosemide [Lasix] 20 mg PO BIDDIURETIC tablet 05/26/17 [Rx] Alendronate Sodium [Fosamax] 70 mg PO TU 05/28/17 [History] Aspirin Enteric Coated [Aspirin EC] 81 mg PO DAILY 05/28/17 [History] Oxygen 2 l NS AD 05/28/17 [History] Umeclidinium [place] [Incruse Ellipta] 62.5 mcg IH DAILY 05/28/17 [History] Amoxicillin/Clavulanate [Augmentin] 500 mg PO BIDWM #14 tablet 06/13/17 [Rx] Apixaban [Eliquis] 2.5 mg PO BID tablet 06/13/17 [Rx] Carvedilol [Coreg] 12.5 mg PO BIDWM tablet 06/13/17 [Rx] GuaiFENesin Liq [Robitussin Liq] 200 mg PO Q6HR udc 06/13/17 [Rx] HYDROcodone/Acet 5/325 mg [[place] 5-325 mg] 1 tab PO Q6HR PRN 1 Days #4 tablet [Rx] Ipratropium Neb [Atrovent Neb] 0.5 mg IH [id number] inhsol 06/13/17 [Rx] LORazepam [Ativan] 0.5 mg PO TID PRN 2 Days #6 tablet 06/13/17 [Rx] Levalbuterol Neb [Xopenex Neb] 1.25 mg IH [id number] vial.neb 06/13/17 [Rx] Nitroglycerin 0.4 mg SL Q5MIN PRN tab.subl 06/13/17 [Rx] Omeprazole [PriLOSEC] 40 mg PO DAILY@0630 capsule. 06/13/17 [Rx] predniSONE [PredniSONE] 20 mg PO DAILY tablet 06/13/17 [Rx] traZODone [TraZODone] 25 mg PO HS tablet 06/13/17 [Rx] Allergies/Adverse Reactions: 3 Allergy/AdvReac Type Severity Reaction Status Date / Time No Known Allergies Allergy Verified 05/13/17 19:11 Date of admission: 05/28/17 15:41 Primary care physician: Vanita Chavez Consults: 05/28/17 17:14 Consult to Nutrition [CONS] Routine Comment: Consulting Provider: NUTRITION Reason for Dietary Consult: MST Score 05/28/17 20:07 Consult to Pulmonology [CONS] Routine Consulting Provider: Pulm Crit Care & Sleep [place] Reason for Consult: critical care Call Completed: Yes 05/30/17 15:01 Consult to Electrophysiology (EP) [CONS] Routine Consulting Provider: Electrophysiology Radha Reason for Consult: VT arrest Call Completed: Yes 05/31/17 14:03 Consult to Occupational Therapy [CONS] Routine Comment: Evaluate, develop and implement POC Reason for Consult: admitted 05/28 for vtach, s/p extubation 05/30; tolerating nasal cannula at 2L Consult to Physical Therapy [CONS] Routine Comment: Evaluate, develop and implement POC Reason for Consult: admitted 05/28 for vtach, s/p extubation 05/30; tolerating nasal cannula at 2L 06/03/17 01:21 Consult to Senior Talent Acquisition Specialist [CONS] Routine Reason for SW Consult: patient was from [place], was reported to this nurse that family did not want them to return there. PT/OT on board. 06/04/17 10:33 Consult to Speech Therapy [CONS] Routine Comment: Evaluate, develop and implement POC Reason for Consult: Concern for aspiration Call Completed: No 06/08/17 23:00 Consult to Cardiology [CONS] Routine Comment: Consulting Provider: Cardiology Radha Reason for Consult: concern for NSTEMI; new c/o chest pain tonight. STAT trop 0.18 Time Notified: 23:01 Call Completed: No Discharging clinician: Mayito Membreno Anticipated date of discharge: 06/13/17 - Constitutional Vitals: Temp Pulse Resp BP Pulse Ox 98.0 F 87 18 170/81 91 06/13/17 07:39 06/13/17 07:39 06/13/17 07:39 06/13/17 07:39 06/13/17 07:39 General appearance: Present: A&O X 2, answers questions appropriately - Patient Status Disposition: Transfer SNF Condition: Fair Functional capacity at discharge: uses cane/walker Overall status at discharge: patient is progressing back to baseline - Discharge Instructions Follow Up With: Vanita Chavez VAMP THROATER [Primary Care Provider] - 06/07/17 9:00 am NONE,PCP [Non-Partnered Physician] - - Diet and Activity Activity: as per physical therapy, increase activity as tolerated Diet: low fat, low cholesterol, low salt diet - VTE Documentation of Mechanical Device: Intermittent pneumatic compression device
--- NOTE | 2017-06-13 08:26 | Physician Discharge Referral ---
ExtendedCare Referral Info Provider in Charge after Transfer: PCP Institutional Level of Care: Skilled - Diagnosis (1) Acute on chronic respiratory failure with hypoxia and hypercapnia Priority: Primary Status: Acute (2) Pneumonia Priority: Secondary Status: Suspected (3) Acute metabolic encephalopathy Priority: Secondary Status: Resolved (4) CAD (coronary artery disease) Priority: Secondary Status: Chronic (5) PAF (paroxysmal atrial fibrillation) Priority: Secondary Status: Chronic (6) HTN (hypertension) Priority: Secondary Status: Chronic (7) CHF (congestive heart failure) Priority: Secondary Status: Chronic (8) Chronic kidney disease Priority: Secondary Status: Chronic (9) Cardiac arrest Priority: Primary Status: Resolved (10) JESSICA (acute kidney injury) Priority: Secondary Status: Resolved (11) Dementia Priority: Secondary Status: Chronic (12) Hyperlipidemia Priority: Secondary Status: Chronic Prognosis: Fair Aware of Diagnosis: Patient, Family Aware of Prognosis: Patient, Family - Transfer Medications Prescriptions: HYDROcodone/Acet 5/325 mg [[place] 5-325 mg] 1 tab PO Q6HR PRN 1 Days #4 tablet PRN Reason: Moderate Pain Amoxicillin/Clavulanate [Augmentin] 500 mg PO BIDWM #14 tablet LORazepam [Ativan] 0.5 mg PO TID PRN 2 Days #6 tablet PRN Reason: Anxiety Home Medications: Allopurinol [Zyloprim] 100 mg PO DAILY 11/18/14 [History] Aspirin Enteric Coated [Aspirin EC] 81 mg PO DAILY 11/18/14 [History] Lovastatin 80 mg PO DAILY #0 11/18/14 [History] Calcium Carbonate/Vitamin D3 [Caltrate 600 + D Soft Chew Tab] 2 tab PO DAILY # 60 tab.chew 07/18/15 [Rx] Ergocalciferol (VITAMIN D2) [Vitamin D2 (50,000 UNIT)] 1 cap PO QWEEK #12 capsule 07/18/15 [Rx] Isosorbide MONOnitrate (24 HR) [Imdur] 30 mg PO DAILY 11/06/15 [History] Docusate [Colace] 100 mg PO BID PRN capsule 05/26/17 [Rx] Furosemide [Lasix] 20 mg PO BIDDIURETIC tablet 05/26/17 [Rx] Alendronate Sodium [Fosamax] 70 mg PO TU 05/28/17 [History] Aspirin Enteric Coated [Aspirin EC] 81 mg PO DAILY 05/28/17 [History] Oxygen 2 l NS AD 05/28/17 [History] Umeclidinium [place] [Incruse Ellipta] 62.5 mcg IH DAILY 05/28/17 [History] Amoxicillin/Clavulanate [Augmentin] 500 mg PO BIDWM #14 tablet 06/13/17 [Rx] Apixaban [Eliquis] 2.5 mg PO BID tablet 06/13/17 [Rx] Carvedilol [Coreg] 12.5 mg PO BIDWM tablet 06/13/17 [Rx] GuaiFENesin Liq [Robitussin Liq] 200 mg PO Q6HR udc 06/13/17 [Rx] HYDROcodone/Acet 5/325 mg [[place] 5-325 mg] 1 tab PO Q6HR PRN 1 Days #4 tablet [Rx] Ipratropium Neb [Atrovent Neb] 0.5 mg IH [id number] inhsol 06/13/17 [Rx] LORazepam [Ativan] 0.5 mg PO TID PRN 2 Days #6 tablet 06/13/17 [Rx] Levalbuterol Neb [Xopenex Neb] 1.25 mg IH [id number] vial.neb 06/13/17 [Rx] Nitroglycerin 0.4 mg SL Q5MIN PRN tab.subl 06/13/17 [Rx] Omeprazole [PriLOSEC] 40 mg PO DAILY@0630 capsule. 06/13/17 [Rx] predniSONE [PredniSONE] 20 mg PO DAILY tablet 06/13/17 [Rx] traZODone [TraZODone] 25 mg PO HS tablet 06/13/17 [Rx] Allergies/Adverse Reactions: 3 Allergy/AdvReac Type Severity Reaction Status Date / Time No Known Allergies Allergy Verified 05/13/17 19:11 - Respiratory Orders Oxygen / L per min (Keep saturation greater than 88%) Smoking Cessation: Smoking cessation has been advised. For more information, call the [place] Tobacco Quit Line at 6-789-PCVC-NOW. - Ancillary Orders May use pressure relief devices daily prn, May consult with Dentist, Heat Treating Furnace Tender, Well Drill Operator Rotary Drill PRN - Advance Directives Code Status: DNR-Arrest - History and Physical History/Physical reviewed & approved w/add comments: Pt alert and oriented at this time. - Mobility Orders Chair, Ambulate - Rehabiliation Orders Rehab Potential: Fair Rehab Orders: Evaluation for Physical Therapy, Evaluation for Occupational Therapy - Treatments Skin tear care topically daily PRN per policy, May check for fecal impaction rectally daily PRN, Fleet enema rectally every other day PRN cleansing purposes - Diet Orders Cardiac CERTIFICATION: I certify that the transfer of the above named patient to an Extended Care Facility is necessary for the continuing treatment of the diagnosis listed. The above information is true and accurate reflection of patient's current condition. Confidential - Redisclosure prohibited without a patient's written consent.
[2017-06-13] MEDS: traZODone 50 MG TABLET PO SCH (22:03)
[2017-06-14] MEDS: Ipratropium Neb 0.5 MG NEBULIZER IH SCH ×2 (04:48→10:41)
[2017-06-14] MEDS: Levalbuterol Neb 1.25 MG/3 ML IH SCH ×2 (04:48→10:41)
[2017-06-14 05:31] LABS: Albumin 2.9 g/dL (3.5-5.7); Albumin/Globulin Ratio 0.9 (1.1-2.2); Bilirubin,Total 0.4 mg/dL (0.3-1.0); Calcium 9.4 mg/dL (8.6-10.3); Globulin 3.2 g/dL (2.4-3.5); Magnesium 1.9 mg/dL (1.6-2.6); Potassium 3.7 mEq/L (3.5-5.1); Total Protein 6.1 g/dL (6.4-8.9)
[2017-06-14 05:39] LABS: Troponin I 0.06 ng/mL (< 0.04)
[2017-06-14] MEDS: GuaiFENesin Liq 200 MG/10 ML UDC PO SCH (06:18)
[2017-06-14 06:45] VITALS: BP 120/58
--- NOTE | 2017-06-14 07:34 | Electrocardiograph Report ---
[place] [id number] Test Date: 2017-06-14 Pat Name: Sandra Cabrera Department: 113 Room: 3B Gender: F Pegger: : 1940 Requested By: Corey Saleem Order Number: [id number] Reading MD: Rudy Caraballo MD Measurements Intervals [place] Rate: 59 P: 67 VT: 143 QRS: 14 QRSD: 121 T: -42 QT: 415 QTc: 415 Interpretive Statements SINUS BRADYCARDIA POSSIBLE LEFT ATRIAL ENLARGEMENT Electronically Signed On 06-14-2017 7:33:07 EDT by Rudy Caraballo MD
[2017-06-14] MEDS: Isosorbide MONOnitrate (24 HR) 30 MG TAB.ER.24H PO SCH (08:42)
[2017-06-14] MEDS: predniSONE 20 MG TABLET PO SCH (08:42)
[2017-06-14] MEDS: Apixaban 5 MG TABLET PO SCH (08:43)
[2017-06-14] MEDS: Piperacillin/Tazobactam 3.375 GM in 0.9 % Sodium Chloride Mini Bag 100 ML IVPB SCH (08:44)
[2017-06-14] MEDS: Furosemide 20 MG/2 ML VIAL IVP SCH (08:45)
--- NOTE | 2017-06-14 10:27 | Event Note ---
Date of Encounter: 06/14/17 Time of Encounter: 10:16 Patient discharged to [facility] however she did not go, apparently there was some issue concerning insurance, and PT/OT- new PT/OT review sent to [facility] Spoke with Lucy social worker health services this AM who said she is ready to be discharge. Overnight the patient had some questionable PVCs I reviewed lab work this am- potassium and Mag WNL- I reviewed the strips overnight did not see any PVCs - According to staff patient does not have any CP or SOB - she has been discharged to [facility]
--- NOTE | 2017-06-14 17:53 | Electrocardiograph Report ---
[place] [id number] Test Date: 2017-06-14 Pat Name: Sandra Cabrera Department: 113 Room: 3B Gender: F Care Professional: : 1940 Requested By: Mayito Membreno Order Number: [id number] Reading MD: Rosalva Kern Measurements Intervals [place] Rate: 65 P: 69 ME: 165 QRS: 18 QRSD: 110 T: -45 QT: 348 QTc: 359 Interpretive Statements SINUS RHYTHM WITH OCCASIONAL VENTRICULAR PREMATURE COMPLEXES POSSIBLE LEFT ATRIAL ENLARGEMENT NONSPECIFIC ST & T-WAVE ABNORMALITY Electronically Signed On 06-14-2017 17:52:07 EDT by Rosalva Kern
== END 2017-06-14 12:27 | DRG 208 ==
LOC: EMEROO 11:42 → MERGE 15:41 → ICNU 15:41 → SUATTDRO 15:41 → ICNU 16:32 → 3ANU 06-01 19:21 → 3BNU 06-01 21:29
PROVIDERS: ADMIT Internal Medicine; ATTEND Internal Medicine